=== PATIENT | female | born 1990 | race Two or more races ===

== ENCOUNTER → 2020-06-08 08:03 | Outpatient (BNVA) | payer OTHER, SELFPAY | PROVIDERS: PCP Internal Medicine; Visit Provider Anesthesiology | DX: G89.4 Chronic pain syndrome (principal); M47.816 Spondylosis without myelopathy or radiculopathy, lumbar region; Z79.891 Long term (current) use of opiate analgesic | CPT/HCPCS: 99213 ==

== ENCOUNTER 2020-06-10 17:19 | Outpatient (REF) | payer OTHER, SELFPAY ==
[2020-06-10 18:45] LABS: HCG Quantitative < 2 mIU/mL
== END 2020-06-10 17:20 | disposition home or self-care (01) ==
LOC: HO.LAB 17:19
PROVIDERS: PCP Internal Medicine; Visit Provider Internal Medicine
DX: N92.6 Irregular menstruation, unspecified (principal)
CPT/HCPCS: 84702

== ENCOUNTER 2021-04-24 16:43 | Outpatient (REF) | payer OTHER, SELFPAY ==
--- NOTE | ~2021-04-24 | MR_ITS ---
EXAMINATION: MR LUMBAR SPINE WITHOUT CONTRAST CLINICAL INFORMATION: Chronic pain syndrome. COMPARISON: None. TECHNIQUE: MRI of the lumbar spine was obtained using routine sequences without contrast. FINDINGS: There is a very mild posterior disc bulge and small subligamentous left paracentral disc extrusion at the L1-L2 level with mild impression upon the ventral thecal sac on the left side. The central canal and neural foramina are otherwise widely patent at this level. The L2-L3 and L3-L4 discs are well hydrated and normal in appearance. At the L4-L5 level, there is a mild broad-based posterior disc bulge and shallow central disc protrusion with slight caudal migration. Bulging disc contacts and mildly distorts the left L5 nerve root. No central canal stenosis. Mild foraminal narrowing. At the L5-S1 level, there is a small posterior annular fissure and minimal annular bulge without central canal stenosis or foraminal encroachment. The lower thoracic discs are normal. The distal cord, conus tip, and cauda equina nerve roots are normal. The marrow signal is normal. The paraspinal soft tissues are unremarkable. The imaged bony pelvis appears normal. MR/MR lumbar spine wo con IMPRESSION: Small left paracentral disc extrusion and mild disc bulge at the L1-L2 level. Shallow central disc protrusion at L4-L5 level with a mild, broad-based posterior disc bulge contacting and mildly distorting the left L5 nerve root. Mild foraminal narrowing. Very mild spondylitic changes at the L5-S1 level. No central canal stenosis or foraminal narrowing.
== END 2021-04-24 16:44 | disposition home or self-care (01) ==
LOC: HO.MRI 16:43
PROVIDERS: PCP Nurse Practitioner Family; Visit Provider Nurse Practitioner Family
DX: G89.4 Chronic pain syndrome (principal); M47.816 Spondylosis without myelopathy or radiculopathy, lumbar region
CPT/HCPCS: 72148

== ENCOUNTER 2021-07-04 07:17 | Emergency (ER) | payer OTHER, SELFPAY ==
--- NOTE | ~2021-07-04 | XR_ITS ---
EXAMINATION: XR CHEST CLINICAL INFORMATION: DKA COMPARISON: Chest radiographs 03/30/2019, 12/31/2016 TECHNIQUE: PA view of the chest was obtained. FINDINGS: The lungs are clear. The vascularity is normal. There is no airspace opacity or effusion. The costophrenic sulci are clear. The heart is normal in size. The hilar and mediastinal contours and bony structures are unremarkable. XR/XR chest 1V IMPRESSION: Unremarkable examination.
--- NOTE | 2021-07-04 07:20 | ECG_ITS ---
Test Reason : chest pain Blood Pressure : / mmHG Vent. Rate : 107 BPM Atrial Rate : 107 BPM P-R Int : 150 ms QRS Dur : 070 ms QT Int : 340 ms P-R-T Axes : 042 033 026 degrees QTc Int : 453 ms Sinus tachycardia Otherwise normal ECG When compared with ECG of 30-MAR-2019 17:47, No significant change was found Referred By: Generic ED Physician Electronically Signed By:LUZ MARIA EISENBERG MD
[2021-07-04 07:22] VITALS: BP 147/82; PULSE 107; RESP 16; TEMP 36.6; O2SAT 95; BMI 30.9
--- NOTE | 2021-07-04 07:57 | ED_ITS ---
HPI - General Adult General Chief complaint: General Medical Stated complaint: rapid heartbeat, multiple complaints Time Seen by Provider: 07/04/21 07:49 Source: patient Mode of arrival: ambulatory Limitations: no limitations History of Present Illness HPI narrative: 31-year-old female history of insulin-dependent diabetes controlled with insulin pump, patient for the last couple days been feeling symptoms of DKA polyuria, polydipsia, patient did decline any fever or chills, patient get recurrent abscesses that usually treated with antibiotic patient just finished a course of antibiotic for abscesses in her thigh area otherwise no source of infection. Patient had multiple EKGs in the past. Related Data Home Medications Medication Instructions Recorded Confirmed blood sugar diagnostic #10 ea 05/23/20 04/19/21 insulin lispro 100 unit/mL See Rx Instructions .ROUTE .COMPLEX 05/23/20 07/04/21 subcutaneous solution tizanidine 4 mg tablet 4 mg PO TID PRN 05/23/20 07/04/21 Previous Rx's Medication Instructions Recorded blood sugar diagnostic (FreeStyle #100 ea 06/13/21 Test) blood-glucose meter (FreeStyle #1 ea 06/13/21 System Kit) lancets (FreeStyle Unistik 2) #200 ea 06/13/21 cephalexin 750 mg capsule (Keflex) 750 mg PO BID 10 Days #20 cap 06/27/21 sulfamethoxazole 800 1 tab PO Q12H 10 Days #20 tab 06/27/21 mg-trimethoprim 160 mg tablet (Bactrim DS) Allergies Allergy/AdvReac Type Severity Reaction Status Date / Time No Known Allergies Allergy Verified 05/18/21 16:23 [No Known Allergies*] Review of Systems Review of Systems: All other systems are reviewed and are negative Constitutional: Reports as per HPI and Reports no additional constitutional complaints Eyes: Reports as per HPI and Reports no additional eye complaints Reports system reviewed and no additional complaints, except as documented Cardiovascular: Reports as per HPI and Reports no additional cardiovascular complaints Respiratory: Reports as per HPI and Reports no additional respiratory complaints Gastrointestinal: Reports as per HPI and Reports no additional gastrointestinal complaints Genitourinary: Reports no additional female genitourinary complaints Musculoskeletal: Reports no additional musculoskeletal complaints Skin/Breast: Reports system reviewed and no additional complaints, except as docu Psychiatric: Reports no additional psychiatric complaints Endocrine: Reports no additional endocrine complaints Hematologic/Lymphatic: Reports no additional hematologic/lymphatic complaints Allergic/Immunologic: Reports no additional allergic/immunologic complaints Reports system reviewed and no additional complaints, except as documented and Reports Abnormal speech present [facility] Past Medical History Medical History Chronic pain syndrome Chronic, continuous use of opioids Cysts Spondylosis of lumbar region without myelopathy or radiculopathy Type I diabetes mellitus Surgical History History of cystoscopy History of hernia repair Previous section Family History Family History Father Alive and well Mother Alive and well Sister Alive and well Social History Social History Alcohol intake: never Smoked in Last 30 Days: No Use of substances other than those prescribed or required for medical reasons: No Advance Directives: No Patient : No Physical Exam Vital Signs: Vital Signs: Last Vital Signs Temp 97.8 F 07/04/21 11:22 Pulse 79 07/04/21 11:22 Resp 16 07/04/21 11:22 BP 121/70 07/04/21 11:22 Pulse Ox 97 07/04/21 11:22 Body Mass Index 30.9 Vital signs have been reviewed as appeared to be correct. Blood pressure normal. Heart rate normal. Respiration rate normal. Temperature normal. Oxygen saturation normal. Appearance: Alert. Oriented X3. No acute distress. Head: Normal external exam. Normocephalic. Atraumatic. No Abdullahi signs noted. No raccoon eyes noted Eyes: PERRLA. EOMI. Conjunctiva and sclera normal. Eyelids normal. ENT: TM's Normal. Pharynx normal. Uvula midline. Moist mucous membranes. No trismus noted. No drooling noted. No muffled voice noted. Neck: Normal inspection. Neck supple. FROM. No adenopathy. Thyroid Normal. No meningeal signs. No neck mass noted. CVS: Normal heart rate and rhythm. Heart sound normal. No murmurs noted. Pulses normal throughout. Respiratory: No respiratory distress. Painless inspiration. Breath sounds normal. No wheezes/rales/rhonchi noted. Chest nontender. No accessory muscle usage noted or decreased air movement noted. Abdomen: Soft and nontender. Bowel sounds normal in all 4 quadrants. No distention noted. No organomegaly noted. No visible injury noted. Back: No CVA tenderness. Full range of motion noted. Skin: Skin warm and dry. Normal skin color. Normal skin turgor. No rashes/lesions/lacerations noted. Extremities: No lower extremity edema. Extremities exhibit normal range of motion. Extremities nontender. Neuro: Oriented X 3. Cranial nerve exam: II-XII are grossly intact No motor deficit. No sensory deficit. Reflexes normal. Course Course Course Narrative: Assessment and plan. 31-year-old female type 1 diabetes using insulin pump to control her diabetes came in with hyperglycemia but no DKA, no source of infection is appreciated, blood sugar was 739, with normal bicarb and anion gap, no acetone in the blood, patient received 2 L of normal saline and total of 10 units of insulin brought the glucose down in the 300, patient was asked to reconnect the insulin pump now blood glucose is 280. Patient was instructed to drink plenty of fluids, patient will be going home continue monitoring her diabetes at home. Medical Decision Making Medical Records Medical records reviewed: Yes I reviewed the patient's medical records. Lab Data Lab results reviewed: Yes I reviewed the patient's lab results. Result diagrams: 07/04/21 08:18 07/04/21 11:37 Labs: Lab Results 07/04/21 07/04/21 07/04/21 Range/Units 08:13 08:13 08:18 WBC 7.4 (4.8-10.8) X10*3/uL RBC 4.16 L (4.20-5.50) X10*6/uL Hgb 12.4 (12.0-16.0) g/dl Hct 37.2 (37.0-47.0) % MCV 89.4 (80.0-98.0) fL MCH 29.8 (27.0-33.0) pg MCHC 33.3 (31.0-35.0) g/dl RDW 12.3 (11.0-16.0) % Plt Count 313 (160-400) X10*3/uL MPV 10.6 (9.4-12.3) fL Immature Gran % (Auto) 0.7 H (0.0-0.4) % Neut % (Auto) 69.8 (45-73) % Lymph % (Auto) 21.1 (20-40) % [place] % (Auto) 7.8 (2-11) % Eos % (Auto) 0.3 (0-4) % Baso % (Auto) 0.3 (0-2) % Lymph # (Auto) 1.6 (1.2-4.9) X10*3/uL [place] # (Auto) 0.6 (0.1-1.2) X10*3/uL Eos # (Auto) 0.0 (0.0-0.4) X10*3/uL Baso # (Auto) 0.0 (0.0-0.2) X10*3/uL Abs Immat Gran (auto) 0.05 H (0.00-0.03) X10*3/uL Absolute Neuts (auto) 5.2 (2.0-8.3) x10*3/uL Absolute Nucleated RBC 0.000 (0.0-0.012) X10*3/uL Nucleated RBC % (auto) 0.0 (0.0-0.2) /100WBC Sodium (135-145) mmol/L Potassium (3.3-5.1) mmol/L Chloride (96-108) mmol/L Carbon Dioxide (22-29) mmol/L Anion Gap (12-20) BUN (9-16) mg/dL Creatinine (0.5-1.4) mg/dL Estim Creat Clear Calc Estimated GFR POC Glucose (60-115) mg/dL Random Glucose (60-115) mg/dL Calcium (8.4-10.2) mg/dL Phosphorus (2.7-4.5) mg/dL Magnesium (1.6-2.6) mg/dL Total Bilirubin (0.0-1.0) mg/dL Direct Bilirubin (0.0-0.5) mg/dL AST (5-31) U/L ALT (0-31) U/L Alkaline Phosphatase (39-117) U/L Total Protein (6.5-8.0) g/dL Albumin (3.5-5.0) g/dL Lipase (8-78) U/L Urine Color STRAW Urine Appearance CLEAR Urine pH 5.5 (5.0-8.0) Ur Specific [place] <= 1.005 (1.005-1.025) Urine Protein NEG (NEG-TRACE) MG/DL Urine Glucose (UA) >=1000 H (NEG) MG/DL Urine Ketones NEG (NEG) MG/DL Urine Blood NEG (NEG) Urine Nitrite NEG (NEG) Ur Leukocyte Esterase NEG (NEG) Urine RBC 0-2 (0) /HPF Urine WBC 0 (0-4) /HPF Ur Squamous Epith Cells TRACE /LPF Urine Bacteria NONE /LPF Urine Test NEGATIVE (NEGATIVE) Acetone, Qual (Negative) COVID-19 (ALEN) (Negative) COVID-19 Clin Com 07/04/21 07/04/21 07/04/21 Range/Units 08:18 08:18 08:18 WBC (4.8-10.8) X10*3/uL RBC (4.20-5.50) X10*6/uL Hgb (12.0-16.0) g/dl Hct (37.0-47.0) % MCV (80.0-98.0) fL MCH (27.0-33.0) pg MCHC (31.0-35.0) g/dl RDW (11.0-16.0) % Plt Count (160-400) X10*3/uL MPV (9.4-12.3) fL Immature Gran % (Auto) (0.0-0.4) % Neut % (Auto) (45-73) % Lymph % (Auto) (20-40) % [place] % (Auto) (2-11) % Eos % (Auto) (0-4) % Baso % (Auto) (0-2) % Lymph # (Auto) (1.2-4.9) X10*3/uL [place] # (Auto) (0.1-1.2) X10*3/uL Eos # (Auto) (0.0-0.4) X10*3/uL Baso # (Auto) (0.0-0.2) X10*3/uL Abs Immat Gran (auto) (0.00-0.03) X10*3/uL Absolute Neuts (auto) (2.0-8.3) x10*3/uL Absolute Nucleated RBC (0.0-0.012) X10*3/uL Nucleated RBC % (auto) (0.0-0.2) /100WBC Sodium 131 L (135-145) mmol/L Potassium 5.0 (3.3-5.1) mmol/L Chloride 99 (96-108) mmol/L Carbon Dioxide 22 (22-29) mmol/L Anion Gap 15 (12-20) BUN 11 (9-16) mg/dL Creatinine 1.26 (0.5-1.4) mg/dL Estim Creat Clear Calc 66.8 Estimated GFR 50 POC Glucose (60-115) mg/dL Random Glucose 739 H* (60-115) mg/dL Calcium 9.0 9.1 (8.4-10.2) mg/dL Phosphorus 3.7 (2.7-4.5) mg/dL Magnesium 2.0 (1.6-2.6) mg/dL Total Bilirubin 0.3 (0.0-1.0) mg/dL Direct Bilirubin 0.2 (0.0-0.5) mg/dL AST 13 (5-31) U/L ALT 24 (0-31) U/L Alkaline Phosphatase 154 H (39-117) U/L Total Protein 7.2 (6.5-8.0) g/dL Albumin 4.2 (3.5-5.0) g/dL Lipase 32 (8-78) U/L Urine Color Urine Appearance Urine pH (5.0-8.0) Ur Specific [place] (1.005-1.025) Urine Protein (NEG-TRACE) MG/DL Urine Glucose (UA) (NEG) MG/DL Urine Ketones (NEG) MG/DL Urine Blood (NEG) Urine Nitrite (NEG) Ur Leukocyte Esterase (NEG) Urine RBC (0) /HPF Urine WBC (0-4) /HPF Ur Squamous Epith Cells /LPF Urine Bacteria /LPF Urine Test (NEGATIVE) Acetone, Qual (Negative) COVID-19 (ALEN) Negative (Negative) COVID-19 Clin Com See Note 07/04/21 07/04/21 07/04/21 Range/Units 08:18 11:27 11:37 WBC (4.8-10.8) X10*3/uL RBC (4.20-5.50) X10*6/uL Hgb (12.0-16.0) g/dl Hct (37.0-47.0) % MCV (80.0-98.0) fL MCH (27.0-33.0) pg MCHC (31.0-35.0) g/dl RDW (11.0-16.0) % Plt Count (160-400) X10*3/uL MPV (9.4-12.3) fL Immature Gran % (Auto) (0.0-0.4) % Neut % (Auto) (45-73) % Lymph % (Auto) (20-40) % [place] % (Auto) (2-11) % Eos % (Auto) (0-4) % Baso % (Auto) (0-2) % Lymph # (Auto) (1.2-4.9) X10*3/uL [place] # (Auto) (0.1-1.2) X10*3/uL Eos # (Auto) (0.0-0.4) X10*3/uL Baso # (Auto) (0.0-0.2) X10*3/uL Abs Immat Gran (auto) (0.00-0.03) X10*3/uL Absolute Neuts (auto) (2.0-8.3) x10*3/uL Absolute Nucleated RBC (0.0-0.012) X10*3/uL Nucleated RBC % (auto) (0.0-0.2) /100WBC Sodium (135-145) mmol/L Potassium (3.3-5.1) mmol/L Chloride (96-108) mmol/L Carbon Dioxide (22-29) mmol/L Anion Gap (12-20) BUN (9-16) mg/dL Creatinine (0.5-1.4) mg/dL Estim Creat Clear Calc Estimated GFR POC Glucose 297 H (60-115) mg/dL Random Glucose 336 H D (60-115) mg/dL Calcium (8.4-10.2) mg/dL Phosphorus (2.7-4.5) mg/dL Magnesium (1.6-2.6) mg/dL Total Bilirubin (0.0-1.0) mg/dL Direct Bilirubin (0.0-0.5) mg/dL AST (5-31) U/L ALT (0-31) U/L Alkaline Phosphatase (39-117) U/L Total Protein (6.5-8.0) g/dL Albumin (3.5-5.0) g/dL Lipase (8-78) U/L Urine Color Urine Appearance Urine pH (5.0-8.0) Ur Specific [place] (1.005-1.025) Urine Protein (NEG-TRACE) MG/DL Urine Glucose (UA) (NEG) MG/DL Urine Ketones (NEG) MG/DL Urine Blood (NEG) Urine Nitrite (NEG) Ur Leukocyte Esterase (NEG) Urine RBC (0) /HPF Urine WBC (0-4) /HPF Ur Squamous Epith Cells /LPF Urine Bacteria /LPF Urine Test (NEGATIVE) Acetone, Qual Negative (Negative) COVID-19 (ALEN) (Negative) COVID-19 Clin Com 07/04/21 Range/Units 13:24 WBC (4.8-10.8) X10*3/uL RBC (4.20-5.50) X10*6/uL Hgb (12.0-16.0) g/dl Hct (37.0-47.0) % MCV (80.0-98.0) fL MCH (27.0-33.0) pg MCHC (31.0-35.0) g/dl RDW (11.0-16.0) % Plt Count (160-400) X10*3/uL MPV (9.4-12.3) fL Immature Gran % (Auto) (0.0-0.4) % Neut % (Auto) (45-73) % Lymph % (Auto) (20-40) % [place] % (Auto) (2-11) % Eos % (Auto) (0-4) % Baso % (Auto) (0-2) % Lymph # (Auto) (1.2-4.9) X10*3/uL [place] # (Auto) (0.1-1.2) X10*3/uL Eos # (Auto) (0.0-0.4) X10*3/uL Baso # (Auto) (0.0-0.2) X10*3/uL Abs Immat Gran (auto) (0.00-0.03) X10*3/uL Absolute Neuts (auto) (2.0-8.3) x10*3/uL Absolute Nucleated RBC (0.0-0.012) X10*3/uL Nucleated RBC % (auto) (0.0-0.2) /100WBC Sodium (135-145) mmol/L Potassium (3.3-5.1) mmol/L Chloride (96-108) mmol/L Carbon Dioxide (22-29) mmol/L Anion Gap (12-20) BUN (9-16) mg/dL Creatinine (0.5-1.4) mg/dL Estim Creat Clear Calc Estimated GFR POC Glucose 280 H (60-115) mg/dL Random Glucose (60-115) mg/dL Calcium (8.4-10.2) mg/dL Phosphorus (2.7-4.5) mg/dL Magnesium (1.6-2.6) mg/dL Total Bilirubin (0.0-1.0) mg/dL Direct Bilirubin (0.0-0.5) mg/dL AST (5-31) U/L ALT (0-31) U/L Alkaline Phosphatase (39-117) U/L Total Protein (6.5-8.0) g/dL Albumin (3.5-5.0) g/dL Lipase (8-78) U/L Urine Color Urine Appearance Urine pH (5.0-8.0) Ur Specific [place] (1.005-1.025) Urine Protein (NEG-TRACE) MG/DL Urine Glucose (UA) (NEG) MG/DL Urine Ketones (NEG) MG/DL Urine Blood (NEG) Urine Nitrite (NEG) Ur Leukocyte Esterase (NEG) Urine RBC (0) /HPF Urine WBC (0-4) /HPF Ur Squamous Epith Cells /LPF Urine Bacteria /LPF Urine Test (NEGATIVE) Acetone, Qual (Negative) COVID-19 (ALEN) (Negative) COVID-19 Clin Com Imaging Data Chest x-ray: Attestation: I personally reviewed and interpreted this imaging study as follows: Radiologist's impression: No acute intrathoracic pathology. Discharge Plan Discharge Clinical Impression: Acute hyperglycemia, Type I diabetes mellitus Patient Disposition: Home, Self-Care Instructions: Diabetic Hyperglycemia (ED) Prescriptions: No Action (DME) blood-glucose meter [FreeStyle System Kit] Kit See Rx Instructions .Route Qty: 1 RF: 0 (DME) lancets [FreeStyle Unistik 2] Misc See Rx Instructions .Route Qty: 200 RF: 0 (DME) FreeStyle Test Strip See Rx Instructions .Route Qty: 100 RF: 2 cephalexin [Keflex] 750 mg capsule 750 mg PO BID 10 Days Qty: 20 RF: 0 sulfamethoxazole-trimethoprim [Bactrim DS] 800-160 mg tablet 1 tab PO Q12H 10 Days Qty: 20 RF: 0 tizanidine 4 mg tablet 4 mg PO TID PRN (Reason: Muscle Spasm) RF: 0 insulin lispro 100 unit/mL solution See Rx Instructions .ROUTE .COMPLEX RF: 0 (DME) FreeStyle Lite Strips Strip See Rx Instructions strip .ROUTE .MEDSUPPLY Qty: 10 RF: 0 Referrals: Ryan Sam, [employer] [Primary Care Provider] - 2 days Stand Alone Forms: Work/School Release
[2021-07-04] MEDS: 0.9 % Sodium Chloride 1,000 ML 999 ML IVCONT ×2 (08:21→10:37)
[2021-07-04 08:24] LABS: MANUAL DIFF FLAG NO
--- NOTE | 2021-07-04 08:26 | PHA.MEDREC ---
Pharmacy Consult ? Medication Reconciliation Pharmacy has completed the medication reconciliation. There are no remarkable issues for provider's attention. Madelyn Fall, CristinoD
[2021-07-04 08:29] LABS: Basophils Percent Auto 0.3 % (0-2); Eosinophils Percent Auto 0.3 % (0-4); Hematocrit 37.2 % (37.0-47.0); Hemoglobin 12.4 g/dl (12.0-16.0); Imm Gran Abs Auto 0.05 X10*3/uL (0.00-0.03); Imm Gran Pct Auto 0.7 % (0.0-0.4); Lymphocytes Absolute Auto 1.6 X10*3/uL (1.2-4.9); Lymphocytes Percent Auto 21.1 % (20-40); Mean Corpuscular HGB Conc 33.3 g/dl (31.0-35.0); Mean Corpuscular Hemoglobin 29.8 pg (27.0-33.0); Mean Corpuscular Volume 89.4 fL (80.0-98.0); Mean Platelet Volume 10.6 fL (9.4-12.3); Monocytes Absolute Auto 0.6 X10*3/uL (0.1-1.2); Monocytes Percent Auto 7.8 % (2-11); Neutrophils Absolute Auto 5.2 x10*3/uL (2.0-8.3); Neutrophils Percent Auto 69.8 % (45-73); Platelet Count 313 X10*3/uL (160-400); Red Blood Count 4.16 X10*6/uL (4.20-5.50); Red Cell Distribution Width 12.3 % (11.0-16.0); White Blood Count 7.4 X10*3/uL (4.8-10.8)
[2021-07-04 08:30] LABS: Appearance Urine CLEAR; Color Urine STRAW; Glucose Urine UA >=1000 MG/DL (NEG); Leukocyte Esterase Urine NEG (NEG); Nitrite Urine NEG (NEG); PH 5.5 (5.0-8.0); Specific Gravity - Urine <= 1.005 (1.005-1.025); Urine Blood NEG (NEG); Urine Ketones NEG (NEG); Urine Protein NEG (NEG-TRACE)
[2021-07-04 08:32] LABS: UPreg QC Valid YES; Urine Pregnancy NEGATIVE (NEGATIVE)
[2021-07-04 08:37] LABS: RBC Urine 0-2 /HPF (0); Squamous Epithelial Cell Urine TRACE /LPF; WBC Urine 0 /HPF (0-4)
[2021-07-04 08:39] LABS: Acetone, serum QL Negative (Negative)
[2021-07-04 08:50] LABS: Calcium 9.1 mg/dL (8.4-10.2); Phosphorus 3.7 mg/dL (2.7-4.5)
[2021-07-04 08:51] LABS: COVID-19 Test Negative (Negative)
[2021-07-04 08:59] LABS: Alanine Aminotransferase 24 U/L (0-31); Albumin Level 4.2 g/dL (3.5-5.0); Alkaline Phosphatase 154 U/L (39-117); Anion Gap 15 (12-20); Aspartate Amino Transferase 13 U/L (5-31); Bilirubin Direct 0.2 mg/dL (0.0-0.5); Bilirubin Total 0.3 mg/dL (0.0-1.0); Blood Urea Nitrogen 11 mg/dL (9-16); Carbon Dioxide 22 mmol/L (22-29); Chloride 99 mmol/L (96-108); Creatinine Clr Calc Pharmacy 66.8; Estimated Glomerular Filt Rate 50; Lipase 32 U/L (8-78); Sodium 131 mmol/L (135-145); Total Protein 7.2 g/dL (6.5-8.0)
[2021-07-04 09:49] LABS: Glucose Random 739 mg/dL (60-115)
[2021-07-04] MEDS: Acetaminophen 325 MG TABLET 650 MG PO (10:35)
[2021-07-04] MEDS: Insulin Regular, Human 100 UNIT/ML 3 ML VIAL 10 UNIT IVPUSH (10:36)
[2021-07-04 11:22] VITALS: BP 121/70; PULSE 79; RESP 16; TEMP 36.6; O2SAT 97
[2021-07-04 11:31] LABS: Glucose, Whole Blood 297 mg/dL (60-115)
--- NOTE | 2021-07-04 12:03 | PC.NURSE ---
md aware of drop in poc
[2021-07-04 12:12] LABS: Glucose Random 336 mg/dL (60-115)
[2021-07-04 13:27] LABS: Glucose, Whole Blood 280 mg/dL (60-115)
== END 2021-07-04 13:45 | disposition home or self-care (01) ==
PROVIDERS: Emergency Provider Emergency Medicine; PCP Nurse Practitioner Family
DX: E10.65 Type 1 diabetes mellitus with hyperglycemia (principal); Z79.899 Other long term (current) drug therapy; Z96.41 Presence of insulin pump (external) (internal); Z79.4 Long term (current) use of insulin; Z20.822 Contact with and (suspected) exposure to COVID-19
CPT/HCPCS: 36415; 71045; 80048; 80076; 81001; 81025; 82009; 82310; 82947; 83690; 83735; 84100; 85025; 87635; 93005; 96361; 96374; 99284; 99285

== ENCOUNTER 2021-12-06 07:56 | Outpatient (REF) | payer OTHER, SELFPAY ==
[2021-12-06 09:17] LABS: HCG Quantitative 741 mIU/mL
== END 2021-12-06 07:57 | disposition home or self-care (01) ==
LOC: HO.LAB 07:56
PROVIDERS: PCP Nurse Practitioner Family; Visit Provider Nurse Practitioner Family
DX: N92.6 Irregular menstruation, unspecified (principal)
CPT/HCPCS: 36415; 84702

== ENCOUNTER 2021-12-09 10:25 | Emergency (ER) | payer OTHER, SELFPAY ==
--- NOTE | ~2021-12-09 | US_ITS ---
EXAMINATION: US OBSTETRICAL ULTRASOUND US PELVIC OVARIAN DOPPLER CLINICAL INFORMATION: 31-year-old female with history of ectopic and tubal ligation reversal. Right-sided pelvic pain. Newly . Beta hCG level of 2,560. LMP of 11/05/2021. Gestational age based on LMP is 4 weeks, 6 days. COMPARISON: 08/03/2017.. TECHNIQUE: Sonographic imaging of the pelvis is performed using transabdominal and transvaginal transducers. Duplex Doppler imaging with spectral waveform analysis of ovaries is performed. FINDINGS: The uterus and ovaries are poorly visualized on the transabdominal images. Transvaginal imaging is performed. The anteflexed, anteverted uterus measures 10.3 x 5.3 x 6.5 cm (cervix to fundus x AP x transverse). Myometrial echotexture is normal. No evidence of leiomyoma. Within the endometrium, there is a small gestational sac, mean diameter of 0.55 cm, corresponding to estimated gestational age of 5 weeks, 1 day. Currently, no pole or yolk sac is detected. Note that a yolk sac might not be visible until the gestational sac has reached at least 1 cm diameter on transvaginal imaging. The right ovary is 4.4 x 1.9 x 2.2 cm, volume of 9.6 mL. A 2.2 cm echogenic structure without internal Doppler flow within the right ovary is compatible with either a corpus luteum or hemorrhagic follicle/cyst. 1.5 cm simple paraovarian cyst is noted medial to the right ovary. Color Doppler images with spectral waveforms show presence of normal arterial and venous flow within the right ovary. The left ovary measures 2.8 x 2 x 2.1 cm, volume of 6.2 mL. Normal-sized follicles are present within the ovary. Color Doppler images with spectral waveforms show presence of normal arterial and venous flow of the ovary. Small amount of simple appearing free fluid is present in the pelvis. US/US OB pelvic and transvaginal IMPRESSION: * A small gestational sac is detected within the endometrium. Currently, there is no visible yolk sac or pole. This likely represents early presentation of a likely normal . Consider pelvic ultrasound follow-up in the next 1-2 weeks to determine whether there is appropriate evolution of . * There is a 2.2 cm corpus luteum or hemorrhagic follicle of the right ovary. The possibility of recent right ovarian follicle rupture is considered, given the history of right-sided pelvic pain. No ovarian torsion. * Small amount of simple appearing free fluid is present in the pelvis.
[2021-12-09 10:29] VITALS: BP 129/69; PULSE 95; RESP 18; TEMP 36.9; O2SAT 98; BMI 30.9
--- NOTE | 2021-12-09 10:50 | ED.FEMALEGU ---
HPI - Female Genitourinary General Chief complaint: Urogenital-Female Stated complaint: cramping Time Seen by Provider: 12/09/21 10:41 Source: patient Mode of arrival: ambulatory Limitations: no limitations History of Present Illness HPI Narrative: 31-year-old female presents with severe pelvic cramping that woke her from sleep last night. LMP 11/07/21, which was her normal 6 day period. No bleeding. Patient is an insulin dependent diabetic and is followed by [facility] plant quality manager because she is high risk. Patient states that her pelvic pain is not as bad now and she mostly feels it when she walks. The cramping is worse when she walks. She is nauseous. Patient had a positive urine test December 05 at home. Her hCG December 06, 3 days ago was 741. Patient had an ectopic the 1st time she was in 2014. She has subsequently had 2 live births by at [facility], her children are 4 years old and 5 years old. In addition, in September 2021, patient had a bilateral fallopian tube ligation reversal in [place]. No vomiting or diarrhea, no fevers. No STD concerns. No dysuria, urinary frequency or urgency. Related Data Home Medications Medication Instructions Recorded Confirmed blood sugar diagnostic #10 ea 05/23/20 04/19/21 insulin lispro 100 unit/mL See Rx Instructions .ROUTE .COMPLEX 05/23/20 07/04/21 subcutaneous solution tizanidine 4 mg tablet 4 mg PO TID PRN 05/23/20 07/04/21 Previous Rx's Medication Instructions Recorded blood sugar diagnostic (FreeStyle #100 ea 06/13/21 Test) blood-glucose meter (FreeStyle #1 ea 06/13/21 System Kit) lancets (FreeStyle Unistik 2) #200 ea 06/13/21 cephalexin 750 mg capsule (Keflex) 750 mg PO BID 10 Days #20 cap 06/27/21 sulfamethoxazole 800 1 tab PO Q12H 10 Days #20 tab 06/27/21 mg-trimethoprim 160 mg tablet (Bactrim DS) fluconazole 150 mg tablet 150 mg PO Q3D #2 tab 07/12/21 (Diflucan) chlorhexidine gluconate 4 % 1 appl TOPICAL Q5M #118 ml 08/31/21 topical liquid (Hibiclens) cefpodoxime 100 mg tablet 100 mg PO BID 7 Days #14 tab 12/09/21 Allergies Allergy/AdvReac Type Severity Reaction Status Date / Time No Known Allergies Allergy Verified 12/09/21 10:32 [No Known Allergies*] Review of Systems Constitutional: Constitutional: Denies body ache(s), Denies chills, Denies fatigue, Denies fever(s), Denies headache(s), Denies malaise and Denies weakness Eyes: Eyes: Denies diplopia ENT: Denies vertigo, Denies dizziness, Denies otalgia, Denies headache(s), Denies post nasal drip, Denies sinus pain and Denies sore throat Cardiovascular: Cardiovascular: Denies chest pain, Denies syncope, Denies leg edema, Denies lightheadedness, Denies Loss of Consciousness, Denies palpitations and Denies dyspnea Respiratory: Respiratory: Denies chest congestion, Denies cough and Denies dyspnea Gastrointestinal: Gastrointestinal: Denies abdominal pain, Denies hematochezia, Denies constipation, Denies diarrhea and Denies vomiting Genitourinary: Genitourinary: Denies abnormal vaginal bleeding, Denies hematuria, Denies dysuria, Reports pelvic pain, Denies flank pain, Denies urinary incontinence, Denies urinary hesitancy, Denies urinary urgency, Denies vaginal discharge and Denies vaginal odor Musculoskeletal: Musculoskeletal: Reports no additional musculoskeletal complaints Neurologic: Denies confusion, Denies vertigo, Denies dizziness, Denies syncope, Denies headache(s) and Denies weakness Psychiatric: Psychiatric: Denies anxiety, Denies confusion and Denies depression Endocrine: Endocrine: Denies fatigue and Denies palpitations [facility] Past Medical History Medical History Chronic pain syndrome Chronic, continuous use of opioids Cysts Hidradenitis suppurativa Spondylosis of lumbar region without myelopathy or radiculopathy Type I diabetes mellitus Surgical History History of cystoscopy History of hernia repair Previous section Family History Family History Father Alive and well Mother Alive and well Sister Alive and well Social History Social History Alcohol intake: never Advance Directives: Yes Advance Directives Information Provided: Yes Advance Directives on File: No Patient : Yes Physical Exam Vital Signs: Vital Signs: Last Vital Signs Temp 98.5 F 12/09/21 10:29 Pulse 89 12/09/21 11:07 Resp 14 12/09/21 11:07 BP 129/48 L 12/09/21 11:07 Pulse Ox 95 12/09/21 11:07 BMI result Body Mass Index 30.9 Const: General: No confusion Nutritional Appearance: well nourished Orientation/consciousness: No confusion Limitations: no limitations Eyes: Conjunctivae: conjunctivae normal Pupils: Equal, round and reactive pupils present EOM: EOMs intact bilaterally Neck: Neck: Yes full ROM, Yes no lymphadenopathy and Yes supple Resp: Effort & Inspection: normal respiratory effort and able to speak in complete sentences Auscultation: clear to auscultation bilaterally, no crackles, no rales, no rhonchi and no wheezes Cardio: Rate: regular rate Rhythm: regular rhythm Heart sounds: S1 normal heart sound present and S2 normal heart sound present GI: Inspection: Yes normal to inspection Palpation (GI): Soft to palpation, nontender, no guarding and not rigid Percussion: Yes normal to percussion Auscultation: normal bowel sounds : General: Yes no CVA tenderness External Female Exam: other (multiple non-erythematous skin cysts) Speculum Exam - Vagina: normal appearance of the vagina, normal palpation, normal vaginal discharge, no lesions and No vaginal bleeding Speculum Exam - Cervix: normal appearance of the cervix, normal palpation and Cervical os closed Bimanual exam- vagina & uterus: normal bimanual exam, normal palpation and normal palpation Bimanual Exam- Adnexa, other: normal adnexae OB/external & speculum: No vaginal bleeding Back/Spine/Pelvis: Back: no CVA tenderness Skin: General skin exam: no rashes or lesions noted Neuro: General: No confusion Cranial nerves: Yes Equal, round and reactive pupils present Extrem: General: Yes normal to inspection and Yes full ROM Psych: Appearance: grossly normal Affect: normal affect Attitude: cooperative Thought process: Normal thought process present Course Course Course Narrative: 31-year-old female presents with sudden severe pelvic pain that is now resolving that woke her from sleep this morning. Patient is , last menstrual period November 05. History of ectopic and tubal ligation reversal. On exam, patient has normal speculum exam, os is closed, no bleeding, normal vaginal discharge. No adnexal tenderness or cervical motion tenderness on bimanual exam. Patient's HCG is 2560 today, having risen from 4713 days ago. Blood sugar is 138. And has positive nitrates with white blood cells. Ultrasound shows a gestational sac and endometrium, possible right-sided ruptured ovarian cyst, normal Doppler blood flow bilaterally. Spoke to Dr. Funk , he stated it is still possible for patient to have ectopic , ultrasound findings could represent a pseudo sac. He counseled she should have a repeat hCG in 48 hours with a repeat ultrasound, to confirm her hCG is rising appropriately. In addition, he stated patient's blood sugar being 138 and not postprandial, patient should follow-up to adjust her insulin pump with [facility]. Blood glucose should be less than 120 if she has not been eating. We discussed treating for UTI, he suggested waiting for urine culture to treat I am concerned this patient is high risk, insulin-dependent diabetic, I will treat her UTI and a urine culture comes back and does not warrant treatment, we will stop her antibiotics. Counseled patient that it is still possible that she has an ectopic , that she must have repeat hCG and ultrasound in 48 hours, if she cannot get this at [facility], she must return to the emergency room here on Saturday. Counseled her also to talk with them about adjusting her insulin pump, discussed treating her UTI. Gave strict return precautions for any abdominal pain, pelvic pain, or vaginal bleeding, patient was return to emergency room immediately. Patient verbalized agreement understanding of this plan. US/US OB pelvic and transvaginal IMPRESSION: *? A small gestational sac is detected within the endometrium. Currently, there is no visible yolk sac or pole. This likely represents early presentation of a likely normal . Consider pelvic ultrasound follow-up in the next 1-2 weeks to determine whether there is appropriate evolution of . *? There is a 2.2 cm corpus luteum or hemorrhagic follicle of the right ovary. The possibility of recent right ovarian follicle rupture is considered, given the history of right-sided pelvic pain. No ovarian torsion. *? Small amount of simple appearing free fluid is present in the pelvis. MDM - Female Genitourinary Lab Data Result diagrams: 12/09/21 10:58 12/09/21 10:58 Labs: Lab Results 12/09/21 12/09/21 12/09/21 Range/Units 10:58 10:58 10:58 WBC 7.8 (4.8-10.8) X10*3/uL RBC 4.26 (4.20-5.50) X10*6/uL Hgb 12.4 (12.0-16.0) g/dl Hct 37.5 (37.0-47.0) % MCV 88.0 (80.0-98.0) fL MCH 29.1 (27.0-33.0) pg MCHC 33.1 (31.0-35.0) g/dl RDW 13.4 (11.0-16.0) % Plt Count 342 (160-400) X10*3/uL MPV 10.2 (9.4-12.3) fL Immature Gran % (Auto) 0.6 H (0.0-0.4) % Neut % (Auto) 59.5 (45-73) % Lymph % (Auto) 29.2 (20-40) % Treasure % (Auto) 8.9 (2-11) % Eos % (Auto) 1.4 (0-4) % Baso % (Auto) 0.4 (0-2) % Lymph # (Auto) 2.3 (1.2-4.9) X10*3/uL Treasure # (Auto) 0.7 (0.1-1.2) X10*3/uL Eos # (Auto) 0.1 (0.0-0.4) X10*3/uL Baso # (Auto) 0.0 (0.0-0.2) X10*3/uL Abs Immat Gran (auto) 0.05 H (0.00-0.03) X10*3/uL Absolute Neuts (auto) 4.7 (2.0-8.3) x10*3/uL Absolute Nucleated RBC 0.000 (0.0-0.012) X10*3/uL Nucleated RBC % (auto) 0.0 (0.0-0.2) /100WBC Sodium 138 (135-145) mmol/L Potassium 3.9 D (3.3-5.1) mmol/L Chloride 107 (96-108) mmol/L Carbon Dioxide 23 (22-29) mmol/L Anion Gap 12 (12-20) BUN 7 L (9-16) mg/dL Creatinine 0.77 (0.5-1.4) mg/dL Estim Creat Clear Calc 109.4 Estimated GFR > 60 Random Glucose 138 H (60-115) mg/dL Calcium 9.5 (8.4-10.2) mg/dL Magnesium 1.8 (1.6-2.6) mg/dL Total Bilirubin 0.6 (0.0-1.0) mg/dL Direct Bilirubin 0.2 (0.0-0.5) mg/dL AST 19 D (5-31) U/L ALT 20 (0-31) U/L Alkaline Phosphatase 91 D (39-117) U/L Total Protein 6.8 (6.5-8.0) g/dL Albumin 3.9 (3.5-5.0) g/dL Lipase 22 (8-78) U/L Beta HCG, Quant 2560 mIU/mL Urine Color Urine Appearance Urine pH (5.0-8.0) Ur Specific Max (1.005-1.025) Urine Protein (NEG-TRACE) MG/DL Urine Glucose (UA) (NEG) MG/DL Urine Ketones (NEG) MG/DL Urine Blood (NEG) Urine Nitrite (NEG) Ur Leukocyte Esterase (NEG) Urine RBC (0) /HPF Urine WBC (0-4) /HPF Ur Squamous Epith Cells /LPF Urine Bacteria /LPF Blood Type O Negative 12/09/21 Range/Units 11:57 WBC (4.8-10.8) X10*3/uL RBC (4.20-5.50) X10*6/uL Hgb (12.0-16.0) g/dl Hct (37.0-47.0) % MCV (80.0-98.0) fL MCH (27.0-33.0) pg MCHC (31.0-35.0) g/dl RDW (11.0-16.0) % Plt Count (160-400) X10*3/uL MPV (9.4-12.3) fL Immature Gran % (Auto) (0.0-0.4) % Neut % (Auto) (45-73) % Lymph % (Auto) (20-40) % Treasure % (Auto) (2-11) % Eos % (Auto) (0-4) % Baso % (Auto) (0-2) % Lymph # (Auto) (1.2-4.9) X10*3/uL Treasure # (Auto) (0.1-1.2) X10*3/uL Eos # (Auto) (0.0-0.4) X10*3/uL Baso # (Auto) (0.0-0.2) X10*3/uL Abs Immat Gran (auto) (0.00-0.03) X10*3/uL Absolute Neuts (auto) (2.0-8.3) x10*3/uL Absolute Nucleated RBC (0.0-0.012) X10*3/uL Nucleated RBC % (auto) (0.0-0.2) /100WBC Sodium (135-145) mmol/L Potassium (3.3-5.1) mmol/L Chloride (96-108) mmol/L Carbon Dioxide (22-29) mmol/L Anion Gap (12-20) BUN (9-16) mg/dL Creatinine (0.5-1.4) mg/dL Estim Creat Clear Calc Estimated GFR Random Glucose (60-115) mg/dL Calcium (8.4-10.2) mg/dL Magnesium (1.6-2.6) mg/dL Total Bilirubin (0.0-1.0) mg/dL Direct Bilirubin (0.0-0.5) mg/dL AST (5-31) U/L ALT (0-31) U/L Alkaline Phosphatase (39-117) U/L Total Protein (6.5-8.0) g/dL Albumin (3.5-5.0) g/dL Lipase (8-78) U/L Beta HCG, Quant mIU/mL Urine Color YELLOW Urine Appearance CLEAR Urine pH 6.0 (5.0-8.0) Ur Specific Max 1.025 (1.005-1.025) Urine Protein NEG (NEG-TRACE) MG/DL Urine Glucose (UA) NEG (NEG) MG/DL Urine Ketones 40 (NEG) MG/DL Urine Blood NEG (NEG) Urine Nitrite POS H (NEG) Ur Leukocyte Esterase NEG (NEG) Urine RBC 1-4 (0) /HPF Urine WBC 5-9 H (0-4) /HPF Ur Squamous Epith Cells 1+ /LPF Urine Bacteria 1+ /LPF Blood Type Discharge Plan Discharge Clinical Impression: Pelvic pain during , Urinary tract infection during Patient Disposition: Home, Self-Care Instructions: Urinary Tract Infection in (ED), Pelvic Pain (ED) Additional Instructions: YOU MUST RETURN TO THE EMERGENCY ROOM OR YOUR [facility] OBGYN ON SaturdayDECEMBER 11, TO GET REPEAT HCG AND REPEAT ULTRASOUND IF YOU HAVE WORSENING PELVIC PAIN, VAGINAL BLEEDING, ABDOMINAL PAIN, VOMITING, RETURN IMMEDIATELY TO THE ER Please take vitamins that you have at home Please fill your prescription for antibiotic as prescribed starting today. We are treating a urinary tract infection Please call [facility] OBGYN, tell them you are in the emergency room today. Please call them today. Please tell them about your pelvic pain, and please discuss adjusting her insulin pump, your blood sugar is higher than it should be in today. Please return to emergency room for any new or concerning symptoms Prescriptions: New cefpodoxime 100 mg tablet 100 mg PO BID 7 Days Qty: 14 0RF Rx Instructions: must administer with a meal/food No Action (DME) blood-glucose meter [FreeStyle System Kit] Kit See Rx Instructions .Route Qty: 1 0RF Rx Instructions: 4 times a day testing (DME) lancets [FreeStyle Unistik 2] Misc See Rx Instructions .Route Qty: 200 0RF Rx Instructions: 4 times a day (DME) FreeStyle Test Strip See Rx Instructions .Route Qty: 100 2RF Rx Instructions: 4 times a day testing cephalexin [Keflex] 750 mg capsule 750 mg PO BID 10 Days Qty: 20 0RF sulfamethoxazole-trimethoprim [Bactrim DS] 800-160 mg tablet 1 tab PO Q12H 10 Days Qty: 20 0RF fluconazole [Diflucan] 150 mg tablet 150 mg PO Q3D Qty: 2 0RF chlorhexidine gluconate [Hibiclens] 4 % liquid 1 appl topical Q5M Qty: 118 0RF tizanidine 4 mg tablet 4 mg PO TID PRN (Reason: Muscle Spasm) 0RF insulin lispro 100 unit/mL solution See Rx Instructions .ROUTE .COMPLEX 0RF Rx Instructions: infuse up to 110 units via pump (DME) FreeStyle Lite Strips Strip See Rx Instructions strip .ROUTE .MEDSUPPLY Qty: 10 0RF Rx Instructions: As directed
[2021-12-09 11:04] LABS: MANUAL DIFF FLAG NO
[2021-12-09 11:07] VITALS: BP 129/48; PULSE 89; RESP 14; O2SAT 95
[2021-12-09 11:12] LABS: Basophils Percent Auto 0.4 % (0-2); Eosinophils Absolute Auto 0.1 X10*3/uL (0.0-0.4); Eosinophils Percent Auto 1.4 % (0-4); Hematocrit 37.5 % (37.0-47.0); Hemoglobin 12.4 g/dl (12.0-16.0); Imm Gran Abs Auto 0.05 X10*3/uL (0.00-0.03); Imm Gran Pct Auto 0.6 % (0.0-0.4); Lymphocytes Absolute Auto 2.3 X10*3/uL (1.2-4.9); Lymphocytes Percent Auto 29.2 % (20-40); Mean Corpuscular HGB Conc 33.1 g/dl (31.0-35.0); Mean Corpuscular Hemoglobin 29.1 pg (27.0-33.0); Mean Platelet Volume 10.2 fL (9.4-12.3); Monocytes Absolute Auto 0.7 X10*3/uL (0.1-1.2); Monocytes Percent Auto 8.9 % (2-11); Neutrophils Absolute Auto 4.7 x10*3/uL (2.0-8.3); Neutrophils Percent Auto 59.5 % (45-73); Platelet Count 342 X10*3/uL (160-400); Red Blood Count 4.26 X10*6/uL (4.20-5.50); Red Cell Distribution Width 13.4 % (11.0-16.0); White Blood Count 7.8 X10*3/uL (4.8-10.8)
[2021-12-09 11:29] LABS: Alanine Aminotransferase 20 U/L (0-31); Albumin Level 3.9 g/dL (3.5-5.0); Alkaline Phosphatase 91 U/L (39-117); Anion Gap 12 (12-20); Aspartate Amino Transferase 19 U/L (5-31); Bilirubin Direct 0.2 mg/dL (0.0-0.5); Bilirubin Total 0.6 mg/dL (0.0-1.0); Blood Urea Nitrogen 7 mg/dL (9-16); Calcium 9.5 mg/dL (8.4-10.2); Carbon Dioxide 23 mmol/L (22-29); Chloride 107 mmol/L (96-108); Creatinine Clr Calc Pharmacy 109.4; Estimated Glomerular Filt Rate > 60; Glucose Random 138 mg/dL (60-115); Lipase 22 U/L (8-78); Magnesium 1.8 mg/dL (1.6-2.6); Potassium 3.9 mmol/L (3.3-5.1); Sodium 138 mmol/L (135-145); Total Protein 6.8 g/dL (6.5-8.0)
[2021-12-09 11:36] LABS: HCG Quantitative 2560 mIU/mL
[2021-12-09] MEDS: Ondansetron ODT 4 MG TAB.RAPDIS TRANSLINGU (11:59)
[2021-12-09] MEDS: Acetaminophen 325 MG TABLET 650 MG PO (11:59)
[2021-12-09 12:02] LABS: Appearance Urine CLEAR; Color Urine YELLOW; Glucose Urine UA NEG (NEG); Leukocyte Esterase Urine NEG (NEG); Nitrite Urine POS (NEG); Specific Gravity - Urine 1.025 (1.005-1.025); UACC Culture Trigger YES; Urine Blood NEG (NEG); Urine Ketones 40 MG/DL (NEG); Urine Protein NEG (NEG-TRACE)
[2021-12-09 12:27] LABS: Bacteria Urine 1+ /LPF; Squamous Epithelial Cell Urine 1+ /LPF
--- NOTE | 2021-12-09 13:17 | PM.OBCN ---
OB Consult Note - [facility] Data Service Date: 12/09/21 Primary Care [facility] Narrative I was consulted by MICHAEL Tam, on Francie Colon who is a 31 year old female , LMP 11/07/21 making her by today at 4 weeks and 2 days of gestation presenting to the emergency room with pelvic cramping that woke her from sleep last night, no vaginal bleeding. The patient is an insulin dependent diabetic on insulin pump and is followed by [facility] business development recruiter because of her high risk status. But by the time the patient presented emergency room her pelvic pain has improved markedly and she mostly feels it when she walks, it is associated with mild nausea, no vomiting. No diarrhea, no dysuria, urinary frequency or urgency, no fevers or chills Patient had a positive urine test December 05 at home.? Her hCG December 06, 3 days ago was 741. Physical exam showes: stable vital signs and afebrile, abdominal exam is benign with no evidence of any tenderness rebound or guarding per MICHAEL Tam The patient had a previous ectopic in 2014.? She has subsequently had 2 live births by at [facility], her children are 4 years old and 5 years old. In addition, in September 2021, patient had a bilateral fallopian tube ligation reversal in [place]. The following workup was done emergency room: CBC within normal, no evidence of leukocytosis, blood sugar 138 (the patient is unsure when the patient had her last meal), UA is positive for nitrites and 3-5 WBCs, leukocyte esterase negative, 1+ bacteria. Pelvic ultrasound showed the following: A small gestational sac is detected within the endometrium. Currently, there is no visible yolk sac or pole. This likely represents early presentation of a likely normal . Consider pelvic ultrasound follow-up in the next 1-2 weeks to determine whether there is appropriate evolution of . *? There is a 2.2 cm corpus luteum or hemorrhagic follicle of the right ovary. The possibility of recent right ovarian follicle rupture is considered, given the history of right-sided pelvic pain. No ovarian torsion. *? Small amount of simple appearing free fluid is present in the pelvis. OB [facility] Past Medical History Medical History Chronic pain syndrome Chronic, continuous use of opioids Cysts Hidradenitis suppurativa Spondylosis of lumbar region without myelopathy or radiculopathy Type I diabetes mellitus Family History Family History Father Alive and well Mother Alive and well Sister Alive and well Surgical History Surgical History History of cystoscopy History of hernia repair Previous section Social History Social History Housing: Condominium Alcohol intake: never Patient Tobacco Use Status: Never used Tobacco Current occupational status: employed Cognitive needs: No Hearing needs: No Vision needs: No Meds Allergies Allergy/AdvReac Type Severity Reaction Status Date / Time No Known Allergies Allergy Verified 12/13/21 09:01 [No Known Allergies*] Home Medications Medication Instructions Recorded Confirmed Last Taken Type blood sugar diagnostic #10 ea 05/23/20 12/13/21 Unknown History insulin lispro 100 unit/mL See Rx Instructions .ROUTE .COMPLEX 05/23/20 12/13/21 07/03/21 History subcutaneous solution OB Consult Results Labs CBC & Chem 7: 12/09/21 10:58 12/09/21 10:58 Labs: Short CBC 12/09/21 Range/Units 10:58 WBC 7.8 (4.8-10.8) X10*3/uL Hgb 12.4 (12.0-16.0) g/dl Hct 37.5 (37.0-47.0) % Plt Count 342 (160-400) X10*3/uL BMP 12/09/21 10:58 Sodium 138 Potassium 3.9 D Chloride 107 Carbon Dioxide 23 BUN 7 L Creatinine 0.77 Calcium 9.5 Liver Function 12/09/21 Range/Units 10:58 Total Bilirubin 0.6 (0.0-1.0) mg/dL Direct Bilirubin 0.2 (0.0-0.5) mg/dL AST 19 D (5-31) U/L ALT 20 (0-31) U/L Alkaline Phosphatase 91 D (39-117) U/L Albumin 3.9 (3.5-5.0) g/dL Urine 12/09/21 Range/Units 11:57 Urine Color YELLOW Urine Appearance CLEAR Urine pH 6.0 (5.0-8.0) Ur Specific Elbert 1.025 (1.005-1.025) Urine Protein NEG (NEG-TRACE) MG/DL Urine Glucose (UA) NEG (NEG) MG/DL OB - CN: A/P Assessment and Plan (1) Early stage of : Status: Acute Plan Recommended to MICHAEL Tam PA the followin-UA positive for bacteria nitrites and wbc's, since the patient is and independent diabetics will treat with Macrobid 100 mg p.o. b.i.d. for 5 days pending urine culture, instructions to be given to patient to call in case of fever, flank pain, nausea and/or vomiting 2-ultrasound showed likely intrauterine gestational sac with no evidence of embryo and/or yolk sac or pole; given the patient history of ectopic and reversal of tubal ligation, the recurrence risk of ectopic is elevated, the patient needs to follow-up with her OBGYN with repeat hCG quantitative and ultrasound in 48 hours because of the possibility of pseudo gestational sac identified on ultrasound that early in . Ectopic/SAB warnings to be given to patient, she is to come back to the emergency room in case of pelvic pain, nausea and or vomiting or vaginal bleeding. Possibility of ovarian rupture can explain the fluid in the pelvis and her symptoms, abdominal exam is benign with no evidence of any abnormality, therefore no need for further treatment 3-random blood sugar is 138, it is unknown when did the patient have her the last meal, it is elevated if the patient is more than 1 hour postprandial, therefore I recommend the following: The patient is to be counseled regarding the target blood sugar in , fasting should be less than 95 and 1 hour postprandial blood sugar should be less than 140, the patient needs to contact her OBGYN as soon as possible to adjust her insulin doses in case her blood sugars are above the previously mentioned target blood sugar levels. 4-urine is positive for ketones, I recommend for the patient to have a diabetic diet and repeat urine dip till ketones clear I spent a total of 25 minutes reviewing the chart, communicating with the ER provider and documenting the medical record
== END 2021-12-09 13:56 | disposition home or self-care (01) ==
PROVIDERS: Emergency Provider Emergency Medicine; PCP Nurse Practitioner Family
DX: O23.40 Unspecified infection of urinary tract in pregnancy, unspecified trimester (principal); N39.0 Urinary tract infection, site not specified; O26.899 Other specified pregnancy related conditions, unspecified trimester; R10.2 Pelvic and perineal pain; O24.319 Unspecified pre-existing diabetes mellitus in pregnancy, unspecified trimester; O09.10 Supervision of pregnancy with history of ectopic pregnancy, unspecified trimester; O34.219 Maternal care for unspecified type scar from previous cesarean delivery; Z3A.00 Weeks of gestation of pregnancy not specified
CPT/HCPCS: 36415; 76801; 76817; 80048; 80076; 81001; 81003; 83690; 83735; 84702; 85025; 86900; 86901; 87086; 87088; 87186; 93975; 99284

== ENCOUNTER 2021-12-11 10:02 | Emergency (ER) | payer OTHER, SELFPAY ==
--- NOTE | ~2021-12-11 | US_ITS ---
EXAMINATION: US OBSTETRICAL ULTRASOUND CLINICAL INFORMATION: Early and pelvic pain. COMPARISON: Ultrasound OB 12/09/2021.. LMP: 11/05/2021. Gestational age by maternal dates is 5 weeks 1 day. Estimated date of delivery by maternal dates is 08/12/2022. TECHNIQUE: Transabdominal and transvaginal pelvic ultrasound was performed. FINDINGS: There is intrauterine gestational sac with visualization of yolk sac but no pole seen. heart rate cannot be obtained. The distal sac measurement corresponds to 5 weeks and 3 days. On last ultrasound measures 5 weeks and 1 day. Suspect a small hypoechoic area adjacent to the distal sex suspicious for subchorionic bleed measuring 0.9 x 0.5 x 2.6 cm. MATERNAL ADNEXA: The right maternal ovary measures 3.1 x 1.9 x 2.9 cm. There is a corpus luteal cyst measuring 2.3 x 1.8 x 2.2 cm The left maternal ovary measures 2.9 x 1.9 x 1.9 cm. There is a small cyst in the cul-de-sac measuring 1.2 x 1.0 x 1.5 cm. There is small amount of fluid collection in the cul-de-sac.. US/US OB pelvic and transvaginal IMPRESSION: Single intrauterine gestational sac with no pole seen yet. The yolk sac is identified. The distal sac measurements corresponds to 5 weeks and 3 days. There is a small subchorionic bleed suspected. There is a small corpus luteal cyst right ovary. Small simple cyst seen in the cul-de-sac measuring 1.5 cm. Also visualized is small amount of free fluid in the cul-de-sac.
[2021-12-11 10:49] VITALS: BP 129/68; PULSE 90; RESP 18; TEMP 36.1; O2SAT 98; BMI 30.9
--- NOTE | 2021-12-11 11:09 | ED.FEMALEGU ---
HPI - Female Genitourinary General Chief complaint: General Medical Stated complaint: Follow up ultrasound Time Seen by Provider: 12/11/21 10:56 Source: patient Mode of arrival: ambulatory Limitations: no limitations History of Present Illness MD elicited complaint: other (r/o ectopic seen instructed to come back to ED in 48 hours for repeat quant and US high risk for ectopic - 2014 ectopic s/p BTL in september) Pertinent past history: other (see above) Onset (ago): day(s) (several ) Severity: mild Quality of pain: other (has no pain or bleeding) Vaginal discharge: none Vaginal bleeding: none Exacerbating factors: none Relieving factors: none Treatment prior to arrival: none Sexual activity: Yes Patient : Yes Related Data Home Medications Medication Instructions Recorded Confirmed blood sugar diagnostic #10 ea 05/23/20 04/19/21 insulin lispro 100 unit/mL See Rx Instructions .ROUTE .COMPLEX 05/23/20 07/04/21 subcutaneous solution tizanidine 4 mg tablet 4 mg PO TID PRN 05/23/20 07/04/21 Previous Rx's Medication Instructions Recorded blood sugar diagnostic (FreeStyle #100 ea 06/13/21 Test) blood-glucose meter (FreeStyle #1 ea 06/13/21 System Kit) lancets (FreeStyle Unistik 2) #200 ea 06/13/21 cephalexin 750 mg capsule (Keflex) 750 mg PO BID 10 Days #20 cap 06/27/21 sulfamethoxazole 800 1 tab PO Q12H 10 Days #20 tab 06/27/21 mg-trimethoprim 160 mg tablet (Bactrim DS) fluconazole 150 mg tablet 150 mg PO Q3D #2 tab 07/12/21 (Diflucan) chlorhexidine gluconate 4 % 1 appl TOPICAL Q5M #118 ml 08/31/21 topical liquid (Hibiclens) cefpodoxime 100 mg tablet 100 mg PO BID 7 Days #14 tab 12/09/21 Allergies Allergy/AdvReac Type Severity Reaction Status Date / Time No Known Allergies Allergy Verified 12/09/21 10:32 [No Known Allergies*] Review of Systems Review of Systems: Constitutional : No Weight loss, No Fever, No Chills, No Fatigue, No Malaise ENT/Mouth : No sore throat, No Rhinorrhea Eyes: No Eye Pain, No Swelling, No Redness Cardiovascular : No Chest Pain, No SOB, No Dyspnea on Exertion, No Orthopnea, No Edema, No Palpitations Respiratory : No Cough, No Sputum, No Wheezing Gastrointestinal : No Nausea, No Vomiting, No Diarrhea, No Constipation, No abdominal Pain, No Hematochezia, No Melena Genitourinary : No Dysuria, No Urinary Frequency, No Hematuria, Musculoskeletal : No joint pain, No Myalgias, No Joint Swelling Skin : No Skin Lesions, No rash Neuro : No Weakness, No Numbness, No Dizziness, No Headache Psych : No Anxiety/Panic, No Depression Heme/Lymph: No Bruising, No Bleeding,No Lymphadenopathy Endocrine : No Polyuria, No Polydipsia All other systems reviewed and are negative [facility] Past Medical History Attestation statement: The following information was validated with the patient. Medical History Chronic pain syndrome Chronic, continuous use of opioids Cysts Hidradenitis suppurativa Spondylosis of lumbar region without myelopathy or radiculopathy Type I diabetes mellitus Surgical History History of cystoscopy History of hernia repair Previous section Family History Family History Father Alive and well Mother Alive and well Sister Alive and well Social History Social History (Updated 12/11/21 @ 11:31 by Missy Mensah DO) Alcohol intake: never Patient Tobacco Use Status: Never used Tobacco Advance Directives: No Advance Directives Information Provided: No Patient : Yes Physical Exam Vital Signs: Vital Signs: Last Vital Signs Temp 97.7 F 12/11/21 12:07 Pulse 65 12/11/21 12:07 Resp 16 12/11/21 12:07 BP 157/53 H 12/11/21 12:07 Pulse Ox 96 12/11/21 12:07 BMI result Body Mass Index 30.9 Appearance: Alert. Oriented X3. No acute distress. Eyes: Pupils equal, round and reactive to light. ENT: Pharynx normal. Neck: Normal inspection. Neck supple. CVS: Normal heart rate and rhythm. Pulses normal. Respiratory: No respiratory distress. Breath sounds normal. Abdomen: Soft and non-tender. Skin: Skin warm and dry. Normal skin color. Normal skin turgor. Extremities: No lower extremity edema. No calf ttp Neuro: Oriented X 3. No motor deficit. No sensory deficit. Course Course Course Narrative: quant increasing appropriately. no abdominal pain no bleeding, GS noted US clinically no signs of ectopic can follow up with her OB in 2 days MDM - Female Genitourinary MDM Narrative Medical decision making narrative: 31 yo female hx of DM - has pump here with request for quant and US per OB notes 12/09 hx of ectopic 2014 underwent BTL then reversed in September - has no complaints today no bleeding no abdominal pain - will repeat quant and repeat US. Lab Data Result diagrams: 12/11/21 11:21 Labs: Lab Results 12/11/21 12/11/21 Range/Units 11:21 11:21 WBC 7.5 (4.8-10.8) X10*3/uL RBC 4.05 L (4.20-5.50) X10*6/uL Hgb 11.9 L (12.0-16.0) g/dl Hct 35.8 L (37.0-47.0) % MCV 88.4 (80.0-98.0) fL MCH 29.4 (27.0-33.0) pg MCHC 33.2 (31.0-35.0) g/dl RDW 13.4 (11.0-16.0) % Plt Count 318 (160-400) X10*3/uL MPV 10.1 (9.4-12.3) fL Absolute Nucleated RBC 0.000 (0.0-0.012) X10*3/uL Nucleated RBC % (auto) 0.0 (0.0-0.2) /100WBC Beta HCG, Quant 4925 mIU/mL Discharge Plan Discharge Clinical Impression: Early stage of , Subchorionic hematoma in first trimester Patient Disposition: Home, Self-Care Instructions: (ED), Subchorionic Hemorrhage (ED) Additional Instructions: return to ED for any worsening symptoms or concerns 5 weeks 3 days on US today please see your OB in the next 2 to 3 days repeat hormone levels. return for bleeding, pain, fainting or any other concerns IMPRESSION: Single intrauterine gestational sac with no pole seen yet. The yolk sac is identified. The distal sac measurements corresponds to 5 weeks and 3 days. ? There is a small subchorionic bleed suspected. ? There is a small corpus luteal cyst right ovary. ? Small simple cyst seen in the cul-de-sac measuring 1.5 cm. Also visualized is small amount of free fluid in the cul-de-sac Prescriptions: No Action (DME) blood-glucose meter [FreeStyle System Kit] Kit See Rx Instructions .Route Qty: 1 0RF Rx Instructions: 4 times a day testing (DME) lancets [FreeStyle Unistik 2] Misc See Rx Instructions .Route Qty: 200 0RF Rx Instructions: 4 times a day (DME) FreeStyle Test Strip See Rx Instructions .Route Qty: 100 2RF Rx Instructions: 4 times a day testing cephalexin [Keflex] 750 mg capsule 750 mg PO BID 10 Days Qty: 20 0RF sulfamethoxazole-trimethoprim [Bactrim DS] 800-160 mg tablet 1 tab PO Q12H 10 Days Qty: 20 0RF fluconazole [Diflucan] 150 mg tablet 150 mg PO Q3D Qty: 2 0RF chlorhexidine gluconate [Hibiclens] 4 % liquid 1 appl topical Q5M Qty: 118 0RF cefpodoxime 100 mg tablet 100 mg PO BID 7 Days Qty: 14 0RF Rx Instructions: must administer with a meal/food tizanidine 4 mg tablet 4 mg PO TID PRN (Reason: Muscle Spasm) 0RF insulin lispro 100 unit/mL solution See Rx Instructions .ROUTE .COMPLEX 0RF Rx Instructions: infuse up to 110 units via pump (DME) FreeStyle Lite Strips Strip See Rx Instructions strip .ROUTE .MEDSUPPLY Qty: 10 0RF Rx Instructions: As directed Stand Alone Forms: Work/School Release
[2021-12-11 11:11] VITALS: BP 117/69; PULSE 78; RESP 14; TEMP 37; O2SAT 97
[2021-12-11 11:30] LABS: Hematocrit 35.8 % (37.0-47.0); Hemoglobin 11.9 g/dl (12.0-16.0); Mean Corpuscular HGB Conc 33.2 g/dl (31.0-35.0); Mean Corpuscular Hemoglobin 29.4 pg (27.0-33.0); Mean Corpuscular Volume 88.4 fL (80.0-98.0); Mean Platelet Volume 10.1 fL (9.4-12.3); Platelet Count 318 X10*3/uL (160-400); Red Blood Count 4.05 X10*6/uL (4.20-5.50); Red Cell Distribution Width 13.4 % (11.0-16.0); White Blood Count 7.5 X10*3/uL (4.8-10.8)
[2021-12-11 11:46] LABS: HCG Quantitative 4925 mIU/mL
[2021-12-11 12:07] VITALS: BP 157/53; PULSE 65; RESP 16; TEMP 36.5; O2SAT 96
== END 2021-12-11 13:57 | disposition home or self-care (01) ==
PROVIDERS: Emergency Provider Emergency Medicine; PCP Nurse Practitioner Family
DX: O26.91 Pregnancy related conditions, unspecified, first trimester (principal); Z3A.01 Less than 8 weeks gestation of pregnancy; Z79.899 Other long term (current) drug therapy
CPT/HCPCS: 36415; 76801; 76817; 84702; 85027; 99284

== ENCOUNTER 2021-12-14 08:33 | Outpatient (REF) | payer OTHER, SELFPAY ==
[2021-12-14 08:54] LABS: MANUAL DIFF FLAG NO
[2021-12-14 08:59] LABS: Basophils Absolute Auto 0.1 X10*3/uL (0.0-0.2); Basophils Percent Auto 0.6 % (0-2); Eosinophils Absolute Auto 0.1 X10*3/uL (0.0-0.4); Eosinophils Percent Auto 1.2 % (0-4); Hematocrit 37.8 % (37.0-47.0); Hemoglobin 12.5 g/dl (12.0-16.0); Imm Gran Abs Auto 0.04 X10*3/uL (0.00-0.03); Imm Gran Pct Auto 0.5 % (0.0-0.4); Lymphocytes Absolute Auto 2.3 X10*3/uL (1.2-4.9); Lymphocytes Percent Auto 27.6 % (20-40); Mean Corpuscular HGB Conc 33.1 g/dl (31.0-35.0); Mean Corpuscular Hemoglobin 29.5 pg (27.0-33.0); Mean Corpuscular Volume 89.2 fL (80.0-98.0); Mean Platelet Volume 10.3 fL (9.4-12.3); Monocytes Absolute Auto 0.6 X10*3/uL (0.1-1.2); Monocytes Percent Auto 7.6 % (2-11); Neutrophils Absolute Auto 5.3 x10*3/uL (2.0-8.3); Neutrophils Percent Auto 62.5 % (45-73); Platelet Count 301 X10*3/uL (160-400); Red Blood Count 4.24 X10*6/uL (4.20-5.50); Red Cell Distribution Width 13.3 % (11.0-16.0); White Blood Count 8.4 X10*3/uL (4.8-10.8)
[2021-12-14 09:24] LABS: Alanine Aminotransferase 25 U/L (0-31); Alkaline Phosphatase 84 U/L (39-117); Anion Gap 12 (12-20); Aspartate Amino Transferase 18 U/L (5-31); Bilirubin Total 0.2 mg/dL (0.0-1.0); Blood Urea Nitrogen 14 mg/dL (9-16); Calcium 9.5 mg/dL (8.4-10.2); Carbon Dioxide 22 mmol/L (22-29); Chloride 105 mmol/L (96-108); Cholesterol 148 mg/dL; Estimated Glomerular Filt Rate > 60; Glucose Fasting 267 mg/dL (60-99); HDL Cholesterol 50 mg/dL; LDL Cholesterol Calculated 85 mg/dl; Potassium 4.6 mmol/L (3.3-5.1); Sodium 134 mmol/L (135-145); Total Protein 6.7 g/dL (6.5-8.0); Triglycerides 65 mg/dL
[2021-12-14 09:47] LABS: TSH reflex Free T4 1.25 uIU/mL (0.32-4.0)
[2021-12-14 10:05] LABS: Appearance Urine CLEAR; Color Urine STRAW; Glucose Urine UA >=1000 MG/DL (NEG); Leukocyte Esterase Urine NEG (NEG); Nitrite Urine NEG (NEG); Specific Gravity - Urine 1.025 (1.005-1.025); Urine Blood NEG (NEG); Urine Ketones 5 MG/DL (NEG); Urine Protein NEG (NEG-TRACE)
[2021-12-14 10:29] LABS: RBC Urine 0-2 /HPF (0); Squamous Epithelial Cell Urine TRACE /LPF
[2021-12-14 10:31] LABS: WBC Urine 0-2 /HPF (0-4)
== END 2021-12-14 08:34 | disposition home or self-care (01) ==
LOC: HO.LAB 08:33
PROVIDERS: PCP Nurse Practitioner Family; Visit Provider Nurse Practitioner Family
DX: Z34.90 Encounter for supervision of normal pregnancy, unspecified, unspecified trimester (principal)
CPT/HCPCS: 36415; 80053; 80061; 81001; 81003; 84443; 85025

== ENCOUNTER 2021-12-19 08:18 | Outpatient (REF) | payer OTHER, SELFPAY ==
[2021-12-19 09:55] LABS: Appearance Urine CLEAR; Color Urine YELLOW; Glucose Urine UA NEG (NEG); Leukocyte Esterase Urine NEG (NEG); Nitrite Urine NEG (NEG); Specific Gravity - Urine 1.015 (1.005-1.025); Urine Blood NEG (NEG); Urine Ketones NEG (NEG); Urine Protein NEG (NEG-TRACE)
[2021-12-19 10:24] LABS: Bacteria Urine TRACE /LPF; Mucus Urine TRACE /LPF; RBC Urine 0-2 /HPF (0); Squamous Epithelial Cell Urine 1+ /LPF; WBC Urine 0-2 /HPF (0-4)
== END 2021-12-19 08:19 | disposition home or self-care (01) ==
LOC: HO.LAB 08:18
PROVIDERS: PCP Nurse Practitioner Family; Visit Provider Nurse Practitioner Family
DX: R30.0 Dysuria (principal)
CPT/HCPCS: 81001; 87086

== ENCOUNTER 2022-01-04 08:10 | Emergency (ER) | payer OTHER, SELFPAY ==
[2022-01-04 08:35] VITALS: BP 126/63; PULSE 112; RESP 18; TEMP 37.6; O2SAT 100; BMI 30.9
[2022-01-04 08:56] LABS: COVID-19 Test Positive (Negative); IDNOW Serial# 9DB6401D
[2022-01-04 09:03] LABS: Strep A Nucleic Acid Negative (Negative)
--- NOTE | 2022-01-04 09:08 | ED_ITS ---
HPI - URI/Sore Throat General Chief Complaint: Upper Respiratory Symptoms Stated Complaint: bodyaches - 8wks preg Time Seen by Provider: 01/04/22 08:51 Source: patient Mode of arrival: ambulatory Limitations: no limitations History of Present Illness HPI Narrative: Patient presents to emergency department with complaints of low-grade fevers, body aches, sore throat, ear pain, nasal congestion. She reports that her partner tested positive for COVID and influenza last week. She has been tested twice last Saturday and last both of which were negative. She does report that she typically has allergic rhinitis, but is not currently taking any medications for this. She states that she is 8 weeks and 3 days . Due date 08/14/2022. Followed by [facility]. In addition she currently has a urinary tract infection. States she was on 1 antibiotic which ?did not work? and she is now on amoxicillin which she has been taking for 3 days. Denies shaking chills, chest pain, palpitations, shortness of breath, difficulty breathing, dyspnea on exertion, pedal edema, nausea, vomiting, abdominal pain, abnormal vaginal discharge, vaginal bleeding, pelvic pain. Related Data Home Medications Medication Instructions Recorded Confirmed blood sugar diagnostic #10 ea 05/23/20 12/13/21 insulin lispro 100 unit/mL See Rx Instructions .ROUTE .COMPLEX 05/23/20 12/13/21 subcutaneous solution Previous Rx's Medication Instructions Recorded blood sugar diagnostic (FreeStyle #100 ea 06/13/21 Test) blood-glucose meter (FreeStyle #1 ea 06/13/21 System Kit) chlorhexidine gluconate 4 % 1 appl TOPICAL Q5M #118 ml 08/31/21 topical liquid (Hibiclens) cefpodoxime 100 mg tablet 100 mg PO BID 7 Days #14 tab 12/09/21 Allergies Allergy/AdvReac Type Severity Reaction Status Date / Time No Known Allergies Allergy Verified 12/13/21 09:01 [No Known Allergies*] Review of Systems Review of Systems: Constitutional: Positive fever. Positive chills. No weakness. Positive fatigue. Positive body aches. ENT/ Mouth: Positive Ear Pain, positive Nasal Congestion, positive sore throat, positive Rhinorrhea, No Swallowing Difficulty Skin: No rash or itching. Cardiovascular: No chest pain. No palpitations. Respiratory: No shortness of breath. Positive cough. No sputum production. Gastrointestinal: No nausea. No vomiting. No diarrhea. No abdominal pain. Genitourinary: No burning micturition. No urinary frequency. Neurologic: No headache. No dizziness. No syncope. No numbness or tingling in the extremities. Musculoskeletal: No muscle pain. No back pain. No joint pain or stiffness. Yes all other systems are reviewed and are negative PMFSH Past Medical History Attestation statement: The following information was validated with the patient. Source: old records reviewed Medical History Chronic pain syndrome Chronic, continuous use of opioids Cysts Hidradenitis suppurativa Spondylosis of lumbar region without myelopathy or radiculopathy Type I diabetes mellitus Surgical History History of cystoscopy History of hernia repair Previous section Family History Family History Father Alive and well Mother Alive and well Sister Alive and well Social History Social History Housing: Condominium Alcohol intake: never Patient Tobacco Use Status: Never used Tobacco Advance Directives: No Advance Directives Information Provided: No Current occupational status: employed Cognitive needs: No Hearing needs: No Vision needs: No Physical Exam Vital Signs: Vital Signs: Last Vital Signs Temp 97.7 F 01/04/22 09:39 Pulse 108 H 01/04/22 09:39 Resp 16 01/04/22 09:39 BP 122/68 01/04/22 09:39 Pulse Ox 99 01/04/22 09:39 BMI result Body Mass Index 30.9 Vital signs have been reviewed as normal and appeared to be correct. Blood pressure normal.? Initially tachycardic, improved to 102 during my exam. Respiration rate normal. Temperature normal.? Oxygen saturation normal. Appearance: Alert.?Oriented to person, place and time. No acute distr ess.?Normal affect. Eyes: Pupils equal, round and reactive to light.? ENT: Bilateral ear canals with mild erythema, TM normal no bulging. Tonsillar hypertrophy 2+ bilaterally, no exudate, uvula midline, mildly erythematous pharynx.??No trismus. No muffled voice/hoarseness. Neck: Normal inspection.? Neck supple.??No cervical lymphadenopathy CVS: Heart sounds normal. Normal heart rate and rhythm.? Pulses normal.?? Respiratory: No respiratory distress.? Lung sounds clear to auscultation bi laterally?speaking in clear full sentences, managing airway and secretions appropriately. Abdomen: Soft and non-tender. Skin: Skin warm and dry.? Normal skin color.? Extremities: No lower extremity edema.? Neuro: Moves all extremities spontaneously. Sensation intact bilaterally. No motor deficits Ambulates with normal steady gait. Course Course Course Narrative: Patient is a 31-year-old female, currently , 8 weeks/3 days by her account, due date August 14 with a past medical history of allergic rhinitis, anxiety, type 1 diabetes, spondylosis of the lumbar region. She presents to the emergency department today for evaluation of upper respiratory symptoms. She has been vaccinated for COVID-19 with 2 doses of Triporati, last received in April 2021. Has had exposure to her partner who is COVID-19 and influenza positive last week. She does have tonsillar hypertrophy 2+ bilaterally, uvula is midline, not consistent with peritonsillar abscess or retropharyngeal abscess. Strep testing was negative, however she is currently taking amoxicillin for urinary tract infection. Today was found to have COVID-19 testing positive. Influenza testing negative. At this time not consistent with pneumonia, PE, ACS. She appears fatigued, but in no apparent respiratory distress, speaking in clear full sentences, no tachypnea or hypoxia. Discussed using Tylenol as needed for fever and body aches, saline nasal spray, humidifier, rest, hydration, small frequent meals, discussed monoclonal antibody infusion and referral was faxed to [facility], discussed reasons that she should return back to the emergency department, all questions were answered, she was discharged home in stable condition. MDM - URI/Sore Throat Lab Data Labs: Lab Results 01/04/22 01/04/22 01/04/22 Range/Units 08:39 08:39 08:39 COVID-19 (ALEN) Positive A (Negative) COVID-19 Clin Com See Note Influenza Type A (TIMOTHY) Negative (Negative) Influenza Type B (TIMOTHY) Negative (Negative) Influenza A & B Note See Note S. pyogenes GrpA TIMOTHY Negative (Negative) Discharge Plan Discharge Clinical Impression: COVID-19 Patient Disposition: Home, Self-Care Instructions: COVID-19 (Coronavirus Disease 2019) (ED) Additional Instructions: Today you have tested positive for COVID-19. you should self isolate for 5 days since your symptom onset which was yesterday,. After 5 days you may return to work if your symptoms have improved in your without a fever for 24 hour. Without the use of Tylenol and ibuprofen. Today you must contact your clinical manager home care/Employee Health, you will be followed by employee health regarding your return to work date. A form was sent for the monoclonal antibody infusion, you will be contacted by the [employer]. You may use Tylenol as needed for fever or body aches. Saline nasal spray may be beneficial in treating or nasal congestion. Trial the use of a humidifier in the home as well. Be sure to rest, stay well hydrated, eat small frequent meals. If you develop chest pain, shortness of breath, difficulty breathing, lightheadedness, dizziness or any new/concerning symptoms he should return back to the emergency department for evaluation. Please continue taking the amoxicillin as prescribed by your OB provider for urinary tract infection. Follow-up with your primary care provider within 1 week. Prescriptions: No Action (DME) blood-glucose meter [FreeStyle System Kit] Kit See Rx Instructions .Route Qty: 1 0RF Rx Instructions: 4 times a day testing (DME) FreeStyle Test Strip See Rx Instructions .Route Qty: 100 2RF Rx Instructions: 4 times a day testing chlorhexidine gluconate [Hibiclens] 4 % liquid 1 appl topical Q5M Qty: 118 0RF cefpodoxime 100 mg tablet 100 mg PO BID 7 Days Qty: 14 0RF Rx Instructions: must administer with a meal/food insulin lispro 100 unit/mL solution See Rx Instructions .ROUTE .COMPLEX 0RF Rx Instructions: infuse up to 110 units via pump (DME) FreeStyle Lite Strips Strip See Rx Instructions strip .ROUTE .MEDSUPPLY Qty: 10 0RF Rx Instructions: As directed Referrals: Ryan Sam, [facility] [Primary Care Provider] - 1 week Interventions: ED Discharge Assessment Last Done: 01/04/22 10:04 Discharge Date/Time: 01/04/22 10:06
[2022-01-04 09:14] LABS: Influenza A Negative (Negative); Influenza B2 Negative (Negative)
[2022-01-04 09:39] VITALS: BP 122/68; PULSE 108; RESP 16; TEMP 36.5; O2SAT 99
== END 2022-01-04 10:06 | disposition home or self-care (01) ==
PROVIDERS: Emergency Provider Emergency Medicine; PCP Nurse Practitioner Family
DX: O98.511 Other viral diseases complicating pregnancy, first trimester (principal); U07.1 COVID-19; O23.41 Unspecified infection of urinary tract in pregnancy, first trimester; N39.0 Urinary tract infection, site not specified; O24.011 Pre-existing type 1 diabetes mellitus, in pregnancy, first trimester; Z3A.08 8 weeks gestation of pregnancy
CPT/HCPCS: 36415; 87502; 87635; 87651; 99283

== ENCOUNTER → 2022-02-15 12:57 | Outpatient (REF) | payer OTHER, SELFPAY ==
--- NOTE | 2022-02-15 13:01 | CA_ITS ---
Transthoracic Echocardiogram Patient (Last, First, Middle): Francie Herring, Gender: Female Date of : 1990 Age: 31 Procedure Date: 02/15/2022 Procedure Type: Transthoracic Echocardiogram Location: OP Height: 162.56 cm Weight: 83.46 kg BSA: 1.89 m2 Heart Rate: 84 bpm Organ Tuner Electronic: CANDICE Referring MD: Ryan Sam [facility] [employer] Consultant: Anil Monroe MD Symptoms: R01.1 - Cardiac murmur, unspecified Study Quality: Adequate ECG Rhythm: Sinus Conclusions: - Essentially normal study Findings Left Ventricle Normal left ventricular size, thickness, and systolic function. The visually estimated ejection fraction is between 60-65%. Spectral Doppler is indicative of a normal filling pattern. Right Ventricle Normal right ventricular cavity size and systolic function. Atria The left atrium is normal in size. There is no evidence of interatrial shunt. The right atrium is normal in size. Aortic Valve Normal aortic valve structure and function. There is no aortic valve stenosis. There is no aortic valve regurgitation. Mitral Valve Normal mitral valve structure and function. There is no mitral valve regurgitation. There is no mitral valve stenosis. Pulmonic Valve The pulmonic valve is likely normal. Tricuspid Valve Normal tricuspid valve structure. Tricuspid regurgitation envelope is inadequate for calculation of right ventricular systolic pressure. Normal right atrial pressure. There is no evidence of pulmonary hypertension. Great Vessels All visible segments of the aorta are normal in size. The pulmonary artery was not well visualized. Venous The inferior vena cava is normal in size and collapses greater than 50% with inspiration. Pericardium/Pleural There is no evidence of pericardial effusion. Prior Study Comparison No prior study available for comparison. Measurements 2D Linear Measurements IVSd: 0.75 0.6-0.9/0.6-1.0 cm LVIDd: 4.90 3.9-5.3/4.2-5.9 cm LVIDd Index: 2.59 2.4-3.2/2.2-3.1 cm/m2 LVIDs: 3.66 2.0-3.6 cm LVPWd: 0.91 0.7-1.1 cm LA Diam: 3.20 2.7-3.8/3.0-4.0 cm LAIDs Index: 1.69 1.5-2.3 cm/m2 LV Mass: 171.51 67-162/88-224 g LV Mass Index: 90.74 43-95/49-115 g/m2 LVOT Diam: 1.90 3.0+(-)1.3 cm 2D Systolic Function EF 4C: 58.40 >55% EF 2C: 67.30 >55% EF BiP: 62.50 >55% Mitral Valve MV Pk E: 0.78 MV PK A: 0.82 MV Decel Time: 239.00 E/A: 1.00 E'Lateral: 6.85 E'Medial: 5.44 E/E' Med: 14.30 E/E' Lat: 11.40 PHT: 70.00 MVA PHT: 3.14 Decel [place]: 3.26 Aortic Valve AoV Pk Pato: 1.61 AoV Mn Pato: 1.14 AoV VTI: 0.29 AoV Pk Grad: 10.00 Aov Mn Grad: 6.00 SUGAR Cont.VTI: 1.91 LVOT LVOT Pk Pato: 1.01 LVOT Mn Pato: 0.68 LVOT VTI: 0.20 LVOT Pk Grad: 4.00 LVOT Mn Grad: 2.00 LVOT Diam: 1.90 LVOT Area: 2.84 Diastolic Function MV Pk E: 0.78 MV Pk A: 0.82 E/A: 1.00 E'Medial: 5.44 E/E' Med: 14.30 E' Laterial: 6.85 E/E' Lat: 11.40 Right Ventricle TAPSE (mm): 18.90 TVS' Pato: 9.46 Tricuspid Valve RA Press: 3.00 Great Vessels Aorta Sinus of Valsalva: 2.40 2.0-3.5 cm Ao Asc: 2.20 2.1-3.4 cm Ao Arch: 2.10 Pulmonary Veins Pulm Vein S/D 0.80 Pulmonary Valve PV Pk Pato: 1.10 Peak PV Grad: 5.00 Updated in Other Vendor System with Status of Final Anil Monroe MD electronically signed on 02/16/2022 3:03:05 PM with status of Final
== END ==
LOC: HO.CARD 12:57
PROVIDERS: PCP Nurse Practitioner Family; Visit Provider Nurse Practitioner Family
DX: R01.1 Cardiac murmur, unspecified (principal)
CPT/HCPCS: 93306

== ENCOUNTER 2022-05-28 12:03 | Outpatient (REF) | payer OTHER, SELFPAY ==
[2022-05-28 12:55] LABS: Influenza A PCR NEGATIVE (Negative); Influenza B PCR NEGATIVE (Negative); Resp Syncy Virus RNA Qual PCR NEGATIVE (Negative); SARS COV2 PCR INHOUSE NEGATIVE (Negative)
== END 2022-05-28 12:04 | disposition home or self-care (01) ==
LOC: HO.LNP 12:03
PROVIDERS: Visit Provider Physician Assistant
DX: H66.90 Otitis media, unspecified, unspecified ear (principal); J02.9 Acute pharyngitis, unspecified; Z20.822 Contact with and (suspected) exposure to COVID-19
CPT/HCPCS: 0241U

== ENCOUNTER 2022-09-19 09:32 | Outpatient (REF) | payer OTHER, SELFPAY ==
[2022-09-19 11:31] LABS: Hematocrit 38.2 % (37.0-47.0); Hemoglobin 12.7 g/dl (12.0-16.0); Mean Corpuscular HGB Conc 33.2 g/dl (31.0-35.0); Mean Corpuscular Hemoglobin 29.9 pg (27.0-33.0); Mean Corpuscular Volume 89.9 fL (80.0-98.0); Mean Platelet Volume 10.9 fL (9.4-12.3); Platelet Count 362 X10*3/uL (160-400); Red Blood Count 4.25 X10*6/uL (4.20-5.50); Red Cell Distribution Width 13.1 % (11.0-16.0); White Blood Count 6.6 X10*3/uL (4.8-10.8)
[2022-09-19 12:11] LABS: Alanine Aminotransferase 12 U/L (0-31); Albumin Level 3.8 g/dL (3.5-5.0); Alkaline Phosphatase 130 U/L (39-117); Anion Gap 12 (12-20); Aspartate Amino Transferase 13 U/L (5-31); Bilirubin Direct 0.2 mg/dL (0.0-0.5); Bilirubin Total 0.4 mg/dL (0.0-1.0); Blood Urea Nitrogen 9 mg/dL (9-16); Carbon Dioxide 26 mmol/L (22-29); Chloride 108 mmol/L (96-108); Estimated Glomerular Filt Rate > 60; Glucose Random 133 mg/dL (60-115); Sodium 142 mmol/L (135-145); Total Protein 6.5 g/dL (6.5-8.0)
[2022-09-19 12:28] LABS: Estimated Average Glucose 160 mg/dL; Hemoglobin A1c % 7.2 %
[2022-09-19 12:29] LABS: Thyroid Stimulating Hormone 0.51 uIU/mL (0.32-4.0)
== END 2022-09-19 09:33 | disposition home or self-care (01) ==
LOC: HO.HMGCLDS 09:32
PROVIDERS: PCP Nurse Practitioner Family; Visit Provider Internal Medicine
DX: R53.83 Other fatigue (principal)
CPT/HCPCS: 36415; 80048; 80076; 83036; 84443; 85027

== ENCOUNTER 2022-12-11 14:18 | Emergency (ER) | payer OTHER, SELFPAY ==
--- NOTE | ~2022-12-11 | CT_ITS ---
EXAMINATION: CT CHEST, ABDOMEN AND PELVIS WITH CONTRAST CLINICAL INFORMATION: Left-sided abdominal pain, left-sided rib pain COMPARISON: CT abdomen pelvis 12/29/2019 TECHNIQUE: Multidetector volumetric imaging was performed from the thoracic inlet through the pubic symphysis following administration of 85 mL of Omnipaque 350. Sagittal and coronal reformatted images were obtained on the technologist's workstation. This CT examination was performed using dose optimization techniques as appropriate, variously including the following: *Automated exposure control *Adjustment of mA and/or kV according to patient size (this includes techniques or standardized protocols for targeted exams where dose is matched to indication/reason for exam; i.e. extremities or head) *Use of iterative reconstruction technique DLP: 259 mGy-cm for the chest 519 mGy-cm for the abdomen and pelvis FINDINGS: CHEST: Lung: The lungs are clear without focal opacity or nodule. Mediastinum: The mediastinum is normal. The central vascular structures are unremarkable. No hilar or mediastinal lymphadenopathy. Pericardium/Pleura: No significant effusion. No pleural mass or thickening. Chest Wall/Axilla: Unremarkable ABDOMEN/PELVIS: Peritoneal Space: No significant free air or free fluid identified. Liver, Gallbladder, Biliary Tree: The liver is enlarged at 20 cm in cephalocaudad dimension in with decreased attenuation suggesting hepatic steatosis. The gallbladder is contracted but unremarkable with no evidence of radiopaque gallstones, gallbladder wall thickening, or obvious pericholecystic inflammatory changes. Pancreas: Unremarkable Spleen: Unremarkable Adrenal Glands: Spleen is mildly enlarged at 12.4 cm. Kidneys and Ureters: The kidneys are normal in size, shape, and attenuation. No hydronephrosis, hydroureter, or calculi seen. No perinephric stranding. Bladder: Unremarkable Gastrointestinal Tract: The small and large bowel are unremarkable. The appendix is not seen with certainty but there is no evidence of appendicitis appendicitis. Abdominal Wall: No significant hernia is appreciated. Lymph Nodes: No lymphadenopathy. Vascular: The aorta appears normal.. The IVC appears unremarkable. 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 Appearances are identical to those on the 12/28/2009 CT scan almost 13 years ago. PELVIC VISCERA: Retroverted uterus is present with an IUD in good position. An abnormal adnexal mass or free intraperitoneal fluid is not seen. OSSEUS STRUCTURES: Minimal degenerative changes are noted in the spine. No bony destructive lesions are seen. CT/CT abdomen pelvis w IV con IMPRESSION: 1. A cause for the patient's abdominal pain has not been found. 2. Incidental note made of an enlarged fatty liver, mild splenomegaly and unchanged unusual course of an SMV branch. Fleischner guidelines were followed.
--- NOTE | ~2022-12-11 | CT_ITS ---
EXAMINATION: NONCONTRAST HEAD CT NONCONTRAST CERVICAL SPINE CT INDICATION INFORMATION: Severe headache. Neck pain. COMPARISON: 09/27/2018 TECHNIQUE: Separate noncontrast CT examinations of the head and cervical spine were performed. Coronal and sagittal images were created for each examination at the technologist workstation. This CT examination was performed using dose optimization techniques as appropriate, variously including the following: *Automated exposure control *Adjustment of mA and/or kV according to patient size (this includes techniques or standardized protocols for targeted exams where dose is matched to indication/reason for exam; i.e. extremities or head) *Use of iterative reconstruction technique DLP: 2018 mGy-cm, in conjunction with the chest, abdomen, pelvis CT FINDINGS: Head: There is no evidence of acute intracranial hemorrhage or territorial infarction. No abnormal mass effect or midline shift is seen. [place] to white matter differentiation is well preserved. No extra-axial fluid collections are identified. No hydrocephalus. No significant volume loss. There is no abnormal attenuation within the brain parenchyma. No acute osseous or soft tissue abnormality. The mastoid air cells and visualized portions of the paranasal sinuses are well aerated. Cervical spine: There is anatomic alignment of the vertebral bodies and posterior elements. The atlantoaxial and atlantooccipital articulations are intact. Vertebral body heights and intervertebral disc spaces are maintained. No evidence of acute fracture. No prevertebral soft tissue swelling. Visualized portions of the lung apices are unremarkable. The thyroid gland is unremarkable. CT/CT cervical spine wo IV con IMPRESSION: 1. No acute intracranial finding. 2. No fracture or malalignment of the cervical spine.
--- NOTE | ~2022-12-11 | CT_ITS ---
EXAMINATION: NONCONTRAST HEAD CT NONCONTRAST CERVICAL SPINE CT INDICATION INFORMATION: Severe headache. Neck pain. COMPARISON: 09/27/2018 TECHNIQUE: Separate noncontrast CT examinations of the head and cervical spine were performed. Coronal and sagittal images were created for each examination at the technologist workstation. This CT examination was performed using dose optimization techniques as appropriate, variously including the following: *Automated exposure control *Adjustment of mA and/or kV according to patient size (this includes techniques or standardized protocols for targeted exams where dose is matched to indication/reason for exam; i.e. extremities or head) *Use of iterative reconstruction technique DLP: 2018 mGy-cm, in conjunction with the chest, abdomen, pelvis CT FINDINGS: Head: There is no evidence of acute intracranial hemorrhage or territorial infarction. No abnormal mass effect or midline shift is seen. [place] to white matter differentiation is well preserved. No extra-axial fluid collections are identified. No hydrocephalus. No significant volume loss. There is no abnormal attenuation within the brain parenchyma. No acute osseous or soft tissue abnormality. The mastoid air cells and visualized portions of the paranasal sinuses are well aerated. Cervical spine: There is anatomic alignment of the vertebral bodies and posterior elements. The atlantoaxial and atlantooccipital articulations are intact. Vertebral body heights and intervertebral disc spaces are maintained. No evidence of acute fracture. No prevertebral soft tissue swelling. Visualized portions of the lung apices are unremarkable. The thyroid gland is unremarkable. CT/CT head/brain wo IV con IMPRESSION: 1. No acute intracranial finding. 2. No fracture or malalignment of the cervical spine.
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
[2022-12-11 15:13] VITALS: BP 130/83; PULSE 69; RESP 18; TEMP 36.8; O2SAT 97; BMI 29.2
[2022-12-11 16:14] LABS: MANUAL DIFF FLAG NO
[2022-12-11 16:19] LABS: Basophils Absolute Auto 0.1 X10*3/uL (0.0-0.2); Basophils Percent Auto 0.6 % (0-2); Eosinophils Absolute Auto 0.1 X10*3/uL (0.0-0.4); Eosinophils Percent Auto 1.6 % (0-4); Hemoglobin 13.8 g/dl (12.0-16.0); Imm Gran Abs Auto 0.03 X10*3/uL (0.00-0.03); Imm Gran Pct Auto 0.4 % (0.0-0.4); Lymphocytes Absolute Auto 3.2 X10*3/uL (1.2-4.9); Lymphocytes Percent Auto 39.6 % (20-40); Mean Corpuscular HGB Conc 33.7 g/dl (31.0-35.0); Mean Corpuscular Hemoglobin 31.2 pg (27.0-33.0); Mean Corpuscular Volume 92.8 fL (80.0-98.0); Mean Platelet Volume 10.7 fL (9.4-12.3); Monocytes Absolute Auto 0.6 X10*3/uL (0.1-1.2); Neutrophils Percent Auto 49.8 % (45-73); Platelet Count 272 X10*3/uL (160-400); Red Blood Count 4.42 X10*6/uL (4.20-5.50); Red Cell Distribution Width 12.8 % (11.0-16.0)
[2022-12-11 16:45] LABS: Alanine Aminotransferase 15 U/L (0-31); Albumin Level 4.6 g/dL (3.5-5.0); Alkaline Phosphatase 117 U/L (39-117); Anion Gap 11 (12-20); Aspartate Amino Transferase 14 U/L (5-31); Bilirubin Total 0.9 mg/dL (0.0-1.0); Blood Urea Nitrogen 14 mg/dL (9-16); Calcium 9.5 mg/dL (8.4-10.2); Carbon Dioxide 27 mmol/L (22-29); Chloride 108 mmol/L (96-108); Creatinine Clr Calc Pharmacy 109.7; Estimated Glomerular Filt Rate > 60; Glucose Random 133 mg/dL (60-115); Potassium 4.4 mmol/L (3.3-5.1); Sodium 142 mmol/L (135-145); Total Protein 7.2 g/dL (6.5-8.0)
[2022-12-11 16:47] LABS: HCG Quantitative < 2 mIU/mL
[2022-12-11] MEDS: Acetaminophen 325 MG TABLET 975 MG PO (18:01)
[2022-12-11] MEDS: iohexoL 350 MG/ML 100 ML INFUS..BTL IV (18:11)
== END 2022-12-11 19:57 | disposition home or self-care (01) ==
PROVIDERS: Physician Assistant; Emergency Provider Emergency Medicine Emergency Medical Services; PCP Nurse Practitioner Family
DX: S09.90XA Unspecified injury of head, initial encounter (principal); S50.11XA Contusion of right forearm, initial encounter; V43.52XA Car driver injured in collision with other type car in traffic accident, initial encounter; Y93.89 Activity, other specified; Y92.414 Local residential or business street as the place of occurrence of the external cause; Y99.9 Unspecified external cause status; R10.9 Unspecified abdominal pain
CPT/HCPCS: 36415; 70450; 71260; 72125; 74177; 80053; 84702; 85025; 99283; 99284; Q9967

== ENCOUNTER 2022-12-17 15:49 | Outpatient (REF) | payer OTHER, SELFPAY ==
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
== END 2022-12-17 15:50 | disposition home or self-care (01) ==
LOC: HO.HMGCX 15:49
PROVIDERS: PCP Nurse Practitioner Family; Visit Provider Nurse Practitioner Family
DX: M25.551 Pain in right hip (principal); V89.2XXA Person injured in unspecified motor-vehicle accident, traffic, initial encounter
CPT/HCPCS: 73502

== ENCOUNTER 2023-01-25 11:29 | Outpatient (REF) | payer OTHER, SELFPAY ==
[2023-01-25 15:39] LABS: Influenza A PCR NEGATIVE (Negative); Influenza B PCR NEGATIVE (Negative); Resp Syncy Virus RNA Qual PCR NEGATIVE (Negative); SARS COV2 PCR INHOUSE NEGATIVE (Negative)
== END 2023-01-25 11:30 | disposition home or self-care (01) ==
LOC: HO.LNP 11:29
PROVIDERS: Visit Provider Nurse Practitioner Family
DX: Z20.822 Contact with and (suspected) exposure to COVID-19 (principal); R09.89 Other specified symptoms and signs involving the circulatory and respiratory systems
CPT/HCPCS: 0241U

== ENCOUNTER 2023-02-21 15:30 | Outpatient (RCR) | payer OTHER, SELFPAY ==
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
--- NOTE | 2023-02-21 16:00 | MHC.OT.DC ---
[address] [phone] F: [phone] Occupational Therapy Discharge Note Patient Name: Francie Herring Provider: Ryan Sam Diagnosis: Right wrist pain Date of Evaluation: 01/17/23 Date of Discharge: 02/21/23 Treatments to Date: 8 Discharge Status: Achieved Goals Improved Function Independent with HEP Discharge Summary: Francie has progressed well in OT. She still experiences intermittent wrist pain with excessive typing and mouse use at work. Otherwise, she reports she is pain free with daily tasks. Wrist ROM is WNL's and gross grasp strength improved to 50# (from 40#). Reviewed ergonomic options for mouse/keyboard as needed. At this time, pt. is IND with HEP and met all goals set on admission. Electronically Signed By: Lucy Hua MS OTR/L Reviewed/agree with student documentation: Therapist: Please Sign and return to therapist, thank you for your referral.
== END 2023-03-19 11:35 | disposition home or self-care (01) ==
LOC: HO.OT 15:30
PROVIDERS: PCP Nurse Practitioner Family; Visit Provider Nurse Practitioner Family
DX: M25.531 Pain in right wrist (principal)
CPT/HCPCS: 29125; 97033; 97035; 97110; 97140; 97165; 97760

== ENCOUNTER 2023-03-07 15:38 | Emergency (ER) | payer OTHER, SELFPAY ==
--- NOTE | ~2023-03-07 | XR_ITS ---
EXAMINATION: XR CHEST CLINICAL INFORMATION: Chest pain COMPARISON: Chest x-ray 07/04/2021 TECHNIQUE: Frontal portable view of the chest was obtained. 7:06 PM FINDINGS: No significant abnormality is noted involving the heart, lungs, mediastinum, bony thorax or soft tissues. XR/XR chest 1V IMPRESSION: Unremarkable examination.
[2023-03-07 15:48] VITALS: BP 133/79; PULSE 65; RESP 18; TEMP 37.1; O2SAT 98; BMI 27.5
--- NOTE | 2023-03-07 15:49 | ECG_ITS ---
Test Reason : CX PAIN Blood Pressure : / mmHG Vent. Rate : 065 BPM Atrial Rate : 065 BPM P-R Int : 136 ms QRS Dur : 080 ms QT Int : 400 ms P-R-T Axes : 033 031 031 degrees QTc Int : 416 ms Normal sinus rhythm with sinus arrhythmia Normal ECG When compared with ECG of 04-JUL-2021 07:23, Vent. rate has decreased BY 42 BPM Referred By: Generic ED Physician Electronically Signed By:CORNELL YAN MD
[2023-03-07 15:53] VITALS: BP 133/79; PULSE 65; RESP 18; TEMP 37.1; O2SAT 98
--- NOTE | 2023-03-07 16:00 | PC.NURSE ---
pt a&o x3. skin appropriate for ethnicity. respirations even and unlabored. pt reporting crushing chest pain for the last 10 minutes that came on suddenly. pain reported as a 9/10. normal sinus on tele.
[2023-03-07 16:32] LABS: MANUAL DIFF FLAG NO
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
[2023-03-07 16:51] LABS: Basophils Percent Auto 0.3 % (0-2); Eosinophils Absolute Auto 0.2 X10*3/uL (0.0-0.4); Eosinophils Percent Auto 1.7 % (0-4); Hematocrit 38.1 % (37.0-47.0); Hemoglobin 13.1 g/dl (12.0-16.0); Imm Gran Abs Auto 0.03 X10*3/uL (0.00-0.03); Imm Gran Pct Auto 0.3 % (0.0-0.4); Lymphocytes Absolute Auto 2.8 X10*3/uL (1.2-4.9); Lymphocytes Percent Auto 29.4 % (20-40); Mean Corpuscular HGB Conc 34.4 g/dl (31.0-35.0); Mean Corpuscular Hemoglobin 31.6 pg (27.0-33.0); Mean Platelet Volume 11.1 fL (9.4-12.3); Monocytes Absolute Auto 0.7 X10*3/uL (0.1-1.2); Neutrophils Absolute Auto 5.8 x10*3/uL (2.0-8.3); Neutrophils Percent Auto 61.3 % (45-73); Platelet Count 251 X10*3/uL (160-400); Red Blood Count 4.14 X10*6/uL (4.20-5.50); Red Cell Distribution Width 11.6 % (11.0-16.0); White Blood Count 9.4 X10*3/uL (4.8-10.8)
[2023-03-07 16:57] LABS: Anion Gap 12 (12-20); Blood Urea Nitrogen 12 mg/dL (9-16); Calcium 9.6 mg/dL (8.4-10.2); Carbon Dioxide 23 mmol/L (22-29); Chloride 105 mmol/L (96-108); Creatinine Clr Calc Pharmacy 90.6; Estimated Glomerular Filt Rate > 60; Glucose Random 288 mg/dL (60-115); Potassium 3.9 mmol/L (3.3-5.1); Sodium 136 mmol/L (135-145)
[2023-03-07 16:58] LABS: D Dimer High Sensitivity < 150 NG/ML
[2023-03-07 17:15] LABS: Troponin-I High Sensitivity < 2.7 ng/L (<3.5-17.0)
[2023-03-07 19:19] VITALS: BP 124/72; PULSE 74; RESP 14; TEMP 36.7; O2SAT 98
--- NOTE | 2023-03-07 19:23 | PC.NURSE ---
This health science writer assumed care of this Pt at 1900. Pt A&Ox4, denies any pain, reports intermittent midsternal pressure, non-radiating. Pt sitting up in bed, equal non-labored breathing, speaking in full sentences. VSS. Pending repeat lab result, and chest x-ray.
[2023-03-07 19:58] LABS: Troponin-I High Sensitivity < 2.7 ng/L (<3.5-17.0)
[2023-03-07 20:07] VITALS: BP 121/75; PULSE 69; RESP 16; TEMP 37; O2SAT 98
== END 2023-03-07 20:41 | disposition home or self-care (01) ==
PROVIDERS: Emergency Provider Emergency Medicine; PCP Nurse Practitioner Family
DX: R07.89 Other chest pain (principal); E11.65 Type 2 diabetes mellitus with hyperglycemia; Z79.899 Other long term (current) drug therapy
CPT/HCPCS: 36415; 71045; 80048; 84484; 85025; 85379; 93005; 99284; 99285

== ENCOUNTER → 2023-03-07 15:49 | Outpatient (BNV) | payer OTHER, SELFPAY | PROVIDERS: Emergency Provider Emergency Medicine; PCP Nurse Practitioner Family; Visit Provider Internal Medicine Cardiovascular Disease | DX: I49.9 Cardiac arrhythmia, unspecified (principal) | CPT/HCPCS: 93010 ==

== ENCOUNTER 2023-04-24 07:50 | Outpatient (AMB) | payer OTHER, SELFPAY ==
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
[2023-04-24 08:09] VITALS: BMI 27.5
== END 2023-04-24 08:36 | disposition home or self-care (01) ==
PROVIDERS: PCP Nurse Practitioner Family; Visit Provider Physician Assistant
DX: S63.511A Sprain of carpal joint of right wrist, initial encounter (principal)
CPT/HCPCS: 99203

== ENCOUNTER 2023-04-24 07:50 | Outpatient (REF) | payer OTHER, SELFPAY | END 2023-04-24 07:51 | disposition home or self-care (01) | LOC: HO.HOSX 07:50 | PROVIDERS: PCP Nurse Practitioner Family; Visit Provider Physician Assistant | DX: S63.511A Sprain of carpal joint of right wrist, initial encounter (principal) | CPT/HCPCS: 99202 ==

== ENCOUNTER 2023-05-20 12:40 | Outpatient (REF) | payer OTHER, SELFPAY ==
--- NOTE | ~2023-05-20 | XR_ITS ---
EXAMINATION: XR WRIST, RIGHT CLINICAL INFORMATION: Pain COMPARISON: Right wrist radiograph from 12/24/2013 TECHNIQUE: Four views of the right wrist. FINDINGS: No acute visible fracture or dislocation. Negative ulnar variance. Joint spaces and alignment are maintained. Soft tissues are unremarkable. XR/XR wrist RT min 3V IMPRESSION: 1. No acute visible fracture or dislocation. 2. Negative ulnar variance.
== END 2023-05-20 12:41 | disposition home or self-care (01) ==
LOC: HO.XRAY 12:40
PROVIDERS: PCP Nurse Practitioner Family; Visit Provider Physician Assistant
DX: M25.531 Pain in right wrist (principal)
CPT/HCPCS: 73110

== ENCOUNTER 2023-05-30 14:00 | Outpatient (RCR) | payer OTHER, SELFPAY ==
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
--- NOTE | 2023-08-01 14:40 | MHC.PT.DC ---
[facility] [place] [facility] [place] [facility] [place] [facility] [address] Caio Mcgarry [address] [phone] F: [phone] F: [phone] F: [phone] F: [phone] Physical Therapy Discharge Report Diagnosis: RIGHT hip pain (MD Dx) R hip pain and R sided LBP WITHOUT radicular sxs (PT Dx) Date of Surgery: Date of Evaluation: 03/19/23 Date of Discharge: 08/01/23 Treatments to Date: 12 Cancellations to Date: No Shows to Date: Discharge Status: Achieved Goals Improved Function Independent with HEP Discharge Summary: Patient was last seen in PT on 05/30/23, assessment reads, Patient presents without pain today and increased ROM in lumbar spine and increased strength in her hip. She has an independent HEP to be able to maintain gains made in PT and avoid certain positions/movements to put more strain on her back. She is discharged from PT at this time due to having made progress and able to maintain sxs independently. Electronically signed by: Kristan Navarro, PT, DPT Please sign and return to therapist. Thank you for your referral.
== END 2023-08-01 14:40 | disposition home or self-care (01) ==
LOC: HO.PT 14:00
PROVIDERS: PCP Nurse Practitioner Family; Visit Provider Nurse Practitioner Family
DX: M25.551 Pain in right hip (principal)
CPT/HCPCS: 97012; 97035; 97110; 97140; 97161; 97530

== ENCOUNTER 2023-06-06 08:51 | Outpatient (AMB) | payer OTHER, SELFPAY ==
--- NOTE | 2023-06-06 08:52 | A.OFFVIS_ITS ---
Intake Vital Signs 06/06/23 08:53 Height 5 ft 4 in Weight 160 lb BMI 27.5 Intake Visit Reasons: OV-Rt wrist SL sprain-Follow up Intake Note: Francie a 32 year old 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 female presents today for a follow up of right wrist sprain. Patient reports no change in symptoms since her last visit. She continues to do at home exercises as instructed. Finds support from velcro wrist brace. Allergies No Known Allergies [No Known Allergies*] Allergy (Verified 06/06/23 08:59) HPI OV-Rt wrist SL sprain-Follow up HPI Details 32-year-old 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 female amna duncan returns to the office today for a follow-up of right wrist pain. She states she has no change in her symptoms since the last visit. She continues have pain and discomfort in her wrist with work and lifting. She is working on home exercises as instructed. She finds support with Velcro wrist brace. [facility] Medical History Chronic pain syndrome Chronic, continuous use of opioids Cysts Hidradenitis suppurativa Spondylosis of lumbar region without myelopathy or radiculopathy Type I diabetes mellitus Surgical History History of cystoscopy History of hernia repair Previous section Family History Father Alive and well Mother Alive and well Sister Alive and well Social History (Updated 04/24/23 @ 08:11 by ADDISON Bond) Housing: Condominium Alcohol intake: current Alcohol intake frequency: holidays/special occasions only Patient Tobacco Use Status: Never used Tobacco e-Cigarette/Vaping Use: Never Used Second Hand Smoke Exposure: No Current occupational status: employed 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, 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 Cognitive needs: No Hearing needs: No Vision needs: No Review of Systems Const All systems reviewed & are unremarkable except as noted in HPI and below Physical Exam Vital Signs: BMI result Body Mass Index 27.5 Const General: cooperative, healthy appearing, comfortable, no acute distress, well developed and alert Orientation/consciousness: patient oriented x3 HEENT Head: Yes normal to inspection, Yes normocephalic and Yes atraumatic Eyes General: appearance normal, both eyes and all related structures Resp Effort & Inspection: normal respiratory effort and able to speak in complete sentences Cardio Rate: regular rate Peripheral pulses: Peripheral pulses 2+ throughout GI Palpation (GI): Soft to palpation Skin Lesions: no lesions Rashes: no rashes Neuro General: patient oriented x3 Extrem Other: Right wrist: Normal to inspection. There is no abrasion or swelling present. She does have tenderness over the scapholunate region of the right wrist. She has no pain with compression testing. She has no pain with ulnar or radial deviation of the wrist. No DRUJ instability. Negative Tinel?s. She has full sensation and pulses are intact throughout. Assessment & Plan Assessment & Plan (1) Sprain of right scapholunate ligament: Code(s): S63.511A - Sprain of carpal joint of right wrist, initial encounter Plan We will obtain an MRI with contrast to further evaluate the integrity of the scaffold lunate region and the source of her pain. She will continue to wear the Velcro wrist splint as needed with work and lifting exercises and see me back once the scan complete. Orders: Orders MR wrist RT w con Today S63.511A - Sprain of carpal joint of right wrist, initial encounter Patient Instructions: Scribed for Liu Jackson PA-C, by Shyam Sánchez medical office administrator, on 06/06/2023 at 9:00 AM Liu MAI PA-C, have personally reviewed and agree with the information entered by the scribe. Coding Level of Care Code Est Pt Level 3 (23885) Diagnoses Sprain of right scapholunate ligament S63.511A
[2023-06-06 08:53] VITALS: BMI 27.5
== END 2023-06-06 09:17 | disposition home or self-care (01) ==
PROVIDERS: PCP Nurse Practitioner Family; Visit Provider Physician Assistant
DX: S63.511A Sprain of carpal joint of right wrist, initial encounter (principal)
CPT/HCPCS: 99214

== ENCOUNTER → 2023-06-06 08:51 | Outpatient (BNVA) | payer OTHER, SELFPAY | PROVIDERS: PCP Nurse Practitioner Family; Visit Provider Physician Assistant | DX: S63.511A Sprain of carpal joint of right wrist, initial encounter (principal) | CPT/HCPCS: 99212 ==

== ENCOUNTER 2023-08-02 13:00 | Outpatient (REF) | payer OTHER, SELFPAY ==
--- NOTE | ~2023-08-02 | MR_ITS ---
EXAMINATION: MR WRIST WITH CONTRAST, RIGHT CLINICAL INFORMATION: Sprain of metacarpal joint right wrist. Patient reports wrist pain. COMPARISON: X-ray the right wrist April 2023 TECHNIQUE: MRI of the wrist was performed following the intra-articular administration of a dilute gadolinium-containing solution (arthrogram) on a high-field scanner. FINDINGS: Bone/joints: Negative ulnar variance. Bone and joints otherwise unremarkable. No arthrosis or fracture. Intraosseous ligaments: Intact. No contrast extension into the midcarpal compartment Pelzer fibrocartilage complex: Intact. Muscles gadolinium contrast fluid extending to the second extensor compartment tendon sheaths of uncertain etiology and significance. This may be iatrogenic related to the pre-MRI arthrogram. Gadolinium contrast fluid also extends around the extensor carpi ulnaris tendon of uncertain etiology and significance. Perhaps subtle communication between the radiocarpal compartment and tendon sheath as it passes distally Question slight ulnar subluxation of the extensor carpi ulnaris tendon could reflect normal variation or subtle subsheath tear. MR/MR wrist RT w con IMPRESSION: 1. Negative ulnar variance. 2. Trace gadolinium contrast fluid extending to the second extensor compartment tendon sheaths of uncertain etiology and significance. This is likely iatrogenic related to the pre-MRI arthrogram. 3. Gadolinium contrast fluid also extends around the extensor carpi ulnaris tendon of uncertain etiology and significance. Perhaps subtle communication between the radiocarpal compartment and tendon sheath as it passes distally. 4. Question slight ulnar subluxation of the extensor carpi ulnaris tendon. This could reflect normal variation or subtle subsheath tear
--- NOTE | ~2023-08-02 | FL_ITS ---
RIGHT WRIST ARTHROGRAM INDICATIONS: Right wrist pain. Intra-articular gadolinium injection is needed prior to MRI. Procedure: Risks and benefits and possible complications were discussed with the patient and the consent form was signed. The patient was placed prone on the fluoroscopy table with the right wrist flexed. The right wrist was prepped and draped in normal sterile fashion. 1% buffered lidocaine was used for anesthesia. A 25-gauge hypodermic needle was used to access the radiocarpal joint. Intra-articular position of the needle within the joint was verified using 0.5 cc of Omnipaque 300. A total of 2 mL of gadolinium/saline (1:200) contrast mixture was then injected into the right radiocarpal joint. The needle was then removed and a Band-Aid was applied to the injection site. The patient tolerated the procedure well and was sent for to MRI. There were no immediate complications. There is marked negative ulnar variance incidentally noted. FL/FL arthrogram wrist RT IMPRESSION: Fluoroscopic right wrist arthrogram The procedure was performed by shoulder Gabriele Redd PA-C, and directly supervised by Dr. Pfeiffer.
== END 2023-08-02 13:01 | disposition home or self-care (01) ==
LOC: HO.XRAY 13:00
PROVIDERS: PCP Nurse Practitioner Family; Visit Provider Physician Assistant
DX: S63.511A Sprain of carpal joint of right wrist, initial encounter (principal)
CPT/HCPCS: 25246; 73115; 73222

== ENCOUNTER → 2023-08-02 13:15 | Outpatient (BNV) | payer OTHER, SELFPAY | PROVIDERS: PCP Nurse Practitioner Family; Visit Provider Radiology Diagnostic Radiology | DX: S63.511A Sprain of carpal joint of right wrist, initial encounter (principal) | CPT/HCPCS: 25246; 73115 ==

== ENCOUNTER → 2023-08-05 08:16 | Outpatient (AMB) | payer OTHER, SELFPAY ==
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
== END ==
PROVIDERS: PCP Nurse Practitioner Family; Visit Provider Nurse Practitioner Family
DX: M25.559 Pain in unspecified hip (principal); V89.2XXA Person injured in unspecified motor-vehicle accident, traffic, initial encounter; M54.50 Low back pain, unspecified; G89.29 Other chronic pain
CPT/HCPCS: 99213

== ENCOUNTER 2023-08-05 19:58 | Emergency (ER) | payer OTHER, SELFPAY ==
--- NOTE | ~2023-08-05 | CT_ITS ---
EXAMINATION: CT HEAD WITHOUT CONTRAST CT CERVICAL SPINE WITHOUT CONTRAST CLINICAL INFORMATION: Fall. Head trauma. COMPARISON: CT head and cervical spine from 12/11/2022. TECHNIQUE: Contiguous axial imaging was performed from the skull base to vertex without intravenous administration of contrast. Contiguous axial imaging was performed from the upper chest through the skull base without intravenous administration of contrast. Coronal and sagittal reformats were obtained at the acquisition workstation. This CT examination was performed using dose optimization techniques as appropriate, variously including the following: *Automated exposure control. *Adjustment of mA and/or kV according to patient size (this includes techniques or standardized protocols for targeted exams where dose is matched to indication/reason for exam; i.e. extremities or head). *Use of iterative reconstruction technique. DLP: 1167 mGy-cm FINDINGS: Head: There is no evidence of acute intracranial hemorrhage or edematous territorial infarction. Palacios-white matter differentiation is preserved. There is no abnormal attenuation within the brain parenchyma. The ventricles are normal in morphology and size. No evidence for obstructive hydrocephalus. No abnormal mass effect or midline shift. No extra-axial fluid collections. No acute soft tissue or osseous abnormalities. Mild mucosal thickening of the paranasal sinuses. The mastoid air cells and middle ear cavities are clear. Cervical Spine: The atlantooccipital and atlantoaxial articulations remain well aligned. Mild reversal the normal cervical lordosis. Otherwise, there is anatomic alignment of the vertebral bodies and posterior elements. No evidence of acute fracture or subluxation. The vertebral body heights and disc spaces are maintained. There is no prevertebral soft tissue swelling. The thyroid gland and remaining cervical soft tissues are within normal limits. The lung apices demonstrate no abnormalities. CT/CT cervical spine wo IV con IMPRESSION: 1. No evidence of acute intracranial hemorrhage or edematous territorial infarction. 2. No evidence of acute fracture or traumatic subluxation of the cervical spine.
[2023-08-05 20:14] VITALS: BP 152/86; BP 153/90; PULSE 102; PULSE 103; RESP 16; TEMP 36.7; O2SAT 98; BMI 30.3
[2023-08-05 20:27] LABS: Glucose, Whole Blood 364 mg/dL (60-115)
--- NOTE | 2023-08-05 20:53 | ED.FALL ---
HPI - Fall General Chief Complaint: Fall Stated Complaint: MECHANICAL FALL, HEAD LAC, BLEEDING CONTROLLED Time Seen by Provider: 08/05/23 20:21 Source: patient and old records reviewed Mode of arrival: EMS Limitations: no limitations History of Present Illness HPI Narrative: 33 yo female with PMH of IDDM, not on thinners here with c/o trip and fall on her child's toy and landing on the floor striking face on the floor - no LOC has laceration to the forehead. No neck pain. MD complaint: fall Onset (ago): minute(s) (just prior to arrival ) Fall from: standing Fall witnessed: yes, by family Place fall occurred: home Loss of consciousness: none Prolonged down time: no Symptoms prior to fall: none Context: tripped/slipped Location of injury: head and face Severity: moderate Quality: aching Associated symptoms (after fall): other (n/v has laceration) Related Data Home Medications Medication Instructions Recorded Confirmed blood sugar diagnostic #10 ea 05/23/20 04/24/23 insulin lispro 100 unit/mL See Rx Instructions .Route .COMPLEX 05/23/20 04/24/23 subcutaneous solution cinnamon bark 500 mg capsule 500 mg PO DAILY 12/17/22 04/24/23 (Cinnamon) coconut oil 1,000 mg capsule mg PO 12/17/22 04/24/23 ibuprofen 200 mg tablet (Advil) 600 mg PO Q8H PRN 01/15/23 04/24/23 Previous Rx's Medication Instructions Recorded blood sugar diagnostic (FreeStyle #100 ea 06/13/21 Test strips) blood-glucose meter (FreeStyle #1 ea 06/13/21 System Kit) amoxicillin 875 mg-potassium 1 tab PO Q12H 10 days #20 tabs 01/25/23 clavulanate 125 mg tablet ondansetron 4 mg disintegrating 4 mg PO Q8H PRN nausea and 08/05/23 tablet vomiting #20 tabs Allergies Allergy/AdvReac Type Severity Reaction Status Date / Time No Known Allergies Allergy Verified 06/06/23 08:59 [No Known Allergies*] Review of Systems Review of Systems: Constitutional : No Fever, No Chills, No Fatigue ENT/Mouth : No sore throat, No Rhinorrhea Eyes: No Eye Pain, No Swelling, No Redness Cardiovascular : No Chest Pain, No SOB, No Dyspnea on Exertion Respiratory : No Cough, No Sputum Gastrointestinal : pos Nausea, No Vomiting, No Diarrhea, No abdominal Pain Genitourinary : No Dysuria, No Urinary Frequency, No Hematuria, Musculoskeletal : No joint pain, No Myalgias, No Joint Swelling Skin : No Skin Lesions, No rash, pos laceration Neuro : No Weakness, No Numbness, No Dizziness, positive Headache Psych : No Anxiety/Panic, No Depression Heme/Lymph: No Bruising, No Bleeding,No Lymphadenopathy Endocrine : No Polyuria, No Polydipsia All other systems reviewed and are negative [facility] Past Medical History Source: old records reviewed Medical History Hidradenitis suppurativa Cysts Chronic, continuous use of opioids Chronic pain syndrome Spondylosis of lumbar region without myelopathy or radiculopathy Type I diabetes mellitus Surgical History Previous section History of cystoscopy History of hernia repair Family History Family History Father Alive and well Mother Alive and well Sister Alive and well Social History Social History Housing: Condominium Alcohol intake: current Alcohol intake frequency: holidays/special occasions only Alcohol type: beer, wine and hard liquor Patient Tobacco Use Status: Never used Tobacco Smoked in Last 30 Days: No e-Cigarette/Vaping Use: Never Used Second Hand Smoke Exposure: No Use of substances other than those prescribed or required for medical reasons: Yes Substance Use Type: Marijuana Substance Use Frequency: Socially Advance Directives: No Advance Directives Information Provided: Yes Patient : No Current occupational status: employed 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 Oriented X3. No acute distress. Eyes: Pupils equal, round and reactive to light. ENT: Pharynx normal. 6cm superficial linear laceration R forehead Neck: Normal inspection. Neck supple. CVS: Normal heart rate and rhythm. Pulses normal. Respiratory: No respiratory distress. Breath sounds normal. Abdomen: Soft and nontender. Skin: Skin warm and dry. Normal skin color. Normal skin turgor. Extremities: No lower extremity edema. No calf ttp Neuro: Oriented X 3. No motor deficit. No sensory deficit. Medications Administered Discontinued Medications Generic Name Dose Route Start Last Admin Trade Name Fritzq PRN Reason Stop Dose Admin Lidocaine HCl 5 ml 08/05/23 20:31 08/05/23 20:58 Lidocaine Hcl 1 % Mpf 5 Ml Vial SUBCUT 08/05/23 20:32 5 ml ONCE ONE Administration Ondansetron HCl 4 mg 08/05/23 20:31 08/05/23 20:57 Ondansetron Odt 4 Mg Tab.Rapdis TRANSLINGU 08/05/23 20:32 4 mg ONCE ONE Administration Procedures Laceration Laceration 1: Site: face Side (If applicable): right Size (cm): 6 Description: linear Depth: simple, single layer Local Anesthetic: lidocaine 1% Amount of anesthesia used (mL): 5 Pre-repair: wound explored and irrigated extensively Skin layer closed with: other (prolene) Size (cm): 6-0 Number of sutures: 6 Technique: simple, interrupted Medical Decision Making Medical Decision Making [facility] Narrative: 33 yo female with PMH of IDDM not on thinners here with c/o R forehead laceration and n/v with mild headache post mechanical fall at this time CT head/cspine and laceration repair. No other injuries reported. BS high but she has on device and wants to self dose. Differential Diagnosis Differential Diagnoses: The differential diagnosis associated with the presentation includes laceration, ICH Admission/Observation Consideration of admission/observation: Escalation of care including admission/observation considered at baseline stable for DC Lab Data [facility] Lab Attestation statement: I reviewed the patient's lab results. Labs: Lab Results 08/05/23 Range/Units 20:23 POC Glucose 364 H* (60-115) mg/dL Independent Interpretation I performed an independent interpretation of an: CT Scan (no trauma) Radiology Impression Discussion of test interpretation with radiology: I have reviewed the radiologist's reading. Independent Historian Clinical information obtained from an independent historian. History obtained from or confirmed by: Friend External Record Review External record reviewed: Inpatient record Prescription Management I considered prescription management with: Other Discharge Plan Discharge Clinical Impression: Head injury Qualifiers: Encounter type: initial encounter Qualified Code(s): S09.90XA - Unspecified injury of head, initial encounter Facial laceration Qualifiers: Encounter type: initial encounter Qualified Code(s): S01.81XA - Laceration without foreign body of other part of head, initial encounter Patient Disposition: Home, Self-Care Instructions: Laceration (ED), Head Injury (ED) Additional Instructions: return for confusion, vomiting, severe headaches CT scans normal sutures out in 5 to 7 days. okay to shower in 24 hours monitor for redness, fevers, yellow drainage or signs of infection for the next 6 months after fully healed use sunscreen to prevent sunburn and scar Prescriptions: New ondansetron 4 mg tablet,disintegrating 4 mg PO Q8H PRN (Reason: nausea and vomiting) Qty: 20 0RF No Action (DME) blood-glucose meter [FreeStyle System Kit] Kit See Rx Instructions .Route Qty: 1 0RF Rx Instructions: 4 times a day testing (DME) FreeStyle Test Strip See Rx Instructions .Route Qty: 100 2RF Rx Instructions: 4 times a day testing ibuprofen [Advil] 200 mg tablet 600 mg PO Q8H PRN coconut oil 1,000 mg capsule PO cinnamon bark [Cinnamon] 500 mg capsule 500 mg PO DAILY amoxicillin-pot clavulanate 875-125 mg tablet 1 tab PO Q12H 10 Days Qty: 20 0RF insulin lispro 100 unit/mL solution See Rx Instructions .ROUTE .COMPLEX Rx Instructions: infuse up to 110 units via pump (DME) FreeStyle Lite Strips Strip See Rx Instructions .ROUTE .MEDSUPPLY Qty: 10 Rx Instructions: As directed Stand Alone Forms: Work/School Release
[2023-08-05] MEDS: Ondansetron ODT 4 MG TAB.RAPDIS TRANSLINGU (20:57)
[2023-08-05] MEDS: Lidocaine HCl 1 % MPF 5 ML VIAL SUBCUT (20:58)
[2023-08-05 23:17] VITALS: BP 132/89; PULSE 98; RESP 16; TEMP 36.7; O2SAT 99
== END 2023-08-05 23:20 | disposition home or self-care (01) ==
PROVIDERS: Emergency Provider Emergency Medicine; PCP Nurse Practitioner Family
DX: S09.90XA Unspecified injury of head, initial encounter (principal); S01.81XA Laceration without foreign body of other part of head, initial encounter; W18.09XA Striking against other object with subsequent fall, initial encounter; Y93.9 Activity, unspecified; Y92.019 Unspecified place in single-family (private) house as the place of occurrence of the external cause; Y99.9 Unspecified external cause status; E11.9 Type 2 diabetes mellitus without complications; Z79.4 Long term (current) use of insulin
CPT/HCPCS: 12014; 70450; 72125; 82947; 99284

== ENCOUNTER 2023-08-30 07:56 | Outpatient (REF) | payer OTHER, SELFPAY ==
--- NOTE | ~2023-08-30 | XR_ITS ---
EXAMINATION: XR HIP, RIGHT CLINICAL INFORMATION: Pain in right hip COMPARISON: 12/17/2022 TECHNIQUE: Two views of the right hip. FINDINGS: No fracture. Alignment is anatomic. Hip joint space is maintained. Soft tissues are unremarkable. XR/XR hip RT min 2V IMPRESSION: Normal right hip.
--- NOTE | ~2023-08-30 | XR_ITS ---
EXAMINATION: XR LUMBOSACRAL SPINE CLINICAL INFORMATION: Low back pain COMPARISON: None available. TECHNIQUE: Three views of the lumbosacral spine. FINDINGS: The vertebral bodies and posterior elements are normal. The disc spaces are preserved and the vertebral alignment is normal. The paraspinal soft tissues are normal. XR/XR lumbar spine 2-3V IMPRESSION: Unremarkable examination.
== END 2023-08-30 07:57 | disposition home or self-care (01) ==
LOC: HO.XRAY 07:56
PROVIDERS: PCP Nurse Practitioner Family; Visit Provider Nurse Practitioner Family
DX: M54.50 Low back pain, unspecified (principal); M25.551 Pain in right hip; G89.29 Other chronic pain
CPT/HCPCS: 72100; 73502

== ENCOUNTER 2023-09-04 12:19 | Outpatient (AMB) | payer OTHER, SELFPAY ==
[2023-09-04 12:20] VITALS: BMI 30.3
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
== END 2023-09-04 13:31 | disposition home or self-care (01) ==
PROVIDERS: PCP Nurse Practitioner Family; Visit Provider Orthopaedic Surgery
DX: M77.8 Other enthesopathies, not elsewhere classified (principal); Z04.3 Encounter for examination and observation following other accident
CPT/HCPCS: 99214

== ENCOUNTER → 2023-09-04 12:19 | Outpatient (BNVA) | payer OTHER, SELFPAY | PROVIDERS: PCP Nurse Practitioner Family; Visit Provider Orthopaedic Surgery ==

== ENCOUNTER 2023-11-05 13:13 | Emergency (ER) | payer OTHER, SELFPAY | END 2023-11-05 13:43 | disposition left against medical advice (07) | PROVIDERS: Emergency Provider Emergency Medicine; PCP Nurse Practitioner Family | DX: Z53.21 Procedure and treatment not carried out due to patient leaving prior to being seen by health care provider (principal); R53.1 Weakness; R51.9 Headache, unspecified; R11.0 Nausea ==

== ENCOUNTER 2023-11-05 13:40 | Outpatient (AMB) | payer OTHER, SELFPAY ==
[2023-11-05 13:41] VITALS: BP 112/72; PULSE 57; TEMP 36.4; O2SAT 98; BMI 31.7
--- NOTE | 2023-11-05 13:41 | MHC.OFFWIV ---
Intake Vital Signs 11/05/23 13:41 Height 5 ft 3 in Weight 179 lb BMI 31.7 BP 112/72 Blood Pressure Location Lt brachial Position Sitting Pulse 57 Pulse Source Pulse Oximeter Temp 97.6 F Temp Source Temporal Artery Scan Pulse Oximetry (%) 98 Oxygen Delivery Method Room Air Intake Visit Reasons: EP Nausea, Headache, weak Intake Note: pt is here today for nausea headache weak started today Patient Tobacco Use Status: Never used Tobacco Allergies No Known Allergies [No Known Allergies*] Allergy (Verified 11/05/23 13:42) Do you need a note to return to daycare/school/sports/work: No HPI HPI Comments History of Present Illness Details Patient is a 33yo F with hx of DM who presents with headache, nausea and fatigue She was tx with an anibiotic for sinusitis over a week ago and felt better She said + onset posterior headache and nausea this am Pt was able to eat a banana for breakfast but had continual nausea and fatigue today Headache is posterior scalp without syncope, vision changes, HT or LOC She said no sinus pressure, ear pain or sore throat/congestion No worsening or improving factors States overall body fatigue without CP, SOB, abdominal pain, vomiting, urine symptoms or bowel symptoms Denies sick contacts Glucose prior to arriving to office was 129 per pt [facility] Medical History Hidradenitis suppurativa Cysts Chronic, continuous use of opioids Chronic pain syndrome Spondylosis of lumbar region without myelopathy or radiculopathy Type I diabetes mellitus Surgical History Previous section History of cystoscopy History of hernia repair Family History Father Alive and well Mother Alive and well Sister Alive and well Social History Housing: Condominium Alcohol intake: current Alcohol intake frequency: holidays/special occasions only Alcohol type: beer, wine and hard liquor Patient Tobacco Use Status: Never used Tobacco e-Cigarette/Vaping Use: Never Used Second Hand Smoke Exposure: No Substance Use Type: Marijuana Current occupational status: employed 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, 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 Cognitive needs: No Hearing needs: No Vision needs: No Review of Systems Const Denies chills, Reports fatigue, Denies fever(s), Reports headache(s) and Denies weakness Eyes Denies blurry vision ENT Denies vertigo, Denies otalgia, Reports headache(s), Denies nasal discharge, Denies sinus pressure, Denies sore throat and Denies throat swelling Card Denies chest pain and Denies dyspnea Resp Denies cough and Denies dyspnea GI Denies abdominal pain, Reports nausea and Denies vomiting Denies difficulty voiding, Denies dysuria, Denies urinary hesitancy and Denies urinary urgency Musc Denies myalgias Neuro Denies confusion, Denies vertigo, Reports headache(s), Denies lack of coordination and Denies weakness Psych Denies confusion Endo Reports fatigue Aller/Immun Denies throat swelling Physical Exam Vital Signs: Last Vital Signs Temp 97.6 F 11/05/23 13:41 Pulse 57 11/05/23 13:41 BP 112/72 11/05/23 13:41 Pulse Ox 98 11/05/23 13:41 Oxygen Delivery Method Room Air 11/05/23 13:41 BMI result Body Mass Index 31.7 General: Non-toxic, NAD. Speaking full sentences. Skin: Warm dry throughout Eye: EOMI, PERRL HENT: Airway patent. Uvula midline. No pharyngeal erythema or edema. No MEDICAL OFFICE SPECIALIST. Bilateral canals clear. TM non-erythematous, non-bulging. No TM perforation or hemotympanum noted. No sinus tenderness to palpation bilaterally in maxillary or frontal sinuses Respiratory: CTA bilaterally. No wheezes, rales or rhonchi Cardiac: RRR. No murmur Abdominal: BS present. No tenderness to palpation MSK: Full ROM extremities. Neurology: A/O. CN 2-12 grossly intact. 5/5 ampoule examiner strength. Negative pronator drift. No aphasia or facial droop. Gait without abnormality Psych: Good mood and affect Const General: No confusion Orientation/consciousness: No confusion Neuro General: No confusion Results AMB Test Urine AMB Test Urine Negative Last Edit by Nayana Hill on 11/05/23 14:08 AMB Urinalysis, Automated UA Leukoctes 0 Hoa/uL Last Edit by Lashell José CMA on 11/05/23 14:09 UA Nitrite Negative Last Edit by Lashell José CMA on 11/05/23 14:09 UA Urobilinogen 0.2 mg/dL Last Edit by Lashell José, KARLY on 11/05/23 14:09 UA Protein 0 mg/dL Last Edit by Lashell José, KARLY on 11/05/23 14:09 UA pH 5.5 Last Edit by Lashell José, WORKFORCE DEVELOPMENT VICE PRESIDENT on 11/05/23 14:09 UA Blood 0 Luis/uL Last Edit by Lashell José, WORKFORCE DEVELOPMENT VICE PRESIDENT on 11/05/23 14:09 UA Specific [place] 1.020 Last Edit by Lashell José, WORKFORCE DEVELOPMENT VICE PRESIDENT on 11/05/23 14:09 UA Ketone Negative Last Edit by Lashell José, KARLY on 11/05/23 14:09 UA Bilirubin 1 mg/dL Last Edit by Lashell José, KARLY on 11/05/23 14:09 UA Glucose 0 mg/dL Last Edit by Lashell José, KARLY on 11/05/23 14:09 Assessment & Plan Assessment & Plan (1) Influenza-like illness: Code(s): J11.1 - Influenza due to unidentified influenza virus with other respiratory manifestations Plan: Patient seen and evaluated. U/a: no ketones or glucose. No sign of infection HCG:negative Orthostatics: no significant change COVID/flu/rsv swab obtained and sent Zofran and tamiflu to pharmacy; discussed side effects Discussed what s/s warrant ER evaluation Patient gave verbal understanding and had no additional questions or concerns at time of discharge All questions answered Orders: Orders SARS-CoV2/FLU/RSV Today J11.1 - Influenza due to unidentified influenza virus with other respiratory manifestations AMB Urinalysis Automated Today Z13.9 - Encounter for screening, unspecified Medications: New oseltamivir (Tamiflu) 75 mg PO BID 10 caps 0RF 5 days ondansetron 4 mg PO Q8-10H PRN 14 tabs 0RF nausea and vomiting Coding Level of Care Code Est Pt Level 3 (53075) Diagnoses Influenza-like illness J11.1
== END 2023-11-05 14:33 | disposition home or self-care (01) ==
PROVIDERS: PCP Nurse Practitioner Family; Visit Provider Physician Assistant
DX: J11.1 Influenza due to unidentified influenza virus with other respiratory manifestations (principal); Z32.02 Encounter for pregnancy test, result negative; R11.2 Nausea with vomiting, unspecified
CPT/HCPCS: 81003; 81025; 99213

== ENCOUNTER 2023-11-05 17:02 | Outpatient (REF) | payer OTHER, SELFPAY ==
[2023-11-05 18:07] LABS: Influenza A PCR NEGATIVE (Negative); Influenza B PCR NEGATIVE (Negative); Resp Syncy Virus RNA Qual PCR NEGATIVE (Negative); SARS COV2 PCR INHOUSE NEGATIVE (Negative)
== END 2023-11-05 17:03 | disposition home or self-care (01) ==
LOC: HO.LNP 17:02
PROVIDERS: Visit Provider Physician Assistant
DX: Z11.52 Encounter for screening for COVID-19 (principal); Z20.822 Contact with and (suspected) exposure to COVID-19; J11.1 Influenza due to unidentified influenza virus with other respiratory manifestations
CPT/HCPCS: 0241U

== ENCOUNTER 2023-11-06 17:58 | Outpatient (REF) | payer OTHER, SELFPAY ==
--- NOTE | ~2023-11-06 | MR_ITS ---
EXAMINATION: MR HIP WITHOUT CONTRAST, RIGHT CLINICAL INFORMATION: Right hip pain. COMPARISON: Most recent right hip radiographs dated 08/30/2023 as well as right hip radiographs dated 12/17/2022. TECHNIQUE: MRI of the right hip was obtained using routine sequences on a high-field strength magnet. FINDINGS: ACETABULAR LABRUM: No labral tear. ARTICULAR CARTILAGE/BONE: Intact articular cartilage. No stress reaction, fracture, or avascular necrosis. No concerning lytic or blastic osseous lesion. The acetabular depth is within normal limits. MUSCLES/TENDONS: Minimal gluteus medius tendinosis. No transverse tendon tear or tendon retraction. JOINT FLUID/BURSA: No joint effusion. Minimal edema within the region of the greater trochanteric bursa which could represent minimal bursitis. INTRAPELVIC STRUCTURES: IUD within the uterus. Simple-appearing left adnexal cyst measuring up to 3.2 cm. No dedicated follow-up imaging recommended. MR/MR hip RT wo con IMPRESSION: 1. Minimal gluteus medius tendinosis. Minimal edema within the region of the greater trochanteric bursa which could represent minimal bursitis. 2. No labral tear. 3. No stress reaction, fracture, or avascular necrosis.
--- NOTE | ~2023-11-06 | MR_ITS ---
EXAMINATION: MR LUMBAR SPINE WITHOUT CONTRAST CLINICAL INFORMATION: 33-year-old with persistent pain. COMPARISON: 04/24/2021 MRI. TECHNIQUE: MRI of the lumbar spine was obtained using routine sequences without contrast. FINDINGS: CORONAL ALIGNMENT: Normal. SAGITTAL ALIGNMENT: Normal. LUMBOSACRAL JUNCTION: Normal. There are 5 mfu-ndi-zoxdsau lumbar-type vertebral bodies. VERTEBRAL BODIES: Stable vertebral body heights. No interval compression fractures. DISC SPACES AND ENDPLATES: Mild disc desiccation at L5-S1 without significant disc space height loss unchanged. Mild disc volume loss with disc desiccation at L4-L5 stable in appearance. Mild disc desiccation without significant disc space height loss at L1-L2 similar to prior exam with minor anterior marginal endplate spurring unchanged. Endplates appear grossly intact. SPINAL CANAL: Moderately prominent epidural fat in the mid to lower lumbar canal similar to prior study. BONE MARROW: No suspicious marrow-replacing process or bone marrow edema. CONUS MEDULLARIS: Terminates at L1. Morphology and signal is normal. INTRADURAL NERVE ROOTS: Within normal limits. L5-S1: On the current study, there is a mild left paramedian disc protrusion with a transverse annular fissure minimally progressed from previous exam without associated adjacent neural impingement or thecal sac encroachment. There is prominent epidural fat with a developmentally small thecal sac at this level unchanged. Minor facet hypertrophic changes are seen bilaterally stable in appearance without significant canal or neural foraminal stenosis. L4-L5: Minor annular bulging noted with a superimposed central extruded disc herniation with slight caudal migration stable in appearance which contacts the ventral thecal sac. No definite neural impingement on current study and no definite canal or neural foraminal stenosis. L3-L4: Normal annular contour. No significant facet arthrosis, canal or foraminal stenosis stable in appearance. L2-L3: Normal annular contour. No significant facet arthrosis, canal or foraminal stenosis stable in appearance. L1-L2: Redemonstrated is a left paracentral extruded disc herniation with mild cephalad migration with mild indentation of the left ventral thecal sac stable in appearance. No significant canal or neural foraminal stenosis stable in appearance. PARAVERTEBRAL AND INCLUDED EXTRASPINAL SOFT TISSUES: The visualized paravertebral soft tissues and included retroperitoneal structures are unremarkable within the limitations of the exam. MR/MR lumbar spine wo con IMPRESSION: 1. Mild discogenic degenerative changes at L1-L2, L4-L5 and L5-S1 similar to the previous exam. 2. Left paracentral extruded disc herniation at L1-L2 stable in appearance without neural impingement. 3. Central extruded disc herniation at L4-L5 without neural impingement on current study, similar to previous exam. 4. Left paramedian disc protrusion at L5-S1 with a transverse annular fissure minimally progressed from previous exam without neural impingement or thecal sac encroachment. 5. Prominent epidural fat in the mid to lower lumbar canal with a developmentally small thecal sac at L5-S1 stable in appearance.
== END 2023-11-06 17:59 | disposition home or self-care (01) ==
LOC: HO.MRI 17:58
PROVIDERS: PCP Nurse Practitioner Family; Visit Provider Nurse Practitioner Family
DX: M25.551 Pain in right hip (principal); M54.50 Low back pain, unspecified; G89.29 Other chronic pain
CPT/HCPCS: 72148; 73721

== ENCOUNTER 2023-12-27 12:13 | Outpatient (AMB) | payer OTHER, SELFPAY ==
[2023-12-27 12:17] VITALS: BMI 31.7
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
== END 2023-12-27 13:19 | disposition home or self-care (01) ==
PROVIDERS: PCP Nurse Practitioner Family; Visit Provider Orthopaedic Surgery
DX: M70.70 Other bursitis of hip, unspecified hip (principal); E10.9 Type 1 diabetes mellitus without complications
CPT/HCPCS: 20610; 99213

== ENCOUNTER → 2023-12-27 12:13 | Outpatient (BNVA) | payer OTHER, SELFPAY | PROVIDERS: PCP Nurse Practitioner Family; Visit Provider Orthopaedic Surgery | DX: M70.71 Other bursitis of hip, right hip (principal); E10.9 Type 1 diabetes mellitus without complications | CPT/HCPCS: 20610; 99212; J0665; J1100 ==

== ENCOUNTER 2024-01-23 13:32 | Outpatient (AMB) | payer OTHER, MEDICAID, SELFPAY ==
[2024-01-23 13:35] VITALS: BP 116/64; BMI 31.1
--- NOTE | 2024-01-23 13:35 | A.OFFVIS_ITS ---
Vital Signs 01/23/24 13:35 Height 5 ft 4 in Weight 181 lb BMI 31.1 BP 116/64 Intake Visit Reasons: ? infection Intake Note: vaginal discharge clear sometime white and is having some odor Parole Hearing Officer Required: No Information Interpreted: non-clinical & clinical Jalousie Installer: Jalousie Installer Present (Mary Ellen) Allergies No Known Allergies [No Known Allergies*] Allergy (Verified 01/23/24 13:36) Is last menstrual period known: No Post menopausal: No HPI Comments Details: Patient is here today with concerns of vaginal discharge occasionally has an odor. She reports over the last year and a half she has been battling chronic yeast and occasional BV episodes. History of diabetes she reports currently her monitoring, diet, and diabetic control has been improved and that her blood sugars are currently stable. She denies any pelvic pain or urinary symptoms. Currently has an Mirena IUD in place, several records from [facility] were reviewed today did not include the ultrasound findings for the IUD positioning confirmation or her Pap screening history. [facility] Medical History (Updated 01/23/24 @ 15:46 by Manuela Jack CNM) Chronic vaginitis Hidradenitis suppurativa Cysts Chronic, continuous use of opioids Chronic pain syndrome Spondylosis of lumbar region without myelopathy or radiculopathy Type I diabetes mellitus Surgical History (Updated 01/23/24 @ 13:38 by ADDISON Sethi) History of reversal of tubal ligation Previous section History of cystoscopy History of hernia repair Family History (Updated 01/23/24 @ 13:39 by ADDISON Sethi) Father Alive and well Mother Alive and well Sister Alive and well Maternal Aunt Cancer Social History Housing: Condominium Alcohol intake: current Alcohol intake frequency: holidays/special occasions only Alcohol type: beer, wine and hard liquor Patient Tobacco Use Status: Never used Tobacco e-Cigarette/Vaping Use: Never Used Second Hand Smoke Exposure: No Substance Use Type: Marijuana Current occupational status: employed Current occupation: [employer] [place], 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 Cognitive needs: No Hearing needs: No Vision needs: No Female Reproductive History Menstrual Age of Menarche: 14 control method: progestin IUCD Total pregnancies: 4 Full term: 3 Number of Living Children: 3 Ab spontaneous: 1 Review of Systems Const All systems reviewed & are unremarkable except as noted in HPI and below Physical Exam Vital Signs: Last Vital Signs BP 116/64 01/23/24 13:35 BMI result Body Mass Index 31.1 Const General: cooperative, healthy appearing and no acute distress Orientation/consciousness: patient oriented x3 GI Inspection: Yes normal to inspection Palpation (GI): Soft to palpation and Other GI palpation findings present (Nontender) Rectal Exam - Female: visual inspection normal Other: Generalized external irritation inflammation most likely due to yesterday's hair removal waxing procedure. No lesions, ulcerations or otherwise abnormal findings. General: Yes bladder normal to palpation External Female Exam: normal appearance of the urethra Speculum Exam - Vagina: normal appearance of the vagina, normal palpation and normal vaginal discharge (Scant white) Speculum Exam - Cervix: normal appearance of the cervix, normal palpation and Other cervical findings present (IUD strings not found unable to tease down w/Cytobrush small amt. of blood) Bimanual exam- vagina & uterus: normal bimanual exam, normal palpation, uterine size normal, bladder normal to palpation, normal palpation, uterine shape normal and non-tender Bimanual Exam- Adnexa, other: normal adnexae Neuro General: patient oriented x3 Assessment & Plan Assessment & Plan (1) Vaginal odor: Code(s): N89.8 - Other specified noninflammatory disorders of vagina (2) IUD strings lost: Code(s): T83.32XA - Displacement of intrauterine contraceptive device, initial encounter Category: Medical Qualifiers: Encounter type: initial encounter Qualified Code(s): T83.32XA - Displacement of intrauterine contraceptive device, initial encounter Plan Discussed: Patient desires to go on her patient portal and printout the Pap and pelvic ultrasound if unable to obtain records attempts will be made to reach [facility] for per pertinent information was not included in records. MD notes reported that there was a ultrasound obtained and that the IUD was in place. Report from the portal said the IUD was fragmented. Encouraged not to shave externally there is no indication to do so may cause further irritation at times. BV panel obtained, GC chlamydia declined, await results for plan of care. Reviewed boric acid protocol, copy provided, and oral probiotic use. Plan annual exam when due. Check with PCP on vitamin-D level. Encouraged good glucose control. All of her questions and concerns were addressed to the best of my ability and shared decision making. She is agreeable to the plan of care. This note is constructed using voice recognition software. While every effort has been made to ensure accuracy, pattern filer errors may have been included. Orders: Orders Bacterial Vaginosis Panel Today N89.8 - Other specified noninflammatory disorders of vagina US pelvic and transvaginal Today T83.32XA - Displacement of intrauterine contraceptive device, initial encounter Coding Level of Care Code Est Pt Level 3 (37609) Diagnoses Vaginal odor N89.8 Intrauterine contraceptive device threads lost, initial encounter T83.32XA Encounter type: initial encounter
== END 2024-01-23 13:58 | disposition home or self-care (01) ==
LOC: HO.HWS 13:33
PROVIDERS: PCP Nurse Practitioner Family; Visit Provider Advanced Practice Midwife
DX: N89.8 Other specified noninflammatory disorders of vagina (principal); T83.32XA Displacement of intrauterine contraceptive device, initial encounter
CPT/HCPCS: 99213

== ENCOUNTER 2024-01-23 13:32 | Outpatient (REF) | payer OTHER, MEDICAID, SELFPAY ==
[2024-01-24 10:59] LABS: Bacterial Vaginosis PCR POSITIVE (Negative); Candida Group PCR NOT DETECTED (Not Detect); Candida glab krusei PCR NOT DETECTED (Not Detect); Trichomonas vaginalis PCR NOT DETECTED (Not Detect)
== END 2024-01-23 13:33 | disposition home or self-care (01) ==
LOC: HO.LNP 13:32
PROVIDERS: PCP Nurse Practitioner Family; Visit Provider Advanced Practice Midwife
DX: N89.8 Other specified noninflammatory disorders of vagina (principal)
CPT/HCPCS: 0352U

== ENCOUNTER 2024-01-29 14:18 | Outpatient (REF) | payer OTHER, MEDICAID, SELFPAY ==
--- NOTE | ~2024-01-29 | US_ITS ---
EXAMINATION: US PELVIS CLINICAL INFORMATION: Displacement of IUD. COMPARISON: CT abdomen and pelvis 12/11/2022. TECHNIQUE: Ultrasound of the pelvis is performed using both transabdominal and transvaginal transducers along with Doppler. Transvaginal imaging is performed due to inadequate visualization transabdominally. FINDINGS: Uterus: The uterus is retroverted and retroflexed measuring 8.0 x 2.9 x 5.0 cm. The double wall endometrial thickness is cannot be evaluated secondary to the IUD. The uterus is smooth in contour and has normal myometrial echogenicity. No visible fibroid. IUD is seen in good position within the endometrial cavity; however, a fracture cannot be excluded. The IUD appeared normal on the 08/30/2023 plain film radiograph which would be more sensitive for evaluating the integrity. Adnexa: Both ovaries are visualized. There is normal color flow to the adnexa. There is no ovarian torsion. There is no pelvic ascites or fluid collection. Right ovary measures 3.5 x 1.9 x 1.7 cm for a volume of 5.9 mL. Left ovary measures 5.2 x 2.7 x 4.2 cm for a volume of 31 mL which includes a complex 3.3 x 2.3 x 3.4 cm cyst with some thickened septations. US/US pelvic and transvaginal IMPRESSION: 1. IUD is seen in good position within the endometrial cavity; however, a fracture cannot be excluded. A plain film radiograph would be of value if this were a concern. 2. Complex left ovarian cyst. Follow-up ultrasound in 6-12 weeks is recommended.
== END 2024-01-29 14:19 | disposition home or self-care (01) ==
LOC: HO.US 14:18
PROVIDERS: PCP Nurse Practitioner Family; Visit Provider Advanced Practice Midwife
DX: T83.32XA Displacement of intrauterine contraceptive device, initial encounter (principal)
CPT/HCPCS: 76830; 76856

== ENCOUNTER 2024-02-06 08:01 | Outpatient (REF) | payer OTHER, MEDICAID, SELFPAY ==
[2024-02-07 03:20] LABS: CT PCR NOT DETECTED (Not Detect.); NG PCR NOT DETECTED (Not Detect.)
[2024-02-07 10:35] LABS: Bacterial Vaginosis PCR POSITIVE (Negative); Candida Group PCR NOT DETECTED (Not Detect); Candida glab krusei PCR DETECTED (Not Detect); Trichomonas vaginalis PCR NOT DETECTED (Not Detect)
[2024-02-12 20:44] LABS: HPV mRNA E6/E7 rflx Not Detected (Not Detected)
== END 2024-02-06 08:02 | disposition home or self-care (01) ==
LOC: HO.LNP 08:01
PROVIDERS: PCP Nurse Practitioner Family; Visit Provider Advanced Practice Midwife
DX: Z12.4 Encounter for screening for malignant neoplasm of cervix (principal); Z11.3 Encounter for screening for infections with a predominantly sexual mode of transmission
CPT/HCPCS: 0352U; 0353U; 87624; 88142

== ENCOUNTER 2024-02-06 08:01 | Outpatient (AMB) | payer OTHER, MEDICAID, SELFPAY ==
[2024-02-06 08:06] VITALS: BP 112/68; BMI 30.4
--- NOTE | 2024-02-06 08:06 | MHC.OFFVIS ---
Vital Signs 02/06/24 08:06 Height 5 ft 4 in Weight 177 lb BMI 30.4 BP 112/68 Intake Visit Reasons: Annual Intake Note: STD testing Sales Appointment Coordinator Required: No Information Interpreted: non-clinical & clinical Transportation Attendant: Transportation Attendant Present (Jadielyn) Allergies No Known Allergies [No Known Allergies*] Allergy (Verified 02/06/24 08:07) Is last menstrual period known: No (no menses mirena) Post menopausal: No HPI Comments Details: She is a premenopausal woman presenting for annual examination. Doing well with no concerns. She tries to eat healthy and control of her DM has improved, and stays active with exercise-walking. No menses with her Mirena IUD. Inserted after delivery, strings are missing, recent ultrasound 01/29/2024 not read preliminary report viewed reports located in the endometrium Currently is sexually active. She denies vaginal itching and irritation. Prone to BV and yeast in the past, has started probiotics and has used the BV protocol for boric acid and has a copy of it on hand. STI screening offered; she accepts, including blood. Denies family history of breast, ovarian or colon cancer. Last pap smear approximately 2 years ago, negative per patient, unable to get records of the Pap and not found on her portal. [facility] Medical History Chronic vaginitis Hidradenitis suppurativa Cysts Chronic, continuous use of opioids Chronic pain syndrome Spondylosis of lumbar region without myelopathy or radiculopathy Type I diabetes mellitus Surgical History History of reversal of tubal ligation Previous section History of cystoscopy History of hernia repair Family History Father Alive and well Mother Alive and well Sister Alive and well Maternal Aunt Cancer Social History Housing: Condominium Alcohol intake: current Alcohol intake frequency: holidays/special occasions only Alcohol type: beer, wine and hard liquor Patient Tobacco Use Status: Never used Tobacco e-Cigarette/Vaping Use: Never Used Second Hand Smoke Exposure: No Substance Use Type: Marijuana Current occupational status: employed 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, 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 Cognitive needs: No Hearing needs: No Vision needs: No Female Reproductive History Menstrual Age of Menarche: 14 control method: progestin IUCD Total pregnancies: 4 Full term: 3 Number of Living Children: 3 Ab spontaneous: 1 Review of Systems Const All systems reviewed & are unremarkable except as noted in HPI and below Reports as per HPI Eyes Reports no additional complaints ENT Reports no additional complaints Card Reports no additional complaints Resp Reports no additional complaints GI Reports as per HPI and Reports no additional complaints Reports as per HPI Musc Reports no additional complaints Skin/Breast Reports as per HPI Neuro Reports no additional complaints Psych Reports no additional complaints Endo Reports no additional complaints Hernandez/Lymph Reports no additional complaints Aller/Immun Reports no additional complaints Physical Exam Vital Signs: Last Vital Signs BP 112/68 02/06/24 08:06 BMI result Body Mass Index 30.4 Const General: cooperative, healthy appearing, no acute distress, well developed and alert Orientation/consciousness: patient oriented x3 HEENT Head: Yes normal to inspection Eyes General: appearance normal, both eyes and all related structures Neck Neck: Yes normal visual inspection Thyroid: Thyroid normal Chest Chest palpation & inspection: normal inspection of the chest and other (no puckering, dimpling, peau de orange, retraction, discharge, masses) Breast/axilla inspection: normal inspection of the breasts Breast/axilla palpation: normal palpation of the breasts Resp Effort & Inspection: normal respiratory effort GI Inspection: Yes normal to inspection Palpation (GI): Soft to palpation Rectal Exam - Female: deferred General: Yes bladder normal to palpation External Female Exam: normal external appearance and normal appearance of the urethra Speculum Exam - Vagina: normal appearance of the vagina, normal palpation and normal vaginal discharge Speculum Exam - Cervix: normal appearance of the cervix and normal palpation Bimanual exam- vagina & uterus: normal bimanual exam, normal palpation, uterine size normal, bladder normal to palpation, normal palpation, non-tender and other (Bled with Pap) Bimanual Exam- Adnexa, other: no masses Skin General skin exam: no rashes or lesions noted Rashes: no rashes Neuro General: patient oriented x3 Cognition (Neuro): normal cognition Extrem General: Yes normal to inspection Psych Attitude: cooperative Thought process: Normal thought process present Assessment & Plan Assessment & Plan (1) Encounter for well woman exam with routine gynecological exam: Code(s): Z01.419 - Encounter for gynecological examination (general) (routine) without abnormal findings Plan Discussed: Current recommendations for pap smears per ASCCP guidelines. Breast awareness and periodic breast exams. Maintain a healthy lifestyle including a well balanced diet and routine exercise. Patient verbalizes understanding and agrees to the plan of care. She was given opportunity to ask questions and all questions were answered to the best of my ability. RTO in one year for annual make up operator helper examination. This note is constructed using voice recognition software. While every effort has been made to ensure accuracy, global analytics head errors may have been included. Orders: Orders Hepatitis C Antibody Reflex Today Z20.2 - Contact with and (suspected) exposure to infections with a predominantly sexual mode of transmission HIV Ab/Ag Today Z20.2 - Contact with and (suspected) exposure to infections with a predominantly sexual mode of transmission Hepatitis B Core Antibody Today Z20.2 - Contact with and (suspected) exposure to infections with a predominantly sexual mode of transmission Syphilis Screen Today Z20.2 - Contact with and (suspected) exposure to infections with a predominantly sexual mode of transmission Coding Level of Care Code Est Pt Prev Care 18-39y(71975) Diagnoses Encounter for well woman exam with routine gynecological exam Z01.419
== END 2024-02-06 08:35 | disposition home or self-care (01) ==
PROVIDERS: PCP Nurse Practitioner Family; Visit Provider Advanced Practice Midwife
DX: Z01.419 Encounter for gynecological examination (general) (routine) without abnormal findings (principal)
CPT/HCPCS: 99395

== ENCOUNTER 2024-02-07 11:25 | Outpatient (REF) | payer OTHER, MEDICAID, SELFPAY ==
[2024-02-07 12:42] LABS: Syphilis Screen Nonreactive (Nonreactive)
[2024-02-07 12:43] LABS: HBc Num1 0.22 S/CO (0.00-0.79); HIV AB/AG Nonreactive (Nonreactive); HIV Num 1 0.05 S/CO (0.00-0.99); Hepatitis B Core Antibody Nonreactive (Nonreactive); ~HepC Num1 0.19 S/CO (0.00-0.79); ~Hepatitis C Antibody Nonreactive (Nonreactive)
== END 2024-02-07 11:26 | disposition home or self-care (01) ==
LOC: HO.LAB 11:25
PROVIDERS: PCP Nurse Practitioner Family; Visit Provider Advanced Practice Midwife
DX: Z20.2 Contact with and (suspected) exposure to infections with a predominantly sexual mode of transmission (principal)
CPT/HCPCS: 36415; 86704; 86780; 86803; 87389

== ENCOUNTER 2024-04-01 10:01 | Outpatient (REF) | payer OTHER, MEDICAID, SELFPAY | END 2024-04-01 10:02 | disposition home or self-care (01) | LOC: HO.LAB 10:01 | PROVIDERS: Visit Provider Advanced Practice Midwife | DX: R82.90 Unspecified abnormal findings in urine (principal); R82.79 Other abnormal findings on microbiological examination of urine | CPT/HCPCS: 87086; 87088; 87186 ==

== ENCOUNTER 2024-04-07 07:59 | Outpatient (AMB) | payer OTHER, MEDICAID, SELFPAY ==
--- NOTE | 2024-04-07 07:19 | MHC.PC.OV ---
Intake Visit Reasons: depression Allergies No Known Allergies [No Known Allergies*] Allergy (Verified 02/06/24 08:07) Tobacco use date assessed: 01/15/23 HPI depression HPI Details Pt c/o increased depression. She is seeing a therapist through her job. She is not interested in trying a medication. Encouraged pt to continue therapy and let me know how she is doing after. Denies any SI and HI. [facility] Medical History Chronic vaginitis Hidradenitis suppurativa Cysts Chronic, continuous use of opioids Chronic pain syndrome Spondylosis of lumbar region without myelopathy or radiculopathy Type I diabetes mellitus Surgical History History of reversal of tubal ligation Previous section History of cystoscopy History of hernia repair Family History Father Alive and well Mother Alive and well Sister Alive and well Maternal Aunt Cancer Social History Housing: Condominium Alcohol intake: current Alcohol intake frequency: holidays/special occasions only Alcohol type: beer, wine and hard liquor Patient Tobacco Use Status: Never used Tobacco e-Cigarette/Vaping Use: Never Used Second Hand Smoke Exposure: No Substance Use Type: Marijuana Current occupational status: employed 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 Ricky Aldridge, Susan Sandra, Kodak Pope and colleagues, with an educational irina from [employer]. Review of Systems Const Reports as per HPI Physical exam (Primary Care) Tobacco/Smoking Status: Tobacco use Status Tobacco use date assessed 01/15/23 04/07/24 07:22 Patient Tobacco Use Status Never used Tobacco 04/07/24 07:22 e-Cigarette/Vaping Use Never Used 04/07/24 07:22 Thrive Assessment: Date of Thrive Assessment Date Thrive assessed 12/13/21 04/07/24 07:22 Const General: cooperative Orientation/consciousness: patient oriented x3 Neuro General: patient oriented x3 Psych Appearance: grossly normal Mental Status: mental status grossly normal Speech and movement: Clear speech present Affect: normal affect Attitude: cooperative Thought process: Normal thought process present Thought content: Normal thought content present Insight: Good insight present (Psych) Judgement: Good judgement present (Psych) Telehealth Telehealth Telehealth Platform: [employer] Location of provider rendering services: practice address Location of patient: address on file Patient Identification confirmed using: Name, : Yes Telehealth method: video Patient verbally consented to treatment: Yes Patient verbally consented to billing insurance company: Yes Patient informed of any privacy concerns related to visit: Yes Minutes spent on Phone/Video with Pt.: 10 Assessment and Plan Assessment & Plan (1) Depression: Code(s): F32.A - Depression, unspecified Plan: Continue therapy, pt will reach out to me after therapy. denies any SI or HI Plan The patient agreed to the use of a medical assistant ob gyn for this encounter. Scribed for FILIPE Beltran-SLIME by Ya Esparza medical assistant ob gyn, on 04/07/2024 at 07:15 EST. Coding Level of Care Code Tele Est Pt Level 3 (78901) Diagnoses Depression F32.A
== END 2024-04-07 09:12 | disposition home or self-care (01) ==
LOC: HO.HMGC 07:59
PROVIDERS: PCP Nurse Practitioner Family; Visit Provider Nurse Practitioner Family
DX: F32.A Depression, unspecified (principal)
CPT/HCPCS: 99213

== ENCOUNTER 2024-09-22 07:50 | Outpatient (AMB) | payer OTHER, MEDICAID, SELFPAY ==
--- OUTSIDE RECORDS SUMMARY | 2024-09-22 07:55 | XMS_ITS | Encounter Summary ---
Author Organization [facility] Address [address] [place] [address] Phone Care Team Providers Care Street Light Servicer Name Role Phone Deanna Miramontes MD Primary Care Provider [phone] Encounter Details Date Type Department Care Team (Late st Contact Info) Description 10/24/2009 Documentation [facility] [address] [place], [place] [id number] Family Medicine, Physician [address] [place], [place] [id number] Social History Tobacco Use Types Packs/Day Years Used Date Smoking Tobacco: Never Assessed Comments Unknown Sex and Gender Information Value Date Recorded Sex Assigned at Not on file Legal Sex Female 4:39 PM EDT Gender Identity Not on file Sexual Orientation Not on file documented as of this encounter Plan of Treatment Not on file documented as of this encounter Visit Diagnoses Not on filedocumented in this encounter Care Teams Street Light Servicer Relationship Specialty Start Date End Date Deanna Miramontes MD [address] [facility] [place] [address] PCP - General 04/05/17 11/13/22 documented as of this encounter
--- OUTSIDE RECORDS SUMMARY | 2024-09-22 07:55 | XMS_ITS | Encounter Summary ---
Author Organization [facility] Address [address] [place] [address] Phone Care Team Providers Care Vp Medical Name Role Phone Deanna Miramontes MD Primary Care Provider Encounter Details Date Type Department Care Team (Late st Contact Info) Description 03/14/[address] [facility] Family Medicine [address] [place], [place] [id number] Family Medicine, Physician [address] [place], [place] [address] Social History Tobacco Use Types Packs/Day Years [...] on filedocumented in this encounter Care Teams Vp Medical Relationship Specialty Start Date End Date Deanna Miramontes MD [address] [facility] [place] [address] PCP - General 04/05/17 11/13/22 documented as of this encounter
--- OUTSIDE RECORDS SUMMARY | 2024-09-22 07:55 | XMS_ITS | Encounter Summary ---
Author Organization [facility] Address [address] [place] [address] Phone Care Team Providers Care Child Care Sitter Name Role Phone Deanna Miramontes MD Primary Care Provider Encounter Details Date Type Department Care Team (Late st Contact Info) Description 11/02/2011 Documentation [facility] [place] Family Medicine [address] [place], [place] [id number] Family Medicine, Physician [address] [place], [place] [address] Social History Tobacco Use Types Packs/Day Years [...] on filedocumented in this encounter Care Teams Child Care Sitter Relationship Specialty Start Date End Date Deanna Miramontes MD [address] [place] [address] PCP - General 04/05/17 11/13/22 documented as of this encounter
--- OUTSIDE RECORDS SUMMARY | 2024-09-22 07:55 | XMS_ITS | Clinical Summary ---
Author Organization [facility] Address [address] [place] [address] Care Team Prov[address] Care Court Specialist Name Role Phone ErmiasrenéehaleysherryDaron NP Primary Care Provider [phone] Source Comments PLEASE NOTE, if this patient is a minor, it may be UNLAWFUL to discuss sensitive information that is contained in these records (such as FAMILY PLANNING, MENTAL HEALTH or SUBSTANCE ABUSE) with the minor patient's parent or other person without the patient's specific authorization.[facility] Allergies No known active allergies Medications cephALEXin (KEFLEX) 500 mg capsule Take 1 Cap by mouth 3 (three) times daily. 21 Cap 0 06/05/2016 Active Active Problems Problem Noted Date Diagnosed Date DM type 1 (diabetes mellitus, type 1) ([facility]) 09/10/2016 Overview (09/10/2016): Per [facility] ER report, on insulin pump Social History Tobacco Use Types Packs/Day Years Used Date Smoking Tobacco: Former Alcohol Use Standard Drinks/Week Comments No 0 (1 standard drink = 0.6 oz pur e alcohol) Social Connections Answer Date Recorded Social Connections and Isolation 0 04/19/2019 Financial Resource Strain Answer Date R ecorded Financial Resource Strain 0 2018 Stress Answer Date Recorded Stress 0 04/19/2019 Physical Activity Answer Date Recorded Physical Activity 0 04/19/2019 Food Insecurity Answer Date Recorded Food 0 04/19/2019 Transportation Needs Answer Date Record ed Transportation 0 04/19/2019 Housing Stability Answer Date Recorded Housing 0 04/19/2019 Safety and Environment Answer Date Cody rded Safety 0 04/19/2019 Utilities Answer Date Recorded Utilities 0 04/19/2019 Employment Answer Date Recorded Employment 0 04/19/2019 Comments Unknown Sex and Gender Information Value Date Recorded Sex Assigned at Not on file Legal Sex Female 9:40 AM PDT Gender Identity Not on file Sexual Orientation Not on file Last Filed Vital Signs Vital Sign Reading Time Taken Comments Blood Pressure 122/73 06/05/2016 3:46 PM EDT Pulse 94 06/05/2016 3:46 PM EDT Temperature 36.7 ??C (98 ??F) 06/05/2016 3:46 PM EDT Respiratory Rate 20 06/05/2016 3:46 PM EDT Oxygen Saturation 98% 06/05/2016 3:46 PM EDT Inhaled Oxygen Concentration - - Weight - - Height - - Body Mass Index - - Plan of Treatment Not on file Insurance [facility] Member Subscriber Plan / Payer (Ef fective 2016-Present) Name:Francie Herring Relation to Subscriber:Self Name:Francie Herring Payer ID:[id number] Group ID:Not on file Type:Medicaid Address: [facility] [address] [place] [address] Special[address] Relationship Specialty Start Date End Date Daron Izquierdo NP [address] [place] [phone] PCP - General 07/03/18
--- OUTSIDE RECORDS SUMMARY | 2024-09-22 07:55 | XMS_ITS | Encounter Summary ---
Author Organization [facility] Address [address] [place] [address] Phone Care Team Providers Care Science Education Professor Name Role Phone Deanna Miramontes MD Primary Care Provider [phone] Encounter Details Date Type Department Care Team (Late st Contact Info) Description 03/05/2011 Documentation [facility] [place] [address] [place], [place] [phone] Family Medicine, Physician [address] [place], [place] [address] Social History Tobacco Use Types Packs/Day Years [...] on filedocumented in this encounter Care Teams Science Education Professor Relationship Specialty Start Date End Date Deanna Miramontes MD [address] [facility] [place] [address] PCP - General 04/05/17 11/13/22 documented as of this encounter
--- OUTSIDE RECORDS SUMMARY | 2024-09-22 07:55 | XMS_ITS | Encounter Summary ---
Author Organization [facility] Address [address] [place] [address] Phone Care Team Providers Care Seaming Machine Operator Name Role Phone Deanna Miramontes MD Primary Care Provider [phone] Encounter Details Date Type Department Care Team (Late st Contact Info) Description 01/13/2010 Documentation [facility] [place] [address] [place], [place] [phone] Family Medicine, Physician [address] [place], [place] [address] Social History Tobacco Use Types Packs/Day Years [...] on filedocumented in this encounter Care Teams Seaming Machine Operator Relationship Specialty Start Date End Date Deanna Miramontes MD [address] [place] [place] [address] PCP - General 04/05/17 11/13/22 documented as of this encounter
--- OUTSIDE RECORDS SUMMARY | 2024-09-22 07:55 | XMS_ITS | Encounter Summary ---
Author Organization [facility] Address [address] [place] [address] Phone Care Team Providers Care Clinical Psychiatrist Name Role Phone Deanna Miramontes MD Primary Care Provider [phone] Encounter Details Date Type Department Care Team (Late st Contact Info) Description 12/15/2009 Documentation [facility] [place] Medicine [address] [place], [place] [phone] Family Medicine, Physician [address] [place], [place] [address] Social History Tobacco Use Types Packs/Day Years [...] on filedocumented in this encounter Care Teams Clinical Psychiatrist Relationship Specialty Start Date End Date Deanna Miramontes MD [address] [facility] [place] [place] [address] PCP - General 04/05/17 11/13/22 documented as of this encounter
--- OUTSIDE RECORDS SUMMARY | 2024-09-22 07:55 | XMS_ITS | Encounter Summary ---
Author Organization [facility] Address [address] [place] [address] Phone Care Team Providers Care Umbrella Tipper Machine Name Role Phone Deanna Miramontes MD Primary Care Provider Encounter Details Date Type Department Care Team (Late st Contact Info) Description 09/19/2010 Documentation [facility] [place] Family Medicine [address] [place], [place] [phone] Family Medicine, Physician [address] [place], [place] [address] Social History Tobacco Use Types Packs/Day Years [...] on filedocumented in this encounter Care Teams Umbrella Tipper Machine Relationship Specialty Start Date End Date Deanna Miramontes MD [address] [facility] [place] [address] PCP - General 04/05/17 11/13/22 documented as of this encounter
--- OUTSIDE RECORDS SUMMARY | 2024-09-22 07:55 | XMS_ITS | Encounter Summary ---
Author Organization [facility] Address [address] [place] [address] Phone Care Team Providers Care Manager Cosmetic Name Role Phone Deanna Miramontes MD Primary Care Provider Encounter Details Date Type Department Care Team (Late st Contact Info) Description 05/23/2011 Documentation [facility] [place] Family Medicine [address] [place], [place] [phone] Family Medicine, Physician [address] [place], [place] [address] Social History Tobacco Use Types Packs/Day Years [...] on filedocumented in this encounter Care Teams Manager Cosmetic Relationship Specialty Start Date End Date Deanna Miramontes MD [address] [facility] [place] [address] PCP - General 04/05/17 11/13/22 documented as of this encounter
--- OUTSIDE RECORDS SUMMARY | 2024-09-22 07:55 | XMS_ITS | Encounter Summary ---
Author Organization [facility] Address [address] [place] [address] Phone Care Team Providers Care Service Coordinator Name Role Phone Deanna Miramontes MD Primary Care Provider Encounter Details Date Type Department Care Team (Late st Contact Info) Description 01/13/2010 Documentation [facility] [place] Family Medicine [address] [place], [place] [phone] Family Medicine, Physician [address] [place], [place] [address] Social History Tobacco Use Types Packs/Day Years [...] on filedocumented in this encounter Care Teams Service Coordinator Relationship Specialty Start Date End Date Deanna Miramontes MD [address] [facility] [place] [address] PCP - General 04/05/17 11/13/22 documented as of this encounter
--- OUTSIDE RECORDS SUMMARY | 2024-09-22 07:55 | XMS_ITS | Encounter Summary ---
Author Organization [facility] Address [address] [place] [address] Phone Care Team Providers Care Chief Maintenance Supervisor Name Role Phone Deanna Miramontes MD Primary Care Provider [phone] Encounter Details Date Type Department [facility] Team [facility] Description 06/27/2017 Conversion Encounter [facility] [place] [address] [place] [address] Social History Tobacco Use Types Packs/Day Years [...] on filedocumented in this encounter Care Teams Chief Maintenance Supervisor Relationship Specialty Start Date End Date Deanna Miramontes MD [address] [place] [address] PCP - General 04/05/17 11/13/22 documented as of this encounter
--- OUTSIDE RECORDS SUMMARY | 2024-09-22 07:55 | XMS_ITS | Clinical Summary ---
Author Organization [facility] Address [address] [place] [address] Phone Care Team Providers Care Enologist Name Role Phone Unavailable Primary Care Provider Unavailabl e Immunizations Name Administration Dates Next Due DTP 01/18/1998, 2,02/09/1991,12/04,1990 HPV, Quadrivalent 03/08/2008,11/07/2007,07/11/20 07 Hep B, ped/adol 05/13/2002,12/05/2001,03/27/2001 Hib (PRP-T) 09/25/1991, 1,1990,09/01 Influenza Split 04/14/2010,06/18/2000,06/16/1999 Influenza, injectable, trivalent 009,06/11/2008,07/12/2006,06/16,07/09/2001,06/18/2000,06/16/1999 ,06/02/1998 MMR 01/18/1995,09/25/1991 Meningococcal Conj (Menactra) MCV4P 12/26/2007 OPV 01/18/1995, 2,1990,09/01 Pneumococcal Polysaccharide 06/09/2009 Td (adult) (MBL), 2 Lf tetan us toxoid, PF, adsorbed 03/27/2001 Tdap 12/26/2007 Family History Relation Name Status Comments Mother Mother: Depress ion, back surg, Anxiety Other Family history of Elevated cholesterol, Family history of Asthma, Family history of Diabetes mellitus Sister Alive Sister: Alive a nd well Social History Tobacco Use Types Packs/Day Years Used Date Smoking Tobacco: Never Assessed Comments Unknown Sex and Gender Information Value Date Recorded Sex Assigned at Not on file Legal Sex Female 4:39 PM EDT Gender Identity Not on file Sexual Orientation Not on file Last Filed Vital Signs Vital Sign Reading Time Taken Comments Blood Pressure 90/60 04/14/2010 12:00 AM EDT Pulse - - Temperature 36.1 ??C (97 ??F) 04/14/2010 12:00 AM EDT Respiratory Rate - - Oxygen Saturation - - Inhaled Oxygen Concentration - - Weight 58.5 kg (129 lb) 04/14/2010 12:00 AM EDT Height 162.6 cm (5' 4 ) 04/14/2010 12:00 AM EDT Body Mass Index 22.14 04/14/2010 12:00 AM EDT Plan of Treatment Health Maintenance Due Date Last Done Comments Varicella Vaccines (1 of 2 - 13+ 2-dose series) 2003 DTaP,Tdap,and Td Vaccines (7 - Td or Tdap) 12/25/2017 12/26/2007, 03/27/2001, 01/18/1998, Additional history exists Influenza Vaccines (#1) 2024 04/14/20 10, 05/25/2009, 06/11/2008, Additional history exists COVID-19 Vaccine ( season) 2024 HIB Vaccines Completed 09/25/1991, 01/24, 1990, Additional history exists IPV Vaccines Completed 01/18/1995, 04/1992, 1990, Additional history exists MMR Vaccines Completed 01/18/1995, 09/25/1991 Hepatitis B Vaccines Completed 05/13/2002, 12/05/2001, 03/27/2001 Meningococcal Vaccine Completed 12/26/2007 HPV Vaccines Completed 03/08/2008, 10/24, 07/11/2007 Pneumococcal Vaccine Aged Out 06/09/2009 No long er eligible based on patient's age to complete this topic Hepatitis A Vaccines Aged Out No long er eligible based on patient's age to complete this topic Men B Vaccine Aged Out No longer elig ible based on patient's age to complete this topic Procedures * Due to [place] state law, this organization might not be sharing sensitive test results. Procedure Name Priority Date/Time Associated Diagnosis Comments CHLAMYDIA AND GONORRHEA, AMPLIFIED Routine 04/15/2010 3:21 PM EDT from Last 3 Months or Most Recently Relevant to Health Maintenance Results * Due to [place] state law, this organization might not be sharing sensitive test results. * Chlamydia and Gonorrhoea, Amplified (04/15/2010 3:21 PM EDT) URINE CHLAMYDIA AMP PROBE NEGATIVE [facility] Comment: NO CHLAMYDIA TRACHOMATIS RNA DETECTED IN THIS PATIENT'S SAMPLE. ? (REFERENCE RANGE/NORMAL VALUE: NOT DETECTED) ? URINE GC AMP PROBE NEGATIVE [facility] Comment: NO NEISSERIA GONORRHOEAE RNA DETECTED IN THIS PATIENT'S SAMPLE. ? (REFERENCE RANGE/NORMAL VALUE: NOT DETECTED) ? NOTE: THIS TEST USES WATER HAULER MEDIATED AMPLIFICATION METHOD TO DETECT rRNA FROM C.TRACHOMATIS AND N.GONORRHOEAE. A NEGATIVE RESULT DOES NOT PRECLUDE INFECTION WITH C.TRACHOMATIS OR N.GONORRHOEAE BECAUSE RESULTS ARE DEPENDENT ON ADEQUATE SPECIMEN COLLECTION, ABSENCE OF INHIBITORS, AND SUFFICIENT rRNA TO BE DETECTED. THE APTIMA COMBO2 ASSAY IS NOT INTENDED FOR THE EVALUATION OF SUSPECTED SEXUAL ABUSE OR FOR OTHER MEDICO LEGAL INDICATIONS. IS TRUE FOR ALL NON CULTURE METHODS, A POSITIVE SPECIMEN OBTAINED FROM A PATIENT AFTER THERAPEUTIC TREATMENT CANNOT BE INTERPRETED INDICATING THE PRESENCE OF VIABLE C.TRACHOMATIS OR N.GONORRHOEAE. THERAPEUTIC FAILURE OR SUCCESS CANNOT BE DETERMINED WITH THE APTIMA COMBO2 ASSAY SINCE NUCLEIC ACID MAY PERSIST FOLLOWING APPROPRIATE ANTIMICROBIAL THERAPY. A NEGATIVE URINE RESULT FOR A PATIENT WHO IS CLINICALLY SUSPECTED OF HAVING A CHLAMYDIAL OR GONOCOCCAL INFECTION DOES NOT RULE OUT THE PRESENCE OF C.TRACHOMATIS OR N.GONORRHOEAE IN THE UROGENITAL TRACT. TESTING OF AN ENDOCERVICAL(FEMALE) OR URETHRAL(MALE) SPECIMEN IS RECOMMENDED IF THERE IS HIGH CLINICAL SUSPICION OF INFECTION. PRESERVCYT LIQUID PAP AND URINE SAMPLING ARE NOT DESIGNED TO REPLACE CERVICAL EXAMS AND ENDOCERVICAL SAMPLES FOR DIAGNOSIS OF FEMALE UROGENITAL INFECTIONS. PATIENTS MAY HAVE CERVICITIS, URETHRITIS, URINARY TRACT INFECTIONS, OR VAGINAL INFECTIONS DUE TO OTHER CAUSES OR CONCURRENT INFECTIONS WITH OTHER AGENTS. 04/15/2010 3:21 PM EDT [facility] - 04/15/2010 3:21 PM EDT URINE CHLAMYDIA GC AMP PROBE us Deanna Miramontes MD LAB MICROBIOLOGY - GENERAL O RDERABLES Final Result [facility] [address] [place] [address], [place] from Last 3 Months or Most Recently Relevant to Health Maintenance
--- OUTSIDE RECORDS SUMMARY | 2024-09-22 07:55 | XMS_ITS | Encounter Summary ---
Author Organization [facility] Address [address] [place] [address] Phone Care Team Providers Care Rod Cup Filler Name Role Phone Deanna Miramontes MD Primary Care Provider [phone] Encounter Details Date Type Department Care Team (Late st Contact Info) Description 02/13/2011 Documentation [facility] [place] Family Medicine [address] [place], [place] [phone] Family Medicine, Physician [address] [place], [place] [address] Social History Tobacco Use Types Packs/Day Years [...] on filedocumented in this encounter Care Teams Rod Cup Filler Relationship Specialty Start Date End Date Deanna Miramontes MD [address] [place] [address] PCP - General 04/05/17 11/13/22 documented as of this encounter
--- OUTSIDE RECORDS SUMMARY | 2024-09-22 07:55 | XMS_ITS | Encounter Summary ---
Author Organization [facility] Address [address] [place] [address] Phone Care Team Providers Care Zigzag Stitcher Name Role Phone Deanna Miramontes MD Primary Care Provider Encounter Details Date Type Department Care Team (Late st Contact Info) Description 10/24/2009 Documentation [facility] [address] [place], [place] [phone] Family Medicine, Physician [address] [place], [place] [address] Social History Tobacco Use Types Packs/Day Years [...] on filedocumented in this encounter Care Teams Zigzag Stitcher Relationship Specialty Start Date End Date Deanna Miramontes MD [address] [place] [address] PCP - General 04/05/17 11/13/22 documented as of this encounter
--- OUTSIDE RECORDS SUMMARY | 2024-09-22 07:55 | XMS_ITS | Encounter Summary ---
Author Organization [facility] Address [address] [place] [address] Phone Care Team Providers Care Network Planner Name Role Phone Deanna Miramontes MD Primary Care Provider Encounter Details Date Type Department Care Team (Late st Contact Info) Description 03/05/2011 Documentation [facility] [place] Family Medicine [address] [place], [place] [phone] Family Medicine, Physician [address] [place], [place] [address] Social History Tobacco Use Types Packs/Day Years [...] on filedocumented in this encounter Care Teams Network Planner Relationship Specialty Start Date End Date Deanna Miramotnes MD [address] [place] [address] PCP - General 04/05/17 11/13/22 documented as of this encounter
[2024-09-22 08:07] VITALS: BP 120/80; PULSE 90; TEMP 36.7; O2SAT 97; BMI 30.4
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
== END 2024-09-22 09:03 | disposition home or self-care (01) ==
PROVIDERS: PCP Nurse Practitioner Family; Visit Provider Nurse Practitioner Family
DX: Z00.00 Encounter for general adult medical examination without abnormal findings (principal); E10.9 Type 1 diabetes mellitus without complications; Z82.49 Family history of ischemic heart disease and other diseases of the circulatory system; E04.9 Nontoxic goiter, unspecified; F32.A Depression, unspecified; F41.9 Anxiety disorder, unspecified; G47.00 Insomnia, unspecified

== ENCOUNTER → 2024-09-22 07:50 | Outpatient (BNVA) | payer OTHER, MEDICAID, SELFPAY | PROVIDERS: PCP Nurse Practitioner Family; Visit Provider Nurse Practitioner Family | DX: Z00.00 Encounter for general adult medical examination without abnormal findings (principal); E04.9 Nontoxic goiter, unspecified; F32.A Depression, unspecified; F41.9 Anxiety disorder, unspecified; E10.9 Type 1 diabetes mellitus without complications; G47.00 Insomnia, unspecified; Z82.49 Family history of ischemic heart disease and other diseases of the circulatory system | CPT/HCPCS: 96127 ==

== ENCOUNTER 2024-09-23 08:03 | Outpatient (REF) | payer OTHER, MEDICAID, SELFPAY ==
--- OUTSIDE RECORDS SUMMARY | 2024-09-23 08:16 | XMS_ITS | Encounter Summary ---
Author Organization [facility] Address [address] [place] [address] Phone Care Team Providers Care Gas Plant Dispatcher Name Role Phone Deanna Miramontes MD Primary Care Provider Encounter Details Date Type Department Care Team (Late st Contact Info) Description 11/02/2011 Documentation [facility] [place] [address] [place], [place] [phone] Family Medicine, Physician [address] [place], [place] [address] Social History Tobacco Use Types Packs/Day Years [...] on filedocumented in this encounter Care Teams Gas Plant Dispatcher Relationship Specialty Start Date End Date Deanna Miramontes MD [address] [place] [address] PCP - General 04/05/17 11/13/22 documented as of this encounter
--- OUTSIDE RECORDS SUMMARY | 2024-09-23 08:16 | XMS_ITS | Clinical Summary ---
Author Organization [facility] Address [address] [place] [address] Phone Care Team Providers Care Box Lining Machine Feeder Name Role Phone Unavailable Primary Care Provider [...] complete this topic Procedures * Due to [place] state law, this organization might not be sharing sensitive test results. Procedure Name Priority Date/Time Associated Diagnosis Comments CHLAMYDIA AND GONORRHEA, AMPLIFIED Routine 04/15/2010 3:21 PM EDT from Last 3 Months or Most Recently Relevant to Health Maintenance Results * Due to [place] state law, this organization might not be sharing sensitive test results. * Chlamydia and Gonorrhoea, Amplified (04/15/2010 3:21 PM EDT) URINE CHLAMYDIA AMP PROBE NEGATIVE [facility] Comment: NO CHLAMYDIA TRACHOMATIS RNA DETECTED IN THIS PATIENT'S SAMPLE. ? (REFERENCE RANGE/NORMAL VALUE: NOT DETECTED) ? URINE GC AMP PROBE NEGATIVE [facility] Comment: NO NEISSERIA GONORRHOEAE RNA DETECTED IN THIS PATIENT'S SAMPLE. ? (REFERENCE RANGE/NORMAL VALUE: NOT DETECTED) ? NOTE: THIS TEST USES PRINCIPAL ADMINISTRATIVE CLERK MEDIATED AMPLIFICATION METHOD TO DETECT rRNA FROM [...] WITH OTHER AGENTS. 04/15/2010 3:21 PM EDT [facility] - 04/15/2010 3:21 PM EDT URINE CHLAMYDIA GC AMP PROBE us Deanna Miramontes MD LAB MICROBIOLOGY - GENERAL O RDERABLES Final Result [facility] [address] [place] [address], [place] from Last 3 Months or Most Recently Relevant to Health Maintenance
--- OUTSIDE RECORDS SUMMARY | 2024-09-23 08:16 | XMS_ITS | Encounter Summary ---
Author Organization [facility] Address [address] [place] [address] Phone Care Team Providers Care Building Serviceman Name Role Phone Deanna Miramontes MD Primary Care Provider [phone] Encounter Details Date Type Department Care Team (Late st Contact Info) Description 03/05/2011 Documentation [facility] [place] Medicine [address] [place], [place] [phone] Family Medicine, Physician [address] [place], [place] [address] Social History Tobacco Use Types Packs/Day Years [...] on filedocumented in this encounter Care Teams Building Serviceman Relationship Specialty Start Date End Date Deanna Miramontes MD [address] [place] [address] PCP - General 04/05/17 11/13/22 documented as of this encounter
--- OUTSIDE RECORDS SUMMARY | 2024-09-23 08:16 | XMS_ITS | Encounter Summary ---
Author Organization [facility] Address [address] [place] [address] Phone Care Team Providers Care Real Estate Appraiser Name Role Phone Deanna Miramontes MD Primary Care Provider Encounter Details Date Type Department Care Team (Late st Contact Info) Description 12/15/2009 Documentation [facility] [place] [address] [place], [place] [phone] Family Medicine, Physician [address] [place], [place] [address] Social History Tobacco Use Types Packs/Day Years [...] on filedocumented in this encounter Care Teams Real Estate Appraiser Relationship Specialty Start Date End Date Deanna Miramontes MD [address] [facility] [place] [address] PCP - General 04/05/17 11/13/22 documented as of this encounter
--- OUTSIDE RECORDS SUMMARY | 2024-09-23 08:16 | XMS_ITS | Encounter Summary ---
Author Organization [facility] Address [address] [place] [address] Phone Care Team Providers Care Pediatric Clinical Nurse Specialist Name Role Phone Deanna Miramontes MD Primary Care Provider Encounter Details Date Type Department Care Team (Late st Contact Info) Description 09/19/2010 Documentation [facility] [place] Family Medicine [address] [place], [place] [phone] Family Medicine, Physician [address] [place], [place] [address] Social History Tobacco Use Types Packs/Day Years [...] on filedocumented in this encounter Care Teams Pediatric Clinical Nurse Specialist Relationship Specialty Start Date End Date Deanna Miramontes MD [address] [facility] [place] [address] PCP - General 04/05/17 11/13/22 documented as of this encounter
--- OUTSIDE RECORDS SUMMARY | 2024-09-23 08:16 | XMS_ITS | Encounter Summary ---
Author Organization [facility] Address [address] [place] [address] Phone Care Team Providers Care Industrial Millwright Name Role Phone Deanna Miramontes MD Primary Care Provider Encounter Details Date Type Department Care Team (Late st Contact Info) Description 10/24/2009 Documentation [facility] Family Medicine [address] [place], [place] [phone] Family Medicine, Physician [address] [place], [place] [address] Social History Tobacco Use Types Packs/Day Years [...] on filedocumented in this encounter Care Teams Industrial Millwright Relationship Specialty Start Date End Date Deanna Miramontes MD [address] [facility] [place] [address] PCP - General 04/05/17 11/13/22 documented as of this encounter
--- OUTSIDE RECORDS SUMMARY | 2024-09-23 08:16 | XMS_ITS | Encounter Summary ---
Author Organization [facility] Address [address] [place] [address] Phone Care Team Providers Care Pump Machine Operator Name Role Phone Deanna Miramontes MD Primary Care Provider Encounter Details Date Type Department Care Team (Late st Contact Info) Description 01/13/2010 Documentation [facility] [place] [address] [place], [place] [phone] Family Medicine, Physician [address] [place], [place] [address] Social History Tobacco Use Types Packs/Day Years [...] on filedocumented in this encounter Care Teams Pump Machine Operator Relationship Specialty Start Date End Date Deanna Miramontes MD [address] [facility] [place] [address] PCP - General 04/05/17 11/13/22 documented as of this encounter
--- OUTSIDE RECORDS SUMMARY | 2024-09-23 08:16 | XMS_ITS | Clinical Summary ---
Author Organization [facility] Address [address] [place] [address] Care Team Providers Care Flat Sorting Machine Clerk Name Role Phone ErmiasrenéehaleysherryDaron NP Primary Care Provider Source Comments PLEASE NOTE, if this patient [...] DM type 1 (diabetes mellitus, type 1) ([facility]) 09/10/2016 Overview (09/10/2016): Per [facility] ER report, on insulin pump Social [...] Plan of Treatment Not on file Insurance [facility] Member Subscriber Plan / Payer (Ef fective 2016-Present) Name:Francie Herring Relation to Subscriber:Self Name:Francie Herring Payer ID:[id number] Group ID:Not on file Type:Medicaid Address: [facility] [id number] [place] [address] Care Teams Flat Sorting Machine Clerk Relationship Specialty Start Date End Date Daron Izquierdo NP [address] [place] [phone] PCP - General 07/03/18
--- OUTSIDE RECORDS SUMMARY | 2024-09-23 08:16 | XMS_ITS | Encounter Summary ---
Author Organization [facility] Address [address] [place] [address] Phone Care Team Providers Care Chief Of Internal Medicine Name Role Phone Deanna Miramontes MD Primary Care Provider Encounter Details Date Type Department Care Team ([facility] Contact Info) Description 06/27/2017 Conversion Encounter [facility] [address] [place] [address] Social History Tobacco Use Types Packs/Day Years [...] filedocumented in this encounter Care Teams Chief Of Internal Medicine Relationship Specialty Start Date End Date Deanna Miramontes MD [address] [place] [address] PCP - General 04/05/17 11/13/22 documented as of this encounter
--- OUTSIDE RECORDS SUMMARY | 2024-09-23 08:16 | XMS_ITS | Encounter Summary ---
Author Organization [facility] Address [address] [place] [address] Phone Care Team Providers Care Womens Volleyball Coach Name Role Phone Deanna Miramontes MD Primary Care Provider Encounter Details Date Type Department Care Team (Late st Contact Info) Description 01/13/2010 [place] [facility] [place] [address] [place], [place] [phone] Family Medicine, Physician [address] [place], [place] [address] Social History Tobacco Use Types Packs/Day Years [...] on filedocumented in this encounter Care Teams Womens Volleyball Coach Relationship Specialty Start Date End Date Deanna Miramontes MD [address] [facility] [place] [address] PCP - General 04/05/17 11/13/22 documented as of this encounter
--- OUTSIDE RECORDS SUMMARY | 2024-09-23 08:16 | XMS_ITS | Encounter Summary ---
Author Organization [facility] Address [address] [place] [address] Phone Care Team Providers Care Equal Opportunity Specialist Name Role Phone Deanna Miramontes MD Primary Care Provider [phone] Encounter Details Date Type Department Care Team (Late st Contact Info) Description 02/13/2011 Documentation [facility] [place] Family Medicine [address] [place], [place] [phone] Family Medicine, Physician [address] [place], [place] [address] Social History Tobacco Use Types Packs/Day Years [...] on filedocumented in this encounter Care Teams Equal Opportunity Specialist Relationship Specialty Start Date End Date Deanna Miramontes MD [address] [facility] [address] PCP - General 04/05/17 11/13/22 documented as of this encounter
--- OUTSIDE RECORDS SUMMARY | 2024-09-23 08:16 | XMS_ITS | Encounter Summary ---
Author Organization [facility] Address [address] [place] [address] Phone Care Team Providers Care Farm Boss Name Role Phone Deanna Miramontes MD Primary Care Provider Encounter Details Date Type Department Care Team (Late st Contact Info) Description 10/24/2009 Documentation [facility] [address] [place], [place] [phone] Family Medicine, Physician [address] [place], [place] [address] Social History Tobacco Use Types Packs/Day Years [...] on filedocumented in this encounter Care Teams Farm Boss Relationship Specialty Start Date End Date Deanna Miramontes MD [address] [facility] [place] [address] PCP - General 04/05/17 11/13/22 documented as of this encounter
--- OUTSIDE RECORDS SUMMARY | 2024-09-23 08:16 | XMS_ITS | Encounter Summary ---
Author Organization [facility] Address [address] [place] [address] Phone Care Team Providers Care Belt Buckle Maker Name Role Phone Deanna Miramontes MD Primary Care Provider Encounter Details Date Type Department Care Team (Late st Contact Info) Description 03/05/2011 Documentation [facility] [place] Family Medicine [address] [place], [place] [phone] Family Medicine, Physician [address] [place], [place] [address] Social History Tobacco Use Types Packs/Day Years [...] on filedocumented in this encounter Care Teams Belt Buckle Maker Relationship Specialty Start Date End Date Deanna Miramontes MD 150 [place] [address] PCP - General 04/05/17 11/13/22 documented as of this encounter
--- OUTSIDE RECORDS SUMMARY | 2024-09-23 08:16 | XMS_ITS | Encounter Summary ---
Author Organization [facility] Address [address] [place] [address] Phone Care Team Providers Care Poultry Husbandry Teacher Name Role Phone Deanna Miramontes MD Primary Care Provider [phone] Encounter Details Date Type Department Care Team (Late st Contact Info) Description 03/14/2011 Documentation [facility] [place] Family Medicine [address] [place], [place] [phone] Family Medicine, Physician [address] [place], [place] [address] Social History Tobacco Use Types Packs/Day Years [...] on filedocumented in this encounter Care Teams Poultry Husbandry Teacher Relationship Specialty Start Date End Date Deanna Miramontes MD 150 [facility] [place] [address] PCP - General 04/05/17 11/13/22 documented as of this encounter
--- OUTSIDE RECORDS SUMMARY | 2024-09-23 08:16 | XMS_ITS | Encounter Summary ---
Author Organization [facility] Address [address] [place] [address] Phone Care Team Providers Care Neon Sign Maker Name Role Phone Deanna Miramontes MD Primary Care Provider Encounter Details Date Type Department Care Team (Late st Contact Info) Description 05/23/2011 Documentation [facility] [place] [address] [place], [place] [phone] Family Medicine, Physician [address] [place], [place] [address]81 Social History Tobacco Use Types Packs/Day Years [...] on filedocumented in this encounter Care Teams Neon Sign Maker Relationship Specialty Start Date End Date Deanna Miramontes MD 150 [facility] [address] PCP - General 04/05/17 11/13/22 documented as of this encounter
[2024-09-23 08:24] LABS: MANUAL DIFF FLAG NO
[2024-09-23 08:38] LABS: Basophils Percent Auto 0.4 % (0-2); Eosinophils Absolute Auto 0.3 X10*3/uL (0.0-0.4); Eosinophils Percent Auto 3.8 % (0-4); Hematocrit 40.6 % (37.0-47.0); Imm Gran Abs Auto 0.03 X10*3/uL (0.00-0.03); Imm Gran Pct Auto 0.4 % (0.0-0.4); Lymphocytes Absolute Auto 2.1 X10*3/uL (1.2-4.9); Lymphocytes Percent Auto 28.4 % (20-40); Mean Corpuscular HGB Conc 34.5 g/dl (31.0-35.0); Mean Corpuscular Hemoglobin 31.5 pg (27.0-33.0); Mean Corpuscular Volume 91.2 fL (80.0-98.0); Mean Platelet Volume 10.3 fL (9.4-12.3); Monocytes Absolute Auto 0.6 X10*3/uL (0.1-1.2); Monocytes Percent Auto 7.9 % (2-11); Neutrophils Absolute Auto 4.4 x10*3/uL (2.0-8.3); Neutrophils Percent Auto 59.1 % (45-73); Platelet Count 296 X10*3/uL (160-400); Red Blood Count 4.45 X10*6/uL (4.20-5.50); Red Cell Distribution Width 12.2 % (11.0-16.0); White Blood Count 7.5 X10*3/uL (4.8-10.8)
[2024-09-23 08:50] LABS: Appearance Urine Clear; Color Urine Yellow; Glucose Urine UA >=1000 mg/dL (Negative); Leukocyte Esterase Urine Negative (Negative); Nitrite Urine Negative (Negative); PH 5.5 (5.0-9.0); Specific Gravity - Urine >= 1.030 (1.005-1.025); UMIC TRIGGER UACC YES; Urine Blood Negative (Negative); Urine Ketones Trace mg/dL (Negative); Urine Protein Trace mg/dL (Neg-Trace)
[2024-09-23 08:58] LABS: Bacteria Urine 3+ (None Seen); Hyaline Casts Urine 0-2 /LPF (0-2); RBC Urine 0-2 /HPF (0-2); WBC Urine 0-5 /HPF (0-5)
[2024-09-23 09:19] LABS: Alanine Aminotransferase 20 U/L (0-31); Albumin Level 4.1 g/dL (3.5-5.0); Anion Gap 11 (12-20); Aspartate Amino Transferase 16 U/L (5-31); Bilirubin Total 0.4 mg/dL (0.0-1.0); Blood Urea Nitrogen 14 mg/dL (9-16); Calcium 9.1 mg/dL (8.4-10.2); Carbon Dioxide 22 mmol/L (22-29); Chloride 108 mmol/L (96-108); Cholesterol 149 mg/dL (<200); Estimated Glomerular Filt Rate > 60; Glucose Fasting 194 mg/dL (60-99); HDL Cholesterol 45 mg/dL (>40); LDL Cholesterol Calculated 93 mg/dL (<100); Sodium 137 mmol/L (135-145); Total Protein 7.6 g/dL (6.5-8.0); Triglycerides 59 mg/dL (<150)
[2024-09-23 09:24] LABS: TSH reflex Free T4 0.95 uIU/mL (0.32-4.0)
[2024-09-23 11:05] LABS: Alkaline Phosphatase 126 U/L (39-117)
[2024-09-29 15:20] LABS: Gliadin Deamidated IgA Ab <1.0; Gliadin Deamidated IgG Ab <1.0; Immunoglobulin A 276; Transglutaminase Ab IgG <1.0; Transglutaminase IgA <1.0
== END 2024-09-23 08:04 | disposition home or self-care (01) ==
LOC: HO.LAB 08:03
PROVIDERS: PCP Nurse Practitioner Family; Visit Provider Nurse Practitioner Family
DX: Z00.00 Encounter for general adult medical examination without abnormal findings (principal); T78.40XA Allergy, unspecified, initial encounter
CPT/HCPCS: 36415; 80053; 80061; 81001; 82784; 82785; 84443; 85025; 86003; 86258; 86364

== ENCOUNTER 2024-10-01 17:35 | Emergency (ER) | payer OTHER, MEDICAID, SELFPAY ==
--- OUTSIDE RECORDS SUMMARY | 2024-10-01 17:39 | XMS_ITS | Clinical Summary ---
Author Organization [facility] Address [address] [place] [address] Phone Care Team Providers Care Slicing Machine Operator/Tender Name Role Phone Unavailable Primary Care Provider Unavailabl e Immunizations Immunization Administration Dates Next Due DTP 01/18/1998, 2,02/09/1991,12/04,1990 [...] complete this topic Procedures * Due to [place] state law, this organization might not be sharing sensitive test results. Procedure Name Priority Date/Time Associated Diagnosis Comments CHLAMYDIA AND GONORRHEA, AMPLIFIED Routine 04/15/2010 3:21 PM EDT from Last 3 Months or Most Recently Relevant to Health Maintenance Results * Due to [place] state law, this organization might not be sharing sensitive test results. * Chlamydia and Gonorrhoea, Amplified (04/15/2010 3:21 PM EDT) URINE CHLAMYDIA AMP PROBE NEGATIVE [facility] Comment: NO CHLAMYDIA TRACHOMATIS RNA DETECTED IN THIS PATIENT'S SAMPLE. ? (REFERENCE RANGE/NORMAL VALUE: NOT DETECTED) ? URINE GC AMP PROBE NEGATIVE [facility] Comment: NO NEISSERIA GONORRHOEAE RNA DETECTED IN THIS PATIENT'S SAMPLE. ? (REFERENCE RANGE/NORMAL VALUE: NOT DETECTED) ? NOTE: THIS TEST USES ARTIST MANAGER MEDIATED AMPLIFICATION METHOD TO DETECT rRNA FROM [...] WITH OTHER AGENTS. 04/15/2010 3:21 PM EDT [facility] - 04/15/2010 3:21 PM EDT URINE CHLAMYDIA GC AMP PROBE us Deanna Miramontes MD LAB MICROBIOLOGY - GENERAL O RDERABLES Final Result [facility] [address] [facility] [[email or web address] [address], [place] from Last 3 Months or Most Recently Relevant to Health Maintenance
--- OUTSIDE RECORDS SUMMARY | 2024-10-01 17:39 | XMS_ITS | Encounter Summary ---
Author Organization [facility] Address [address] [place] [address] Phone Care Team Providers Care Physical Therapist Name Role Phone Deanna Miramontes MD Primary Care Provider Encounter Details Date Type Department Care Team (Late st Contact Info) Description 09/19/2010 Documentation [facility] [place] [address] [place], [place] [phone] Family Medicine, Physician [address] [place], [place] [address] Social History Tobacco Use Types Packs/Day Years [...] on filedocumented in this encounter Care Teams Physical Therapist Relationship Specialty Start Date End Date Deanna Miramontes MD 150 [facility] [place] [address] PCP - General 04/05/17 11/13/22 documented as of this encounter
--- OUTSIDE RECORDS SUMMARY | 2024-10-01 17:39 | XMS_ITS | Encounter Summary ---
Author Organization [facility] Address [address] [place] [address] Phone Care Team Providers Care Cloth Covered Helmet Puller Name Role Phone Deanna Miramontes MD Primary Care Provider [phone] Encounter Details Date Type Department Care Team (Late st Contact Info) Description 11/02/2011 Documentation [facility] [place] Family Medicine [address] [place], [place] [phone] Family Medicine, Physician [address] [place], [place] [address] Social History Tobacco Use Types Packs/Day Years [...] on filedocumented in this encounter Care Teams Cloth Covered Helmet Puller Relationship Specialty Start Date End Date Deanna Miramonets MD [address] [facility] [place] [address] PCP - General 04/05/17 11/13/22 documented as of this encounter
--- OUTSIDE RECORDS SUMMARY | 2024-10-01 17:39 | XMS_ITS | Encounter Summary ---
Author Organization [facility] Address [address] [place] [address] Phone Care Team Providers Care Photographic Reproduction Technician Name Role Phone Deanna Miramontes MD Primary Care Provider Encounter Details Date Type Department Care Team (Late st Contact Info) Description 12/15/2009 Documentation [facility] [place] Family Medicine [address] [place], [place] [phone] Family Medicine, Physician [address] [place], [place] 0[address]791 Social History Tobacco Use Types Packs/Day Years [...] on filedocumented in this encounter Care Teams Photographic Reproduction Technician Relationship Specialty Start Date End Date Deanna Miramontes MD 150 [facility] [place] [address] PCP - General 04/05/17 11/13/22 documented as of this encounter
--- OUTSIDE RECORDS SUMMARY | 2024-10-01 17:39 | XMS_ITS | Encounter Summary ---
Author Organization [facility] Address [address] [place] [address] Phone Care Team Providers Care Is/It Project Manager Name Role Phone Deanna Miramontes MD Primary Care Provider Encounter Details Date Type Department Care Team (Late st Contact Info) Description 03/05/2011 Documentation [facility] [place] Family Medicine [address] [place], [place] [phone] Family Medicine, Physician [address] [place], [place] [address]31 Social History Tobacco Use Types Packs/Day Years [...] on filedocumented in this encounter Care Teams Is/It Project Manager Relationship Specialty Start Date End Date Deanna Miramontes MD 150 [facility] [place] [place] [address] PCP - General 04/05/17 11/13/22 documented as of this encounter
--- OUTSIDE RECORDS SUMMARY | 2024-10-01 17:39 | XMS_ITS | Encounter Summary ---
Author Organization [facility] Address [address] [place] [address] Phone Care Team Providers Care Casting Assistant Name Role Phone Deanna Miramontes MD Primary Care Provider Encounter Details Date Type Department Care Team (Late st Contact Info) Description 03/14/2011 Documentation [facility] [place] Family Medicine [address] [place], [place] [phone] Family Medicine, Physician [address] [place], [place] [address]661 Social History Tobacco Use Types Packs/Day Years [...] on filedocumented in this encounter Care Teams Casting Assistant Relationship Specialty Start Date End Date Deanna Miramontes MD [address] [facility] [place] [address] PCP - General 04/05/17 11/13/22 documented as of this encounter
--- OUTSIDE RECORDS SUMMARY | 2024-10-01 17:39 | XMS_ITS | Encounter Summary ---
Author Organization [facility] Address [address] [place] [address] Phone Care Team Providers Care Rice Cleaning Machine Tender Name Role Phone Deanna Miramontes MD Primary Care Provider [phone] Encounter Details Date Type Department Care Team (Late st Contact Info) Description 03/05/[address] [facility] [place] Family Medicine [address] [place], [place] [phone] Family Medicine, Physician [address] [place], [place] [address] Social History Tobacco Use Types Packs/Day Years [...] on filedocumented in this encounter Care Teams Rice Cleaning Machine Tender Relationship Specialty Start Date End Date Deanna Miramontes MD [address] [place] [address] PCP - General 04/05/17 11/13/22 documented as of this encounter
--- OUTSIDE RECORDS SUMMARY | 2024-10-01 17:39 | XMS_ITS | Encounter Summary ---
Author Organization [facility] Address [address] [place] [address] Phone Care Team Providers Care Mine Development Engineer Name Role Phone Deanna Miramontes MD Primary Care Provider Encounter Details Date Type Department Care Team ([facility] Contact Info) Description 06/27/2017 Conversion Encounter [facility] [place] [address] [place] [address] Social History Tobacco Use Types Packs/Day Years [...] on filedocumented in this encounter Care Teams Mine Development Engineer Relationship Specialty Start Date End Date Deanna Miramontes MD [address] [place] [address] PCP - General 04/05/17 11/13/22 documented as of this encounter
--- OUTSIDE RECORDS SUMMARY | 2024-10-01 17:39 | XMS_ITS | Encounter Summary ---
Author Organization [facility] Address [address] [place] [address] Phone Care Team Providers Care Machine Fitter Name Role Phone Deanna Miramontes MD Primary Care Provider Encounter Details Date Type Department Care Team (Late st Contact Info) Description 02/13/2011 Documentation [facility] [place] [address] [place], [place] [phone] Family Medicine, Physician [address] [place], [place] [address] Social History Tobacco Use Types Packs/Day Years [...] on filedocumented in this encounter Care Teams Machine Fitter Relationship Specialty Start Date End Date Deanna Miramontes MD 150 [facility] [place] [address] PCP - General 04/05/17 11/13/22 documented as of this encounter
--- OUTSIDE RECORDS SUMMARY | 2024-10-01 17:39 | XMS_ITS | Encounter Summary ---
Author Organization [facility] Address [address] [place] [address] Phone Care Team Providers Care Chief Service Observer Name Role Phone Deanna Miramontes MD Primary Care Provider Encounter Details Date Type Department Care Team (Late st Contact Info) Description 10/24/2009 Documentation [facility] Family Medicine [address] [place], [place] [phone] Family Medicine, Physician [address] [place], [place] [address]251 Social History Tobacco Use Types Packs/Day Years [...] filedocumented in this encounter Care Teams Chief Service Observer Relationship Specialty Start Date End Date Deanna Miramontes MD 150 [place] [address] PCP - General 04/05/17 11/13/22 documented as of this encounter
--- OUTSIDE RECORDS SUMMARY | 2024-10-01 17:39 | XMS_ITS | Encounter Summary ---
Author Organization [facility] Address [address] [place] [address] Phone Care Team Providers Care Welt Butter Hand Name Role Phone Deanna Miramontes MD Primary Care Provider Encounter Details Date Type Department Care Team (Late st Contact Info) Description 05/23/2011 Documentation [facility] [place] [address] [place], [place] [phone] Family Medicine, Physician [address] [place], [place] [address]441 Social History Tobacco Use Types Packs/Day Years [...] on filedocumented in this encounter Care Teams Welt Butter Hand Relationship Specialty Start Date End Date Deanna Miramontes MD 150 [facility] [place] [address] PCP - General 04/05/17 11/13/22 documented as of this encounter
--- OUTSIDE RECORDS SUMMARY | 2024-10-01 17:39 | XMS_ITS | Encounter Summary ---
Author Organization [facility] Address [address] [place] [address] Phone Care Team Providers Care Warp Tier Name Role Phone Deanna Miramontes MD Primary Care Provider Encounter Details Date Type Department Care Team (Late st Contact Info) Description 01/13/2010 Documentation [facility] [place] [address] [place], [place] [phone] Family Medicine, Physician [address] [place], [place] [address] Social History Tobacco Use Types Packs/Day Years [...] on filedocumented in this encounter Care Teams Warp Tier Relationship Specialty Start Date End Date Deanna Miramontes MD 150 [facility] [place] [address] PCP - General 04/05/17 11/13/22 documented as of this encounter
--- OUTSIDE RECORDS SUMMARY | 2024-10-01 17:39 | XMS_ITS | Encounter Summary ---
Author Organization [facility] Address [address] [place] [address] Phone Care Team Providers Care Etl Bi Developer Name Role Phone Deanna Miramontes MD Primary Care Provider Encounter Details Date Type Department Care Team (Late st Contact Info) Description 01/13/2010 Documentation [facility] Family Medicine [address] [place], [place] [phone] Family Medicine, Physician [address] [place], [place] [address] Social History Tobacco Use Types Packs/Day Years [...] on filedocumented in this encounter Care Teams Etl Bi Developer Relationship Specialty Start Date End Date Deanna Miramontes MD [address] [facility] [address] PCP - General 04/05/17 11/13/22 documented as of this encounter
--- OUTSIDE RECORDS SUMMARY | 2024-10-01 17:39 | XMS_ITS | Encounter Summary ---
Author Organization [facility] Address [address] [place] [address] Phone Care Team Providers Care Director Life Sales Name Role Phone Deanna Miramontes MD Primary Care Provider Encounter Details Date Type Department Care Team (Late st Contact Info) Description 10/24/2009 Documentation [facility] Family Medicine [address] [place], [place] [phone] Family Medicine, Physician [address] [place], [place] [address] Social History Tobacco Use Types Packs/Day Years [...] on filedocumented in this encounter Care Teams Director Life Sales Relationship Specialty Start Date End Date Deanna Miramontes MD 150 [facility] [place] [address] PCP - General 04/05/17 11/13/22 documented as of this encounter
[2024-10-01 17:52] VITALS: BP 147/82; PULSE 114; RESP 20; TEMP 37.1; O2SAT 99; BMI 30.4
--- NOTE | 2024-10-01 17:55 | ED_ITS ---
HPI - General Adult General Chief complaint: General Medical Stated complaint: Diabetes Crisis Time Seen by Provider: 10/01/24 20:41 Source: patient, RN notes reviewed and old records reviewed Mode of arrival: ambulatory Limitations: no limitations History of Present Illness ED Provider: Paresh HPI narrative: 34 year old female with PMHx significant for type one diabetes on an insulin pump who presents for evaluation of high blood sugar. Patient reports that her glucose has been higher for the last few weeks. She states it has been in the 300s She does not know how to calibrate her insulin pump, so has not been doing it. She reports that last night her glucose was over 400. She endorses increased urination and increased thirst. She denies any pain or fevers. She endorses increased life stressors Related Data Home Medications ?Medication ?Instructions ?Recorded ?Confirmed blood sugar diagnostic #10 ea 05/23/20 09/22/24 insulin lispro 100 unit/mL See Rx Instructions .Route .COMPLEX 05/23/20 09/22/24 subcutaneous solution ibuprofen 200 mg tablet (Advil) 600 mg PO Q8H PRN 01/15/23 09/22/24 blood-glucose sensor (Dexcom G6 #1 ea 01/23/24 09/22/24 Sensor device) blood-glucose transmitter (Dexcom #1 ea 01/23/24 09/22/24 G6 Transmitter device) insulin pump cart,automated,BT #5 ea 01/23/24 09/22/24 (Omnipod 5 G6 Pods (Gen 5) subcutaneous cartridge) levonorgestrel 21 mcg/24 hr (up to intrauterine 01/23/24 09/22/24 8 years) 52 mg intrauterine device (Mirena) Previous Rx's ?Medication ?Instructions ?Recorded blood sugar diagnostic (FreeStyle #100 ea 06/13/21 Test strips) blood-glucose meter (FreeStyle #1 ea 06/13/21 System Kit) tizanidine 4 mg tablet 4 mg PO BEDTIME PRN muscle 10/01/23 spasticity #30 tabs lidocaine 5 % topical patch 1 patch topical DAILY #30 ea 03/16/24 cetirizine 10 mg tablet (All Day 10 mg PO DAILY allergy symptoms 05/27/24 Allergy (cetirizine)) #90 tabs trazodone 50 mg tablet 50 mg PO BEDTIME PRN sleep 30 days 09/22/24 #30 tabs Allergies Allergy/AdvReac Type Severity Reaction Status Date / Time No Known Allergies Allergy Verified 10/01/24 17:53 [No Known Allergies*] Review of Systems 2 Constitutional: Constitutional: Denies body ache(s), Denies chills, Denies fever(s), Denies headache(s), Reports malaise and Reports weakness Eyes: Eyes: Denies blurry vision ENT: Denies vertigo, Denies dizziness and Denies headache(s) Cardiovascular: Cardiovascular: Denies chest pain and Denies dyspnea Respiratory: Respiratory: Denies cough and Denies dyspnea Gastrointestinal: Gastrointestinal: Denies abdominal pain, Denies nausea and Denies vomiting Musculoskeletal: Musculoskeletal: Denies back pain Integumentary/Breasts: Skin/Breast: Denies rash Neurologic: Denies vertigo, Denies dizziness, Denies headache(s) and Reports weakness Psychiatric: Psychiatric: Denies anxiety PMFSH Past Medical History Medical History Chronic vaginitis Hidradenitis suppurativa Cysts Chronic, continuous use of opioids Chronic pain syndrome Spondylosis of lumbar region without myelopathy or radiculopathy Type I diabetes mellitus Surgical History History of reversal of tubal ligation Previous section History of cystoscopy History of hernia repair Family History Family History Father Alive and well Mother Alive and well Sister Alive and well Maternal Aunt Cancer Social History Social History Housing: Condominium Alcohol intake: current Alcohol intake frequency: holidays/special occasions only Alcohol type: beer, wine and hard liquor Patient Tobacco Use Status: Never used Tobacco e-Cigarette/Vaping Use: Never Used Second Hand Smoke Exposure: No Substance Use Type: Marijuana Advance Directives: No Advance Directives Information Provided: No Current occupational status: employed 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, 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 Cognitive needs: No Hearing needs: No Vision needs: No Physical Exam ED Vital Signs: Vital Signs - 24 hr 10/01/24 17:52 10/01/24 20:41 Temperature 98.7 F 98.5 F Pulse Rate 114 H 100 Respiratory Rate 20 20 Blood Pressure 147/82 H 125/80 Pulse Oximetry 99 95 Oxygen Delivery Method Room Air BMI result Body Mass Index 30.4 Const General: healthy appearing, comfortable, no acute distress, alert and awake Nutritional Appearance: well nourished Orientation/consciousness: patient oriented x3 HENMT Head: Yes normocephalic and Yes atraumatic Eyes Eyelids: Yes eyelids normal Conjunctivae: conjunctivae normal Sclerae: sclerae normal Corneas: corneas normal Pupils: Equal, round and reactive pupils present EOM: EOMs intact bilaterally Neck Neck: Yes full ROM Resp Effort & Inspection: normal respiratory effort, able to speak in complete sentences and not labored Cardio Rate: regular rate Rhythm: regular rhythm GI Inspection: No distended Palpation (GI): Soft to palpation, not firm, nontender, no guarding and not rigid Skin General skin exam: elasticity normal Neuro General: patient oriented x3 Cranial nerves: Yes Equal, round and reactive pupils present and Yes Bilaterally intact EOM present Cognition (Neuro): normal cognition Extrem Other: Moving all extremities well without any obvious deformities Course Course Course Narrative: This is a rapid medical exam performed by Sindy Antonio PA-C. The patient is a 34-year-old female with a history of insulin-dependent diabetes who is presenting with hyperglycemia x1 day. Denies recent illness, cough or cold symptoms, nausea vomiting diarrhea or fever. We will be screening basic labs, including venous blood gas, UA, and beta hydroxy. The patient is stable and can return to the waiting room pending her full medical assessment. Reevaluation(s) Reevaluation #1: Patient became hypoglycemic in the ER despite us not giving her any additional insulin. I advised the patient to calibrate her insulin pump which she reports she was able to do. Her pump was much more accurate when compared to our point of care after her calibration. I advised the patient to pause her insulin pump overnight because she did adjust it to prevent hypoglycemia while she was sleeping. She will follow up with her employment coordinator Time: 00:46 Medications Administered Discontinued Medications Generic Name Dose Route Start Last Admin Trade Name Freq PRN Reason Stop Dose Admin Sodium Chloride 1,000 mls @ 999 mls/hr 10/01/24 21:15 10/01/24 21:23 Ns IV 10/01/24 22:15 999 mls/hr .Q1H1M JON Administration Medical Decision Making Medical Decision Making [facility] Narrative: 34-year-old female presents for evaluation of high blood sugar. She reports a her glucose has been over 400 since last night despite her insulin pump working. However she has not been able to calibrate her insulin pump, as she does not know how. Her glucose is 271 on arrival to the ED. plan for chemistries. Her VBG shows that she is not acidotic and her bicarb is normal at 23. Less likely DKA but awaiting chemistries to check for anion gap. She gave herself 4.7 units of insulin lispro with her insulin pump prior to my evaluation. Will trend her glucose in order IV fluids but will hold off on additional insulin at this time. There was no evidence of infectious cause to contribute to elevated glucose. Differential Diagnosis Differential Diagnoses: The differential diagnosis associated with the presentation includes Hyperglycemia HHS DKA Viral syndrome Lab Data [facility] Lab Attestation statement: I reviewed the patient's lab results. Mild leukocytosis to 12.4. No significant anemia. Normal platelet count. 10/01/24 18:02 Labs: Lab Results 10/01/24 10/01/24 10/01/24 Range/Units 17:59 18:02 18:02 WBC 12.4 H (4.8-10.8) X10*3/uL RBC 4.42 (4.20-5.50) X10*6/uL Hgb 14.0 (12.0-16.0) g/dl Hct 40.2 (37.0-47.0) % MCV 91.0 (80.0-98.0) fL MCH 31.7 (27.0-33.0) pg MCHC 34.8 (31.0-35.0) g/dl RDW 12.0 (11.0-16.0) % Plt Count 353 (160-400) X10*3/uL MPV 10.0 (9.4-12.3) fL Immature Gran % (Auto) 0.4 (0.0-0.4) % Neut % (Auto) 86.7 H (45-73) % Lymph % (Auto) 8.5 L (20-40) % [place] % (Auto) 4.1 (2-11) % Eos % (Auto) 0.0 (0-4) % Baso % (Auto) 0.3 (0-2) % Lymph # (Auto) 1.1 L (1.2-4.9) X10*3/uL [place] # (Auto) 0.5 (0.1-1.2) X10*3/uL Eos # (Auto) 0.0 (0.0-0.4) X10*3/uL Baso # (Auto) 0.0 (0.0-0.2) X10*3/uL Abs Immat Gran (auto) 0.05 H (0.00-0.03) X10*3/uL Absolute Neuts (auto) 10.8 H (2.0-8.3) x10*3/uL Absolute Nucleated RBC 0.000 (0.0-0.012) X10*3/uL Nucleated RBC % (auto) 0.0 (0.0-0.2) /100WBC VBG pH 7.34 (7.32-7.43) VBG pCO2 43 mmHg VBG pO2 31 mmHg VBG HCO3 23 (22-26) mmol/L VBG O2 Saturation 43.0 % VBG Base Excess -2.0 mmol/L Estimated GFR > 60 POC Glucose (60-115) mg/dL Beta-Hydroxybutyrate 0.17 (0.02-0.27) mmol/L Urine Color Yellow Cancelled Urine Appearance Clear Urine pH (5.0-9.0) Ur Specific [place] (1.005-1.025) Urine Protein (Neg-Trace) mg/dL Urine Glucose (UA) (Negative) mg/dL Urine Ketones (Negative) mg/dL Urine Blood (Negative) Urine Nitrite (Negative) Ur Leukocyte Esterase (Negative) Urine RBC (0-2) /HPF Urine WBC (0-5) /HPF Ur Squamous Epith Cells (0-2) /HPF Urine Bacteria (None Seen) Hyaline Casts (0-2) /LPF 10/01/24 10/01/24 10/01/24 Range/Units 18:02 18:02 18:02 WBC (4.8-10.8) X10*3/uL RBC (4.20-5.50) X10*6/uL Hgb (12.0-16.0) g/dl Hct (37.0-47.0) % MCV (80.0-98.0) fL MCH (27.0-33.0) pg MCHC (31.0-35.0) g/dl RDW (11.0-16.0) % Plt Count (160-400) X10*3/uL MPV (9.4-12.3) fL Immature Gran % (Auto) (0.0-0.4) % Neut % (Auto) (45-73) % Lymph % (Auto) (20-40) % [place] % (Auto) (2-11) % Eos % (Auto) (0-4) % Baso % (Auto) (0-2) % Lymph # (Auto) (1.2-4.9) X10*3/uL [place] # (Auto) (0.1-1.2) X10*3/uL Eos # (Auto) (0.0-0.4) X10*3/uL Baso # (Auto) (0.0-0.2) X10*3/uL Abs Immat Gran (auto) (0.00-0.03) X10*3/uL Absolute Neuts (auto) (2.0-8.3) x10*3/uL Absolute Nucleated RBC (0.0-0.012) X10*3/uL Nucleated RBC % (auto) (0.0-0.2) /100WBC VBG pH (7.32-7.43) VBG pCO2 mmHg VBG pO2 mmHg VBG HCO3 (22-26) mmol/L VBG O2 Saturation % VBG Base Excess mmol/L Estimated GFR POC Glucose (60-115) mg/dL Beta-Hydroxybutyrate (0.02-0.27) mmol/L Urine Color Urine Appearance Cancelled Urine pH 5.5 Cancelled (5.0-9.0) Ur Specific [place] >= 1.030 H Cancelled (1.005-1.025) Urine Protein Negative (Neg-Trace) mg/dL Urine Glucose (UA) (Negative) mg/dL Urine Ketones (Negative) mg/dL Urine Blood (Negative) Urine Nitrite (Negative) Ur Leukocyte Esterase (Negative) Urine RBC (0-2) /HPF Urine WBC (0-5) /HPF Ur Squamous Epith Cells (0-2) /HPF Urine Bacteria (None Seen) Hyaline Casts (0-2) /LPF 10/01/24 10/01/24 10/01/24 Range/Units 18:02 18:02 18:02 WBC (4.8-10.8) X10*3/uL RBC (4.20-5.50) X10*6/uL Hgb (12.0-16.0) g/dl Hct (37.0-47.0) % MCV (80.0-98.0) fL MCH (27.0-33.0) pg MCHC (31.0-35.0) g/dl RDW (11.0-16.0) % Plt Count (160-400) X10*3/uL MPV (9.4-12.3) fL Immature Gran % (Auto) (0.0-0.4) % Neut % (Auto) (45-73) % Lymph % (Auto) (20-40) % [place] % (Auto) (2-11) % Eos % (Auto) (0-4) % Baso % (Auto) (0-2) % Lymph # (Auto) (1.2-4.9) X10*3/uL [place] # (Auto) (0.1-1.2) X10*3/uL Eos # (Auto) (0.0-0.4) X10*3/uL Baso # (Auto) (0.0-0.2) X10*3/uL Abs Immat Gran (auto) (0.00-0.03) X10*3/uL Absolute Neuts (auto) (2.0-8.3) x10*3/uL Absolute Nucleated RBC (0.0-0.012) X10*3/uL Nucleated RBC % (auto) (0.0-0.2) /100WBC VBG pH (7.32-7.43) VBG pCO2 mmHg VBG pO2 mmHg VBG HCO3 (22-26) mmol/L VBG O2 Saturation % VBG Base Excess mmol/L Estimated GFR POC Glucose (60-115) mg/dL Beta-Hydroxybutyrate (0.02-0.27) mmol/L Urine Color Urine Appearance Urine pH (5.0-9.0) Ur Specific [place] (1.005-1.025) Urine Protein Cancelled (Neg-Trace) mg/dL Urine Glucose (UA) >=1000 H Cancelled (Negative) mg/dL Urine Ketones 15 Cancelled (Negative) mg/dL Urine Blood Negative (Negative) Urine Nitrite (Negative) Ur Leukocyte Esterase (Negative) Urine RBC (0-2) /HPF Urine WBC (0-5) /HPF Ur Squamous Epith Cells (0-2) /HPF Urine Bacteria (None Seen) Hyaline Casts (0-2) /LPF 10/01/24 10/01/24 10/01/24 Range/Units 18:02 18:02 18:02 WBC (4.8-10.8) X10*3/uL RBC (4.20-5.50) X10*6/uL Hgb (12.0-16.0) g/dl Hct (37.0-47.0) % MCV (80.0-98.0) fL MCH (27.0-33.0) pg MCHC (31.0-35.0) g/dl RDW (11.0-16.0) % Plt Count (160-400) X10*3/uL MPV (9.4-12.3) fL Immature Gran % (Auto) (0.0-0.4) % Neut % (Auto) (45-73) % Lymph % (Auto) (20-40) % [place] % (Auto) (2-11) % Eos % (Auto) (0-4) % Baso % (Auto) (0-2) % Lymph # (Auto) (1.2-4.9) X10*3/uL [place] # (Auto) (0.1-1.2) X10*3/uL Eos # (Auto) (0.0-0.4) X10*3/uL Baso # (Auto) (0.0-0.2) X10*3/uL Abs Immat Gran (auto) (0.00-0.03) X10*3/uL Absolute Neuts (auto) (2.0-8.3) x10*3/uL Absolute Nucleated RBC (0.0-0.012) X10*3/uL Nucleated RBC % (auto) (0.0-0.2) /100WBC VBG pH (7.32-7.43) VBG pCO2 mmHg VBG pO2 mmHg VBG HCO3 (22-26) mmol/L VBG O2 Saturation % VBG Base Excess mmol/L Estimated GFR POC Glucose (60-115) mg/dL Beta-Hydroxybutyrate (0.02-0.27) mmol/L Urine Color Urine Appearance Urine pH (5.0-9.0) Ur Specific [place] (1.005-1.025) Urine Protein (Neg-Trace) mg/dL Urine Glucose (UA) (Negative) mg/dL Urine Ketones (Negative) mg/dL Urine Blood Cancelled (Negative) Urine Nitrite Negative Cancelled (Negative) Ur Leukocyte Esterase Negative Cancelled (Negative) Urine RBC 0-2 (0-2) /HPF Urine WBC 0-5 (0-5) /HPF Ur Squamous Epith Cells 0-2 (0-2) /HPF Urine Bacteria None Seen (None Seen) Hyaline Casts 0-2 (0-2) /LPF 10/01/24 10/02/24 10/02/24 Range/Units 20:22 00:17 00:23 WBC (4.8-10.8) X10*3/uL RBC (4.20-5.50) X10*6/uL Hgb (12.0-16.0) g/dl Hct (37.0-47.0) % MCV (80.0-98.0) fL MCH (27.0-33.0) pg MCHC (31.0-35.0) g/dl RDW (11.0-16.0) % Plt Count (160-400) X10*3/uL MPV (9.4-12.3) fL Immature Gran % (Auto) (0.0-0.4) % Neut % (Auto) (45-73) % Lymph % (Auto) (20-40) % [place] % (Auto) (2-11) % Eos % (Auto) (0-4) % Baso % (Auto) (0-2) % Lymph # (Auto) (1.2-4.9) X10*3/uL [place] # (Auto) (0.1-1.2) X10*3/uL Eos # (Auto) (0.0-0.4) X10*3/uL Baso # (Auto) (0.0-0.2) X10*3/uL Abs Immat Gran (auto) (0.00-0.03) X10*3/uL Absolute Neuts (auto) (2.0-8.3) x10*3/uL Absolute Nucleated RBC (0.0-0.012) X10*3/uL Nucleated RBC % (auto) (0.0-0.2) /100WBC VBG pH (7.32-7.43) VBG pCO2 mmHg VBG pO2 mmHg VBG HCO3 (22-26) mmol/L VBG O2 Saturation % VBG Base Excess mmol/L Estimated GFR POC Glucose 271 H 33 L* 37 L* (60-115) mg/dL Beta-Hydroxybutyrate (0.02-0.27) mmol/L Urine Color Urine Appearance Urine pH (5.0-9.0) Ur Specific [place] (1.005-1.025) Urine Protein (Neg-Trace) mg/dL Urine Glucose (UA) (Negative) mg/dL Urine Ketones (Negative) mg/dL Urine Blood (Negative) Urine Nitrite (Negative) Ur Leukocyte Esterase (Negative) Urine RBC (0-2) /HPF Urine WBC (0-5) /HPF Ur Squamous Epith Cells (0-2) /HPF Urine Bacteria (None Seen) Hyaline Casts (0-2) /LPF 10/02/24 Range/Units 00:40 WBC (4.8-10.8) X10*3/uL RBC (4.20-5.50) X10*6/uL Hgb (12.0-16.0) g/dl Hct (37.0-47.0) % MCV (80.0-98.0) fL MCH (27.0-33.0) pg MCHC (31.0-35.0) g/dl RDW (11.0-16.0) % Plt Count (160-400) X10*3/uL MPV (9.4-12.3) fL Immature Gran % (Auto) (0.0-0.4) % Neut % (Auto) (45-73) % Lymph % (Auto) (20-40) % [place] % (Auto) (2-11) % Eos % (Auto) (0-4) % Baso % (Auto) (0-2) % Lymph # (Auto) (1.2-4.9) X10*3/uL [place] # (Auto) (0.1-1.2) X10*3/uL Eos # (Auto) (0.0-0.4) X10*3/uL Baso # (Auto) (0.0-0.2) X10*3/uL Abs Immat Gran (auto) (0.00-0.03) X10*3/uL Absolute Neuts (auto) (2.0-8.3) x10*3/uL Absolute Nucleated RBC (0.0-0.012) X10*3/uL Nucleated RBC % (auto) (0.0-0.2) /100WBC VBG pH (7.32-7.43) VBG pCO2 mmHg VBG pO2 mmHg VBG HCO3 (22-26) mmol/L VBG O2 Saturation % VBG Base Excess mmol/L Estimated GFR POC Glucose 90 (60-115) mg/dL Beta-Hydroxybutyrate (0.02-0.27) mmol/L Urine Color Urine Appearance Urine pH (5.0-9.0) Ur Specific [place] (1.005-1.025) Urine Protein (Neg-Trace) mg/dL Urine Glucose (UA) (Negative) mg/dL Urine Ketones (Negative) mg/dL Urine Blood (Negative) Urine Nitrite (Negative) Ur Leukocyte Esterase (Negative) Urine RBC (0-2) /HPF Urine WBC (0-5) /HPF Ur Squamous Epith Cells (0-2) /HPF Urine Bacteria (None Seen) Hyaline Casts (0-2) /LPF Discharge Plan Discharge Clinical Impression: Acute hyperglycemia Patient Disposition: Home, Self-Care Instructions: Diabetic Hyperglycemia (ED) Additional Instructions: Your workup in the ER today was reassuring. I recommend that you increase water intake. I do recommend that you keep your insulin pump pause through the night just because you changed the settings to prevent hypoglycemia while you are sleeping Keep an eye on your glucose tomorrow after restarted in the insulin pump and follow-up with your employment coordinator Prescriptions: No Action (DME) blood-glucose meter [FreeStyle System Kit] Kit See Rx Instructions .Route Qty: 1 0RF Rx Instructions: 4 times a day testing (DME) FreeStyle Test Strip See Rx Instructions .Route Qty: 100 2RF Rx Instructions: 4 times a day testing tizanidine 4 mg tablet 4 mg PO BEDTIME PRN (Reason: muscle spasticity) Qty: 30 0RF lidocaine 5 % adhesive patch,medicated 1 patch topical DAILY Qty: 30 2RF Rx Instructions: leave on most painful area for up to 12 hrs cetirizine [All Day Allergy (cetirizine)] 10 mg tablet 10 mg PO DAILY Qty: 90 0RF ibuprofen [Advil] 200 mg tablet 600 mg PO Q8H PRN insulin lispro 100 unit/mL solution See Rx Instructions .ROUTE .COMPLEX Rx Instructions: infuse up to 110 units via pump (DME) FreeStyle Lite Strips Strip See Rx Instructions .ROUTE .MEDSUPPLY Qty: 10 Rx Instructions: As directed (DME) Dexcom G6 Sensor Device See Rx Instructions .ROUTE DIRECTED Qty: 1 Rx Instructions: As directed (DME) Omnipod 5 G6 Pods (Gen 5) Cartridge See Rx Instructions subcut DIRECTED Qty: 5 Rx Instructions: As directed (DME) Dexcom G6 Transmitter Device See Rx Instructions .ROUTE .MEDSUPPLY Qty: 1 Rx Instructions: As directed Mirena 21 mcg/24 hours (8 yrs) 52 mg intrauterine device intrauterine trazodone 50 mg tablet 50 mg PO BEDTIME PRN (Reason: sleep) 30 Days Qty: 30 3RF Print Language: Liberian
[2024-10-01 18:10] LABS: Basophils Percent Auto 0.3 % (0-2); Hematocrit 40.2 % (37.0-47.0); Imm Gran Abs Auto 0.05 X10*3/uL (0.00-0.03); Imm Gran Pct Auto 0.4 % (0.0-0.4); Lymphocytes Absolute Auto 1.1 X10*3/uL (1.2-4.9); Lymphocytes Percent Auto 8.5 % (20-40); Mean Corpuscular HGB Conc 34.8 g/dl (31.0-35.0); Mean Corpuscular Hemoglobin 31.7 pg (27.0-33.0); Monocytes Absolute Auto 0.5 X10*3/uL (0.1-1.2); Monocytes Percent Auto 4.1 % (2-11); Neutrophils Absolute Auto 10.8 x10*3/uL (2.0-8.3); Neutrophils Percent Auto 86.7 % (45-73); Platelet Count 353 X10*3/uL (160-400); Red Blood Count 4.42 X10*6/uL (4.20-5.50); White Blood Count 12.4 X10*3/uL (4.8-10.8)
[2024-10-01 18:12] LABS: Appearance Urine Clear; Color Urine Yellow; Glucose Urine UA >=1000 mg/dL (Negative); Leukocyte Esterase Urine Negative (Negative); Nitrite Urine Negative (Negative); PH 5.5 (5.0-9.0); Specific Gravity - Urine >= 1.030 (1.005-1.025); Urine Blood Negative (Negative); Urine Ketones 15 mg/dL (Negative); Urine Protein Negative (Neg-Trace)
[2024-10-01 18:20] LABS: MANUAL DIFF FLAG NO
[2024-10-01 18:31] LABS: Venous Blood Gas Refer to POC result
[2024-10-01 18:36] LABS: Carbon Dioxide 20 mmol/L (22-29); Chloride 103 mmol/L (96-108); Potassium 4.4 mmol/L (3.3-5.1); Sodium 135 mmol/L (135-145)
[2024-10-01 18:37] LABS: Blood Urea Nitrogen 12 mg/dL (9-16); Creatinine Clr Calc Pharmacy 88.3
[2024-10-01 18:53] LABS: Alanine Aminotransferase 19 U/L (0-31); Albumin Level 4.6 g/dL (3.5-5.0); Aspartate Amino Transferase 19 U/L (5-31); Bilirubin Total 0.4 mg/dL (0.0-1.0); Glucose Random 446 mg/dL (60-115); Total Protein 8.2 g/dL (6.5-8.0)
[2024-10-01 18:54] LABS: Alkaline Phosphatase 126 U/L (39-117); HCG Quantitative < 2 mIU/mL; Lipase 11 U/L (8-78)
[2024-10-01 18:55] LABS: Anion Gap 16 (12-20)
[2024-10-01 19:02] LABS: Magnesium 2.1 mg/dL (1.6-2.6)
[2024-10-01 20:41] VITALS: BP 125/80; PULSE 100; RESP 20; TEMP 36.9; O2SAT 95
[2024-10-01 20:59] LABS: Beta-Hydroxybutyrate 0.17 mmol/L (0.02-0.27); Estimated Glomerular Filt Rate > 60
[2024-10-01 21:03] LABS: Glucose, Whole Blood 271 mg/dL (60-115)
[2024-10-01 21:03] LABS: VBG HCO3 23 mmol/L (22-26); VBG pCO2 43 mmHg; VBG pH 7.34 (7.32-7.43); VBG pO2 31 mmHg
[2024-10-01] MEDS: 0.9 % Sodium Chloride 1,000 ML 999 ML IV (21:23)
[2024-10-01 21:38] LABS: UMIC TRIGGER UACC YES
[2024-10-01 22:00] LABS: Bacteria Urine None Seen (None Seen); Hyaline Casts Urine 0-2 /LPF (0-2); RBC Urine 0-2 /HPF (0-2); Squamous Epithelial Cell Urine 0-2 /HPF (0-2); WBC Urine 0-5 /HPF (0-5)
[2024-10-02 00:27] LABS: Glucose, Whole Blood 37 mg/dL (60-115)
[2024-10-02 00:27] LABS: Glucose, Whole Blood 33 mg/dL (60-115)
--- NOTE | 2024-10-02 00:28 | PC.NURSE ---
pt reporting her dexcom states her glucose is 66, POC obtained, POC noted to be 33, Alvarez JEFFERSON aware, pt given food and juice.
[2024-10-02 00:44] LABS: Glucose, Whole Blood 90 mg/dL (60-115)
[2024-10-02 00:46] VITALS: BP 105/63; PULSE 81; RESP 16; TEMP 36.3; O2SAT 97
[2024-10-02 02:19] VITALS: BP 121/76; PULSE 85; RESP 16; TEMP 37; O2SAT 98
[2024-10-02 14:43] LABS: VBG HCO3 23 mmol/L (22-26); VBG pCO2 43 mmHg; VBG pH 7.34 (7.32-7.43); VBG pO2 31 mmHg
== END 2024-10-02 02:20 | disposition home or self-care (01) ==
PROVIDERS: Physician Assistant Medical; Emergency Provider Emergency Medicine; PCP Nurse Practitioner Family
DX: E10.65 Type 1 diabetes mellitus with hyperglycemia (principal); R11.2 Nausea with vomiting, unspecified; R10.2 Pelvic and perineal pain; Z96.41 Presence of insulin pump (external) (internal); Z79.899 Other long term (current) drug therapy; Z79.4 Long term (current) use of insulin
CPT/HCPCS: 36415; 80053; 81001; 81003; 82010; 82803; 82947; 83690; 83735; 84702; 85025; 96360; 96361; 99284

== ENCOUNTER 2024-10-05 08:06 | Outpatient (REF) | payer OTHER, MEDICAID, SELFPAY ==
--- OUTSIDE RECORDS SUMMARY | 2024-10-05 08:15 | XMS_ITS | Encounter Summary ---
Author Organization [facility] Address [address] [place] [address] Phone Care Team Providers Care Rail Car Repair Carman Name Role Phone Deanna Miramontes MD Primary Care Provider Encounter Details Date Type Department Care Team ([facility] Contact Info) Description 06/27/2017 Conversion Encounter [facility] [address] [place] [address] Social History Tobacco Use Types Packs/Day Years [...] on filedocumented in this encounter Care Teams Rail Car Repair Carman Relationship Specialty Start Date End Date Deanna Miramontes MD [address] [place] [address] PCP - General 04/05/17 11/13/22 documented as of this encounter
--- OUTSIDE RECORDS SUMMARY | 2024-10-05 08:15 | XMS_ITS | Clinical Summary ---
Author Organization [facility] Address [address] [place] [address] Care Team Providers Care Mixing Tank Operator Name Role Phone ErmiasrenéehaleysherryDaron NP Primary Care Provider [phone] Source Comments PLEASE NOTE, if this patient [...] DM type 1 (diabetes mellitus, type 1) ([facility] 09/10/2016 Overview (09/10/2016): [facility] ER report, on insulin pump Social History [...] Plan of Treatment Not on file Insurance [facility] Member Subscriber Plan / Payer (Ef fective 2016-Present) Name:Francie Herring Relation to Subscriber:Self Name:Francie Herring Payer ID:[id number] Group ID:Not on file Type:Medicaid Address: [facility] [address] [place] [address] Care Teams Mixing Tank Operator Relationship Specialty Start Date End Date Daron Izquierdo NP [address] [place] [phone] PCP - General 07/03/18
--- OUTSIDE RECORDS SUMMARY | 2024-10-05 08:15 | XMS_ITS | Encounter Summary ---
Author Organization [facility] Address [address] [place] [address] Phone Care Team Providers Care Game Master Name Role Phone Deanna Miramontes MD Primary Care Provider Encounter Details Date Type Department Care Team (Late st Contact Info) Description 01/13/2010 Documentation [facility] Family Medicine [address] [place], [place] [id number] Family Medicine, Physician [address] [place], [place] [address] Social History Tobacco Use Types Packs/Day Years [...] on filedocumented in this encounter Care Teams Game Master Relationship Specialty Start Date End Date Deanna Miramontes MD [address] [place] [address] PCP - General 04/05/17 11/13/22 documented as of this encounter
--- OUTSIDE RECORDS SUMMARY | 2024-10-05 08:15 | XMS_ITS | Encounter Summary ---
Author Organization [facility] Address [address] [place] [address] Phone Care Team Providers Care Batch Analyst Name Role Phone Deanna Miramontes MD Primary Care Provider Encounter Details Date Type Department Care Team (Late st Contact Info) Description 01/13/2010 Documentation [facility] Family Medicine [address] [place], [place] [id number] Family Medicine, Physician [address] [place], [place] [address] Social History Tobacco Use Types Packs/Day Years [...] on filedocumented in this encounter Care Teams Batch Analyst Relationship Specialty Start Date End Date Deanna Miramontes MD [address] [place] [address] PCP - General 04/05/17 11/13/22 documented as of this encounter
--- OUTSIDE RECORDS SUMMARY | 2024-10-05 08:15 | XMS_ITS | Encounter Summary ---
Author Organization [facility] Address [address] [place] [address] Phone Care Team Providers Care Weigher Production Name Role Phone Deanna Miramontes MD Primary Care Provider [phone] Encounter Details Date Type Department Care Team (Late st Contact Info) Description 12/15/2009 Documentation [facility] [place] [address] [place], [place] [id number] Family Medicine, Physician [address] [place], [place] [address] Social History Tobacco Use Types Packs/Day Years [...] on filedocumented in this encounter Care Teams Weigher Production Relationship Specialty Start Date End Date Deanna Miramontes MD [address] [place] [address] PCP - General 04/05/17 11/13/22 documented as of this encounter
--- OUTSIDE RECORDS SUMMARY | 2024-10-05 08:15 | XMS_ITS | Encounter Summary ---
Author Organization [facility] Address [address] [place] [address] Phone Care Team Providers Care Billposting Supervisor Name Role Phone Deanna Miramontes MD Primary Care Provider Encounter Details Date Type Department Care Team (Late st Contact Info) Description 05/23/2011 Documentation [facility] Family Medicine [address] [place], [place] [phone] Family Medicine, Physician [address] [place], [place] [address] Social History Tobacco Use Types Packs/Day Years [...] on filedocumented in this encounter Care Teams Billposting Supervisor Relationship Specialty Start Date End Date Deanna Miramontes MD [address] [facility] [place] [address] PCP - General 04/05/17 11/13/22 documented as of this encounter
--- OUTSIDE RECORDS SUMMARY | 2024-10-05 08:15 | XMS_ITS | Encounter Summary ---
Author Organization [facility] Address [address] [place] [address] Phone Care Team Providers Care Supervisor Fur Dressing Name Role Phone Deanna Miramontes MD Primary Care Provider Encounter Details Date Type Department Care Team (Late st Contact Info) Description 11/02/2011 Documentation [facility] [place] [address] [place], [place] [phone] Family Medicine, Physician [address] [place], [place] [phone] Social History Tobacco Use Types Packs/Day Years [...] on filedocumented in this encounter Care Teams Supervisor Fur Dressing Relationship Specialty Start Date End Date Deanna Miramontes MD [address] [facility] [place] [address] PCP - General 04/05/17 11/13/22 documented as of this encounter
--- OUTSIDE RECORDS SUMMARY | 2024-10-05 08:15 | XMS_ITS | Encounter Summary ---
Author Organization [facility] Address [address] [place] [address] Phone Care Team Providers Care Cook Relief Name Role Phone Deanna Miramontes MD Primary Care Provider Encounter Details Date Type Department Care Team (Late st Contact Info) Description 09/19/2010 Documentation [facility] [place] Family Medicine [address] [place], [place] [phone] Family Medicine, Physician [address] [place], [place] 7[address]41 Social History Tobacco Use Types Packs/Day Years [...] on filedocumented in this encounter Care Teams Cook Relief Relationship Specialty Start Date End Date Deanna Miramontes MD 150 [place] [address] PCP - General 04/05/17 11/13/22 documented as of this encounter
--- OUTSIDE RECORDS SUMMARY | 2024-10-05 08:16 | XMS_ITS | Encounter Summary ---
Author Organization [facility] Address [address] [place] [address] Phone Care Team Providers Care Sebd Teacher Name Role Phone Deanna Miramontes MD Primary Care Provider [phone] Encounter Details Date Type Department Care Team (Late st Contact Info) Description 10/24/2009 Documentation [facility] Family [facility] [address] [place], [place] [phone] Family Medicine, Physician [address] [place], [place] [address]991 Social History Tobacco Use Types Packs/Day Years [...] on filedocumented in this encounter Care Teams Sebd Teacher Relationship Specialty Start Date End Date Deanna Miramontes MD 150 [facility] [place] [address] PCP - General 04/05/17 11/13/22 documented as of this encounter
--- OUTSIDE RECORDS SUMMARY | 2024-10-05 08:16 | XMS_ITS | Encounter Summary ---
Author Organization [facility] Address [address] [place] [address] Phone Care Team Providers Care Finance Analyst Name Role Phone Deanna Miramontes MD Primary Care Provider Encounter Details Date Type Department Care Team (Late st Contact Info) Description 03/05/2011 Documentation [facility] [place] [address] [place], [place] [phone] Family Medicine, Physician [address] [place], [place] [address]771 Social History Tobacco Use Types Packs/Day Years [...] on filedocumented in this encounter Care Teams Finance Analyst Relationship Specialty Start Date End Date Deanna Miramontes MD [address] [facility] [place] [address] PCP - General 04/05/17 11/13/22 documented as of this encounter
--- OUTSIDE RECORDS SUMMARY | 2024-10-05 08:16 | XMS_ITS | Encounter Summary ---
Author Organization [facility] Address [address] [place] [address] Phone Care Team Providers Care Automotive Tire Technician Name Role Phone Deanna Miramontes MD Primary Care Provider Encounter Details Date Type Department Care Team (Late st Contact Info) Description 10/24/2009 Documentation [facility] Family Medicine [address] [place], [place] [phone] Family Medicine, Physician [address] [place], [place] [address] Social History Tobacco Use Types Packs/Day Years [...] on filedocumented in this encounter Care Teams Automotive Tire Technician Relationship Specialty Start Date End Date Deanna Miramontes MD [address] [facility] [place] [address] PCP - General 04/05/17 11/13/22 documented as of this encounter
--- OUTSIDE RECORDS SUMMARY | 2024-10-05 08:16 | XMS_ITS | Encounter Summary ---
Author Organization [facility] Address [address] [place] [address] Phone Care Team Providers Care Turning Lathe Tender Name Role Phone Deanna Miramontes MD Primary Care Provider Encounter Details Date Type Department Care Team (Late st Contact Info) Description 02/13/2011 Documentation [facility] [place] [address] [place], [place] [phone] Family Medicine, Physician [address] [place], [place] [address]1 Social History Tobacco Use Types Packs/Day Years [...] on filedocumented in this encounter Care Teams Turning Lathe Tender Relationship Specialty Start Date End Date Deanna Miramontes MD 150 [facility] [address] PCP - General 04/05/17 11/13/22 documented as of this encounter
--- OUTSIDE RECORDS SUMMARY | 2024-10-05 08:16 | XMS_ITS | Encounter Summary ---
Author Organization [facility] Address [address] [place] [address] Phone Care Team Providers Care Senior Product Development Engineer Name Role Phone Deanna Miramontes MD Primary Care Provider Encounter Details Date Type Department Care Team (Late st Contact Info) Description 03/05/2011 Documentation [facility] [place] Family Medicine [address] [place], [place] [phone] Family Medicine, Physician [address] [place], [place] 54[address]61 Social History Tobacco Use Types Packs/Day Years [...] on filedocumented in this encounter Care Teams Senior Product Development Engineer Relationship Specialty Start Date End Date Deanna Miramontes MD 150 [facility] [place] [address] PCP - General 04/05/17 11/13/22 documented as of this encounter
--- OUTSIDE RECORDS SUMMARY | 2024-10-05 08:16 | XMS_ITS | Encounter Summary ---
Author Organization [facility] Address [address] [place] [address] Phone Care Team Providers Care Knitting Tester Name Role Phone Deanna Miramontes MD Primary Care Provider Encounter Details Date Type Department Care Team (Late st Contact Info) Description 03/14/2011 Documentation [facility] [place] [address] [place], [place] [phone] Family Medicine, Physician [address] [place], [place] [address] Social History Tobacco Use Types Packs/Day Years [...] on filedocumented in this encounter Care Teams Knitting Tester Relationship Specialty Start Date End Date Deanna Miramontes MD 150 [facility] [place] [address] PCP - General 04/05/17 11/13/22 documented as of this encounter
--- OUTSIDE RECORDS SUMMARY | 2024-10-05 08:16 | XMS_ITS | Clinical Summary ---
Author Organization [facility] Address [address] [place] [address] Phone Care Team Providers Care Vice President Process Name Role Phone Unavailable Primary Care Provider [...] complete this topic Procedures * Due to [place] state law, this organization might not be sharing sensitive test results. Procedure Name Priority Date/Time Associated Diagnosis Comments CHLAMYDIA AND GONORRHEA, AMPLIFIED Routine 04/15/2010 3:21 PM EDT from Last 3 Months or Most Recently Relevant to Health Maintenance Results * Due to [place] state law, this organization might not be sharing sensitive test results. * Chlamydia and Gonorrhoea, Amplified (04/15/2010 3:21 PM EDT) URINE CHLAMYDIA AMP PROBE NEGATIVE [facility] Comment: NO CHLAMYDIA TRACHOMATIS RNA DETECTED IN THIS PATIENT'S SAMPLE. ? (REFERENCE RANGE/NORMAL VALUE: NOT DETECTED) ? URINE GC AMP PROBE NEGATIVE [facility] Comment: NO NEISSERIA GONORRHOEAE RNA DETECTED IN THIS PATIENT'S SAMPLE. ? (REFERENCE RANGE/NORMAL VALUE: NOT DETECTED) ? NOTE: THIS TEST USES STOCK CONTROL SUPERVISOR MEDIATED AMPLIFICATION METHOD TO DETECT rRNA FROM [...] MICROBIOLOGY - GENERAL O RDERABLES Final Result [facility] [address] [facility] [place] [address], [place] from Last 3 Months or Most Recently Relevant to Health Maintenance
[2024-10-05 10:15] LABS: Appearance Urine Clear; Color Urine Yellow; Glucose Urine UA >=1000 mg/dL (Negative); Leukocyte Esterase Urine Negative (Negative); Nitrite Urine Negative (Negative); Specific Gravity - Urine >= 1.030 (1.005-1.025); UMIC TRIGGER UACC YES; Urine Blood Negative (Negative); Urine Ketones 15 mg/dL (Negative); Urine Protein Negative (Neg-Trace)
[2024-10-05 10:20] LABS: Gamma Glutamyl Transpeptidase 33 U/L (7-33)
[2024-10-05 10:23] LABS: Bacteria Urine 1+ (None Seen); Hyaline Casts Urine 0-2 /LPF (0-2); RBC Urine 0-2 /HPF (0-2); Squamous Epithelial Cell Urine 0-2 /HPF (0-2); WBC Urine 0-5 /HPF (0-5)
[2024-10-10 12:23] LABS: Alk.Phos Iso. Macrohepatic 0 % (<=0); Alk.Phos Isoenzymes Bone 24 % (28-66); Alk.Phos Isoenzymes Intest 11 % (1-24); Alk.Phos Isoenzymes Liver 65 % (25-69); Alk.Phos Isoenzymes Placental 0 % (<=0); Alk.Phos Isoenzymes Total 101 U/L (31-125)
== END 2024-10-05 08:07 | disposition home or self-care (01) ==
LOC: HO.HMGCLDS 08:06
PROVIDERS: PCP Nurse Practitioner Family; Visit Provider Nurse Practitioner Family
DX: Z00.00 Encounter for general adult medical examination without abnormal findings (principal); R74.8 Abnormal levels of other serum enzymes
CPT/HCPCS: 36415; 81001; 81003; 82977; 84080

== ENCOUNTER 2024-10-06 13:35 | Outpatient (REF) | payer OTHER, MEDICAID, SELFPAY | END 2024-10-06 13:36 | disposition home or self-care (01) | LOC: HO.US 13:35 | PROVIDERS: PCP Nurse Practitioner Family; Visit Provider Nurse Practitioner Family | DX: E04.9 Nontoxic goiter, unspecified (principal) | CPT/HCPCS: 76536 ==

== ENCOUNTER → 2024-10-06 13:36 | Outpatient (BNV) | payer OTHER, MEDICAID, SELFPAY | PROVIDERS: PCP Nurse Practitioner Family; Visit Provider Radiology Diagnostic Radiology | DX: E04.2 Nontoxic multinodular goiter (principal) | CPT/HCPCS: 76536 ==

== ENCOUNTER → 2024-10-15 07:09 | Outpatient (BNV) | payer OTHER, MEDICAID, SELFPAY | PROVIDERS: PCP Nurse Practitioner Family; Visit Provider Radiology Diagnostic Radiology | DX: Z82.49 Family history of ischemic heart disease and other diseases of the circulatory system (principal) | CPT/HCPCS: 70544 ==

== ENCOUNTER 2024-10-15 07:18 | Outpatient (REF) | payer OTHER, MEDICAID, SELFPAY ==
--- NOTE | ~2024-10-15 | MR_ITS ---
EXAMINATION: MR ANGIOGRAPHY BRAIN WITHOUT CONTRAST CLINICAL INFORMATION: Family history of ischemic heart disease and other disease. Concerning brain aneurysm. Asymptomatic. COMPARISON: None available. TECHNIQUE: 3-D [id number]. Maximum intensity projections of the [place]. No IV contrast. FINDINGS: Limited by patient's motion artifact. Anterior cerebral circulation: ICAs: No flow signal gap or focal narrowing. MCA's: No flow signal gap or focal narrowing. Bifurcation/trifurcation demonstrated no gross irregularity. Ophthalmic arteries flow signal is normal bilaterally without contour irregularity. ACAs: No flow signal gap or focal narrowing. Anterior communicating artery flow signal is present. Posterior communicating arteries flow signal is present bilaterally. No contour irregularity. Posterior cerebral circulation: V3/V4 segments flow signal is present without focal narrowing or intimal flap. Left vertebral artery is dominant. Posterior inferior cerebellar arteries flow signal is normal without contour irregularity. Anterior inferior cerebellar arteries flow signal is not fully evaluated. Basilar artery flow signal is present without focal narrowing or intimal flap. Basilar artery tip is normal. Superior cerebellar arteries flow signal is present and normal. manager of pharmacy: Hypoplastic/atretic, right P1 segment. No focal stenosis or flow signal irregularity. MR/MR angio head wo con IMPRESSION: No main cerebral artery occlusion or embolus or aneurysm. Electronically signed by: Wei Alexis MD 10/15/2024 02:07 PM EST
--- OUTSIDE RECORDS SUMMARY | 2024-10-15 07:22 | XMS_ITS | Encounter Summary ---
Author Organization [facility] Address [address] [place] [address] Phone Care Team Providers Care Country Sales Manager Name Role Phone Deanna Miramontes MD Primary Care Provider [phone] Encounter Details Date Type Department Care Team (Late st Contact Info) Description 09/19/2010 Documentation [facility] [place] Family Medicine [address] [place], [place] [phone] Family Medicine, Physician [address] [place], [place] 98[address] Social History Tobacco Use Types Packs/Day Years [...] on filedocumented in this encounter Care Teams Country Sales Manager Relationship Specialty Start Date End Date Deanna Miramontes MD 150 [place] [address] PCP - General 04/05/17 11/13/22 documented as of this encounter
--- OUTSIDE RECORDS SUMMARY | 2024-10-15 07:22 | XMS_ITS | Encounter Summary ---
Author Organization [facility] Address [address] [place] [address] Phone Care Team Providers Care Senior Human Resources Representative Name Role Phone Deanna Miramontes MD Primary Care Provider Encounter Details Date Type Department Care Team (Late st Contact Info) Description 10/24/2009 Documentation [facility] Family Medicine [address] [place], [place] [phone] Family Medicine, Physician [address] [place], [place] [address] Social History Tobacco Use Types Packs/Day Years [...] filedocumented in this encounter Care Teams Senior Human Resources Representative Relationship Specialty Start Date End Date Deanna Miramontes MD [address] [facility] [place] [address] PCP - General 04/05/17 11/13/22 documented as of this encounter
--- OUTSIDE RECORDS SUMMARY | 2024-10-15 07:22 | XMS_ITS | Encounter Summary ---
Author Organization [facility] Address [address] [place] [address] Phone Care Team Providers Care Plate Inspector Name Role Phone Deanna Miramontes MD Primary Care Provider [phone] Encounter Details Date Type Department Care Team (Late st Contact Info) Description 03/05/2011 Documentation [facility] [place] [address] [place], [place] [phone] Family Medicine, Physician [address] [place], [place] 402951 Social History Tobacco Use Types Packs/Day Years [...] on filedocumented in this encounter Care Teams Plate Inspector Relationship Specialty Start Date End Date Deanna Miramontes MD [address] [facility] [place] [address] PCP - General 04/05/17 11/13/22 documented as of this encounter
--- OUTSIDE RECORDS SUMMARY | 2024-10-15 07:22 | XMS_ITS | Encounter Summary ---
Author Organization [facility] Address [address] [place] [address] Phone Care Team Providers Care Electric Wheelchair Repairer Name Role Phone Deanna Miramontes MD Primary Care Provider [phone] Encounter Details Date Type Department Care Team (Late st Contact Info) Description 11/02/2011 Documentation [facility] [place] Family Medicine [address] [place], [place] [address]859[address] Family Medicine, Physician [address] [place], [place] 546771 Social History Tobacco Use Types Packs/Day Years [...] on filedocumented in this encounter Care Teams Electric Wheelchair Repairer Relationship Specialty Start Date End Date Deanna Miramontes MD 150 [facility] [place] [address] PCP - General 04/05/17 11/13/22 documented as of this encounter
--- OUTSIDE RECORDS SUMMARY | 2024-10-15 07:22 | XMS_ITS | Encounter Summary ---
Author Organization [facility] Address [address] [place] [address] Phone Care Team Providers Care Trucker Hand Name Role Phone Deanna Miramontes MD Primary Care Provider Encounter Details Date Type Department Care Team (Late st Contact Info) Description 12/15/2009 Documentation [facility] [place] Family Medicine [address] [place], [place] [phone] Family Medicine, Physician [address] [place], [place] 0[address]11 Social History Tobacco Use Types Packs/Day Years [...] on filedocumented in this encounter Care Teams Trucker Hand Relationship Specialty Start Date End Date Deanna Miramontes MD [address] [facility] [place] [address] PCP - General 04/05/17 11/13/22 documented as of this encounter
--- OUTSIDE RECORDS SUMMARY | 2024-10-15 07:22 | XMS_ITS | Encounter Summary ---
Author Organization [facility] Address [address] [place] [address] Phone Care Team Providers Care Registered Nurse Renal Name Role Phone Deanna Miramontes MD Primary Care Provider Encounter Details Date Type Department Care Team (Late st Contact Info) Description 10/24/2009 Documentation [facility] Family Medicine [address] [place], [place] [phone] Family Medicine, Physician [address] [place], [place] 160[address]41 Social History Tobacco Use Types Packs/Day Years [...] on filedocumented in this encounter Care Teams Registered Nurse Renal Relationship Specialty Start Date End Date Deanna Miramontes MD 150 [facility] [place] [address] PCP - General 04/05/17 11/13/22 documented as of this encounter
--- OUTSIDE RECORDS SUMMARY | 2024-10-15 07:22 | XMS_ITS | Encounter Summary ---
Author Organization [facility] Address [address] [place] [address] Phone Care Team Providers Care Safety Analyst Name Role Phone Deanna Miramontes MD Primary Care Provider Encounter Details Date Type Department Care Team (Late st Contact Info) Description 03/14/2011 Documentation [facility] [place] [address] [place], [place] [phone] Family Medicine, Physician [address] [place], [place] [address] Social History Tobacco Use Types Packs/Day Years [...] on filedocumented in this encounter Care Teams Safety Analyst Relationship Specialty Start Date End Date Deanna Miramontes MD [address] [facility] [address] PCP - General 04/05/17 11/13/22 documented as of this encounter
--- OUTSIDE RECORDS SUMMARY | 2024-10-15 07:22 | XMS_ITS | Clinical Summary ---
Author Organization [facility] Address [address] [place] [address] Phone Care Team Providers Care Information Assurance Analyst Name Role Phone Unavailable Primary Care Provider [...] complete this topic Procedures * Due to [place] state law, this organization might not be sharing sensitive test results. Procedure Name Priority Date/Time Associated Diagnosis Comments CHLAMYDIA AND GONORRHEA, AMPLIFIED Routine 04/15/2010 3:21 PM EDT from Last 3 Months or Most Recently Relevant to Health Maintenance Results * Due to [place] state law, this organization might not be sharing sensitive test results. * Chlamydia and Gonorrhoea, Amplified (04/15/2010 3:21 PM EDT) URINE CHLAMYDIA AMP PROBE NEGATIVE [facility] Comment: NO CHLAMYDIA TRACHOMATIS RNA DETECTED IN THIS PATIENT'S SAMPLE. ? (REFERENCE RANGE/NORMAL VALUE: NOT DETECTED) ? URINE GC AMP PROBE NEGATIVE [facility] Comment: NO NEISSERIA GONORRHOEAE RNA DETECTED IN THIS PATIENT'S SAMPLE. ? (REFERENCE RANGE/NORMAL VALUE: NOT DETECTED) ? NOTE: THIS TEST USES OPERATING ROOM SCHEDULER MEDIATED AMPLIFICATION METHOD TO DETECT rRNA FROM [...] MICROBIOLOGY - GENERAL O RDERABLES Final Result [facility] [address] [facility] [place] [address], [place] from Last 3 Months or Most Recently Relevant to Health Maintenance
--- OUTSIDE RECORDS SUMMARY | 2024-10-15 07:22 | XMS_ITS | Encounter Summary ---
Author Organization [facility] Address [address] [place] [address] Phone Care Team Providers Care Boarding Mother Name Role Phone Deanna Miramontes MD Primary Care Provider [phone] Encounter Details Date Type Department Care Team ([facility] Contact Info) Description 06/27/2017 Conversion Encounter [facility] [address] [place] [address] Social History Tobacco Use Types Packs/Day Years [...] on filedocumented in this encounter Care Teams Boarding Mother Relationship Specialty Start Date End Date Deanna Miramontes MD [address] [place] [address] PCP - General 04/05/17 11/13/22 documented as of this encounter
--- OUTSIDE RECORDS SUMMARY | 2024-10-15 07:22 | XMS_ITS | Encounter Summary ---
Author Organization [facility] Address [address] [place] [address] Phone Care Team Providers Care Mental Health Aides Teacher Name Role Phone Deanna Miramontes MD Primary Care Provider [phone] Encounter Details Date Type Department Care Team (Late st Contact Info) Description 03/05/2011 Documentation [facility] [place] [address] [place], [place] [phone] Family Medicine, Physician [address] [place], [place] [address] Social History Tobacco Use Types Packs/Day Years [...] on filedocumented in this encounter Care Teams Mental Health Aides Teacher Relationship Specialty Start Date End Date Deanna Miramontes MD 150 [facility] [place] [address] PCP - General 04/05/17 11/13/22 documented as of this encounter
--- OUTSIDE RECORDS SUMMARY | 2024-10-15 07:22 | XMS_ITS | Encounter Summary ---
Author Organization [facility] Address [address] [place] [address] Phone Care Team Providers Care Inside Sales Agent Name Role Phone Deanna Miramontes MD Primary Care Provider Encounter Details Date Type Department Care Team (Late st Contact Info) Description 05/23/2011 Documentation [facility] [place] [address] [place], [place] [phone] Family Medicine, Physician [address] [place], [place] [address] Social History Tobacco Use Types Packs/Day Years [...] on filedocumented in this encounter Care Teams Inside Sales Agent Relationship Specialty Start Date End Date Deanna Miramontes MD [address] [facility] [address] PCP - General 04/05/17 11/13/22 documented as of this encounter
--- OUTSIDE RECORDS SUMMARY | 2024-10-15 07:22 | XMS_ITS | Encounter Summary ---
Author Organization [facility] Address [address] [place] [address] Phone Care Team Providers Care Rubber Goods Cutter Finisher Name Role Phone Deanna Miramontes MD Primary Care Provider [phone] Encounter Details Date Type Department Care Team (Late st Contact Info) Description 01/13/2010 Documentation [facility] [place] [address] [place], [place] [address] Family Medicine, Physician [address] [place], [place] [address]451 Social History Tobacco Use Types Packs/Day Years [...] on filedocumented in this encounter Care Teams Rubber Goods Cutter Finisher Relationship Specialty Start Date End Date Deanna Miramontes MD 150 [place] [address] PCP - General 04/05/17 11/13/22 documented as of this encounter
--- OUTSIDE RECORDS SUMMARY | 2024-10-15 07:22 | XMS_ITS | Encounter Summary ---
Author Organization [facility] Address [address] [place] [address] Phone Care Team Providers Care Sand Cutter Name Role Phone Deanna Miramontes MD Primary Care Provider [phone] Encounter Details Date Type Department Care Team (Late st Contact Info) Description 02/13/2011 Documentation [facility] [place] [address] [place], [place] [address] Family Medicine, Physician [address] [place], [place] [address] Social History Tobacco Use Types Packs/Day Years [...] on filedocumented in this encounter Care Teams Sand Cutter Relationship Specialty Start Date End Date Deanna Miramontes MD 150 [place] [address] PCP - General 04/05/17 11/13/22 documented as of this encounter
--- OUTSIDE RECORDS SUMMARY | 2024-10-15 07:22 | XMS_ITS | Encounter Summary ---
Author Organization [facility] Address [address] [place] [address] Phone Care Team Providers Care Powertrain Control Systems Engineer Name Role Phone Deanna Miramontes MD Primary Care Provider Encounter Details Date Type Department Care Team (Late st Contact Info) Description 01/13/2010 Documentation [facility] [place] Family Medicine [address] [place], [place] [address] Family Medicine, Physician [address] [place], [place] [address]661 Social History Tobacco Use Types Packs/Day Years [...] on filedocumented in this encounter Care Teams Powertrain Control Systems Engineer Relationship Specialty Start Date End Date Deanna Miramontes MD 150 [facility] [address] PCP - General 04/05/17 11/13/22 documented as of this encounter
--- OUTSIDE RECORDS SUMMARY | 2024-10-15 07:22 | XMS_ITS | Clinical Summary ---
Author Organization [facility] Address [address] [place] [address] Care Team Providers Care Towel Folder Name Role Phone ErmiasrenéehaleysherryDaron NP Primary Care Provider [phone] Source Comments PLEASE NOTE, if this patient [...] DM type 1 (diabetes mellitus, type 1) ([facility]) 09/10/2016 Overview (09/10/2016): Per [facility] ER report, on insulin pump Social History [...] Plan of Treatment Not on file Insurance [facility] Member Subscriber Plan / Payer (Ef fective 2016-Present) Name:Francie Herring Relation to Subscriber:Self Name:Francie Herring Payer ID:[id number] Group ID:Not on file Type:Medicaid Address: [facility] [id number] [place] [address] Care Teams Towel Folder Relationship Specialty Start Date End Date Daron Izquierdo NP [address] [place] [phone] PCP - General 07/03/18
== END 2024-10-15 07:19 | disposition home or self-care (01) ==
LOC: HO.MRI 07:18
PROVIDERS: PCP Nurse Practitioner Family; Visit Provider Nurse Practitioner Family
DX: Z13.6 Encounter for screening for cardiovascular disorders (principal); Z82.49 Family history of ischemic heart disease and other diseases of the circulatory system
CPT/HCPCS: 70544

== ENCOUNTER 2024-11-23 07:25 | Outpatient (AMB) | payer OTHER, MEDICAID, SELFPAY ==
--- NOTE | 2024-11-23 08:00 | MHC.PC.OV ---
Intake Visit Reasons: Discuss Depression Med Allergies No Known Allergies [No Known Allergies*] Allergy (Verified 11/23/24 08:07) Medication List - Last Reconciled 11/23/24 by FILIPE Torres- blood sugar diagnostic (FreeStyle Test strips) 4 times a day testing blood sugar diagnostic As directed blood-glucose meter (FreeStyle System Kit) 4 times a day testing blood-glucose sensor (Dexcom G6 Sensor device) As directed blood-glucose transmitter (Dexcom G6 Transmitter device) As directed bupropion HCl XL (Wellbutrin XL) 150 mg PO QAM 90 days cetirizine (All Day Allergy (cetirizine)) 10 mg PO DAILY ibuprofen (Advil) 600 mg PO Q8H PRN insulin lispro infuse up to 110 units via pump insulin pump cart,automated,BT (Omnipod 5 G6 Pods (Gen 5) subcutaneous cartridge) As directed levonorgestrel (Mirena) intrauterine lidocaine 5% 1 patch topical DAILY tizanidine 4 mg PO BEDTIME PRN trazodone 50 mg PO BEDTIME PRN 30 days Tobacco use date assessed: 09/22/24 Dental Screening Dental Screen Date: 09/22/24 HPI Discuss Depression Med HPI Details History of Present Illness The patient is a 34-year-old female presenting with major depressive disorder and generalized anxiety disorder for a telehealth follow-up visit. She is actively engaged with a therapist to address these issues. The patient reports ongoing litigation and interpersonal difficulties involving her children and their father, which have exacerbated her stress levels. Despite these stressors, she feels safe and continues to receive therapeutic support. She denied having suicidal or homicidal ideations. Her therapist has recommended exploring medication as part of her treatment plan due to the persistent nature of her symptoms. Review of Systems - Psychiatric: Reports stress related to ongoing legal proceedings. Denies suicidal ideation and homicidal ideation. Plan To manage the patient's major depressive disorder and generalized anxiety disorder, I will initiate treatment with Bupropion Wellbutrin) at a low dose. This decision supports her continued therapy sessions and addresses residual symptoms not managed by psychotherapy alone. The goal is to reduce depressive symptoms and enhance her well-being, considering the ongoing external stressors. I will reassess her condition and medication efficacy in three to four weeks. She will be monitored closely for any adverse reactions to the medication. Discussion Notes During our discussion, I proposed starting Bupropion (Wellbutrin) to address the patient?s depressive and anxiety symptoms, as recommended by her therapist. We reviewed the benefits of Bupropion, including its profile of minimal sedative effects and ability to augment therapeutic progress. I explained potential side effects and emphasized the importance of monitoring mood changes, emphasizing open communication should any adverse symptoms arise. Our follow-up plan includes a reassessment in three to four weeks to evaluate medication impact and symptom progress. We agreed on continuing mental health therapy to complement the medication regimen, ensuring a holistic treatment approach. Patient Instructions - Begin taking Bupropion (Wellbutrin) as prescribed. - Monitor for any side effects and report them promptly. - Continue attending therapy sessions with your therapist. - Follow up with me in three to four weeks for a medication review. - Reach out if you experience any changes in your mood or have concerns. [facility] Medical History Chronic vaginitis Hidradenitis suppurativa Cysts Chronic, continuous use of opioids Chronic pain syndrome Spondylosis of lumbar region without myelopathy or radiculopathy Type I diabetes mellitus Surgical History History of reversal of tubal ligation Previous section History of cystoscopy History of hernia repair Family History Father Alive and well Mother Alive and well Sister Alive and well Maternal Aunt Cancer Social History Housing: Condominium Alcohol intake: current Alcohol intake frequency: holidays/special occasions only Alcohol type: beer, wine and hard liquor Patient Tobacco Use Status: Never used Tobacco e-Cigarette/Vaping Use: Never Used Second Hand Smoke Exposure: No Substance Use Type: Marijuana Current occupational status: employed 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, 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 Cognitive needs: No Hearing needs: No Vision needs: No Female Reproductive History Menstrual Age of Menarche: 14 Questionnaire Thrive Questionnaire Date Thrive assessed: 09/15/24 I am a: Patient What is your living situation today?: I have a steady place to live Within the past 12 months, did the food you bought not last and you didn't have the money to get more?: I choose not to answer this question Within the past 12 months, did you worry whether your food would run out before you got money to buy more?: I choose not to answer this question Do you have trouble paying for medicines?: I choose not to answer this question Do you have trouble getting transportation to medical appointments?: I choose not to answer this question Do you have trouble paying your heating and electricity bill?: I choose not to answer this question Do you have trouble taking care of your child, family member or friend?: I choose not to answer this question Do you have trouble with day-to-day activities such as bathing, preparing meals, shopping, managing finances, etc.?: I choose not to answer this question Are you currently unemployed and looking for a job?: I choose not to answer this question Are you interested in more education?: I choose not to answer this question Please select the resources that you would like help with: None THRIVE Score: 0 SALLIE-7 AMB Questionnaire SALLIE-7 Date SALLIE - 7 assessed: 09/22/24 Source: Developed by Drs. Ricky Aldridge, Susan Sandra, Kodak Pope and colleagues, with an educational irina from [employer]. Physical exam (Primary Care) Tobacco/Smoking Status: Tobacco use Status Tobacco use date assessed 09/22/24 10/02/24 09:35 Patient Tobacco Use Status Never used Tobacco 10/02/24 09:35 e-Cigarette/Vaping Use Never Used 10/02/24 09:35 Thrive Assessment: Date of Thrive Assessment Date Thrive assessed 09/15/24 10/02/24 09:35 Coding Level of Care Code Tele Est Pt Level 3 (93303) Diagnoses Anxiety F41.9 Depression F32.A Assessment & Plan Assessment & Plan (1) Anxiety: Code(s): F41.9 - Anxiety disorder, unspecified Category: Medical (2) Depression: Code(s): F32.A - Depression, unspecified Category: Medical Plan . Medications: New bupropion HCl XL (Wellbutrin XL) 150 mg PO QAM 90 tabs 0RF 90 days
== END 2024-11-23 09:02 | disposition home or self-care (01) ==
LOC: HO.HMCC 07:26
PROVIDERS: PCP Nurse Practitioner Family; Visit Provider Nurse Practitioner Family
DX: F41.9 Anxiety disorder, unspecified (principal); F32.A Depression, unspecified

== ENCOUNTER → 2024-11-23 07:25 | Outpatient (BNVA) | payer OTHER, MEDICAID, SELFPAY | PROVIDERS: PCP Nurse Practitioner Family; Visit Provider Nurse Practitioner Family | DX: M70.61 Trochanteric bursitis, right hip (principal); E10.9 Type 1 diabetes mellitus without complications | CPT/HCPCS: 20610; J0665; J1100; J2003 ==

== ENCOUNTER 2024-11-23 08:24 | Outpatient (AMB) | payer OTHER, MEDICAID, SELFPAY ==
[2024-11-23 08:28] VITALS: BMI 30.4
--- NOTE | 2024-11-23 08:28 | A.OFFVIS_ITS ---
Vital Signs 11/23/24 08:28 Height 5 ft 4 in Weight 177 lb BMI 30.4 Intake Visit Reasons: INJ - Right Greater Trochanteric Bursa Inj Intake Note: Francie is a 34 year old female who presents today for a follow up of her right hip bursitis. She was last seen in December of 2023 and was given a bursa injection. Patient reports injection provided her with relief. Currently her pain is located at the lateral aspect of hip. She would like to repeat injection today. Allergies No Known Allergies [No Known Allergies*] Allergy (Verified 11/23/24 08:32) HPI HPI INJ - Right Greater Trochanteric Bursa Inj: Details: 34-year-old woman who comes in today with continued right lateral hip pain. She has been doing physical therapy exercises and was going to the gym but has ceased doing that because of more pressing responsibilities. She denies groin pain. She describes lateral right hip pain. She is diabetic. He injection proximally months ago was helpful. [facility] Medical History Chronic vaginitis Hidradenitis suppurativa Cysts Chronic, continuous use of opioids Chronic pain syndrome Spondylosis of lumbar region without myelopathy or radiculopathy Type I diabetes mellitus Surgical History History of reversal of tubal ligation Previous section History of cystoscopy History of hernia repair Family History Father Alive and well Mother Alive and well Sister Alive and well Maternal Aunt Cancer Social History Housing: Condominium Alcohol intake: current Alcohol intake frequency: holidays/special occasions only Alcohol type: beer, wine and hard liquor Patient Tobacco Use Status: Never used Tobacco e-Cigarette/Vaping Use: Never Used Second Hand Smoke Exposure: No Substance Use Type: Marijuana Current occupational status: employed 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 Site was prepped using aseptic technique. Patient tolerated the procedure well. Shoulders, Hips, Knees, Details: Right hip greater trochanter Hip Injection Large Joint : Right Hip Coding Procedure code (CPT) selection complete Assessment & Plan Assessment & Plan (1) Greater trochanteric bursitis of right hip: Code(s): M70.61 - Trochanteric bursitis, right hip Category: Medical Plan: Right hip greater trochanteric busitis. Injected bursa. Informed her of the hyperglycemic effects of steroids. Continue home exercise pgm. f/u prn (2) Type I diabetes mellitus: Code(s): E10.9 - Type 1 diabetes mellitus without complications Category: Medical Plan: Understands the effect of steroids on her blood sugar Coding Level of Care Code Est Pt Level 3 (73234) Complex EM visit Add On G2211 Diagnoses Greater trochanteric bursitis of right hip M70.61 Type I diabetes mellitus E10.9 CPT Codes Shoulders, Hips, Knees, - Hip Injection Large Joint : Right Hip ([id number])
== END 2024-11-23 08:48 | disposition home or self-care (01) ==
LOC: HO.HOS 08:24
PROVIDERS: PCP Nurse Practitioner Family; Visit Provider Orthopaedic Surgery
DX: M70.61 Trochanteric bursitis, right hip (principal); E10.9 Type 1 diabetes mellitus without complications
CPT/HCPCS: 20610; 99213

== ENCOUNTER 2025-01-20 14:04 | Outpatient (AMB) | payer OTHER, MEDICAID, SELFPAY ==
[2025-01-20 14:23] VITALS: BP 118/78; PULSE 83; RESP 16; TEMP 36.6; O2SAT 98; BMI 30.9
--- NOTE | 2025-01-20 14:23 | A.OFFPC_ITS ---
Vital Signs 01/20/25 14:23 Height 5 ft 4 in Weight 180 lb BMI 30.9 BP 118/78 Blood Pressure Location Rt brachial Position Sitting Respiration 16 Pulse 83 Pulse Source Pulse Oximeter Temp 97.9 F Temp Source Oral Pulse Oximetry (%) 98 Intake Visit Reasons: 4 months f/up Research Associate Policy Required: No Accompanied by: Self / Same As Patient Allergies No Known Allergies [No Known Allergies*] Allergy (Verified 01/20/25 15:07) Medication List - Last Reconciled 01/20/25 by [facility] blood sugar diagnostic (FreeStyle Test strips) 4 times a day testing blood sugar diagnostic As directed blood-glucose meter (FreeStyle System Kit) 4 times a day testing blood-glucose sensor (Dexcom G6 Sensor device) As directed blood-glucose transmitter (Dexcom G6 Transmitter device) As directed bupropion HCl XL (Wellbutrin XL) 150 mg PO QAM 90 days cetirizine (All Day Allergy (cetirizine)) 10 mg PO DAILY ibuprofen (Advil) 600 mg PO Q8H PRN insulin lispro infuse up to 110 units via pump insulin pump cart,automated,BT (Omnipod 5 G6 Pods (Gen 5) subcutaneous cartridge) As directed levonorgestrel (Mirena) intrauterine lidocaine 5% 1 patch topical DAILY tizanidine 4 mg PO BEDTIME PRN trazodone 50 mg PO BEDTIME PRN 30 days Tobacco use date assessed: 09/22/24 Dental Screening Dental Screen Date: 09/22/24 HPI 4 months f/up HPI0 Details Chief Complaint The patient reports experiencing inadequate improvement in depressive and anxiety symptoms despite medication. History of Present Illness The patient is a 34-year-old female presenting with concerns regarding inadequate improvement in her depression and anxiety symptoms. She was initiated on wellbutrin 150 mg approximately two months ago. Despite this treatment, the patient reports minimal improvement in her depressive and anxiety symptoms, which are significantly impacting her daily functioning. She is not currently engaged in therapy but may consider it in the future. During the visit, the patient was tearful, expressing significant distress related to her housing situation. Despite these stressors, she denies any suic idal or homicidal ideations and reports feeling safe. Behavioral health support was provided by Imani (), with a follow-up planned. The patient reports her job is going well and she is working on finding temporary housing solutions. Social History - Employment: The patient reports her lamar [employer]antes is going well. - Housing: The patient is experiencing d ifficulty with her current housing situation and is seeking temporary housing solutions. - Therapy: The patient is not currently seeing a therapist but may consider it in the future. Health Maintenance Review of Systems - Psychiatric: Reports depression and an xiety; Denies suicidal ideation; Denies homicidal ideation. Physical Exam General: Cooperative, healthy appearing, comfortable, no acute distress and well developed Orientation: Patient oriented x3 Limitations: No limitations Head: Normal to inspection Ears: Hearing grossly normal bilaterally Nose: Normal external nose present Face and sinus: Normal facial exam Eyes: Appearance normal, both eyes and all related structures Neck: Normal visual inspection and Yes full ROM Respiratory: Normal respiratory effort and able to speak in complete sentences. Clear to auscultation bilaterally Cardiovascular: Regular rate and rhythm. Normal S1 and S2 GI: Normal to inspection. Soft to palpation and nontender Skin: No rashes or lesions noted Neuro: Patient oriented x3 Extremities: Normal to inspection Results Plan The plan involves increasing the dosage of Poputrin from 150 mg to 300 mg to enhance the therapeutic effects for managing the patient's Major Depressive Disorder and Generalized Anxiety Disorder. Behavioral health support is scheduled with Esther to provide ongoing assistance, and the patient will be monitored for any changes in her symptoms. The patient denies any suicidal or homicidal ideations, and safety concerns have been addressed. Follow-up will be required to assess the patient's response to the medication adjustment and overall mental health status. Discussion Notes I discussed with the patient the decision to increase her Wellbutrin dosage from 150 mg to 300 mg due to the insufficient improvement in managing her depression and anxiety over the past two months. The potential benefits of this adjustment include improved symptom control. The patient was informed of the importance of monitoring for any side effects and changes in her condition. I also emphasized the availability of behavioral health support, with Esther scheduled for follow- up. The patient expressed understanding of the plan and was agreeable to the proposed changes. We reviewed the absence of suicidal or homicidal ideations, ensuring the patient's safety. She was advised to reach out if any new concerns arise Patient Instructions - Increase wellbutrin dosage to 300 mg a s discussed. - Follow up with Esther, the behavioral he alth provider, as scheduled. - Report any new or worsening symptoms i mmediately. - Continue job activities and seek tempo rary housing solutions if needed. - Consider therapy options in the future . - Contact healthcare provider if experie ncing any side effects. [facility] Medical History Chronic vaginitis Hidradenitis suppurativa Cysts Chronic, continuous use of opioids Chronic pain syndrome Spondylosis of lumbar region without myelopathy or radiculopathy Type I diabetes mellitus Surgical History History of reversal of tubal ligation Previous section History of cystoscopy History of hernia repair Family History Father Alive and well Mother Alive and well Sister Alive and well Maternal Aunt Cancer Social History Housing: Condominium Alcohol intake: current Alcohol intake frequency: holidays/special occasions only Alcohol type: beer, wine and hard liquor Patient Tobacco Use Status: Never used Tobacco e-Cigarette/Vaping Use: Never Used Second Hand Smoke Exposure: No Substance Use Type: Marijuana Current occupational status: employed 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 1. Little interest or pleasure in doing things: nearly every day 2. Feeling down, depressed, or hopeless: nearly every day 3. Trouble falling or staying asleep, or sleeping too much: nearly every day 4. Feeling tired or having little energy: nearly every day 5. Poor appetite or overeating: nearly every day 6. Feeling bad about yourself - or that you are a failure or have let yourself or your family down: nearly every day 7. Trouble concentrating on things, such as reading the newspaper or watching television: nearly every day 8. Moving or speaking so slowly that other people could have noticed. Or the opposite - being so fidgety or restless that you have been moving around a lot more than usual: nearly every day 9. Thoughts that you would be better off or of hurting yourself in some way: not at all Total score: 24 Depression Screening Interpretation: Positive ( team speaking with pt today (Imani), pt denies any SI or HI) Depression Screening Done: Yes 04571 - PHQ-9 Billing: Yes Source: Developed by Drs. Ricky Aldridge, Susan Sandra, Kodak Pope and colleagues, with an educational irina from [employer]. Thrive Questionnaire Date Thrive assessed: 01/20/25 I am a: Patient What is your living situation today?: I have a steady place to live Within the past 12 months, did the food you bought not last and you didn't have the money to get more?: I choose not to answer this question Within the past 12 months, did you worry whether your food would run out before you got money to buy more?: I choose not to answer this question Do you have trouble paying for medicines?: I choose not to answer this question Do you have trouble getting transportation to medical appointments?: I choose not to answer this question Do you have trouble paying your heating and electricity bill?: I choose not to answer this question Do you have trouble taking care of your child, family member or friend?: I choose not to answer this question Do you have trouble with day-to-day activities such as bathing, preparing meals, shopping, managing finances, etc.?: I choose not to answer this question Are you currently unemployed and looking for a job?: I choose not to answer this question Are you interested in more education?: I choose not to answer this question Please select the resources that you would like help with: None THRIVE Score: 0 AUDIT C Alcohol Use Questionnaire (AUDIT-C) 1. How often do you have a drink containing alcohol?: Monthly or less 2. How many drinks containing alcohol do you have on a typical day when you are drinking?: 10 or more 3. How often do you have six or more drinks on one occasion?: Less than monthly Total Score: 6 Score Reviewed/Action Taken: Yes SALLIE-7 AMB Questionnaire SALLIE-7 Date SALLIE - 7 assessed: 01/20/25 Feeling nervous, anxious, or on edge: 3 = Nearly every day Not being able to stop or control worryin = Nearly every day Worrying too much about different things: 3 = Nearly every day Trouble relaxin = Nearly every day Being so restless that it is hard to sit still: 3 = Nearly every day Becoming easily annoyed or irritable: 3 = Nearly every day Feeling afraid as if something awful might happen: 3 = Nearly every day Total SALLIE-7 score (0-4 normal; 5-9 mild; 10-14 moderate; 15-21 severe): 21 Source: Developed by Drs. Ricky Aldridge, Susan Sandra, Kodak Pope and colleagues, with an educational irina from [employer]. SALLIE-7 Assessment Billing SALLIE-7 Assessment Tool: SALLIE-7 Assessment 24291 (denies any si or hi, Imani spoke with pt today in the exam room) Physical exam (Primary Care) Vital Signs: Last Vital Signs Temp 97.9 F 01/20/25 14:23 Pulse 83 01/20/25 14:23 Resp 16 01/20/25 14:23 BP 118/78 01/20/25 14:23 Pulse Ox 98 01/20/25 14:23 BMI result Body Mass Index 30.9 Tobacco/Smoking Status: Tobacco use Status Tobacco use date assessed 09/22/24 01/20/25 14:24 Patient Tobacco Use Status Never used Tobacco 01/20/25 14:24 e-Cigarette/Vaping Use Never Used 01/20/25 14:24 PHQ-9: PHQ-9 Score PHQ-9: Total score 24 01/20/25 14:36 Depression Screening Interpretation: Positive ( team speaking with pt today (Imani), pt denies any SI or HI) Thrive Assessment: Date of Thrive Assessment Date Thrive assessed 01/20/25 01/20/25 14:24 Coding Level of Care Code Est Pt Level 3 (72223) Diagnoses Anxiety F41.9 Additional Codes PHQ-9 - 74992 - PHQ-9 Billing: Yes ([id number]) SALLIE-7 Assessment Billing - SALLIE-7 Assessment Tool: SALLIE-7 Assessment 36990 ([id number]) Assessment & Plan Assessment & Plan (1) Anxiety: Code(s): F41.9 - Anxiety disorder, unspecified Category: Medical Plan . Orders: Orders Complete Blood Count Auto Diff Today F41.9 - Anxiety disorder, unspecified Comprehensive Crawford. Panel Fast Today F41.9 - Anxiety disorder, unspecified TSH reflex Free T4 Today F41.9 - Anxiety disorder, unspecified Lipid Panel Today F41.9 - Anxiety disorder, unspecified UA CC w/rflx Micro + Cult Today F41.9 - Anxiety disorder, unspecified Medications: New meloxicam 15 mg PO DAILY 30 days PRN 30 tabs 0RF back pain Changed From bupropion HCl XL (Wellbutrin XL) 150 mg PO QAM 90 days 90 tabs 0RF To bupropion HCl XL 300 mg PO QAM 90 days 90 tabs 0RF
--- OUTSIDE RECORDS SUMMARY | 2025-01-20 14:58 | XMS_ITS | Encounter Summary ---
Author Organization [facility] Address [address] [place] [address] Phone Care Team Providers Care Forest Management Professor Name Role Phone Deanna Miramontes MD Primary Care Provider [phone] Encounter Details Date Type Department Care Team (Late st Contact Info) Description 12/15/2009 Documentation [facility] [place] [facility] [address] [place], [place] [id number] Family Medicine, Physician [address] [place], [place] [id number] Social History Tobacco Use Types Packs/Day Years [...] on filedocumented in this encounter Care Teams Forest Management Professor Relationship Specialty Start Date End Date Deanna Miramontes MD [address] [facility] [place] [address] PCP - General 04/05/17 11/13/22 documented as of this encounter
== END 2025-01-20 15:28 | disposition home or self-care (01) ==
LOC: HO.HMCC 14:04
PROVIDERS: PCP Nurse Practitioner Family; Visit Provider Nurse Practitioner Family
DX: F41.9 Anxiety disorder, unspecified (principal)

== ENCOUNTER → 2025-01-20 14:04 | Outpatient (BNVA) | payer OTHER, MEDICAID, SELFPAY | PROVIDERS: PCP Nurse Practitioner Family; Visit Provider Nurse Practitioner Family | DX: G89.4 Chronic pain syndrome (principal); F41.9 Anxiety disorder, unspecified; F32.A Depression, unspecified; Z71.89 Other specified counseling | CPT/HCPCS: 96127 ==

== ENCOUNTER 2025-01-26 13:21 | Outpatient (REF) | payer OTHER, MEDICAID, SELFPAY ==
[2025-01-26 13:34] LABS: MANUAL DIFF FLAG NO
[2025-01-26 13:51] LABS: Appearance Urine Clear; Color Urine Yellow; Glucose Urine UA Negative (Negative); Leukocyte Esterase Urine Negative (Negative); Nitrite Urine Positive (Negative); Specific Gravity - Urine >= 1.030 (1.005-1.025); UMIC TRIGGER UACC YES; Urine Blood Negative (Negative); Urine Ketones Trace mg/dL (Negative); Urine Protein Trace mg/dL (Neg-Trace)
[2025-01-26 13:57] LABS: Basophils Percent Auto 0.5 % (0-2); Eosinophils Absolute Auto 0.4 X10*3/uL (0.0-0.4); Eosinophils Percent Auto 4.5 % (0-4); Hematocrit 39.3 % (37.0-47.0); Hemoglobin 13.1 g/dl (12.0-16.0); Imm Gran Abs Auto 0.03 X10*3/uL (0.00-0.03); Imm Gran Pct Auto 0.3 % (0.0-0.4); Lymphocytes Absolute Auto 3.3 X10*3/uL (1.2-4.9); Lymphocytes Percent Auto 37.6 % (20-40); Mean Corpuscular HGB Conc 33.3 g/dl (31.0-35.0); Mean Corpuscular Volume 93.1 fL (80.0-98.0); Monocytes Absolute Auto 0.8 X10*3/uL (0.1-1.2); Monocytes Percent Auto 9.2 % (2-11); Neutrophils Absolute Auto 4.2 x10*3/uL (2.0-8.3); Neutrophils Percent Auto 47.9 % (45-73); Platelet Count 353 X10*3/uL (160-400); Red Blood Count 4.22 X10*6/uL (4.20-5.50); Red Cell Distribution Width 12.7 % (11.0-16.0); White Blood Count 8.8 X10*3/uL (4.8-10.8)
[2025-01-26 13:59] LABS: Bacteria Urine 4+ (None Seen); Hyaline Casts Urine 0-2 /LPF (0-2); RBC Urine 0-2 /HPF (0-2); Squamous Epithelial Cell Urine 0-2 /HPF (0-2); UACC Culture Trigger YES; WBC Urine 0-5 /HPF (0-5)
[2025-01-26 14:46] LABS: Alanine Aminotransferase 33 U/L (0-31); Albumin Level 4.3 g/dL (3.5-5.0); Alkaline Phosphatase 108 U/L (39-117); Anion Gap 10 (12-20); Aspartate Amino Transferase 32 U/L (5-31); Bilirubin Total 0.4 mg/dL (0.0-1.0); Blood Urea Nitrogen 12 mg/dL (9-16); Calcium 8.9 mg/dL (8.4-10.2); Carbon Dioxide 28 mmol/L (22-29); Chloride 106 mmol/L (96-108); Cholesterol 154 mg/dL (<200); Estimated Glomerular Filt Rate > 60; Glucose Fasting 109 mg/dL (60-99); HDL Cholesterol 46 mg/dL (>40); LDL Cholesterol Calculated 86 mg/dL (<100); Potassium 3.5 mmol/L (3.3-5.1); Sodium 140 mmol/L (135-145); Total Protein 7.1 g/dL (6.5-8.0); Triglycerides 111 mg/dL (<150)
--- OUTSIDE RECORDS SUMMARY | 2025-01-26 14:56 | XMS_ITS | Clinical Summary ---
Author Organization [facility] Address [address] [place] [address] Care Team Providers Care L D Rn Name Role Phone ErmiasrenéehaleysherryDaron NP Primary Care Provider [phone] Source Comments PLEASE NOTE, if this patient [...] 1 (diabetes mellitus, type 1) ([facility]) 09/10/2016 Overview (09/10/2016): Per [facility] ER report, on insulin pump Social [...] Plan of Treatment Not on file Insurance [facility] Member Subscriber Plan / Payer (Ef fective 2016-Present) Name:Francie Herring Relation to Subscriber:Self Name:Francie Herring Payer ID:[id number] Group ID:Not on file Type:Medicaid Address: [facility] [id number] [place] [address] Care Teams L D Rn Relationship Specialty Start Date End Date Daron Izquierdo NP [address] [place] [id number] PCP - General 07/03/18
== END 2025-01-26 13:22 | disposition home or self-care (01) ==
LOC: HO.LAB 13:21
PROVIDERS: PCP Nurse Practitioner Family; Visit Provider Nurse Practitioner Family
DX: Z00.00 Encounter for general adult medical examination without abnormal findings (principal); F41.9 Anxiety disorder, unspecified; Z13.6 Encounter for screening for cardiovascular disorders
CPT/HCPCS: 36415; 80053; 80061; 81001; 84443; 85025; 87086; 87088; 87186

== ENCOUNTER 2025-03-09 10:38 | Outpatient (REF) | payer OTHER, MEDICAID, SELFPAY ==
[2025-03-09 21:03] LABS: Bacterial Vaginosis PCR POSITIVE (Negative); Candida Group PCR NOT DETECTED (Not Detect); Candida glab krusei PCR NOT DETECTED (Not Detect); Trichomonas vaginalis PCR NOT DETECTED (Not Detect)
[2025-03-09 21:55] LABS: CT PCR NOT DETECTED (Not Detect.); NG PCR NOT DETECTED (Not Detect.)
== END 2025-03-09 10:39 | disposition home or self-care (01) ==
LOC: HO.LNP 10:38
PROVIDERS: PCP Nurse Practitioner Family; Visit Provider Advanced Practice Midwife
DX: Z01.419 Encounter for gynecological examination (general) (routine) without abnormal findings (principal); N89.8 Other specified noninflammatory disorders of vagina; R10.2 Pelvic and perineal pain; T83.32XA Displacement of intrauterine contraceptive device, initial encounter
CPT/HCPCS: 81515; 87491; 87591

== ENCOUNTER 2025-03-09 10:38 | Outpatient (AMB) | payer OTHER, MEDICAID, SELFPAY ==
--- NOTE | 2025-03-09 11:24 | A.OFFVIS_ITS ---
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 Doing well with animal geneticist concerns. UTI last week completed her meds. Mirena IUD user. Reports right-sided pain at times, history of ovarian cyst. Currently is sexually active. She denies vaginal itching or irritation. STI s creening offered; she accepts, including blood work. History of DM, admits to stress in that her blood sugars are all over the place. Denies family history of breast, ovarian or colon cancer. Last pap smear 2023 negative. COUNT INCLUDES THE [facility] Medical History (Updated 03/09/25 @ 11:57 by Manuela Jack CNM) Pelvic pain IUD (intrauterine device) in place Chronic vaginitis Hidradenitis suppurativa Cysts Chronic, continuous use of opioids Chronic pain syndrome Spondylosis of lumbar region without myelopathy or radiculopathy Type I diabetes mellitus Surgical History History of reversal of tubal ligation Previous section History of cystoscopy History of hernia repair Family History Father Alive and well Mother Alive and well Sister Alive and well Maternal Aunt Cancer Social History Housing: Condominium Alcohol intake: current Alcohol intake frequency: holidays/special occasions only Alcohol type: beer, wine and hard liquor Patient Tobacco Use Status: Never used Tobacco e-Cigarette/Vaping Use: Never Used Second Hand Smoke Exposure: No Substance Use Type: Marijuana Current occupational status: employed 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 Await results for final plan of care. Follow up pending ultrasound findings. Advised to call if increased or persistent pain. The patient expressed understanding and agreement with the plan of care. All of her questions and concerns were addressed to the best of my ability. Total time I personally spent on visit and management today: ?15 minutes. Time spent included review of pertinent office notes in the electronic health record; review of laboratory and imaging results; review of personal family medical history; performing physical exam; discussing diagnosis and plan of care with the patient; documenting the encounter in the EMR. (2) Encounter for well woman exam with routine gynecological exam: Code(s): Z01.419 - Encounter for gynecological examination (general) (routine) without abnormal findings Plan: Discussed: Current recommendations for pap smears per ASCCP guidelines. Breast awareness and periodic breast exams. Maintain a healthy lifestyle including a well balanced diet and routine exercise. Use condoms for STI and prevention. Stress reduction techniques and self care. Patient verbalizes understanding and agrees to the plan of care. She was given opportunity to ask questions and all questions were answered to the best of my ability. RTO in one year for annual animal geneticist examination. This note is constructed using voice recognition software. While every effort has been made to ensure accuracy, cook morning errors may have been included. (3) IUD strings lost: Code(s): T83.32XA - Displacement of intrauterine contraceptive device, initial encounter Category: Medical Qualifiers: Encounter type: initial encounter Qualified Code(s): T83.32XA - Displacement of intrauterine contraceptive device, initial encounter Plan Plan recheck with the pelvic ultrasound. Follow up pending results. The patient expressed understanding and agreement with the plan of care. All of her questions and concerns were addressed to the best of my ability. Orders: Orders US pelvic and transvaginal Today R10.2 - Pelvic and perineal pain, T83.32XA - Displacement of intrauterine contraceptive device, initial encounter CT NG by PCR Vag/Cerv Today N89.8 - Other specified noninflammatory disorders of vagina HIV Ab/Ag Today Z20.2 - Contact with and (suspected) exposure to infections with a predominantly sexual mode of transmission Hepatitis C Antibody Reflex Today Z20.2 - Contact with and (suspected) exposure to infections with a predominantly sexual mode of transmission Hepatitis B Core Antibody Today Z20.2 - Contact with and (suspected) exposure to infections with a predominantly sexual mode of transmission Syphilis Screen Today Z20.2 - Contact with and (suspected) exposure to infections with a predominantly sexual mode of transmission Bacterial Vaginosis Panel Today N89.8 - Other specified noninflammatory disorders of vagina Coding Level of Care Code Est Pt Level 2 (77844) Est Pt Prev Care 18-39y(74611) Diagnoses Pelvic pain R10.2 Encounter for well woman exam with routine gynecological exam Z01.419 Intrauterine contraceptive device threads lost, initial encounter T83.32XA Encounter type: initial encounter
[2025-03-09 11:41] VITALS: BP 118/72; BMI 30.6
--- OUTSIDE RECORDS SUMMARY | 2025-03-09 11:54 | XMS_ITS | Clinical Summary ---
Author Organization [facility] Address [address] [place] [address] Care Team Providers Care Personal Care Service Provider Name Role Phone ErmiasrenéehaleysherryDaron NP Primary Care Provider [phone] Source Comments PLEASE NOTE, if this patient [...] DM type 1 (diabetes mellitus, type 1) (CMS & HHS -HCC) 09/10/2016 Overview (09/10/2016): Per [facility] ER report, on insulin pump Social [...] 94 06/05/2016 3:46 PM EDT Temperature 36.7 C (98 F) 06/05/2016 3:46 PM EDT Respiratory Rate 20 06/05/2016 3:46 PM EDT Oxygen Saturation 98% 06/05/2016 3:46 PM EDT Inhaled Oxygen Concentration - - Weight - - Height - - Body Mass Index - - Plan of Treatment Not on file Insurance [facility] Member Subscriber Plan / Payer (Ef fective 2016-Present) Name:Francie Herring Relation to Subscriber:Self Name:Francie Herring Payer ID:[id number] Group ID:Not on file Type:Medicaid Address: [facility] [id number] [place] [address] Care Teams Personal Care Service Provider Relationship Specialty Start Date End Date Daron Izquierdo NP [address] [place] [phone] PCP - General 07/03/18
--- OUTSIDE RECORDS SUMMARY | 2025-03-09 11:54 | XMS_ITS | Encounter Summary ---
Author Organization [facility] Address [address] [place] [address] Phone Care Team Providers Care Spinner Continuous Name Role Phone Deanna Miramontes MD Primary Care Provider [phone] Encounter Details Date Type Department Care Team (Late st Contact Info) Description 12/15/2009 Documentation [facility] [place] [address] [place], [place] [id number] Family Medicine, Physician [address] [place], [place] [address] Social History Tobacco Use Types Packs/Day Years [...] on filedocumented in this encounter Care Teams Spinner Continuous Relationship Specialty Start Date End Date Deanna Miramontes MD [address] [facility] [place] [address] PCP - General 04/05/17 11/13/22 documented as of this encounter
== END 2025-03-09 11:53 | disposition home or self-care (01) ==
LOC: HO.HWS 10:38
PROVIDERS: PCP Nurse Practitioner Family; Visit Provider Advanced Practice Midwife
DX: Z01.419 Encounter for gynecological examination (general) (routine) without abnormal findings (principal); R10.2 Pelvic and perineal pain; T83.32XA Displacement of intrauterine contraceptive device, initial encounter
CPT/HCPCS: 99212; 99395; 99459

== ENCOUNTER 2025-03-10 10:42 | Outpatient (REF) | payer OTHER, MEDICAID, SELFPAY ==
--- NOTE | ~2025-03-10 | US_ITS ---
EXAMINATION: US PELVIS TRANSABDOMINAL AND TRANSVAGINAL HISTORY: R10.2 - Pelvic and perineal pain COMPARISON: Comparison is made with the prior examination dated 01/29/2024. TECHNIQUE: Transabdominal and endovaginal real-time 2D monahan-scale ultrasound was performed. FINDINGS: Uterus: The uterus is normal in size, measuring 8.1 x 4.8 x 6.1 cm. Myometrium has a normal echotexture. No fibroids are identified. Endometrium: The endometrial stripe measures 6 mm in thickness. An IUD is noted. The portion in the lower uterine segment appears fractured, with a fragment extending into the myometrium. There is a small amount of free fluid in the endometrial canal. Right ovary: The right ovary measures 3.6 x 2.7 x 2.7 cm. The right ovary is normal in size and echotexture. There is a 2.8 x 1.3 x 1.7 cm cyst versus follicle. An additional 1.3 cm cyst is seen adjacent to the right ovary. Left ovary: The left ovary measures 2.8 x 1.2 x 2.0 cm. The left ovary is normal in size and echotexture. Pelvic fluid: There is trace free fluid in the cul-de-sac. US/US pelvic and transvaginal IMPRESSION: The portion of the IUD in the lower uterine segment appears fractured, with a fragment extending into the myometrium. Findings were communicated to Ryan Sam on 03/10/2025 at 11:45 AM by secure text message. Electronically signed by: Ricky To MD 03/10/2025 11:46 AM EDT
--- OUTSIDE RECORDS SUMMARY | 2025-03-10 11:24 | XMS_ITS | Clinical Summary ---
Author Organization [facility] Address [address] [place] [address] Care Team Providers Care Community Midwife Name Role Phone ErmiasrenéehaleysherryDaron NP Primary Care Provider [phone] Source Comments PLEASE NOTE, if this patient [...] & HHS -HCC) 09/10/2016 Overview (09/10/2016): Per [facility] ER report, on insulin pump Social History [...] Plan of Treatment Not on file Insurance [facility] Member Subscriber Plan / Payer (Ef fective 2016-Present) Name:Francie Herring Relation to Subscriber:Self Name:Francie Herring Payer ID:[id number] Group ID:Not on file Type:Medicaid Address: [facility] [id number] [place] [address] Care Teams Community Midwife Relationship Specialty Start Date End Date Daron Izquierdo NP [address] [place] [phone] PCP - General 07/03/18
--- OUTSIDE RECORDS SUMMARY | 2025-03-10 11:24 | XMS_ITS | Encounter Summary ---
Author Organization [facility] Address [address] [place] [address] Phone Care Team Providers Care Advertisement Compositor Name Role Phone Deanna Miramontes MD Primary Care Provider [phone] Encounter Details Date Type Department Care Team (Late st Contact Info) Description 12/15/2009 [place] [facility] [place] [address] [place], [place] [phone] Family Medicine, Physician [address] [place], [place] [address] Social History Tobacco Use Types Packs/Day Years [...] on filedocumented in this encounter Care Teams Advertisement Compositor Relationship Specialty Start Date End Date Deanna Miramontes MD [address] [facility] [place] [address] PCP - General 04/05/17 11/13/22 documented as of this encounter
[2025-03-10 14:03] LABS: Appearance Urine Clear; Glucose Urine UA Negative (Negative); PH 6.5 (5.0-9.0); Specific Gravity - Urine 1.025 (1.005-1.025); UMIC TRIGGER UACC YES
[2025-03-10 14:17] LABS: UACC Culture Trigger YES
[2025-03-11 04:47] LABS: Syphilis Screen Nonreactive (Nonreactive)
[2025-03-11 05:18] LABS: HBc Num1 0.17 S/CO (0.00-0.79); HIV Num 1 0.05 S/CO (0.00-0.99); ~HepC Num1 0.14 S/CO (0.00-0.79); ~Hepatitis C Antibody Nonreactive (Nonreactive)
== END 2025-03-10 10:43 | disposition home or self-care (01) ==
LOC: HO.HMGCX 10:42
PROVIDERS: PCP Nurse Practitioner Family; Referring Provider Nurse Practitioner Family; Visit Provider Advanced Practice Midwife
DX: Z11.59 Encounter for screening for other viral diseases (principal); Z11.4 Encounter for screening for human immunodeficiency virus [HIV]; Z11.3 Encounter for screening for infections with a predominantly sexual mode of transmission; R10.2 Pelvic and perineal pain; T83.32XA Displacement of intrauterine contraceptive device, initial encounter; Z20.2 Contact with and (suspected) exposure to infections with a predominantly sexual mode of transmission
CPT/HCPCS: 36415; 76830; 76856; 81001; 81003; 86704; 86780; 86803; 87086; 87088; 87186; 87389

== ENCOUNTER → 2025-03-10 10:48 | Outpatient (BNV) | payer OTHER, MEDICAID, SELFPAY | PROVIDERS: PCP Nurse Practitioner Family; Referring Provider Nurse Practitioner Family; Visit Provider Radiology Diagnostic Radiology | DX: R10.2 Pelvic and perineal pain (principal) | CPT/HCPCS: 76830; 76856 ==

== ENCOUNTER 2025-03-11 08:17 | Outpatient (AMB) | payer OTHER, MEDICAID, SELFPAY ==
--- OUTSIDE RECORDS SUMMARY | 2025-03-11 08:19 | XMS_ITS | Clinical Summary ---
Author Organization [facility] Address [address] [place] [address] Care Team Providers Care Air Pollution Compliance Inspector Name Role Phone ErmiasrenéehaleysherryDaron NP Primary Care Provider [phone] Source Comments PLEASE NOTE, if this patient [...] & HHS -HCC) 09/10/2016 Overview (09/10/2016): Per [facility] ER report, on insulin pump Social [...] Plan of Treatment Not on file Insurance [facility] Member Subscriber Plan / Payer (Ef fective 2016-Present) Name:Francie Herring Relation to Subscriber:Self Name:Francie Herring Payer ID:[id number] Group ID:Not on file Type:Medicaid Address: [facility] [id number] [place] [address] Care Teams Air Pollution Compliance Inspector Relationship Specialty Start Date End Date Daron Izquierdo NP [address] [place] [phone] PCP - General 07/03/18
--- OUTSIDE RECORDS SUMMARY | 2025-03-11 08:19 | XMS_ITS | Encounter Summary ---
Author Organization [facility] Address [address] [place] [address] Phone Care Team Providers Care Police Captain Senior Name Role Phone Deanna Miramontes MD Primary Care Provider Encounter Details Date Type Department Care Team (Late st Contact Info) Description 12/15/[address] [facility] [place] [address] [place], [place] [phone] Family Medicine, Physician [address] [place], [place] [address] Social History Tobacco Use Types Packs/Day Years [...] on filedocumented in this encounter Care Teams Police Captain Senior Relationship Specialty Start Date End Date Deanna Miramontes MD [address] [facility] [place] [address] PCP - General 04/05/17 11/13/22 documented as of this encounter
--- NOTE | 2025-03-11 08:44 | MHC.OFFVIS ---
Intake Visit Reasons: iud removal Allergies No Known Allergies (No Known Allergies*) Allergy (Verified 03/09/25 11:40) HPI Comments Details: Patient is here today for a follow up ultrasound results. History of IUD missing string. Ultrasound findings indicated the IUD was in the myometrium and possibly not intact. [facility] Medical History (Updated 03/11/25 @ 08:50 by Manuela Jack CNM) Initiation of Depo Provera Depot contraception Pelvic pain Chronic vaginitis Hidradenitis suppurativa Cysts Chronic, continuous use of opioids Chronic pain syndrome Spondylosis of lumbar region without myelopathy or radiculopathy Type I diabetes mellitus Surgical History History of reversal of tubal ligation Previous section History of cystoscopy History of hernia repair Family History Father Alive and well Mother Alive and well Sister Alive and well Maternal Aunt Cancer Social History Housing: Condominium Alcohol intake: current Alcohol intake frequency: holidays/special occasions only Alcohol type: beer, wine and hard liquor Patient Tobacco Use Status: Never used Tobacco e-Cigarette/Vaping Use: Never Used Second Hand Smoke Exposure: No Substance Use Type: Marijuana Current occupational status: employed 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, 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 Cognitive needs: No Hearing needs: No Vision needs: No Female Reproductive History Menstrual Age of Menarche: 14 Review of Systems Const All systems reviewed & are unremarkable except as noted in HPI and below Physical Exam Const General: cooperative, healthy appearing and no acute distress Orientation/consciousness: patient oriented x3 GI Inspection: Yes normal to inspection Palpation (GI): Soft to palpation and Other GI palpation findings present (Nontender) Rectal Exam - Female: visual inspection normal General: Yes bladder normal to palpation External Female Exam: normal appearance of the urethra Speculum Exam - Vagina: normal appearance of the vagina, normal palpation and normal vaginal discharge Speculum Exam - Cervix: normal appearance of the cervix and normal palpation Bimanual exam- vagina & uterus: normal bimanual exam, normal palpation, uterine size normal, bladder normal to palpation, normal palpation, uterine shape normal and non-tender Bimanual Exam- Adnexa, other: normal adnexae Neuro General: patient oriented x3 Office Procedures Depo Questionnaire If YES to any of the following questions, please consult a provider. Date of last injection: 03/11/25 Date of last gynecology exam: 03/11/25 Menstrual pattern since last injection has been: Not Applicable test in office results: Negative Irregular bleeding?: No Breast lumps or other breast changes?: No Changes in weight or appetite?: No Depression or changes in mood?: No Abnormal hair growth or loss?: No Skin problems (rash, acne, discoloration)?: No Pain at the injection site?: No Headaches?: No Nervousness?: No Abdominal pain or cramping?: No Dizziness or nausea?: No Fatigue or weakness?: No Decrease in sexual drive?: No Chest pain or shortness of breath?: No Swelling in arms or legs?: No Form completed by?: Burt Merino LPN IUD Insert/Removal Details Details: The patient presents today for a IUD removal. ?She is planning ?. She was counseled regarding the removal of her IUD. She was consented for the procedure along with anticipatory guidance for the removal and the consents form was signed. She desires to proceed with the IUD removal. IUD Removal Procedure: The patient was placed in the dorsal lithotomy position. A speculum was inserted vaginally and the cervix and strings were not visualized at the os. The cervix was cleansed with Betadine swab. The IUD extractor device was inserted gently into the endometrial canal and the IUD grasped with a gentle and non resistant pull, the device was removed intact. Minimal bleeding was observed. All of the equipment was removed. The patient tolerated the procedure well and left the office in good condition. IUD Removal Information: You may have light bleeding for several days, tapering off to a brown or pink color. Mild cramping after removal is common. If not allergic, you may take an over the counter mild analgesic for the discomfort, such as Tylenol or Advil (use dosing and frequency per the manufacturers recommendations). Call the office if you experience: fever (over 100.4), flu like symptoms, abdominal or pelvic pain, foul smelling discharge or heavy bleeding. If not planning for a future , another form of control is recommended. Use of condoms for prevention of STI's is also recommended, if indicated. Depo-Provera will be given today once the patient obtains the prescription from the hospital pharmacy. This note is constructed using voice recognition software. ?While every effort has been made to ensure accuracy, geospatial information technologist errors may have been included. ? 72401-IEV Removal Procedure code (CPT) selection complete Office Meds Depo-Provera 150 mg/mL intramuscular suspension Performing Provider: Manuela Jack CNM Performing Location: [facility] Administered by: Joie Merino LPN on 03/11/25 10:18 Dose Route Admin Location Dispensed Lot Number Expiration Date NDC Basting Puller 150 mg IM left deltoid 1 mL [id number] 01/23/26 MYLAN Total Dispensed Waste 1 mL 0 % Depo-Provera 150 mg/mL intramuscular syringe Performing Provider: Manuela Jack CNM Performing Location: [facility] Documented (not given) by: Joie Merino LPN on 03/11/25 10:18 Dose Route Admin Location Dispensed Lot Number Expiration Date NDC Basting Puller 150 mg IM mL Total Dispensed Waste n/a n/a Results AMB Test Urine AMB Test Urine Negative Last Edit by Joie Merino LPN on 03/11/25 10:22 Results Reviewed Results Reviewed: Laboratory Last Values Tst Clinic Negative 03/11/25 10:21 [facility] [facility] [place] [address] Ultrasound Report Signed with Ajay Patient: Francie Herring I MR#: [id number] : 1990 Acct:[id number] Age/Sex: 34 / F ADM Date: 03/10/25 Loc: HO.[facility]GCX Attending Dr: Manuela Jack CNM Ordering Physician: Manuela Jack CNM Date of Service: 03/10/25 Procedure(s): US pelvic and transvaginal Accession Number(s): [id number] cc: Ryan Sam SEA KAYAKING GUIDE-; Manuela Jack CNM~ ADDENDUM ADDENDUM #1 Text message acknowledged by Ryan Sam 03/10/2025 at 12:30 PM. Electronically signed by: Ricky To MD 03/10/2025 12:32 PM EDT RP Addendum Dictated By: Ricky To MD Addendum Signed By: <Electronically signed by Ricky To MD in OV> 03/10/25 1232 Addendum Cosigned By: DD/ TD/TT: 03/10/25 EXAMINATION: US PELVIS TRANSABDOMINAL AND TRANSVAGINAL HISTORY: R10.2 - Pelvic and perineal pain COMPARISON: Comparison is made with the prior examination dated 01/29/2024. TECHNIQUE: Transabdominal and endovaginal real-time 2D monahan-scale ultrasound was performed. FINDINGS: Uterus: The uterus is normal in size, measuring 8.1 x 4.8 x 6.1 cm. Myometrium has a normal echotexture. No fibroids are identified. Endometrium: The endometrial stripe measures 6 mm in thickness. An IUD is noted. The portion in the lower uterine segment appears fractured, with a fragment extending into the myometrium. There is a small amount of free fluid in the endometrial canal. Right ovary: The right ovary measures 3.6 x 2.7 x 2.7 cm. The right ovary is normal in size and echotexture. There is a 2.8 x 1.3 x 1.7 cm cyst versus follicle. An additional 1.3 cm cyst is seen adjacent to the right ovary. Left ovary: The left ovary measures 2.8 x 1.2 x 2.0 cm. The left ovary is normal in size and echotexture. Pelvic fluid: There is trace free fluid in the cul-de-sac. US/US pelvic and transvaginal IMPRESSION: The portion of the IUD in the lower uterine segment appears fractured, with a fragment extending into the myometrium. Findings were communicated to Ryan Sam on 03/10/2025 at 11:45 AM by secure text message. Electronically signed by: Ricky To MD 03/10/2025 11:46 AM EDT RP Dictated By: Ricky To MD Signed By: <Electronically signed by Ricky To MD in OV> 03/10/25 1146 DD/ 1059 TD/TT: 03/10/25 1122 Wood Buffer: Assessment & Plan Assessment & Plan (1) Encounter for IUD removal: Code(s): Z30.432 - Encounter for removal of intrauterine contraceptive device Plan: Patient was counseled regarding the ultrasound findings and recommendations for IUD removal, she is agreeable to plan of care and request to go back onto Depo-Provera, she has used successfully in the past. See procedure notes. (2) Initiation of Depo Provera: Code(s): Z30.013 - Encounter for initial prescription of injectable contraceptive Category: Medical Plan: Depo Provera Use: Counseled regarding: risk/benefits, alternative options. Use-frequency, side effects including weight gain, acne, hair loss, mood changes, unpredictable bleeding, or no bleeding, bone loss which is often improved when stopping Depo Provera, but not always completely reversible. Warnings: Severe headache, loss of vision, chest pain, difficulty breathing, severe stomach pain, pain or swelling in an extremity. Go to the nearest ED if experiencing any of these symptoms. Depo-Provera today then returned to the office every 12 weeks for subsequent dosing. Total time I personally spent on visit and management today: ?15 minutes. Time spent included review of pertinent office notes in the electronic health record; review of laboratory and imaging results; review of personal family medical history; performing physical exam; discussing diagnosis and plan of care with the patient; documenting the encounter in the EMR. Plan The patient expressed understanding and agreement with the plan of care. All of her questions and concerns were addressed to the best of my ability. This note is constructed using voice recognition software. While every effort has been made to ensure accuracy, geospatial information technologist errors may have been included. Orders: Orders AMB Medroxyprogesterone Injection Patient Supplied Today Z30.42 - Encounter for surveillance of injectable contraceptive Medications: New medroxyprogesterone (Depo-Provera) 150 mg IM [id number] 1 mL 4RF 90 days Depo-Provera (medroxyprogesterone) 150 mg IM ONCE 1 mL 0RF NS Z30.42 - Encounter for surveillance of injectable contraceptive Coding Level of Care Code Est Pt Level 2 (38498) Procedure Only Diagnoses Encounter for IUD removal Z30.432 Initiation of Depo Provera Z30.013 CPT Codes Details - CPT: 38123-PDH Removal ([id number])
== END 2025-03-11 10:08 | disposition home or self-care (01) ==
LOC: HO.HWS 08:17
PROVIDERS: PCP Nurse Practitioner Family; Visit Provider Advanced Practice Midwife
DX: Z30.432 Encounter for removal of intrauterine contraceptive device (principal); Z30.013 Encounter for initial prescription of injectable contraceptive; Z30.42 Encounter for surveillance of injectable contraceptive
CPT/HCPCS: 58301

== ENCOUNTER → 2025-03-11 08:17 | Outpatient (BNVA) | payer OTHER, MEDICAID, SELFPAY | PROVIDERS: PCP Nurse Practitioner Family; Visit Provider Advanced Practice Midwife | DX: Z30.432 Encounter for removal of intrauterine contraceptive device (principal); Z30.013 Encounter for initial prescription of injectable contraceptive | CPT/HCPCS: 58301; 96372; J1050 ==

== ENCOUNTER 2025-04-16 13:32 | Outpatient (REF) | payer OTHER, MEDICAID, SELFPAY ==
--- OUTSIDE RECORDS SUMMARY | 2025-04-16 13:35 | XMS_ITS | Encounter Summary ---
Author Organization [facility] Address [address] [place] [address] Phone Care Team Providers Care Armhole Presser Name Role Phone Deanna Miramontes MD Primary Care Provider Encounter Details Date Type Department Care Team (Late st Contact Info) Description 12/15/2009 Documentation [facility] [place] [address] [place], [place] [phone] Family Medicine, Physician [address] [place], [place] [address] Social History Tobacco Use Types Packs/Day Years [...] on filedocumented in this encounter Care Teams Armhole Presser Relationship Specialty Start Date End Date Deanna Miramontes MD [address] [facility] [place] [address] PCP - General 04/05/17 11/13/22 documented as of this encounter
[2025-04-16 14:52] LABS: Appearance Urine Clear; Glucose Urine UA >=1000 mg/dL (Negative); PH 5.5 (5.0-9.0); Specific Gravity - Urine >= 1.030 (1.005-1.025); UMIC TRIGGER UA YES; UMIC TRIGGER UACC YES
[2025-04-16 15:00] LABS: UACC Culture Trigger YES
== END 2025-04-16 13:33 | disposition home or self-care (01) ==
LOC: HO.LAB 13:32
PROVIDERS: PCP Nurse Practitioner Family; Visit Provider Nurse Practitioner Family
DX: Z00.00 Encounter for general adult medical examination without abnormal findings (principal); R30.0 Dysuria
CPT/HCPCS: 81001; 87086; 87088; 87186

== ENCOUNTER 2025-04-28 11:20 | Outpatient (AMB) | payer OTHER, MEDICAID, SELFPAY ==
[2025-04-28 11:34] VITALS: BP 112/70; PULSE 64; RESP 16; BMI 30.6
--- NOTE | 2025-04-28 11:34 | A.OFFPC_ITS ---
Vital Signs 04/28/25 11:34 Height 5 ft 4 in Weight 178 lb BMI 30.6 BP 112/70 Blood Pressure Location Lt brachial Position Sitting Respiration 16 Pulse 64 Pulse Source Palpation Intake Visit Reasons: headaches Accompanied by: Self / Same As Patient Allergies No Known Allergies (No Known Allergies*) Allergy (Verified 03/09/25 11:40) Medication List - Last Reconciled 04/28/25 by Ryan Sam MUSIC TEACHER- blood sugar diagnostic (FreeStyle Test strips) 4 times a day testing blood sugar diagnostic As directed blood-glucose meter (FreeStyle System Kit) 4 times a day testing blood-glucose sensor (Dexcom G6 Sensor device) As directed blood-glucose transmitter (Dexcom G6 Transmitter device) As directed cetirizine 10 mg PO DAILY insulin lispro infuse up to 110 units via pump insulin pump cart,automated,BT (Omnipod 5 G6 Pods (Gen 5) subcutaneous cartridge) As directed lidocaine 5% 1 patch topical DAILY medroxyprogesterone (Depo-Provera) 150 mg IM [id number] 90 days meloxicam 15 mg PO DAILY PRN 30 days metronidazole 500 mg PO BID 7 days sumatriptan succinate 25 mg orally ; may repeat x 1 tab after 2 hrs if the first tab does not work PRN; 10 days tizanidine 4 mg PO BEDTIME PRN trazodone 50 mg PO BEDTIME PRN 30 days Tobacco use date assessed: 09/22/24 Dental Screening Dental Screen Date: 09/22/24 HPI headaches HPI Details Chief Complaint The patient presents with daily frontal headaches radiating to the temples, accompanied by photophobia. History of Present Illness The patient is a 34-year-old female presenting with migraine headaches. The headaches are primarily located in the frontal region and radiate to the temples, occurring almost daily and persisting throughout the day. She experiences photophobia but denies any aura or sonophobia. The patient is currently on Depo-Provera, and there is a consideration that this may be related to her headaches. She has been advised to start magnesium supplementation at night and vitamin B2 in the morning as preventative measures. Sumatriptan has been prescribed for acute management of her migraines. A referral to neurology has been made for further evaluation and management of her condition. #2 frequent UTIs. Will refer to urology for further eval and treatment Social History Health Maintenance Review of Systems - Neurological: Reports daily frontal he adaches radiating to the temples, accompanied by photophobia. Denies aura. Physical Exam General: Cooperative, healthy appearing, comfortable, no acute distress and well developed Orientation: Patient oriented x3 Limitations: No limitations Head: Normal to inspection Ears: Hearing grossly normal bilaterally Nose: Normal external nose present Face and sinus: Normal facial exam Eyes: Appearance normal, both eyes and all related structures. No nystagmus with six cardinal gazes Neck: Normal visual inspection and Yes full ROM Respiratory: Normal respiratory effort and able to speak in complete sentences. Clear to auscultation bilaterally Cardiovascular: Regular rate and rhythm. Normal S1 and S2 GI: Normal to inspection. Soft to palpation and nontender Skin: No rashes or lesions noted Neuro: Patient oriented x3. CN 2 through 12 intact, finger to thumb intact, heel to christianson intact, negative arm pull test Extremities: Normal to inspection PLAN: 1. Migraine The patient is experiencing daily migraines characterized by frontal headaches radiating to the temples with photophobia. Preventative measures include magnesium supplementation at night and vitamin B2 in the morning. Sumatriptan has been prescribed for acute management. A neurology referral has been made for further evaluation and management. Discussion Notes I discussed with the patient the nature of her migraines and the potential link to her current Depo-Provera use. We reviewed the use of magnesium and vitamin B2 as preventative measures and the use of sumatriptan for acute episodes. A referral to neurology was recommended for further evaluation. Patient Instructions - Start magnesium supplementation at [facility]. - Take vitamin B2 in the morning. - Use sumatriptan as needed for migraine relief. - Follow up with neurology as scheduled. [facility] Medical History Initiation of Depo Provera Depot contraception Pelvic pain Chronic vaginitis Hidradenitis suppurativa Cysts Chronic, continuous use of opioids Chronic pain syndrome Spondylosis of lumbar region without myelopathy or radiculopathy Type I diabetes mellitus Surgical History History of reversal of tubal ligation Previous section History of cystoscopy History of hernia repair Family History Father Alive and well Mother Alive and well Sister Alive and well Maternal Aunt Cancer Social History Housing: Condominium Alcohol intake: current Alcohol intake frequency: holidays/special occasions only Alcohol type: beer, wine and hard liquor Patient Tobacco Use Status: Never used Tobacco e-Cigarette/Vaping Use: Never Used Second Hand Smoke Exposure: No Substance Use Type: Marijuana Current occupational status: employed 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, 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 Cognitive needs: No Hearing needs: No Vision needs: No Female Reproductive History Menstrual Age of Menarche: 14 Questionnaire Thrive Questionnaire Date Thrive assessed: 09/15/24 I am a: Patient What is your living situation today?: I have a steady place to live Within the past 12 months, did the food you bought not last and you didn't have the money to get more?: I choose not to answer this question Within the past 12 months, did you worry whether your food would run out before you got money to buy more?: I choose not to answer this question Do you have trouble paying for medicines?: I choose not to answer this question Do you have trouble getting transportation to medical appointments?: I choose not to answer this question Do you have trouble paying your heating and electricity bill?: I choose not to answer this question Do you have trouble taking care of your child, family member or friend?: I choose not to answer this question Do you have trouble with day-to-day activities such as bathing, preparing meals, shopping, managing finances, etc.?: I choose not to answer this question Are you currently unemployed and looking for a job?: I choose not to answer this question Are you interested in more education?: I choose not to answer this question Please select the resources that you would like help with: None THRIVE Score: 0 SALLIE-7 AMB Questionnaire SALLIE-7 Date SALLIE - 7 assessed: 01/20/25 Source: Developed by Drs. Ricky Aldridge, Susan Sandra, Kodak Pope and colleagues, with an educational irina from [employer] Physical exam (Primary Care) Vital Signs: Last Vital Signs Pulse 64 04/28/25 11:34 Resp 16 04/28/25 11:34 BP 112/70 04/28/25 11:34 BMI result Body Mass Index 30.6 Tobacco/Smoking Status: Tobacco use Status Tobacco use date assessed 09/22/24 04/28/25 11:39 Patient Tobacco Use Status Never used Tobacco 04/28/25 11:39 e-Cigarette/Vaping Use Never Used 04/28/25 11:39 Thrive Assessment: Date of Thrive Assessment Date Thrive assessed 09/15/24 04/28/25 11:39 Coding Level of Care Code Est Pt Level 3 (31249) Diagnoses Migraines G43.909 Frequent UTI N39.0 Assessment & Plan Assessment & Plan (1) Migraines: Code(s): G43.909 - Migraine, unspecified, not intractable, without status migrainosus Category: Medical (2) Frequent UTI: Code(s): N39.0 - Urinary tract infection, site not specified Category: Medical Plan . Orders: Referrals Neurology Referral G43.909 - Migraine, unspecified, not intractable, without status migrainosus Urology Referral N39.0 - Urinary tract infection, site not specified Medications: New sumatriptan succinate 25 mg orally ; may repeat x 1 tab after 2 hrs if the first tab does not work PRN; 20 tabs 0RF migraine headache 10 days
== END 2025-04-28 12:39 | disposition home or self-care (01) ==
LOC: HO.HMCC 11:22
PROVIDERS: PCP Nurse Practitioner Family; Visit Provider Nurse Practitioner Family
DX: G43.909 Migraine, unspecified, not intractable, without status migrainosus (principal); N39.0 Urinary tract infection, site not specified

== ENCOUNTER 2025-05-12 13:36 | Outpatient (AMB) | payer OTHER, SELFPAY ==
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
--- OUTSIDE RECORDS SUMMARY | 2025-05-12 17:24 | XMS_ITS | Encounter Summary ---
Author Organization [facility] Address [address] [place] [address] Phone Care Team Providers Care Cyber Security Instructor Name Role Phone Deanna Miramontes MD Primary Care Provider Encounter Details Date Type Department Care Team (Late st Contact Info) Description 01/13/2010 Documentation [facility] [place] [address] [place], [place] [phone] Family Medicine, Physician [address] [place], [place] [address] Social History Tobacco Use Types Packs/Day Years [...] on filedocumented in this encounter Care Teams Cyber Security Instructor Relationship Specialty Start Date End Date Deanna Miramontes MD [address] [facility] [place] [address] PCP - General 04/05/17 11/13/22 documented as of this encounter
--- OUTSIDE RECORDS SUMMARY | 2025-05-12 17:24 | XMS_ITS | Encounter Summary ---
Author Organization [facility] Address [address] [place] [address] Phone Care Team Providers Care Box Storage Worker Name Role Phone Deanna Miraomntes MD Primary Care Provider Encounter Details Date Type Department Care Team (Late st Contact Info) Description 03/05/2011 Documentation [facility] [place] Family Medicine [address] [place], [place] [phone] Family Medicine, Physician [address] [place], [place] [address] Social History Tobacco Use Types Packs/Day Years [...] on filedocumented in this encounter Care Teams Box Storage Worker Relationship Specialty Start Date End Date Deanna Miramontes MD [address] [place] [address] PCP - General 04/05/17 11/13/22 documented as of this encounter
--- OUTSIDE RECORDS SUMMARY | 2025-05-12 17:24 | XMS_ITS | Clinical Summary ---
Author Organization [facility] Address [address] [place] [address] Care Team Providers Care Cnc Machine Programmer Name Role Phone ErmiasrenéehaleysherryDaron NP Primary Care [...] & HHS -HCC) 09/10/2016 Overview (09/10/2016): Per [facility] ER report, on insulin pump Social [...] Plan of Treatment Not on file Insurance [facility] Member Subscriber Plan / Payer (Ef fective 2016-Present) Name:Francie Herring Relation to Subscriber:Self Name:Francie Herring Payer ID:[id number] Group ID:Not on file Type:Medicaid Address: [facility] [id number] [place] [address] Care Teams Cnc Machine Programmer Relationship Specialty Start Date End Date Daron Izquierdo NP [address] [place] [phone] PCP - General 07/03/18
--- OUTSIDE RECORDS SUMMARY | 2025-05-12 17:24 | XMS_ITS | Encounter Summary ---
Author Organization [facility] Address [address] [place] [address] Phone Care Team Providers Care Recording Engineer Name Role Phone Deanna Miramontes MD Primary Care Provider Encounter Details Date Type Department Care Team (Late st Contact Info) Description 12/15/2009 [place]ation [facility] [place] [address] [place], [place] [phone] Family Medicine, Physician [address] [place], [place] [address] Social History Tobacco Use Types Packs/Day Years [...] on filedocumented in this encounter Care Teams Recording Engineer Relationship Specialty Start Date End Date Deanna Miramontes MD [address] [facility] [place] [address] PCP - General 04/05/17 11/13/22 documented as of this encounter
--- OUTSIDE RECORDS SUMMARY | 2025-05-12 17:24 | XMS_ITS | Encounter Summary ---
Author Organization [facility] Address [address] [place] [address] Phone Care Team Providers Care Gym Manager Name Role Phone Deanna Miramontes MD Primary Care Provider Encounter Details Date Type Department Care Team (Late st Contact Info) Description 11/02/2011 Documentation [facility] [place] Family Medicine [address] [place], [place] [phone] Family Medicine, Physician [address] [place], [place] [address] Social History Tobacco Use Types Packs/Day Years [...] on filedocumented in this encounter Care Teams Gym Manager Relationship Specialty Start Date End Date Deanna Miramontes MD [address] [place] [address] PCP - General 04/05/17 11/13/22 documented as of this encounter
--- OUTSIDE RECORDS SUMMARY | 2025-05-12 17:24 | XMS_ITS | Encounter Summary ---
Author Organization [facility] Address [address] [place] [address] Phone Care Team Providers Care Police Academy Program Coordinator Name Role Phone Deanna Miramontes MD Primary Care Provider [phone] Encounter Details Date Type Department Care Team (Late st Contact Info) Description 03/05/2011 Documentation [facility] [place] Family Medicine [address] [place], [place] [phone] Family Medicine, Physician [address] [place], [place] [address] Social History Tobacco Use Types Packs/Day Years [...] filedocumented in this encounter Care Teams Police Academy Program Coordinator Relationship Specialty Start Date End Date Deanna Miramontes MD [address] [place] [address] PCP - General 04/05/17 11/13/22 documented as of this encounter
--- OUTSIDE RECORDS SUMMARY | 2025-05-12 17:24 | XMS_ITS | Encounter Summary ---
Author Organization [facility] Address [address] [place] [address] Phone Care Team Providers Care Pig Casting Machine Operator Name Role Phone Deanna Miramontes MD Primary Care Provider Encounter Details Date Type Department Care Team (Late st Contact Info) Description 09/19/2010 Documentation [facility] [place] Medicine [address] [place], [place] [phone] Family Medicine, Physician [address] [place], [place] [address] Social History Tobacco Use Types Packs/Day Years [...] on filedocumented in this encounter Care Teams Pig Casting Machine Operator Relationship Specialty Start Date End Date Deanna Miramontes MD [address] [facility] [place] [address] PCP - General 04/05/17 11/13/22 documented as of this encounter
--- OUTSIDE RECORDS SUMMARY | 2025-05-12 17:24 | XMS_ITS | Encounter Summary ---
Author Organization [facility] Address [address] [place] [address] Phone Care Team Providers Care Glove Former Name Role Phone Deanna Miramontes MD Primary Care Provider Encounter Details Date Type Department Care Team (Late st Contact Info) Description 05/23/2011 Documentation [facility] [place] Family Medicine [address] [place], [place] [phone] Family Medicine, Physician [address] [place], [place] [address] Social History Tobacco Use Types Packs/Day Years [...] on filedocumented in this encounter Care Teams Glove Former Relationship Specialty Start Date End Date Deanna Miramontes MD [address] [facility] [place] [address] PCP - General 04/05/17 11/13/22 documented as of this encounter
--- OUTSIDE RECORDS SUMMARY | 2025-05-12 17:24 | XMS_ITS | Encounter Summary ---
Author Organization [facility] Address [address] [place] [address] Phone Care Team Providers Care Log Turner Name Role Phone Deanna Miramontes MD Primary Care Provider Encounter Details Date Type Department Care Team ([facility] Contact Info) Description 06/27/2017 Conversion Encounter [facility] [place] [address] [place] [address] Social History Tobacco Use Types Packs/Day Years [...] on filedocumented in this encounter Care Teams Log Turner Relationship Specialty Start Date End Date Deanna Miramontes MD [address] [place] [address] PCP - General 04/05/17 11/13/22 documented as of this encounter
--- OUTSIDE RECORDS SUMMARY | 2025-05-12 17:24 | XMS_ITS | Encounter Summary ---
Author Organization [facility] Address [address] [place] [address] Phone Care Team Providers Care Box Feeder Name Role Phone Deanna Miramontes MD Primary Care Provider [phone] Encounter Details Date Type Department Care Team (Late st Contact Info) Description 02/13/2011 Documentation [facility] [place] Family Medicine [address] [place], [place] [phone] Family Medicine, Physician [address] [place], [place] [address] Social History Tobacco Use Types Packs/Day Years [...] filedocumented in this encounter Care Teams Box Feeder Relationship Specialty Start Date End Date Deanna Miramontes MD [address] [facility] [place] [address] PCP - General 04/05/17 11/13/22 documented as of this encounter
--- OUTSIDE RECORDS SUMMARY | 2025-05-12 17:24 | XMS_ITS | Encounter Summary ---
Author Organization [facility] Address [address] [place] [address] Phone Care Team Providers Care Control Officer Manager Name Role Phone Deanna Miramontes MD Primary Care Provider Encounter Details Date Type Department Care Team (Late st Contact Info) Description 01/13/2010 Documentation [facility] [address] [place], [place] [phone] Family Medicine, Physician [address] [place], [place] [address] Social History Tobacco Use Types Packs/Day Years [...] on filedocumented in this encounter Care Teams Control Officer Manager Relationship Specialty Start Date End Date Deanna Miramontes MD [address] [facility] [place] [address] PCP - General 04/05/17 11/13/22 documented as of this encounter
--- OUTSIDE RECORDS SUMMARY | 2025-05-12 17:24 | XMS_ITS | Encounter Summary ---
Author Organization [facility] Address [address] [place] [address] Phone Care Team Providers Care Db2 Dba Name Role Phone Deanna Miramontes MD Primary Care Provider Encounter Details Date Type Department Care Team (Late st Contact Info) Description 03/14/2011 Documentation [facility] [place] [address] [place], [place] [phone] Family Medicine, Physician [address] [place], [place] [address]601 Social History Tobacco Use Types Packs/Day Years [...] on filedocumented in this encounter Care Teams Db2 Dba Relationship Specialty Start Date End Date Deanna Miramontes MD 150 [facility] [place] [address] PCP - General 04/05/17 11/13/22 documented as of this encounter
--- OUTSIDE RECORDS SUMMARY | 2025-05-12 17:25 | XMS_ITS | Encounter Summary ---
Author Organization [facility] Address [address] [place] [address] Phone Care Team Providers Care Grooving Lathe Tender Name Role Phone Deanna Miramontes MD Primary Care Provider [phone] Encounter Details Date Type Department Care Team (Late st Contact Info) Description 10/24/2009 Documentation [facility] [address] [place], [place] [phone] Family Medicine, Physician [address] [place], [place] [address]41 Social History Tobacco Use Types Packs/Day Years [...] on filedocumented in this encounter Care Teams Grooving Lathe Tender Relationship Specialty Start Date End Date Deanna Miramontes MD 150 [place] [address] PCP - General 04/05/17 11/13/22 documented as of this encounter
--- OUTSIDE RECORDS SUMMARY | 2025-05-12 17:25 | XMS_ITS | Encounter Summary ---
Author Organization [facility] Address [address] [place] [address] Phone Care Team Providers Care Blankmaker Name Role Phone Deanna Miramontes MD Primary Care Provider [phone] Encounter Details Date Type Department Care Team (Late st Contact Info) Description 10/24/2009 Documentation [facility] [address] [place], [place] [phone] Family Medicine, Physician [address] [place], [place] [address] Social History Tobacco Use Types Packs/Day Years [...] on filedocumented in this encounter Care Teams Blankmaker Relationship Specialty Start Date End Date Deanna Miramontes MD 150 [place] [address] PCP - General 04/05/17 11/13/22 documented as of this encounter
--- OUTSIDE RECORDS SUMMARY | 2025-05-12 17:25 | XMS_ITS | Clinical Summary ---
Author Organization [facility] Address [address] [place] [address] Phone Care Team Providers Care Family Educator Name Role Phone Unavailable Primary Care Provider [...] AM EDT Pulse - - Temperature 36.1 C (97 F) 04/14/2010 12:00 AM EDT Respiratory Rate - [...] 01/18/1998, Additional history exists Influenza Vaccines (#1) 2025 04/14/20 10, 05/25/2009, 06/11/2008, Additional history exists COVID-19 Vaccine ( season) 2025 HIB Vaccines Completed 09/25/1991, 01/24, 1990, Additional [...] complete this topic Procedures * Due to [place] state law, this organization might not be sharing sensitive test results. Procedure Name Priority Date/Time Associated Diagnosis Comments CHLAMYDIA AND GONORRHEA, AMPLIFIED Routine 04/15/2010 3:21 PM EDT from Last 3 Months or Most Recently Relevant to Health Maintenance Results * Due to [place] state law, this organization might not be sharing sensitive test results. * Chlamydia and Gonorrhoea, Amplified (04/15/2010 3:21 PM EDT) URINE CHLAMYDIA AMP PROBE NEGATIVE [facility] Comment: NO CHLAMYDIA TRACHOMATIS RNA DETECTED IN THIS PATIENT'S SAMPLE. (REFERENCE RANGE/NORMAL VALUE: NOT DETECTED) URINE GC AMP PROBE NEGATIVE [facility] Comment: NO NEISSERIA GONORRHOEAE RNA DETECTED IN THIS PATIENT'S SAMPLE. (REFERENCE RANGE/NORMAL VALUE: NOT DETECTED) NOTE: THIS TEST USES ETL DEVELOPER MEDIATED AMPLIFICATION METHOD TO DETECT rRNA FROM [...] WITH OTHER AGENTS. 04/15/2010 3:21 PM EDT Narrative [facility] - 04/15/2010 3:21 PM EDT URINE CHLAMYDIA GC AMP PROBE us Deanna Miramontes MD LAB MICROBIOLOGY - GENERAL O RDERABLES Final Result [facility] [address] [address], [place] from Last 3 Months or Most Recently Relevant to Health Maintenance
== END 2025-05-12 14:26 | disposition home or self-care (01) ==
PROVIDERS: PCP Nurse Practitioner Family
DX: M25.531 Pain in right wrist (principal); M77.8 Other enthesopathies, not elsewhere classified
CPT/HCPCS: 99213

== ENCOUNTER → 2025-05-12 13:36 | Outpatient (BNVA) | payer OTHER, SELFPAY | PROVIDERS: PCP Nurse Practitioner Family | DX: M25.531 Pain in right wrist (principal); M77.8 Other enthesopathies, not elsewhere classified | CPT/HCPCS: 99212 ==

== ENCOUNTER 2025-05-24 07:47 | Outpatient (REF) | payer OTHER, SELFPAY ==
--- OUTSIDE RECORDS SUMMARY | 2025-05-24 07:50 | XMS_ITS | Encounter Summary ---
Author Organization [facility] Address [address] [place] [address] Phone Care Team Providers Care Encyclopedia Research Worker Name Role Phone Deanna Miramontes MD Primary Care Provider [phone] Encounter Details Date Type Department Care Team ([facility] Contact Info) Description 06/27/2017 Conversion Encounter [facility] [address] [place] [address] Social History Tobacco Use Types Packs/Day Years [...] on filedocumented in this encounter Care Teams Encyclopedia Research Worker Relationship Specialty Start Date End Date Deanna Miramontes MD [address] [place] [address] PCP - General 04/05/17 11/13/22 documented as of this encounter
--- OUTSIDE RECORDS SUMMARY | 2025-05-24 07:50 | XMS_ITS | Encounter Summary ---
Author Organization [facility] Address [address] [place] [address] Phone Care Team Providers Care Master Rigger Name Role Phone Deanna Miramontes MD Primary Care Provider Encounter Details Date Type Department Care Team (Late st Contact Info) Description 01/13/2010 Documentation [facility] [place] [address] [place], [place] [phone] Family Medicine, Physician [address] [place], [place] [address] Social History Tobacco Use Types Packs/Day Years [...] on filedocumented in this encounter Care Teams Master Rigger Relationship Specialty Start Date End Date Deanna Miramontes MD [address] [place] [address] PCP - General 04/05/17 11/13/22 documented as of this encounter
--- OUTSIDE RECORDS SUMMARY | 2025-05-24 07:50 | XMS_ITS | Encounter Summary ---
Author Organization [facility] Address [address] [place] [address] Phone Care Team Providers Care Plate Preparer Name Role Phone Deanna Miramontes MD Primary Care Provider Encounter Details Date Type Department Care Team (Late st Contact Info) Description 12/15/2009 Documentation [facility] [place] [address] [place], [place] [phone] Family Medicine, Physician [address] [place], [place] [address] Social History Tobacco Use Types Packs/Day Years [...] filedocumented in this encounter Care Teams Plate Preparer Relationship Specialty Start Date End Date Deanna Miramontes MD [address] [facility] [place] [address] PCP - General 04/05/17 11/13/22 documented as of this encounter
--- OUTSIDE RECORDS SUMMARY | 2025-05-24 07:50 | XMS_ITS | Encounter Summary ---
Author Organization [facility] Address [address] [place] [address] Phone Care Team Providers Care Material Control Associate Name Role Phone Deanna Miramontes MD Primary Care Provider Encounter Details Date Type Department Care Team (Late st Contact Info) Description 09/19/2010 Documentation [facility] [place] [facility] [address] [place], [place] [phone] Family Medicine, Physician [address] [place], [place] [address] Social History Tobacco Use Types Packs/Day Years [...] on filedocumented in this encounter Care Teams Material Control Associate Relationship Specialty Start Date End Date Deanna Miramontes MD [address] [facility] [place] [address] PCP - General 04/05/17 11/13/22 documented as of this encounter
--- OUTSIDE RECORDS SUMMARY | 2025-05-24 07:50 | XMS_ITS | Clinical Summary ---
Author Organization [facility] Address [address] [place] [address] Care Team Providers Care Draw Bench Operator Name Role Phone ErmiasrenéehaleysherryDaron NP Primary Care Provider [phone] Source Comments PLEASE NOTE, if this patient [...] & HHS -HCC) 09/10/2016 Overview (09/10/2016): Per [facility] ER report, on insulin pump Social [...] Plan of Treatment Not on file Insurance [employer] [facility] Member Subscriber Plan / Payer (Ef fective 2016-Present) Name:Francie Herring Relation to Subscriber:Self Name:Francie Herring Payer ID:[id number] Group ID:Not on file Type:Medicaid Address: [facility] [id number] [place] [address] Care Teams Draw Bench Operator Relationship Specialty Start Date End Date Daron Izquierdo NP [address] [place] [phone] PCP - General 07/03/18
--- OUTSIDE RECORDS SUMMARY | 2025-05-24 07:50 | XMS_ITS | Encounter Summary ---
Author Organization [facility] Address [address] [place] [address] Phone Care Team Providers Care Phosphoric Acid Supervisor Name Role Phone Deanna Miramontes MD Primary Care Provider Encounter Details Date Type Department Care Team (Late st Contact Info) Description 01/13/2010 Documentation [facility] [place] [address] [place], [place] [phone] Family Medicine, Physician [address] [place], [place] [address] Social History Tobacco Use Types Packs/Day Years [...] on filedocumented in this encounter Care Teams Phosphoric Acid Supervisor Relationship Specialty Start Date End Date Deanna Miramontes MD [address] [facility] [place] [address] PCP - General 04/05/17 11/13/22 documented as of this encounter
--- OUTSIDE RECORDS SUMMARY | 2025-05-24 07:50 | XMS_ITS | Encounter Summary ---
Author Organization [facility] Address [address] [place] [address] Phone Care Team Providers Care Shingle Catcher Name Role Phone Deanna Miramontes MD Primary Care Provider [phone] Encounter Details Date Type Department Care Team (Late st Contact Info) Description 05/23/2011 Documentation [facility] [place] [address] [place], [place] [phone] Family Medicine, Physician [address] [place], [place] [address] Social History Tobacco Use Types Packs/Day Years [...] on filedocumented in this encounter Care Teams Shingle Catcher Relationship Specialty Start Date End Date Deanna Miramontes MD [address] [place] [address] PCP - General 04/05/17 11/13/22 documented as of this encounter
--- OUTSIDE RECORDS SUMMARY | 2025-05-24 07:51 | XMS_ITS | Encounter Summary ---
Author Organization [facility] Address [address] [place] [address] Phone Care Team Providers Care Cyber Intel Planner Name Role Phone Deanna Miramontes MD Primary Care Provider Encounter Details Date Type Department Care Team (Late st Contact Info) Description 03/14/2011 Documentation [facility] [place] [address] [place], [place] [phone] Family Medicine, Physician [address] [place], [place] [address]791 Social History Tobacco Use Types Packs/Day Years [...] filedocumented in this encounter Care Teams Cyber Intel Planner Relationship Specialty Start Date End Date Deanna Miramontes MD [address] [facility] [place] [address] PCP - General 04/05/17 11/13/22 documented as of this encounter
--- OUTSIDE RECORDS SUMMARY | 2025-05-24 07:51 | XMS_ITS | Encounter Summary ---
Author Organization [facility] Address [address] [place] [address] Phone Care Team Providers Care Advertising Writer Name Role Phone Deanna Miramontes MD Primary Care Provider [phone] Encounter Details Date Type Department Care Team (Late st Contact Info) Description 03/05/2011 Documentation [facility] [place] [address] [place], [place] [phone] Family Medicine, Physician [address] [place], [place] [address] Social History Tobacco Use Types Packs/Day Years [...] on filedocumented in this encounter Care Teams Advertising Writer Relationship Specialty Start Date End Date Deanna Miramontes MD 150 [facility] [place] [address] PCP - General 04/05/17 11/13/22 documented as of this encounter
--- OUTSIDE RECORDS SUMMARY | 2025-05-24 07:51 | XMS_ITS | Encounter Summary ---
Author Organization [facility] Address [address] [place] [address] Phone Care Team Providers Care Tours Captain Name Role Phone Deanna Miramontes MD Primary Care Provider [phone] Encounter Details Date Type Department Care Team (Late st Contact Info) Description 10/24/2009 Documentation [facility] [address] [place], [place] [phone] Family Medicine, Physician [address] [place], [place] [address] Social History Tobacco Use Types Packs/Day Years [...] on filedocumented in this encounter Care Teams Tours Captain Relationship Specialty Start Date End Date Deanna Miramontes MD [address] [place] [address] PCP - General 04/05/17 11/13/22 documented as of this encounter
--- OUTSIDE RECORDS SUMMARY | 2025-05-24 07:51 | XMS_ITS | Encounter Summary ---
Author Organization [facility] Address [address] [place] [address] Phone Care Team Providers Care Auto Brake Technician Name Role Phone Deanna Miramontes MD Primary Care Provider [phone] Encounter Details Date Type Department Care Team (Late st Contact Info) Description 10/24/2009 Documentation [facility] [address] [place], [place] [phone] Family Medicine, Physician [address] [place], [place] [address] Social History Tobacco Use Types Packs/Day Years [...] on filedocumented in this encounter Care Teams Auto Brake Technician Relationship Specialty Start Date End Date Deanna Miramontes MD [address] [facility] [place] [address] PCP - General 04/05/17 11/13/22 documented as of this encounter
--- OUTSIDE RECORDS SUMMARY | 2025-05-24 07:51 | XMS_ITS | Encounter Summary ---
Author Organization [facility] Address [address] [place] [address] Phone Care Team Providers Care Wealth Management Advisor Name Role Phone Deanna Miramontes MD Primary Care Provider [phone] Encounter Details Date Type Department Care Team (Late st Contact Info) Description 02/13/2011 Documentation [facility] [place] [address] [place], [place] [phone] Family Medicine, Physician [address] [place], [place] [address] Social History Tobacco Use Types Packs/Day Years [...] on filedocumented in this encounter Care Teams Wealth Management Advisor Relationship Specialty Start Date End Date Deanna Miramontes MD [address] [facility] [address] PCP - General 04/05/17 11/13/22 documented as of this encounter
--- OUTSIDE RECORDS SUMMARY | 2025-05-24 07:51 | XMS_ITS | Encounter Summary ---
Author Organization [facility] Address [address] [place] [address] Phone Care Team Providers Care Commercial Lines Account Manager Name Role Phone Deanna Miramontes MD Primary Care Provider Encounter Details Date Type Department Care Team (Late st Contact Info) Description 03/05/2011 Documentation [facility] [place] [address] [place], [place] [phone] Family Medicine, Physician [address] [place], [place] [address] Social History Tobacco Use Types Packs/Day Years [...] on filedocumented in this encounter Care Teams Commercial Lines Account Manager Relationship Specialty Start Date End Date Deanna Miramontes MD [address] [facility] [address] PCP - General 04/05/17 11/13/22 documented as of this encounter
--- OUTSIDE RECORDS SUMMARY | 2025-05-24 07:51 | XMS_ITS | Clinical Summary ---
Author Organization [facility] Address [address] [place] [address] Phone Care Team Providers Care Security Associate Name Role Phone Unavailable Primary Care Provider [...] complete this topic Procedures * Due to [place] state law, this organization might not be sharing sensitive test results. Procedure Name Priority Date/Time Associated Diagnosis Comments CHLAMYDIA AND GONORRHEA, AMPLIFIED Routine 04/15/2010 3:21 PM EDT from Last 3 Months or Most Recently Relevant to Health Maintenance Results * Due to [place] state law, this organization might not be sharing sensitive test results. * Chlamydia and Gonorrhoea, Amplified (04/15/2010 3:21 PM EDT) URINE CHLAMYDIA AMP PROBE NEGATIVE [facility] Comment: NO CHLAMYDIA TRACHOMATIS RNA DETECTED IN THIS PATIENT'S SAMPLE. (REFERENCE RANGE/NORMAL VALUE: NOT DETECTED) URINE GC AMP PROBE NEGATIVE [facility] Comment: NO NEISSERIA GONORRHOEAE RNA DETECTED IN THIS PATIENT'S SAMPLE. (REFERENCE RANGE/NORMAL VALUE: NOT DETECTED) NOTE: THIS TEST USES MUSIC TEACHER MEDIATED AMPLIFICATION METHOD TO DETECT rRNA FROM [...] OTHER AGENTS. 04/15/2010 3:21 PM EDT Narrative [facility] - 04/15/2010 3:21 PM EDT URINE CHLAMYDIA GC AMP PROBE us Deanna Miramontes MD LAB MICROBIOLOGY - GENERAL O RDERABLES Final Result [facility] [address] [address], [place] from Last 3 Months or Most Recently Relevant to Health Maintenance
--- OUTSIDE RECORDS SUMMARY | 2025-05-24 07:51 | XMS_ITS | Encounter Summary ---
Author Organization [facility] Address [address] [place] [address] Phone Care Team Providers Care Insert Molding Operator Name Role Phone Deanna Miramontes MD Primary Care Provider Encounter Details Date Type Department Care Team (Late st Contact Info) Description 11/02/2011 Documentation [facility] [place] Family Medicine [address] [place], [place] [phone] Family Medicine, Physician [address] [place], [place] [address] Social History Tobacco Use Types Packs/Day Years [...] on filedocumented in this encounter Care Teams Insert Molding Operator Relationship Specialty Start Date End Date Deanna Miramontes MD [address] [facility] [place] [address] PCP - General 04/05/17 11/13/22 documented as of this encounter
[2025-05-27 03:12] LABS: TSpotTB Invalid (Negative)
== END 2025-05-24 07:48 | disposition home or self-care (01) ==
LOC: HO.LAB 07:47
PROVIDERS: PCP Nurse Practitioner Family; Visit Provider Nurse Practitioner Family
DX: Z11.1 Encounter for screening for respiratory tuberculosis (principal)
CPT/HCPCS: 36415; 86481

== ENCOUNTER 2025-05-31 12:47 | Outpatient (REF) | payer MEDICAID, SELFPAY ==
--- NOTE | ~2025-05-31 | XR_ITS ---
EXAMINATION: XR CHEST CLINICAL INFORMATION: Z11.1 - Encounter for screening for respiratory tuberculosis COMPARISON: Previous chest x-ray February 2023 TECHNIQUE: 2 views of the chest were obtained. FINDINGS: No significant abnormality is noted involving the heart, lungs, mediastinum, bony thorax or soft tissues. XR/XR chest 2V IMPRESSION: Unremarkable examination. Electronically signed by: Brissa Cano MD 05/31/2025 01:49 PM EDT
== END 2025-05-31 12:48 | disposition home or self-care (01) ==
LOC: HO.HMGCX 12:47
PROVIDERS: PCP Nurse Practitioner Family; Visit Provider Nurse Practitioner Family
DX: Z23 Encounter for immunization (principal); Z11.1 Encounter for screening for respiratory tuberculosis; G43.909 Migraine, unspecified, not intractable, without status migrainosus
CPT/HCPCS: 71046; 90471; 90656; 99212

== ENCOUNTER 2025-05-31 12:47 | Outpatient (AMB) | payer OTHER, SELFPAY ==
[2025-05-31 12:54] VITALS: BP 118/76; PULSE 85; RESP 18; TEMP 37.2; BMI 30.9
--- NOTE | 2025-05-31 12:54 | A.OFFPC_ITS ---
Vital Signs 05/31/25 12:54 Height 5 ft 4 in Weight 180 lb BMI 30.9 BP 118/76 Blood Pressure Location Lt brachial Position Sitting Respiration 18 Pulse 85 Pulse Source Pulse Oximeter Temp 98.9 F Temp Source Oral Intake Visit Reasons: 4 months f/up Intake Note: Pt is here today for 4 months follow up visit. Allergies No Known Allergies (No Known Allergies*) Allergy (Verified 05/31/25 13:22) Medication List - Last Reconciled 05/31/25 by FILIPE Torres- blood sugar diagnostic (FreeStyle Test strips) 4 times a day testing blood sugar diagnostic As directed blood-glucose meter (FreeStyle System Kit) 4 times a day testing cetirizine 10 mg PO DAILY insulin pump cart,auto,BT,G6/7 (Omnipod 5 G6-G7 Pods (Gen 5) subcutaneous cartridge) As directed lidocaine 5% 1 patch topical DAILY medroxyprogesterone (Depo-Provera) 150 mg IM [id number] 90 days meloxicam 15 mg PO DAILY PRN 30 days sumatriptan succinate 25 mg orally ; may repeat x 1 tab after 2 hrs if the first tab does not work PRN; 10 days tizanidine 4 mg PO BEDTIME PRN trazodone 50 mg PO BEDTIME PRN 30 days Tobacco use date assessed: 05/31/25 Dental Screening Dental Screen Date: 09/22/24 HPI 4 months f/up HPI Details Chief Complaint The patient presents for a follow-up regarding migraines and tuberculosis screening. History of Present Illness The patient is a 34-year-old female presenting with a follow-up for migraines and tuberculosis screening. The patient reports ongoing migraines and is maintaining a diary to track them as she plans to follow up with Neurology. She uses sumatriptan, which provides p artial relief, though she occasionally requires a second dose. The patient had an invalid T-spot test for tuberculosis, prompting a chest X-ray to rule out active disease. She denies symptoms such as dyspnea, fever, chills, or chest pain and reports feeling well overall. She is set to start a new job, contingent on her test results being available in time. Social History - Employment: Patient is starting a new job this Saturday, pending test results. Health Maintenance - Tuberculosis screening: Chest X-ray or dered due to invalid T-spot test. Review of Systems - Neurological: Reports migraines, uses sumatriptan with partial relief. - Respiratory: Denies dyspnea, fever, ch ills, or chest pain. Physical Exam General: Cooperative, healthy appearing, comfortable, no acute distress and well developed Orientation: Patient oriented x3 Limitations: No limitations Head: Normal to inspection Ears: Hearing grossly normal bilaterally Nose: Normal external nose present Face and sinus: Normal facial exam Eyes: Appearance normal, both eyes and all related structures Neck: Normal visual inspection and Yes full ROM Respiratory: Normal respiratory effort and able to speak in complete sentences. Clear to auscultation bilaterally Cardiovascular: Regular rate and rhythm. Normal S1 and S2 GI: Normal to inspection. Soft to palpation and nontender Skin: No rashes or lesions noted Neuro: Patient oriented x3 Extremities: Normal to inspection Results - Tests and Diagnostics: Invalid T-spot test for tuberculosis, chest X-ray ordered. Plan 1. Migraines The patient continues to experience migraines and is advised to maintain a diary for tracking purposes. She is using sumatriptan, which provides partial relief, and is planning to follow up with Neurology for further management. 2. Tuberculosis Screening Due to an invalid T-spot test, a chest X-ray has been ordered to rule out active tuberculosis. The patient denies any respiratory symptoms and is awaiting resul ts to proceed with her new job. Discussion Notes I discussed with the patient the need for a chest X-ray following the invalid T- spot test to ensure there is no active tuberculosis, especially given her upcoming job start. We also reviewed her migraine management, emphasizing the importance of maintaining a diary and following up with Neurology. Patient Instructions - Continue using sumatriptan as needed f or migraines and maintain a diary to track occurrences. - Follow up with Neurology for further m igraine management. - Await chest X-ray results before start ing the new job. [facility] Medical History Initiation of Depo Provera Depot contraception Pelvic pain Chronic vaginitis Hidradenitis suppurativa Cysts Chronic, continuous use of opioids Chronic pain syndrome Spondylosis of lumbar region without myelopathy or radiculopathy Type I diabetes mellitus Surgical History History of reversal of tubal ligation Previous section History of cystoscopy History of hernia repair Family History Father Alive and well Mother Alive and well Sister Alive and well Maternal Aunt Cancer Social History Housing: Condominium Alcohol intake: current Alcohol intake frequency: holidays/special occasions only Alcohol type: beer, wine and hard liquor Patient Tobacco Use Status: Never used Tobacco e-Cigarette/Vaping Use: Never Used Second Hand Smoke Exposure: No Substance Use Type: Marijuana 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, 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 Cognitive needs: No Hearing needs: No Vision needs: No Female Reproductive History Menstrual Age of Menarche: 14 Questionnaire Thrive Questionnaire Date Thrive assessed: 09/15/24 I am a: Patient What is your living situation today?: I have a steady place to live Within the past 12 months, did the food you bought not last and you didn't have the money to get more?: I choose not to answer this question Within the past 12 months, did you worry whether your food would run out before you got money to buy more?: I choose not to answer this question Do you have trouble paying for medicines?: I choose not to answer this question Do you have trouble getting transportation to medical appointments?: I choose not to answer this question Do you have trouble paying your heating and electricity bill?: I choose not to answer this question Do you have trouble taking care of your child, family member or friend?: I choose not to answer this question Do you have trouble with day-to-day activities such as bathing, preparing meals, shopping, managing finances, etc.?: I choose not to answer this question Are you currently unemployed and looking for a job?: I choose not to answer this question Are you interested in more education?: I choose not to answer this question Please select the resources that you would like help with: None THRIVE Score: 0 SALLIE-7 AMB Questionnaire SALLIE-7 Date SALLIE - 7 assessed: 01/20/25 Source: Developed by Drs. Ricky Aldridge, Susan Sandra, Kodak Pope and colleagues, with an educational irina from State. Physical exam (Primary Care) Vital Signs: Last Vital Signs Temp 98.9 F 05/31/25 12:54 Pulse 85 05/31/25 12:54 Resp 18 05/31/25 12:54 BP 118/76 05/31/25 12:54 BMI result Body Mass Index 30.9 Tobacco/Smoking Status: Tobacco use Status Tobacco use date assessed 05/31/25 05/31/25 12:59 Patient Tobacco Use Status Never used Tobacco 05/31/25 12:59 e-Cigarette/Vaping Use Never Used 05/31/25 12:59 Thrive Assessment: Date of Thrive Assessment Date Thrive assessed 09/15/24 05/31/25 12:59 Coding Level of Care Code Est Pt Level 3 (55217) Diagnoses Screening for tuberculosis Z11.1 Migraines G43.909 Assessment & Plan Assessment & Plan (1) Screening for tuberculosis: Code(s): Z11.1 - Encounter for screening for respiratory tuberculosis Category: Medical (2) Migraines: Code(s): G43.909 - Migraine, unspecified, not intractable, without status migrainosus Category: Medical Plan . Orders: Orders Influenza [id number] Immunization Today Z23 - Encounter for immunization Medications: New Fluarix [id number] (PF) (flu vac ts (6mos up)-PF) 0.5 mL IM ONCE 0.5 mL 0RF NS Z23 - Encounter for immunization
--- OUTSIDE RECORDS SUMMARY | 2025-05-31 15:09 | XMS_ITS | Encounter Summary ---
Author Organization [facility] Address [address] [place] [address] Phone Care Team Providers Care Piston Maker Name Role Phone Deanna Miramontes MD Primary Care Provider [phone] Encounter Details Date Type Department Care Team (Late st Contact Info) Description 12/15/2009 Documentation [facility] [place] [address] [place], [place] [phone] Family Medicine, Physician [address] [place], [place] [address] Social History Tobacco Use Types Packs/Day Years [...] on filedocumented in this encounter Care Teams Piston Maker Relationship Specialty Start Date End Date Deanna Miramontes MD [address] [place] [address] PCP - General 04/05/17 11/13/22 documented as of this encounter
--- OUTSIDE RECORDS SUMMARY | 2025-05-31 15:09 | XMS_ITS | Encounter Summary ---
Author Organization [facility] Address [address] [place] [address] Phone Care Team Providers Care Med Surg Rn Name Role Phone Deanna Miramontes MD Primary Care Provider Encounter Details Date Type Department Care Team (Late st Contact Info) Description 03/05/2011 Documentation [facility] [place] Family Medicine [address] [place], [place] [phone] Family Medicine, Physician [address] [place], [place] [address] Social History Tobacco Use Types Packs/Day Years [...] on filedocumented in this encounter Care Teams Med Surg Rn Relationship Specialty Start Date End Date Deanna Miramontes MD [address] [facility] [place] [address] PCP - General 04/05/17 11/13/22 documented as of this encounter
--- OUTSIDE RECORDS SUMMARY | 2025-05-31 15:09 | XMS_ITS | Clinical Summary ---
Author Organization [facility] Address [address] [place] [address] Care Team Providers Care Telemarketing Representative Name Role Phone ErmiasrenéeDaron arndt NP Primary Care Provider [phone] Source Comments PLEASE NOTE, if this patient [...] DM type 1 (diabetes mellitus, type 1) 09/10/2016 Overview (09/10/2016): Per [facility] ER report, on insulin pump Social [...] Treatment Not on file Insurance [facility] Member Subscriber Plan / Payer (Ef fective 2016-Present) Name:Francie Herring Relation to Subscriber:Self Name:Francie Herring Payer ID:[id number] Group ID:Not on file Type:Medicaid Address: [facility] [id number] [place] [address] Care Teams Telemarketing Representative Relationship Specialty Start Date End Date Daron Izquierdo NP [address] [place] [address] PCP - General 07/03/18
--- OUTSIDE RECORDS SUMMARY | 2025-05-31 15:09 | XMS_ITS | Encounter Summary ---
Author Organization [facility] Address [address] [place] [address] Phone Care Team Providers Care Answering Service Agent Name Role Phone Deanna Miramontes MD Primary Care Provider [phone] Encounter Details Date Type Department Care Team (Late st Contact Info) Description 10/24/2009 Documentation [facility] Family Medicine [address] [place], [place] [phone] Family Medicine, Physician [address] [place], [place] [address] Social History Tobacco Use Types Packs/Day Years [...] on filedocumented in this encounter Care Teams Answering Service Agent Relationship Specialty Start Date End Date Deanna Miramontes MD [address] [facility] [place] [address] PCP - General 04/05/17 11/13/22 documented as of this encounter
--- OUTSIDE RECORDS SUMMARY | 2025-05-31 15:09 | XMS_ITS | Encounter Summary ---
Author Organization [facility] Address [address] [place] [address] Phone Care Team Providers Care Lye Peel Operator Name Role Phone Deanna Miramontes MD Primary Care Provider [phone] Encounter Details Date Type Department Care Team (Late st Contact Info) Description 02/13/2011 Documentation [facility] [place] Family Medicine [address] [place], [place] [phone] Family Medicine, Physician [address] [place], [place] [address] Social History Tobacco Use Types Packs/Day Years [...] on filedocumented in this encounter Care Teams Lye Peel Operator Relationship Specialty Start Date End Date Deanna Miramontes MD [address] [facility] [address] PCP - General 04/05/17 11/13/22 documented as of this encounter
--- OUTSIDE RECORDS SUMMARY | 2025-05-31 15:09 | XMS_ITS | Encounter Summary ---
Author Organization [facility] Address [address] [place] [address] Phone Care Team Providers Care Religious Ritual Slaughterer Name Role Phone Deanna Miramontes MD Primary Care Provider Encounter Details Date Type Department Care Team (Late st Contact Info) Description 01/13/2010 Documentation [facility] [place] Family Medicine [address] [place], [place] [phone] Family Medicine, Physician [address] [place], [place] [address] Social History Tobacco Use Types Packs/Day Years [...] on filedocumented in this encounter Care Teams Religious Ritual Slaughterer Relationship Specialty Start Date End Date Deanna Miramontes MD [address] [facility] [place] [address] PCP - General 04/05/17 11/13/22 documented as of this encounter
--- OUTSIDE RECORDS SUMMARY | 2025-05-31 15:09 | XMS_ITS | Encounter Summary ---
Author Organization [facility] Address [address] [place] [address] Phone Care Team Providers Care Model Artists' Name Role Phone Deanna Miramontes MD Primary Care Provider [phone] Encounter Details Date Type Department Care Team (Late st Contact Info) Description 05/23/2011 Documentation [facility] [place] Family Medicine [address] [place], [place] [phone] Family Medicine, Physician [address] [place], [place] [address] Social History Tobacco Use Types Packs/Day Years [...] on filedocumented in this encounter Care Teams Model Artists' Relationship Specialty Start Date End Date Deanna Miramontes MD [address] [place] [address] PCP - General 04/05/17 11/13/22 documented as of this encounter
--- OUTSIDE RECORDS SUMMARY | 2025-05-31 15:09 | XMS_ITS | Clinical Summary ---
Author Organization [facility] Address [address] [place] [address] Phone Care Team Providers Care Preanalytics Team Lead Name Role Phone Unavailable Primary Care Provider [...] 05/25/2009, 06/11/2008, Additional history exists COVID-19 Vaccine (2024- season) 2025 HIB Vaccines Completed 09/25/1991, 01/24, [...] complete this topic Procedures * Due to [place] state law, this organization might not be sharing sensitive test results. Procedure Name Priority Date/Time Associated Diagnosis Comments CHLAMYDIA AND GONORRHEA, AMPLIFIED Routine 04/15/2010 3:21 PM EDT from Last 3 Months or Most Recently Relevant to Health Maintenance Results * Due to [place] state law, this organization might not be sharing sensitive test results. * Chlamydia and Gonorrhoea, Amplified (04/15/2010 3:21 PM EDT) URINE CHLAMYDIA AMP PROBE NEGATIVE [facility] Comment: NO CHLAMYDIA TRACHOMATIS RNA DETECTED IN THIS PATIENT'S SAMPLE. (REFERENCE RANGE/NORMAL VALUE: NOT DETECTED) URINE GC AMP PROBE NEGATIVE [facility] Comment: NO NEISSERIA GONORRHOEAE RNA DETECTED IN THIS PATIENT'S SAMPLE. (REFERENCE RANGE/NORMAL VALUE: NOT DETECTED) NOTE: THIS TEST USES KNOCKER OUT MEDIATED AMPLIFICATION METHOD TO DETECT rRNA FROM [...] OTHER AGENTS. 04/15/2010 3:21 PM EDT Narrative [facility] - 04/15/2010 3:21 PM EDT URINE CHLAMYDIA GC AMP PROBE us Deanna Miramontes MD LAB MICROBIOLOGY - GENERAL O RDERABLES Final Result [facility] [address] [address], [place] from Last 3 Months or Most Recently Relevant to Health Maintenance
--- OUTSIDE RECORDS SUMMARY | 2025-05-31 15:09 | XMS_ITS | Encounter Summary ---
Author Organization [facility] Address [address] [place] [address] Phone Care Team Providers Care Assistant County Engineer Name Role Phone Deanna Miramontes MD Primary Care Provider Encounter Details Date Type Department Care Team ([facility] Contact Info) Description 06/27/2017 Conversion Encounter [facility] [place] [address] [place] [address] Social History Tobacco Use Types Packs/Day Years [...] on filedocumented in this encounter Care Teams Assistant County Engineer Relationship Specialty Start Date End Date Deanna Miramontes MD [address] [place] [address] PCP - General 04/05/17 11/13/22 documented as of this encounter
--- OUTSIDE RECORDS SUMMARY | 2025-05-31 15:09 | XMS_ITS | Encounter Summary ---
Author Organization [facility] Address [address] [place] [address] Phone Care Team Providers Care Truss Maker Name Role Phone Deanna Miramontes MD Primary Care Provider Encounter Details Date Type Department Care Team (Late st Contact Info) Description 10/24/2009 Documentation [facility] Family Medicine [address] [place], [place] [phone] Family Medicine, Physician [address] [place], [place] [address] Social History Tobacco Use Types Packs/Day Years [...] on filedocumented in this encounter Care Teams Truss Maker Relationship Specialty Start Date End Date Deanna Miramontes MD [address] [facility] [place] [address] PCP - General 04/05/17 11/13/22 documented as of this encounter
--- OUTSIDE RECORDS SUMMARY | 2025-05-31 15:09 | XMS_ITS | Encounter Summary ---
Author Organization [facility] Address [address] [place] [address] Phone Care Team Providers Care Progress Developer Name Role Phone Deanna Miramontes MD Primary Care Provider Encounter Details Date Type Department Care Team (Late st Contact Info) Description 03/05/2011 Documentation [facility] [place] Family Medicine [address] [place], [place] [phone] Family Medicine, Physician [address] [place], [place] [address] Social History Tobacco Use Types Packs/Day Years [...] on filedocumented in this encounter Care Teams Progress Developer Relationship Specialty Start Date End Date Deanna Miramontes MD [address] [facility] [place] [address] PCP - General 04/05/17 11/13/22 documented as of this encounter
--- OUTSIDE RECORDS SUMMARY | 2025-05-31 15:09 | XMS_ITS | Encounter Summary ---
Author Organization [facility] Address [address] [place] [address] Phone Care Team Providers Care Forest Supervisor Name Role Phone Deanna Miramontes MD Primary Care Provider Encounter Details Date Type Department Care Team (Late st Contact Info) Description 09/19/2010 Documentation [facility] [place] Family [place] [address] [place], [place] [phone] Family Medicine, Physician [address] [place], [place] [address] Social History Tobacco Use Types Packs/Day Years [...] filedocumented in this encounter Care Teams Forest Supervisor Relationship Specialty Start Date End Date Deanna Miramontes MD [address] [place] [address] PCP - General 04/05/17 11/13/22 documented as of this encounter
--- OUTSIDE RECORDS SUMMARY | 2025-05-31 15:09 | XMS_ITS | Encounter Summary ---
Author Organization [facility] Address [address] [place] [address] Phone Care Team Providers Care Clinic Lpn Name Role Phone Deanna Miramontes MD Primary Care Provider Encounter Details Date Type Department Care Team (Late st Contact Info) Description 11/02/2011 Documentation [facility] [place] Family Medicine [address] [place], [place] [phone] Family Medicine, Physician [address] [place], [place] [address] Social History Tobacco Use Types Packs/Day Years [...] on filedocumented in this encounter Care Teams Clinic Lpn Relationship Specialty Start Date End Date Deanna Miramontes MD [address] [place] [address] PCP - General 04/05/17 11/13/22 documented as of this encounter
--- OUTSIDE RECORDS SUMMARY | 2025-05-31 15:09 | XMS_ITS | Encounter Summary ---
Author Organization [facility] Address [address] [place] [address] Phone Care Team Providers Care Layboy Tender Name Role Phone Deanna Miramontes MD Primary Care Provider [phone] Encounter Details Date Type Department Care Team (Late st Contact Info) Description 03/14/2011 Documentation [facility] [place] Family Medicine [address] [place], [place] [phone] Family Medicine, Physician [address] [place], [place] [address] Social History Tobacco Use Types Packs/Day Years [...] on filedocumented in this encounter Care Teams Layboy Tender Relationship Specialty Start Date End Date Deanna Miramontes MD [address] [place] [address] PCP - General 04/05/17 11/13/22 documented as of this encounter
--- OUTSIDE RECORDS SUMMARY | 2025-05-31 15:09 | XMS_ITS | Encounter Summary ---
Author Organization [facility] Address [address] [place] [address] Phone Care Team Providers Care Basketball Referee Name Role Phone Deanna Miramontes MD Primary Care Provider Encounter Details Date Type Department Care Team (Late st Contact Info) Description 01/13/2010 Documentation [facility] [place] Family Medicine [address] [place], [place] [phone] Family Medicine, Physician [address] [place], [place] [address] Social History Tobacco Use Types Packs/Day Years [...] on filedocumented in this encounter Care Teams Basketball Referee Relationship Specialty Start Date End Date Deanna Miramontes MD [address] [facility] [place] [address] PCP - General 04/05/17 11/13/22 documented as of this encounter
== END 2025-05-31 14:23 | disposition home or self-care (01) ==
LOC: HO.HMCC 12:48
PROVIDERS: PCP Nurse Practitioner Family; Visit Provider Nurse Practitioner Family
DX: Z11.1 Encounter for screening for respiratory tuberculosis (principal); G43.909 Migraine, unspecified, not intractable, without status migrainosus; Z23 Encounter for immunization

== ENCOUNTER → 2025-05-31 13:35 | Outpatient (BNV) | payer OTHER, SELFPAY | PROVIDERS: PCP Nurse Practitioner Family; Visit Provider Radiology Diagnostic Radiology | DX: Z11.1 Encounter for screening for respiratory tuberculosis (principal) | CPT/HCPCS: 71046 ==

== ENCOUNTER 2025-06-01 11:35 | Outpatient (AMB) | payer OTHER, SELFPAY ==
[2025-06-01 11:48] VITALS: BP 114/64
--- NOTE | 2025-06-01 11:48 | MHC.OFFVIS ---
Vital Signs 06/01/25 11:48 Height 5 ft 4 in BP 114/64 Blood Pressure Location Lt brachial Position Sitting Intake Visit Reasons: control consult Intake Note: wants to discuss other options Cloth Spreader Screen Printing Required: No Allergies No Known Allergies (No Known Allergies*) Allergy (Verified 06/01/25 11:51) Medication List - Last Reconciled 06/01/25 by Joie Merino LPN blood sugar diagnostic (FreeStyle Test strips) 4 times a day testing blood sugar diagnostic As directed blood-glucose meter (FreeStyle System Kit) 4 times a day testing cetirizine 10 mg PO DAILY insulin pump cart,auto,BT,G6/7 (Omnipod 5 G6-G7 Pods (Gen 5) subcutaneous cartridge) As directed lidocaine 5% 1 patch topical DAILY meloxicam 15 mg PO DAILY PRN 30 days sumatriptan succinate 25 mg orally ; may repeat x 1 tab after 2 hrs if the first tab does not work PRN; 10 days tizanidine 4 mg PO BEDTIME PRN trazodone 50 mg PO BEDTIME PRN 30 days Is last menstrual period known: No Post menopausal: No Patient : No PFSH Medical History Initiation of Depo Provera Depot contraception Pelvic pain Chronic vaginitis Hidradenitis suppurativa Cysts Chronic, continuous use of opioids Chronic pain syndrome Spondylosis of lumbar region without myelopathy or radiculopathy Type I diabetes mellitus Surgical History History of reversal of tubal ligation Previous section History of cystoscopy History of hernia repair Family History Father Alive and well Mother Alive and well Sister Alive and well Maternal Aunt Cancer Social History Housing: Condominium Alcohol intake: current Alcohol intake frequency: holidays/special occasions only Alcohol type: beer, wine and hard liquor Patient Tobacco Use Status: Never used Tobacco e-Cigarette/Vaping Use: Never Used Second Hand Smoke Exposure: No Substance Use Type: Marijuana Current occupational status: employed 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
--- NOTE | 2025-06-01 11:56 | MHC.OFFVIS ---
Vital Signs 06/01/25 11:48 Height 5 ft 4 in BP 114/64 Blood Pressure Location Lt brachial Position Sitting Intake Visit Reasons: control consult Walking Dragline Oiler: Walking Dragline Oiler Present Allergies No Known Allergies (No Known Allergies*) Allergy (Verified 06/01/25 11:51) Medication List - Last Reconciled 06/01/25 by Joie Merino LPN blood sugar diagnostic (FreeStyle Test strips) 4 times a day testing blood sugar diagnostic As directed blood-glucose meter (FreeStyle System Kit) 4 times a day testing cetirizine 10 mg PO DAILY insulin pump cart,auto,BT,G6/7 (Omnipod 5 G6-G7 Pods (Gen 5) subcutaneous cartridge) As directed lidocaine 5% 1 patch topical DAILY meloxicam 15 mg PO DAILY PRN 30 days sumatriptan succinate 25 mg orally ; may repeat x 1 tab after 2 hrs if the first tab does not work PRN; 10 days tizanidine 4 mg PO BEDTIME PRN trazodone 50 mg PO BEDTIME PRN 30 days Is last menstrual period known: Yes HPI Comments Details: Patient is here today for control consult. She has been on Depo-Provera for 3 months with the onset of headache with visual disturbances. She has completed a recent eye exam and has a neurology consult appointment in August. [facility] Medical History Pelvic pain Chronic vaginitis Hidradenitis suppurativa Cysts Chronic, continuous use of opioids Chronic pain syndrome Spondylosis of lumbar region without myelopathy or radiculopathy Type I diabetes mellitus Surgical History History of reversal of tubal ligation Previous section History of cystoscopy History of hernia repair Family History Father Alive and well Mother Alive and well Sister Alive and well Maternal Aunt Cancer Social [facility] Alcohol intake: current Alcohol intake frequency: holidays/special occasions only Alcohol type: beer, wine and hard liquor Patient Tobacco Use Status: Never used Tobacco e-Cigarette/Vaping Use: Never Used Second Hand Smoke Exposure: No Substance Use Type: Marijuana Current occupational status: employed 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, 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 Cognitive needs: No Hearing needs: No Vision needs: No Female Reproductive History Menstrual Age of Menarche: 14 control method: progesterone injection Review of Systems Const All systems reviewed & are unremarkable except as noted in HPI and below Endo Reports no additional complaints Physical Exam Vital Signs: Last Vital Signs BP 114/64 06/01/25 11:48 Const General: cooperative, healthy appearing and no acute distress Psych Appearance: well kempt Attitude: cooperative Thought process: Normal thought process present Assessment & Plan Assessment & Plan (1) Migraines: Code(s): G43.909 - Migraine, unspecified, not intractable, without status migrainosus Category: Medical Qualifiers: Migraine type: unspecified Plan: Reviewed migraine symptoms, provided information regarding magnesium type send dosing, provided headache diary and triggers. Discontinue Depo-Provera. Most likely migraine should improve but may still occur with the use of progesterone. The patient expressed understanding and agreement with the plan of care. All of her questions and concerns were addressed to the best of my ability. (2) Counseling for control, oral contraceptives: Code(s): Z30.09 - Encounter for other general counseling and advice on contraception Plan Counseled re: BC options w/migraines, POP use, efficacy, use of BUM if indicated. Reviewed options with web images. OCP use, warnings: go to ER if and loss of vision, blindness, severe headache, chest pain or difficulty breathing, severe abdominal pain, or any pain or swelling in an extremity. Pill check 2-3 months. Or call sooner if there is any other concerns. The patient expressed understanding and agreement with the plan of care. All of her questions and concerns were addressed to the best of my ability. This note is constructed using voice recognition software. While every effort has been made to ensure accuracy, human resources advisor errors may have been included. Medications: New norethindrone (contraceptive) (Sweta) 0.35 mg PO DAILY 90 tabs 0RF 90 days Coding Level of Care Code Est Pt Level 3 (22238) Diagnoses Migraines G43.909 Migraine type: unspecified Counseling for control, oral contraceptives Z30.09
--- OUTSIDE RECORDS SUMMARY | 2025-06-01 14:39 | XMS_ITS | Encounter Summary ---
Author Organization [facility] Address [address] [place] [address] Phone Care Team Providers Care Supervisor Pressing Department Name Role Phone Deanna Miramontes MD Primary Care Provider Encounter Details Date Type Department Care Team (Late st Contact Info) Description 05/23/2011 Documentation [facility] [place] [address] [place], [place] [id number] Family Medicine, Physician [address] [place], [place] [address] Social History Tobacco Use Types Packs/Day Years [...] filedocumented in this encounter Care Teams Supervisor Pressing Department Relationship Specialty Start Date End Date Deanna Miramontes MD [address] [place] [address] PCP - General 04/05/17 11/13/22 documented as of this encounter
--- OUTSIDE RECORDS SUMMARY | 2025-06-01 14:39 | XMS_ITS | Clinical Summary ---
Author Organization [facility] Address [address] [place] [address] Care Team Providers Care Trolley Car Mechanic Name Role Phone Daron Izquierdo NP Primary Care Provider [phone] Source Comments PLEASE NOTE, if this patient [...] mellitus, type 1) 09/10/2016 Overview (09/10/2016): Per [facility] ER report, on insulin pump Social [...] Plan of Treatment Not on file Insurance [facility] Member Subscriber Plan / Payer (Ef fective 2016-Present) Name:Francie Herring Relation to Subscriber:Self Name:Francie Herring Payer ID:[id number] Group ID:Not on file Type:Medicaid Address: [facility] [id number] [place] [address] Care Teams Trolley Car Mechanic Relationship Specialty Start Date End Date Daron Izquierdo NP [address] [place] [address] PCP - General 07/03/18
--- OUTSIDE RECORDS SUMMARY | 2025-06-01 14:39 | XMS_ITS | Encounter Summary ---
Author Organization [facility] Address [address] [place] [address] Phone Care Team Providers Care Heel Blacker Name Role Phone Deanna Miramontes MD Primary Care Provider [phone] Encounter Details Date Type Department Care Team ([facility] Contact Info) Description 06/27/2017 Conversion Encounter [facility] [place] [address] [place] [address] Social History Tobacco Use Types Packs/Day Years [...] on filedocumented in this encounter Care Teams Heel Blacker Relationship Specialty Start Date End Date Deanna Miramontes MD [address] [place] [address] PCP - General 04/05/17 11/13/22 documented as of this encounter
--- OUTSIDE RECORDS SUMMARY | 2025-06-01 14:39 | XMS_ITS | Encounter Summary ---
Author Organization [facility] Address [address] [place] [address] Phone Care Team Providers Care Assembly Line Inspector Name Role Phone Deanna Miramontes MD Primary Care Provider [phone] Encounter Details Date Type Department Care Team (Late st Contact Info) Description 02/13/2011 Documentation [facility] [place] Family Medicine [address] [place], [place] [phone] Family Medicine, Physician [address] [place], [place] [address] Social History Tobacco Use Types Packs/Day Years [...] on filedocumented in this encounter Care Teams Assembly Line Inspector Relationship Specialty Start Date End Date Deanna Miramontes MD [address] [place] [address] PCP - General 04/05/17 11/13/22 documented as of this encounter
--- OUTSIDE RECORDS SUMMARY | 2025-06-01 14:39 | XMS_ITS | Encounter Summary ---
Author Organization [facility] Address [address] [place] [address] Phone Care Team Providers Care Head Of Maintenance Name Role Phone Deanna Miramontes MD Primary Care Provider [phone] Encounter Details Date Type Department Care Team (Late st Contact Info) Description 03/05/[address] [facility] [place] Family Medicine [address] [place], [place] [phone] Family Medicine, Physician [address] [place], [place] [address] Social History Tobacco Use Types Packs/Day Years [...] on filedocumented in this encounter Care Teams Head Of Maintenance Relationship Specialty Start Date End Date Deanna Miramontes MD [address] [place] [address] PCP - General 04/05/17 11/13/22 documented as of this encounter
--- OUTSIDE RECORDS SUMMARY | 2025-06-01 14:39 | XMS_ITS | Encounter Summary ---
Author Organization [facility] Address [address] [place] [address] Phone Care Team Providers Care Casing Machine Operator Name Role Phone Deanna Miramontes MD Primary Care Provider Encounter Details Date Type Department Care Team (Late st Contact Info) Description 01/13/2010 [place] [facility] [place] [address] [place], [place] [phone] Family Medicine, Physician [address] [place], [place] [address] Social History Tobacco Use Types Packs/Day Years [...] on filedocumented in this encounter Care Teams Casing Machine Operator Relationship Specialty Start Date End Date Deanna Miramontes MD [address] [place] [address] PCP - General 04/05/17 11/13/22 documented as of this encounter
--- OUTSIDE RECORDS SUMMARY | 2025-06-01 14:39 | XMS_ITS | Encounter Summary ---
Author Organization [facility] Address [address] [place] [address] Phone Care Team Providers Care Employee Relations Advisor Name Role Phone Deanna Miramontes MD Primary Care Provider Encounter Details Date Type Department Care Team (Late st Contact Info) Description 01/13/2010 Documentation [facility] [place] Family Medicine [address] [place], [place] [phone] Family Medicine, Physician [address] [place], [place] [address] Social History Tobacco Use Types Packs/Day Years [...] on filedocumented in this encounter Care Teams Employee Relations Advisor Relationship Specialty Start Date End Date Deanna Miramontes MD [address] [facility] [place] [address] PCP - General 04/05/17 11/13/22 documented as of this encounter
--- OUTSIDE RECORDS SUMMARY | 2025-06-01 14:39 | XMS_ITS | Encounter Summary ---
Author Organization [facility] Address [address] [place] [address] Phone Care Team Providers Care Manager Inventory Management Name Role Phone Deanna Miramontes MD Primary Care Provider Encounter Details Date Type Department Care Team (Late st Contact Info) Description 12/15/2009 Documentation [facility] [place] [address] [place], [place] [phone] Family Medicine, Physician [address] [place], [place] [address] Social History Tobacco Use Types Packs/Day Years [...] filedocumented in this encounter Care Teams Manager Inventory Management Relationship Specialty Start Date End Date Deanna Miramontes MD [address] [facility] [place] [address] PCP - General 04/05/17 11/13/22 documented as of this encounter
--- OUTSIDE RECORDS SUMMARY | 2025-06-01 14:39 | XMS_ITS | Encounter Summary ---
Author Organization [facility] Address [address] [place] [address] Phone Care Team Providers Care Bleacher Operator Name Role Phone Deanna Miramontes MD Primary Care Provider [phone] Encounter Details Date Type Department Care Team (Late st Contact Info) Description 03/05/2011 Documentation [facility] [place] Family Medicine [address] [place], [place] [phone] Family Medicine, Physician [address] [place], [place] [address] Social History Tobacco Use Types Packs/Day Years [...] on filedocumented in this encounter Care Teams Bleacher Operator Relationship Specialty Start Date End Date Deanna Miramontes MD [address] [facility] [place] [address] PCP - General 04/05/17 11/13/22 documented as of this encounter
--- OUTSIDE RECORDS SUMMARY | 2025-06-01 14:39 | XMS_ITS | Encounter Summary ---
Author Organization [facility] Address [address] [place] [address] Phone Care Team Providers Care Training Program Manager Name Role Phone Deanna Miramontes MD Primary Care Provider [phone] Encounter Details Date Type Department Care Team (Late st Contact Info) Description 10/24/2009 Documentation [facility] [address] [place], [place] [phone] Family Medicine, Physician [address] [place], [place] [address] Social History Tobacco Use Types Packs/Day Years [...] on filedocumented in this encounter Care Teams Training Program Manager Relationship Specialty Start Date End Date Deanna Miramontes MD [address] [facility] [place] [address] PCP - General 04/05/17 11/13/22 documented as of this encounter
--- OUTSIDE RECORDS SUMMARY | 2025-06-01 14:39 | XMS_ITS | Clinical Summary ---
Author Organization [facility] Address [address] [place] [address] Phone Care Team Providers Care Data Warehouse Analyst Name Role Phone Unavailable Primary Care [...] NOT DETECTED) URINE GC AMP PROBE NEGATIVE [facility] Comment: NO NEISSERIA GONORRHOEAE RNA DETECTED IN THIS PATIENT'S SAMPLE. (REFERENCE RANGE/NORMAL VALUE: NOT DETECTED) NOTE: THIS TEST USES ANALYSIS INTERNSHIP MEDIATED AMPLIFICATION METHOD TO DETECT rRNA FROM [...] OTHER AGENTS. 04/15/2010 3:21 PM EDT Narrative [facility] - 04/15/2010 3:21 PM EDT URINE CHLAMYDIA GC AMP PROBE us Deanna Miramontes MD LAB MICROBIOLOGY - GENERAL O RDERABLES Final Result [facility] [address] [address], [place] from Last 3 Months or Most Recently Relevant to Health Maintenance
--- OUTSIDE RECORDS SUMMARY | 2025-06-01 14:39 | XMS_ITS | Encounter Summary ---
Author Organization [facility] Address [address] [place] [address] Phone Care Team Providers Care Truck Unloader Name Role Phone Deanna Miramontes MD Primary Care Provider Encounter Details Date Type Department Care Team (Late st Contact Info) Description 11/02/2011 Documentation [facility] [place] [address] [place], [place] [phone] Family Medicine, Physician [address] [place], [place] [address] Social History Tobacco Use Types Packs/Day Years [...] on filedocumented in this encounter Care Teams Truck Unloader Relationship Specialty Start Date End Date Deanna Miramontes MD [address] [facility] [place] [address] PCP - General 04/05/17 11/13/22 documented as of this encounter
--- OUTSIDE RECORDS SUMMARY | 2025-06-01 14:39 | XMS_ITS | Encounter Summary ---
Author Organization [facility] Address [address] [place] [address] Phone Care Team Providers Care Oncology Account Specialist Name Role Phone Deanna Miramontes MD Primary Care Provider Encounter Details Date Type Department Care Team (Late st Contact Info) Description 09/19/2010 Documentation [facility] [place] Family Medicine [address] [place], [place] [phone] Family Medicine, Physician [address] [place], [place] [address] Social History Tobacco Use Types Packs/Day Years [...] on filedocumented in this encounter Care Teams Oncology Account Specialist Relationship Specialty Start Date End Date Deanna Miramontes MD [address] [place] [address] PCP - General 04/05/17 11/13/22 documented as of this encounter
--- OUTSIDE RECORDS SUMMARY | 2025-06-01 14:39 | XMS_ITS | Encounter Summary ---
Author Organization [facility] Address [address] [place] [address] Phone Care Team Providers Care Smoke Tester Name Role Phone Deanna Miramontes MD Primary Care Provider Encounter Details Date Type Department Care Team (Late st Contact Info) Description 10/24/2009 Documentation [facility] [address] [place], [place] [phone] Family Medicine, Physician [address] [place], [place] [address] Social History Tobacco Use Types Packs/Day Years [...] on filedocumented in this encounter Care Teams Smoke Tester Relationship Specialty Start Date End Date Deanna Miramontes MD [address] [place] [address] PCP - General 04/05/17 11/13/22 documented as of this encounter
--- OUTSIDE RECORDS SUMMARY | 2025-06-01 14:39 | XMS_ITS | Encounter Summary ---
Author Organization [facility] Address [address] [place] [address] Phone Care Team Providers Care Quality Control Name Role Phone Deanna Miramontes MD Primary Care Provider Encounter Details Date Type Department Care Team (Late st Contact Info) Description 03/14/2011 Documentation [facility] [place] Family Medicine [address] [place], [place] [phone] Family Medicine, Physician [address] [place], [place] [address] Social History Tobacco Use Types Packs/Day Years [...] on filedocumented in this encounter Care Teams Quality Control Relationship Specialty Start Date End Date Deanna Miramontes MD [address] [facility] [place] [address] PCP - General 04/05/17 11/13/22 documented as of this encounter
== END 2025-06-01 12:27 | disposition home or self-care (01) ==
LOC: HO.HWS 11:35
PROVIDERS: PCP Nurse Practitioner Family; Visit Provider Advanced Practice Midwife
DX: G43.909 Migraine, unspecified, not intractable, without status migrainosus (principal); Z30.09 Encounter for other general counseling and advice on contraception
CPT/HCPCS: 99213

== ENCOUNTER → 2025-06-01 11:35 | Outpatient (BNVA) | payer OTHER, SELFPAY | PROVIDERS: PCP Nurse Practitioner Family; Visit Provider Advanced Practice Midwife | DX: Z30.09 Encounter for other general counseling and advice on contraception (principal); G43.909 Migraine, unspecified, not intractable, without status migrainosus | CPT/HCPCS: 99212 ==

== ENCOUNTER 2025-06-09 07:34 | Outpatient (REF) | payer OTHER, SELFPAY ==
--- OUTSIDE RECORDS SUMMARY | 2025-06-09 09:26 | XMS_ITS | Encounter Summary ---
Author Organization [facility] Address [address] [place] [address] Phone Care Team Providers Care Compressor Repairer Name Role Phone Deanna Miramontes MD Primary Care Provider Encounter Details Date Type Department Care Team (Late st Contact Info) Description 02/13/2011 Documentation [facility] [place] Family Medicine [address] [place], [place] [phone] Family Medicine, Physician [address] [place], [place] [address] Social History Tobacco Use Types Packs/Day Years [...] on filedocumented in this encounter Care Teams Compressor Repairer Relationship Specialty Start Date End Date Deanna Miramontes MD [address] [place] [address] PCP - General 04/05/17 11/13/22 documented as of this encounter
--- OUTSIDE RECORDS SUMMARY | 2025-06-09 09:26 | XMS_ITS | Encounter Summary ---
Author Organization [facility] Address [address] [place] [address] Phone Care Team Providers Care Acoustical Logging Engineer Name Role Phone Deanna Miramontes MD Primary Care Provider Encounter Details Date Type Department Care Team (Late st Contact Info) Description 11/02/2011 Documentation [facility] [place] Family Medicine [address] [place], [place] [phone] Family Medicine, Physician [address] [place], [place] [address]341 Social History Tobacco Use Types Packs/Day Years [...] on filedocumented in this encounter Care Teams Acoustical Logging Engineer Relationship Specialty Start Date End Date Deanna Miramontes MD [address] [facility] [place] [address] PCP - General 04/05/17 11/13/22 documented as of this encounter
--- OUTSIDE RECORDS SUMMARY | 2025-06-09 09:26 | XMS_ITS | Encounter Summary ---
Author Organization [facility] Address [address] [place] [address] Phone Care Team Providers Care Rug Clipper Name Role Phone Deanna Miramontes MD Primary Care Provider Encounter Details Date Type Department Care Team (Late st Contact Info) Description 03/05/2011 Documentation [facility] Family Medicine [address] [place], [place] [phone] Family Medicine, Physician [address] [place], [place] [address] Social History Tobacco Use Types Packs/Day Years [...] on filedocumented in this encounter Care Teams Rug Clipper Relationship Specialty Start Date End Date Deanna Miramontes MD [address] [facility] [place] [address] PCP - General 04/05/17 11/13/22 documented as of this encounter
--- OUTSIDE RECORDS SUMMARY | 2025-06-09 09:26 | XMS_ITS | Encounter Summary ---
Author Organization [facility] Address [address] [place] [address] Phone Care Team Providers Care Hr Coordinator Name Role Phone Deanna Miramontes MD Primary Care Provider Encounter Details Date Type Department Care Team (Late st Contact Info) Description 10/24/2009 Documentation [facility] Family Medicine [address] [place], [place] [phone] Family Medicine, Physician [address] [place], [place] [address] Social History Tobacco Use Types Packs/Day Years [...] on filedocumented in this encounter Care Teams Hr Coordinator Relationship Specialty Start Date End Date Deanna Miramontes MD [address] [place] [address] PCP - General 04/05/17 11/13/22 documented as of this encounter
--- OUTSIDE RECORDS SUMMARY | 2025-06-09 09:26 | XMS_ITS | Encounter Summary ---
Author Organization [facility] Address [address] [place] [address] Phone Care Team Providers Care Reproduction Production Manager Name Role Phone Deanna Miramontes MD Primary Care Provider Encounter Details Date Type Department Care Team (Late st Contact Info) Description 03/14/[address] [facility] [place] Family Medicine [address] [place], [place] [phone] Family Medicine, Physician [address] [place], [place] [address] Social History Tobacco Use Types Packs/Day Years [...] on filedocumented in this encounter Care Teams Reproduction Production Manager Relationship Specialty Start Date End Date Deanna Miramontes MD [address] [place] [address] PCP - General 04/05/17 11/13/22 documented as of this encounter
--- OUTSIDE RECORDS SUMMARY | 2025-06-09 09:26 | XMS_ITS | Clinical Summary ---
Author Organization [facility] Address [address] [place] [address] Phone Care Team Providers Care Pot Fireman Name Role Phone Unavailable Primary Care Provider [...] complete this topic Procedures * Due to [place] state law, this organization might not be sharing sensitive test results. Procedure Name Priority Date/Time Associated Diagnosis Comments CHLAMYDIA AND GONORRHEA, AMPLIFIED Routine 04/15/2010 3:21 PM EDT from Last 3 Months or Most Recently Relevant to Health Maintenance Results * Due to [place] state law, this organization might not be [...] VALUE: NOT DETECTED) NOTE: THIS TEST USES SOCIAL WORK JOB TITLES MEDIATED AMPLIFICATION METHOD TO DETECT rRNA FROM [...] [facility] [address] [address], [place] from Last 3 Months or Most Recently Relevant to Health Maintenance
--- OUTSIDE RECORDS SUMMARY | 2025-06-09 09:26 | XMS_ITS | Encounter Summary ---
Author Organization [facility] Address [address] [place] [address] Phone Care Team Providers Care Professional Fighter Name Role Phone Deanna Miramontes MD Primary Care Provider [phone] Encounter Details Date Type Department Care Team (Late st Contact Info) Description 01/13/2010 Documentation [facility] [place] Family Medicine [address] [place], [place] [phone] Family Medicine, Physician [address] [place], [place] [address]371 Social History Tobacco Use Types Packs/Day Years [...] on filedocumented in this encounter Care Teams Professional Fighter Relationship Specialty Start Date End Date Deanna Miramontes MD [address] [place] [address] PCP - General 04/05/17 11/13/22 documented as of this encounter
--- OUTSIDE RECORDS SUMMARY | 2025-06-09 09:26 | XMS_ITS | Encounter Summary ---
Author Organization [facility] Address [address] [place] [address] Phone Care Team Providers Care Career Center Director Name Role Phone Deanna Miramontes MD Primary Care Provider Encounter Details Date Type Department Care Team (Late st Contact Info) Description 10/24/2009 Documentation [facility] [address] [place], [place] [phone] Family Medicine, Physician [address] [place], [place] [address] Social History Tobacco Use Types Packs/Day Years [...] on filedocumented in this encounter Care Teams Career Center Director Relationship Specialty Start Date End Date Deanna Miramontes MD [address] [facility] [place] [address] PCP - General 04/05/17 11/13/22 documented as of this encounter
--- OUTSIDE RECORDS SUMMARY | 2025-06-09 09:26 | XMS_ITS | Encounter Summary ---
Author Organization [facility] Address [address] [place] [address] Phone Care Team Providers Care Skein Straightener Name Role Phone Deanna Miramontes MD Primary Care Provider Encounter Details Date Type Department Care Team (Late st Contact Info) Description 01/13/2010 Documentation [facility] [place] Family Medicine [address] [place], [place] [phone] Family Medicine, Physician [address] [place], [place] [address] Social History Tobacco Use Types Packs/Day Years [...] on filedocumented in this encounter Care Teams Skein Straightener Relationship Specialty Start Date End Date Deanna Miramontes MD [address] [facility] [place] [address] PCP - General 04/05/17 11/13/22 documented as of this encounter
--- OUTSIDE RECORDS SUMMARY | 2025-06-09 09:26 | XMS_ITS | Encounter Summary ---
Author Organization [facility] Address [address] [place] [address] Phone Care Team Providers Care Credit Support Specialist Name Role Phone Deanna Miramontes MD Primary Care Provider Encounter Details Date Type Department Care Team (Late st Contact Info) Description 05/23/2011 Documentation [facility] [place] Family Medicine [address] [place], [place] [phone] Family Medicine, Physician [address] [place], [place] [address] Social History Tobacco Use Types Packs/Day Years [...] on filedocumented in this encounter Care Teams Credit Support Specialist Relationship Specialty Start Date End Date Deanna Miramontes MD [address] [place] [address] PCP - General 04/05/17 11/13/22 documented as of this encounter
--- OUTSIDE RECORDS SUMMARY | 2025-06-09 09:26 | XMS_ITS | Encounter Summary ---
Author Organization [facility] Address [address] [place] [address] Phone Care Team Providers Care Associate Financial Advisor Name Role Phone Deanna Miramontes MD Primary Care Provider [phone] Encounter Details Date Type Department Care Team (Late st Contact Info) Description 03/05/2011 Documentation [facility] Family Medicine [address] [place], [place] [phone] Family Medicine, Physician [address] [place], [place] [address] Social History Tobacco Use Types Packs/Day Years [...] on filedocumented in this encounter Care Teams Associate Financial Advisor Relationship Specialty Start Date End Date Deanna Miramontes MD [address] [facility] [place] [address] PCP - General 04/05/17 11/13/22 documented as of this encounter
--- OUTSIDE RECORDS SUMMARY | 2025-06-09 09:26 | XMS_ITS | Encounter Summary ---
Author Organization [facility] Address [address] [place] [address] Phone Care Team Providers Care Camera Repairer Name Role Phone Deanna Miramontes MD Primary Care Provider Encounter Details Date Type Department Care Team (Late st Contact Info) Description 09/19/2010 Documentation [facility] [place] Family Medicine [address] [place], [place] [phone] Family Medicine, Physician [address] [place], [place] [address] Social History Tobacco Use Types Packs/Day Years [...] on filedocumented in this encounter Care Teams Camera Repairer Relationship Specialty Start Date End Date Deanna Miramontes MD [address] [place] [address] PCP - General 04/05/17 11/13/22 documented as of this encounter
--- OUTSIDE RECORDS SUMMARY | 2025-06-09 09:26 | XMS_ITS | Encounter Summary ---
Author Organization [facility] Address [address] [place] [address] Phone Care Team Providers Care Order Administrator Name Role Phone Deanna Miramontes MD Primary Care Provider Encounter Details Date Type Department Care Team (Late st Contact Info) Description 12/15/2009 Documentation [facility] Family Medicine [address] [place], [place] [phone] Family Medicine, Physician [address] [place], [place] [address] Social History Tobacco Use Types Packs/Day Years [...] on filedocumented in this encounter Care Teams Order Administrator Relationship Specialty Start Date End Date Deanna Miramontes MD [address] [facility] [place] [address] PCP - General 04/05/17 11/13/22 documented as of this encounter
--- OUTSIDE RECORDS SUMMARY | 2025-06-09 09:26 | XMS_ITS | Encounter Summary ---
Author Organization [facility] Address [address] [place] [address] Phone Care Team Providers Care Branch Account Manager Name Role Phone Deanna Miramontes MD Primary Care Provider Encounter Details Date Type Department Care Team ([facility] Contact Info) Description 06/27/2017 Conversion Encounter [facility] [address] [place] [address] Social History Tobacco Use Types Packs/Day Years [...] on filedocumented in this encounter Care Teams Branch Account Manager Relationship Specialty Start Date End Date Deanna Miramontes MD [address] [place] [address] PCP - General 04/05/17 11/13/22 documented as of this encounter
== END 2025-06-09 07:35 | disposition home or self-care (01) ==
LOC: HO.LAB 07:34
PROVIDERS: PCP Nurse Practitioner Family; Visit Provider Nurse Practitioner Family
DX: N39.0 Urinary tract infection, site not specified (principal)
CPT/HCPCS: 51798; 87086; 87088; 87186; 99202

== ENCOUNTER 2025-06-09 07:34 | Outpatient (AMB) | payer OTHER, SELFPAY ==
--- OUTSIDE RECORDS SUMMARY | 2025-06-09 07:37 | XMS_ITS | Clinical Summary ---
Author Organization [facility] Address [address] [place] [address] Care Team Providers Care Environmental Engineering Manager Name Role Phone ErmiasrenéeDaron arndt NP Primary Care Provider [phone] Source Comments PLEASE NOTE, if this patient [...] mellitus, type 1) 09/10/2016 Overview (09/10/2016): Per [facility] ER report, on insulin pump Social History [...] Plan of Treatment Not on file Insurance [facility] Member Subscriber Plan / Payer (Ef fective 2016-Present) Name:Francie Herring Relation to Subscriber:Self Name:Francie Herring Payer ID:[id number] Group ID:Not on file Type:Medicaid Address: [facility] [id number] [place] [address] Care Teams Environmental Engineering Manager Relationship Specialty Start Date End Date Daron Izquierdo NP [address] [place] [address] PCP - General 07/03/18
--- NOTE | 2025-06-09 07:43 | A.OFFVIS_ITS ---
Intake Visit Reasons: Recurrent UTIs Intake Note: New Patient is present for Recurrent UTI Urology Rx:Meloxicam PVR:16 mls Blood Thinners:none Imaging completed: none Network Engineer Administrator Required: No Accompanied by: Self / Same As Patient Allergies No Known Allergies (No Known Allergies*) Allergy (Verified 06/09/25 08:51) Medication List - Last Reconciled 06/09/25 by FRANKLIN Reynoso blood sugar diagnostic (FreeStyle Test strips) 4 times a day testing blood sugar diagnostic As directed blood-glucose meter (FreeStyle System Kit) 4 times a day testing cetirizine 10 mg PO DAILY insulin pump cart,auto,BT,G6/7 (Omnipod 5 G6-G7 Pods (Gen 5) subcutaneous cartri dge) As directed lidocaine 5% 1 patch topical DAILY meloxicam 15 mg PO DAILY PRN 30 days norethindrone (contraceptive) (Sweta) 0.35 mg PO DAILY 90 days sumatriptan succinate 25 mg orally ; may repeat x 1 tab after 2 hrs if the first tab does not work PRN; 10 days tizanidine 4 mg PO BEDTIME PRN trazodone 50 mg PO BEDTIME PRN 30 days HPI Comments Details: Lauren is a very pleasant 34-year-old female patient of Dr. Hale. 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 She presents to the office today as a new patient for recurrent urinary tract infections. In discussion with the patient today she reports over the last year she continues with episodes of foul-smelling urine as well as cloudy urine. She reports following up with her PCP at which time recommendations were made for urology referral for further assessment evaluation. In review of patient's chart it appears urine cultures are as follows: 12/15 E coli, 04/18 E coli, 02/17 E coli, 03/19 providencia stuarti/Streotococcus viridans group, 04/19 E coli When asked she denies any issues with constipation. She does report she is sexually active however is unsure if symptoms arise after sexual activity. She currently reports cloudy and foul-smelling urine. In office urinalysis results reviewed with the patient today positive nitrates. PVR 16 mL. We did discussed at length potential causes of recurrent urinary tract infections as well as further treatment options and risks and benefits of these treatment options. She denies urinary urgency, urinary frequency, incontinence, nocturia, hematuria, changes to urinary stream, flank pain, fever, and or chills. Answered. She otherwise offers no other issues or concerns at this time. [facility] Medical History Pelvic pain Chronic vaginitis Hidradenitis suppurativa Cysts Chronic, continuous use of opioids Chronic pain syndrome Spondylosis of lumbar region without myelopathy or radiculopathy Type I diabetes mellitus Surgical History History of reversal of tubal ligation Previous section History of cystoscopy History of hernia repair Family History Father Alive and well Mother Alive and well Sister Alive and well Maternal Aunt Cancer Social History Housing: Condominium Alcohol intake: current Alcohol intake frequency: holidays/special occasions only Alcohol type: beer, wine and hard liquor Patient Tobacco Use Status: Never used Tobacco e-Cigarette/Vaping Use: Never Used Second Hand Smoke Exposure: No Substance Use Type: Marijuana Current occupational status: employed 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, 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 Cognitive needs: No Hearing needs: No Vision needs: No Female Reproductive History Menstrual Age of Menarche: 14 Review of Systems Const All systems reviewed & are unremarkable except as noted in HPI and below Physical Exam Const General: cooperative, healthy appearing, comfortable, no acute distress, well developed, alert and awake Orientation/consciousness: patient oriented x3 Limitations: no limitations HEENT Head: Yes normal to inspection, Yes normocephalic and Yes atraumatic Ears: hearing grossly normal bilaterally Eyes General: appearance normal, both eyes and all related structures Neck Neck: Yes normal visual inspection and Yes trachea midline Chest Chest palpation & inspection: normal inspection of the chest Resp Effort & Inspection: normal respiratory effort and able to speak in complete sentences Cardio Rate: regular rate GI Inspection: Yes normal to inspection General: Yes no CVA tenderness Back/Spine/Pelvis Back: no CVA tenderness Skin General skin exam: no rashes or lesions noted Neuro General: patient oriented x3 Extrem General: Yes normal to inspection Psych Appearance: grossly normal and well kempt Mental Status: mental status grossly normal Speech and movement: Normal speech and movement present and Clear speech present Affect: normal affect Attitude: cooperative Thought process: Normal thought process present Thought content: Normal thought content present Insight: Fair insight present (Psych) Judgement: Fair judgement present (Psych) Office Procedures Post Void Residual Post Residual Void Post Void Residual (PVR): 16 [id number] Void Residual by ultrasound Results AMB Urinalysis, Automated UA Leukoctes 0 Hoa/uL Last Edit by [facility] on 06/09/25 07:57 UA Nitrite Positive Last Edit by [facility] on 06/09/25 07:57 UA Urobilinogen 0.2 mg/dL Last Edit by [facility] on 06/09/25 07:57 UA Protein 0 mg/dL Last Edit by [facility] on 06/09/25 07:57 UA pH 6.0 Last Edit by [facility] on 06/09/25 07:57 UA Blood 0 Luis/uL Last Edit by [facility] on 06/09/25 07:57 UA Specific [place] 1.015 Last Edit by [facility] on 06/09/25 07:5 7 UA Ketone Negative Last Edit by [facility] on 06/09/25 07:57 UA Bilirubin 0 mg/dL Last Edit by [facility] on 06/09/25 07:57 UA Glucose 0 mg/dL Last Edit by [facility] on 06/09/25 07:57 Results Reviewed Results Reviewed: Laboratory Last Values Urine pH (Auto) 6.0 06/09/25 07:56 Specific [place] (Auto) 1.015 06/09/25 07:56 Urine Protein (Auto) 0 mg/dL 06/09/25 07:56 Glucose (UA)(Auto) 0 mg/dL 06/09/25 07:56 Urine Ketones (Auto) Negative 06/09/25 07:56 Urine Blood (Auto) 0 Luis/uL 06/09/25 07:56 Urine Nitrite (Auto) Positive 06/09/25 07:56 Urine Bilirubin (Auto) 0 mg/dL 06/09/25 07:56 Urine Urobilinogen (Auto) 0.2 mg/dL 06/09/25 07:56 Leukocyte Esterase (Auto) 0 Hoa/uL 06/09/25 07:56 Assessment & Plan Assessment & Plan (1) Dysuria: Code(s): R30.0 - Dysuria Category: Medical (2) Frequent UTI: Code(s): N39.0 - Urinary tract infection, site not specified Category: Medical (3) Foul smelling urine: Code(s): R82.90 - Unspecified abnormal findings in urine Category: Medical (4) Cloudy urine: Code(s): R82.90 - Unspecified abnormal findings in urine Category: Medical Plan In office urinalysis results with the patient today as noted above; will send for urine culture. PVR 16 mL. We did discussed potential causes of recurrent urinary tract infections as well as further treatment options and risks and benefits of these treatment options. Will obtain retroperitoneal ultrasound for further assessment evaluation. Discussed UTI prevention with D mannose supplement, vitamin-C, increasing fluid intake, behavioral therapy with timed voiding, perineal hygiene and postcoital voiding, and management of constipation with stool softeners and increased fiber intake. Start Bactrim as discussed and prescribed Prescription provided for Macrobid daily; we discussed importance of starting medication once completed with current antibiotic therapy. We discussed calling office with any UTI like symptoms. We discussed potential near future in office cystoscopy for further assessment evaluation. All questions were answered. Follow-up in 3 months with imaging and PVR; or sooner with any issues, concerns, and or questions. Orders: Orders Urine Culture Today N39.0 - Urinary tract infection, site not specified US retroperitoneal comp Today N39.0 - Urinary tract infection, site not specified, R30.0 - Dysuria, R82.90 - Unspecified abnormal findings in urine Medications: New sulfamethoxazole-trimethoprim 800-160 mg (Bactrim DS) 1 tab PO BID 20 tabs 0RF 10 days N39.0 - Urinary tract infection, site not specified nitrofurantoin macrocrystal Start once completed with current treatment for active infection 100 mg PO BEDTIME 90 caps 0RF N39.0 - Urinary tract infection, site not specified Coding Level of Care Code New Pt Level 4 (55378) Diagnoses Dysuria R30.0 Frequent UTI N39.0 Foul smelling urine R82.90 Cloudy urine R82.90 CPT Codes Post Residual Void - PVR CPT Code: 78936-[id number] Void Residual by ultrasound ([id number])
== END 2025-06-09 08:13 | disposition home or self-care (01) ==
LOC: HO.HUSH 07:34
PROVIDERS: PCP Nurse Practitioner Family; Visit Provider Nurse Practitioner Family
DX: R30.0 Dysuria (principal); N39.0 Urinary tract infection, site not specified; R82.90 Unspecified abnormal findings in urine
CPT/HCPCS: 99204

== ENCOUNTER 2025-06-11 07:00 | Outpatient (RCR) | payer OTHER, SELFPAY ==
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
== END 2025-06-21 08:52 | disposition home or self-care (01) ==
LOC: HO.OT 07:00
PROVIDERS: PCP Nurse Practitioner Family
DX: M25.531 Pain in right wrist (principal); M77.8 Other enthesopathies, not elsewhere classified
CPT/HCPCS: 97110; 97140; 97165

== ENCOUNTER 2025-08-16 06:39 | Outpatient (AMB) | payer OTHER, SELFPAY ==
--- OUTSIDE RECORDS SUMMARY | 2025-08-16 06:43 | XMS_ITS | Encounter Summary ---
Author Organization [facility] Address [address] [place] [address] Phone Care Team Providers Care Manager Urgent Care Name Role Phone Deanna Miramontes MD Primary Care Provider [phone] Encounter Details Date Type Department Care Team (Late st Contact Info) Description 10/24/2009 Documentation [facility] Family Medicine [address] [place], [place] [phone] Family Medicine, Physician [address] [place], [place] [address] Social History Tobacco Use Types Packs/Day Years [...] filedocumented in this encounter Care Teams Manager Urgent Care Relationship Specialty Start Date End Date Deanna Miramontes MD [address] [facility] [address] PCP - General 04/05/17 11/13/22 documented as of this encounter
--- OUTSIDE RECORDS SUMMARY | 2025-08-16 06:43 | XMS_ITS | Encounter Summary ---
Author Organization [facility] Address [address] [place] [address] Phone Care Team Providers Care Hybrid Corn Breeder Name Role Phone Deanna Miramontes MD Primary Care Provider [phone] Encounter Details Date Type Department Care Team (Late st Contact Info) Description 01/13/2010 Documentation [facility] [place] [address] [place], [place] [phone] Family Medicine, Physician [address] [place], [place] [address] Social History Tobacco Use Types Packs/Day Years [...] on filedocumented in this encounter Care Teams Hybrid Corn Breeder Relationship Specialty Start Date End Date Deanna Miramontes MD [address] [facility] [place] [address] PCP - General 04/05/17 11/13/22 documented as of this encounter
--- OUTSIDE RECORDS SUMMARY | 2025-08-16 06:43 | XMS_ITS | Encounter Summary ---
Author Organization [facility] Address [address] [place] [address] Phone Care Team Providers Care Paralegal Secretary Name Role Phone Deanna Miramontes MD Primary Care Provider [phone] Encounter Details Date Type Department Care Team (Late st Contact Info) Description 11/02/2011 Documentation [facility] [place] Medicine [address] [place], [place] [phone] Family Medicine, Physician [address] [place], [place] [address] Social History Tobacco Use Types Packs/Day Years [...] on filedocumented in this encounter Care Teams Paralegal Secretary Relationship Specialty Start Date End Date Deanna Miramontes MD [address] [facility] [place] [address] PCP - General 04/05/17 11/13/22 documented as of this encounter
--- OUTSIDE RECORDS SUMMARY | 2025-08-16 06:43 | XMS_ITS | Encounter Summary ---
Author Organization [facility] Address [address] [place] [address] Phone Care Team Providers Care Accounting Manager Name Role Phone Deanna Miramontes MD Primary Care Provider Encounter Details Date Type Department Care Team (Late st Contact Info) Description 09/19/2010 Documentation [facility] Family Medicine [address] [place], [place] [phone] Family Medicine, Physician [address] [place], [place] [address] Social History Tobacco Use Types Packs/Day Years [...] on filedocumented in this encounter Care Teams Accounting Manager Relationship Specialty Start Date End Date Deanna Miramontes MD [address] [facility] [place] [address] PCP - General 04/05/17 11/13/22 documented as of this encounter
--- OUTSIDE RECORDS SUMMARY | 2025-08-16 06:43 | XMS_ITS | Clinical Summary ---
Author Organization [facility] Address [address] [place] [address] Phone Care Team Providers Care Credit Risk Management Director Name Role Phone Unavailable Primary Care Provider [...] complete this topic Procedures * Due to [place] state law, this organization might not be sharing sensitive test results. Procedure Name Priority Date/Time Associated Diagnosis Comments CHLAMYDIA AND GONORRHEA, AMPLIFIED Routine 04/15/2010 3:21 PM EDT from Last 3 Months or Most Recently Relevant to Health Maintenance Results * Due to [place] state law, this organization might not be sharing sensitive test results. * Chlamydia and Gonorrhoea, Amplified (04/15/2010 3:21 PM EDT) URINE CHLAMYDIA AMP PROBE NEGATIVE [facility] Comment: NO CHLAMYDIA TRACHOMATIS RNA DETECTED IN THIS PATIENT'S SAMPLE. (REFERENCE RANGE/NORMAL VALUE: NOT DETECTED) URINE GC AMP PROBE NEGATIVE [facility] Comment: NO NEISSERIA GONORRHOEAE RNA DETECTED IN THIS PATIENT'S SAMPLE. (REFERENCE RANGE/NORMAL VALUE: NOT DETECTED) NOTE: THIS TEST USES ELECTRIC MOTOR REBUILDER MEDIATED AMPLIFICATION METHOD TO DETECT rRNA FROM [...] OTHER AGENTS. 04/15/2010 3:21 PM EDT Narrative [facility] - 04/15/2010 3:21 PM EDT URINE CHLAMYDIA GC AMP PROBE us Deanna Miramontes MD LAB MICROBIOLOGY - GENERAL O RDERABLES Final Result [facility] [address] [address], [place] from Last 3 Months or Most Recently Relevant to Health Maintenance
--- OUTSIDE RECORDS SUMMARY | 2025-08-16 06:43 | XMS_ITS | Encounter Summary ---
Author Organization [facility] Address [address] [place] [address] Phone Care Team Providers Care Nuclear Power Plant Engineer Name Role Phone Deanna Miramontes MD Primary Care Provider Encounter Details Date Type Department Care Team (Late st Contact Info) Description 03/05/2011 Documentation [facility] [place] [address] [place], [place] [phone] Family Medicine, Physician [address] [place], [place] [address] Social History Tobacco Use Types Packs/Day Years [...] on filedocumented in this encounter Care Teams Nuclear Power Plant Engineer Relationship Specialty Start Date End Date Deanna Miramontes MD [address] [facility] [place] [address] PCP - General 04/05/17 11/13/22 documented as of this encounter
--- OUTSIDE RECORDS SUMMARY | 2025-08-16 06:43 | XMS_ITS | Encounter Summary ---
Author Organization [facility] Address [address] [place] [address] Phone Care Team Providers Care Herb Doctor Name Role Phone Deanna Miramontes MD Primary Care Provider [phone] Encounter Details Date Type Department Care Team (Late st Contact Info) Description 05/23/2011 Documentation [facility] [place] Family Medicine [address] [place], [place] [phone] Family Medicine, Physician [address] [place], [place] [address] Social History Tobacco Use Types Packs/Day Years [...] on filedocumented in this encounter Care Teams Herb Doctor Relationship Specialty Start Date End Date Deanna Miramontes MD [address] [facility] [address] PCP - General 04/05/17 11/13/22 documented as of this encounter
--- OUTSIDE RECORDS SUMMARY | 2025-08-16 06:43 | XMS_ITS | Encounter Summary ---
Author Organization [facility] Address [address] [place] [address] Phone Care Team Providers Care Gaming Cashier Name Role Phone Deanna Miramontes MD Primary Care Provider Encounter Details Date Type Department Care Team (Late st Contact Info) Description 02/13/2011 Documentation [facility] [place] [address] [place], [place] [phone] Family Medicine, Physician [address] [place], [place] [address] Social History Tobacco Use Types Packs/Day Years [...] on filedocumented in this encounter Care Teams Gaming Cashier Relationship Specialty Start Date End Date Deanna Miramontes MD [address] [facility] [address] PCP - General 04/05/17 11/13/22 documented as of this encounter
--- OUTSIDE RECORDS SUMMARY | 2025-08-16 06:43 | XMS_ITS | Encounter Summary ---
Author Organization [facility] Address [address] [place] [address] Phone Care Team Providers Care Field Gauger Name Role Phone Deanna Miramontes MD Primary Care Provider Encounter Details Date Type Department Care Team (Late st Contact Info) Description 03/05/2011 Documentation [facility] [place] Family Medicine [address] [place], [place] [phone] Family Medicine, Physician [address] [place], [place] [address] Social History Tobacco Use Types Packs/Day Years [...] on filedocumented in this encounter Care Teams Field Gauger Relationship Specialty Start Date End Date Deanna Miramontes MD [address] [facility] [place] [address] PCP - General 04/05/17 11/13/22 documented as of this encounter
--- OUTSIDE RECORDS SUMMARY | 2025-08-16 06:43 | XMS_ITS | Encounter Summary ---
Author Organization [facility] Address [address] [place] [address] Phone Care Team Providers Care Information Clerk Automobile Club Name Role Phone Deanna Miramontes MD Primary Care Provider [phone] Encounter Details Date Type Department Care Team (Late st Contact Info) Description 12/15/2009 Documentation [facility] [place] [address] [place], [place] [phone] Family Medicine, Physician [address] [place], [place] [address] Social History Tobacco Use Types Packs/Day Years [...] on filedocumented in this encounter Care Teams Information Clerk Automobile Club Relationship Specialty Start Date End Date Deanna Miramontes MD [address] [facility] [place] [address] PCP - General 04/05/17 11/13/22 documented as of this encounter
--- OUTSIDE RECORDS SUMMARY | 2025-08-16 06:43 | XMS_ITS | Encounter Summary ---
Author Organization [facility] Address [address] [place] [address] Phone Care Team Providers Care Unix Consultant Name Role Phone Deanna Miramontes MD Primary Care Provider Encounter Details Date Type Department Care Team (Late st Contact Info) Description 03/14/2011 Documentation [place] [facility] [address] [place], [place] [phone] Family Medicine, Physician [address] [place], [place] [address] Social History Tobacco Use Types Packs/Day Years [...] on filedocumented in this encounter Care Teams Unix Consultant Relationship Specialty Start Date End Date Deanna Miramontes MD [address] [facility] [place] [address] PCP - General 04/05/17 11/13/22 documented as of this encounter
--- OUTSIDE RECORDS SUMMARY | 2025-08-16 06:43 | XMS_ITS | Encounter Summary ---
Author Organization [facility] Address [address] [place] [address] Phone Care Team Providers Care Legal Billing Coordinator Name Role Phone Deanna Miramontes MD Primary Care Provider [phone] Encounter Details Date Type Department Care Team (Late st Contact Info) Description 10/24/2009 Documentation [facility] Family Medicine [address] [place], [place] [phone] Family Medicine, Physician [address] [place], [place] [address] Social History Tobacco Use Types Packs/Day Years [...] on filedocumented in this encounter Care Teams Legal Billing Coordinator Relationship Specialty Start Date End Date Deanna Miramontes MD 150 [place] [address] PCP - General 04/05/17 11/13/22 documented as of this encounter
--- OUTSIDE RECORDS SUMMARY | 2025-08-16 06:43 | XMS_ITS | Encounter Summary ---
Author Organization [facility] Address [address] [place] [address] Phone Care Team Providers Care Merchandising Consultant Name Role Phone Deanna Miramontes MD Primary Care Provider Encounter Details Date Type Department Care Team ([facility] Contact Info) Description 06/27/2017 Conversion Encounter [facility] [place] [address] [place] [address] Social History Tobacco Use Types Packs/Day Years [...] on filedocumented in this encounter Care Teams Merchandising Consultant Relationship Specialty Start Date End Date Deanna Miramontes MD [address] [place] [address] PCP - General 04/05/17 11/13/22 documented as of this encounter
--- OUTSIDE RECORDS SUMMARY | 2025-08-16 06:43 | XMS_ITS | Encounter Summary ---
Author Organization [facility] Address [address] [place] [address] Phone Care Team Providers Care Boatswains Mate Name Role Phone Deanna Miramontes MD Primary Care Provider Encounter Details Date Type Department Care Team (Late st Contact Info) Description 01/13/2010 Documentation [facility] [place] Family Medicine [address] [place], [place] [phone] Family Medicine, Physician [address] [place], [place] [address] Social History Tobacco Use Types Packs/Day Years [...] on filedocumented in this encounter Care Teams Boatswains Mate Relationship Specialty Start Date End Date Deanna Miramontes MD [address] [facility] [place] [address] PCP - General 04/05/17 11/13/22 documented as of this encounter
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
== END 2025-08-16 09:14 | disposition home or self-care (01) ==
LOC: HO.HMCC 06:40
PROVIDERS: PCP Nurse Practitioner Family; Visit Provider Nurse Practitioner Family
DX: M47.816 Spondylosis without myelopathy or radiculopathy, lumbar region (principal); G89.4 Chronic pain syndrome

== ENCOUNTER 2025-08-25 07:38 | Outpatient (REF) | payer OTHER, SELFPAY ==
--- NOTE | ~2025-08-25 | US_ITS ---
EXAMINATION: US RETROPERITONEUM HISTORY: R30.0 - Dysuria TECHNIQUE: Real-time grayscale ultrasound imaging of the kidneys was performed and images were reviewed. COMPARISON: Correlation is made with a CT of the abdomen with contrast dated 12/11/2022. FINDINGS: Right kidney: The right kidney measures 11.1 x 4.8 x 5.7 cm. Renal parenchymal echotexture and thickness are normal. There are no masses. There is no hydronephrosis or renal calculi. Left Kidney: The left kidney measures 11.8 x 5.4 x 5.8 cm. Renal parenchymal echotexture and thickness are normal. There are no masses. There is no hydronephrosis or renal calculi. The urinary bladder is unremarkable. Bilateral ureteral jets are identified. Before voiding, the urinary bladder measured 12.3 x 8.4 x 9.8 cm, for an estimated volume of 535 mL. After voiding, the urinary bladder measured 6.0 x 4.9 x 2.1 cm, for an estimated volume of 32.5 mL. US/US retroperitoneal comp IMPRESSION: 1. Unremarkable retroperitoneal ultrasound. 2. Post void bladder residual of 32.5 mL. Electronically signed by: Ricky To MD 08/25/2025 09:51 AM EST
--- OUTSIDE RECORDS SUMMARY | 2025-08-25 07:41 | XMS_ITS | Encounter Summary ---
Author Organization [facility] Address [address] [place] [address] Phone Care Team Providers Care Manager Of Maintenance Name Role Phone Deanna Miramontes MD Primary Care Provider Encounter Details Date Type Department Care Team (Late st Contact Info) Description 10/24/2009 Documentation [facility] [address] [place], [place] [phone] Family Medicine, Physician [address] [place], [place] [address] Social History Tobacco Use Types Packs/Day Years [...] filedocumented in this encounter Care Teams Manager Of Maintenance Relationship Specialty Start Date End Date Deanna Miramontes MD [address] [place] [address] PCP - General 04/05/17 11/13/22 documented as of this encounter
--- OUTSIDE RECORDS SUMMARY | 2025-08-25 07:41 | XMS_ITS | Encounter Summary ---
Author Organization [facility] Address [address] [place] [address] Phone Care Team Providers Care Rubber Goods Tester Water Name Role Phone Deanna Miramontes MD Primary Care Provider [phone] Encounter Details Date Type Department Care Team (Late st Contact Info) Description 01/13/2010 Documentation [facility] [place] [address] [place], [place] [phone] Family Medicine, Physician [address] [place], [place] [address] Social History Tobacco Use Types Packs/Day Years [...] in this encounter Care Teams Rubber Goods Tester Water Relationship Specialty Start Date End Date Deanna Miramontes MD [address] [facility] [place] [address] PCP - General 04/05/17 11/13/22 documented as of this encounter
--- OUTSIDE RECORDS SUMMARY | 2025-08-25 07:41 | XMS_ITS | Encounter Summary ---
Author Organization [facility] Address [address] [place] [address] Phone Care Team Providers Care Charter Driver Name Role Phone Deanna Miramontes MD Primary Care Provider Encounter Details Date Type Department Care Team (Late st Contact Info) Description 12/15/2009 Documentation [facility] [place] [address] [place], [place] [phone] Family Medicine, Physician [address] [place], [place] [address] Social History Tobacco Use Types Packs/Day Years [...] on filedocumented in this encounter Care Teams Charter Driver Relationship Specialty Start Date End Date Deanna Miramontes MD [address] [facility] [place] [address] PCP - General 04/05/17 11/13/22 documented as of this encounter
--- OUTSIDE RECORDS SUMMARY | 2025-08-25 07:41 | XMS_ITS | Encounter Summary ---
Author Organization [facility] Address [address] [place] [address] Phone Care Team Providers Care Chemical Engineering Intern Name Role Phone Deanna Miramontes MD Primary Care Provider Encounter Details Date Type Department Care Team (Late st Contact Info) Description 11/02/2011 Documentation [facility] [place] [address] [place], [place] [phone] Family Medicine, Physician [address] [place], [place] [address] Social History Tobacco Use Types Packs/Day Years [...] on filedocumented in this encounter Care Teams Chemical Engineering Intern Relationship Specialty Start Date End Date Deanna Miramontes MD [address] [facility] [address] PCP - General 04/05/17 11/13/22 documented as of this encounter
--- OUTSIDE RECORDS SUMMARY | 2025-08-25 07:41 | XMS_ITS | Clinical Summary ---
Author Organization [facility] Address [address] [place] [address] Phone Care Team Providers Care Hoop Driving Machine Operator Name Role Phone Unavailable Primary Care Provider [...] complete this topic Procedures * Due to [place] state law, this organization might not be sharing sensitive test results. Procedure Name Priority Date/Time Associated Diagnosis Comments CHLAMYDIA AND GONORRHEA, AMPLIFIED Routine 04/15/2010 3:21 PM EDT from Last 3 Months or Most Recently Relevant to Health Maintenance Results * Due to [place] state law, this organization might not be sharing sensitive test results. * Chlamydia and Gonorrhoea, Amplified (04/15/2010 3:21 PM EDT) URINE CHLAMYDIA AMP PROBE NEGATIVE [facility] Comment: NO CHLAMYDIA TRACHOMATIS RNA DETECTED IN THIS PATIENT'S SAMPLE. (REFERENCE RANGE/NORMAL VALUE: NOT DETECTED) URINE GC AMP PROBE NEGATIVE [facility] Comment: NO NEISSERIA GONORRHOEAE RNA DETECTED IN THIS PATIENT'S SAMPLE. (REFERENCE RANGE/NORMAL VALUE: NOT DETECTED) NOTE: THIS TEST USES ATTENDANT ARCADE MEDIATED AMPLIFICATION METHOD TO DETECT rRNA FROM [...] AGENTS. 04/15/2010 3:21 PM EDT Narrative [facility] - 04/15/2010 3:21 PM EDT URINE CHLAMYDIA GC AMP PROBE us Deanna Miramontes MD LAB MICROBIOLOGY - GENERAL O RDERABLES Final Result [facility] [address] [address], [place] from Last 3 Months or Most Recently Relevant to Health Maintenance
--- OUTSIDE RECORDS SUMMARY | 2025-08-25 07:41 | XMS_ITS | Encounter Summary ---
Author Organization [facility] Address [address] [place] [address] Phone Care Team Providers Care Field Assessor Name Role Phone Deanna Miramontes MD Primary Care Provider [phone] Encounter Details Date Type Department Care Team (Late st Contact Info) Description 03/14/2011 Documentation [facility] [place] [address] [place], [place] [phone] Family Medicine, Physician [address] [place], [place] [address] Social History Tobacco Use Types Packs/Day Years [...] filedocumented in this encounter Care Teams Field Assessor Relationship Specialty Start Date End Date Deanna Miramontes MD [address] [facility] [place] [address] PCP - General 04/05/17 11/13/22 documented as of this encounter
--- OUTSIDE RECORDS SUMMARY | 2025-08-25 07:41 | XMS_ITS | Encounter Summary ---
Author Organization [facility] Address [address] [place] [address] Phone Care Team Providers Care Police Academy Instructor Name Role Phone Deanna Miramontes MD Primary Care Provider Encounter Details Date Type Department Care Team (Late st Contact Info) Description 10/24/2009 Documentation [facility] [address] [place], [place] [phone] Family Medicine, Physician [address] [place], [place] [address] Social History Tobacco Use Types Packs/Day Years [...] in this encounter Care Teams Police Academy Instructor Relationship Specialty Start Date End Date Deanna Miramontes MD [address] [facility] [place] [address] PCP - General 04/05/17 11/13/22 documented as of this encounter
--- OUTSIDE RECORDS SUMMARY | 2025-08-25 07:41 | XMS_ITS | Encounter Summary ---
Author Organization [facility] Address [address] [place] [address] Phone Care Team Providers Care Desktop Architect Name Role Phone Deanna Miramontes MD Primary Care Provider Encounter Details Date Type Department Care Team (Late st Contact Info) Description 02/13/2011 Documentation [facility] [place] [address] [place], [place] [phone] Family Medicine, Physician [address] [place], [place] [address] Social History Tobacco Use Types Packs/Day Years [...] on filedocumented in this encounter Care Teams Desktop Architect Relationship Specialty Start Date End Date Deanna Miramontes MD [address] [facility] [place] [address] PCP - General 04/05/17 11/13/22 documented as of this encounter
--- OUTSIDE RECORDS SUMMARY | 2025-08-25 07:41 | XMS_ITS | Encounter Summary ---
Author Organization [facility] Address [address] [place] [address] Phone Care Team Providers Care Line Installer Repairer Name Role Phone Deanna Miramontes MD Primary Care Provider [phone] Encounter Details Date Type Department Care Team (Late st Contact Info) Description 03/05/2011 Documentation [facility] [place] [address] [place], [place] [phone] Family Medicine, Physician [address] [place], [place] [address] Social History Tobacco Use Types Packs/Day Years [...] on filedocumented in this encounter Care Teams Line Installer Repairer Relationship Specialty Start Date End Date Deanna Miramontes MD [address] [place] [address] PCP - General 04/05/17 11/13/22 documented as of this encounter
--- OUTSIDE RECORDS SUMMARY | 2025-08-25 07:41 | XMS_ITS | Encounter Summary ---
Author Organization [facility] Address [address] [place] [address] Phone Care Team Providers Care Manager Private Name Role Phone Deanna Miramontes MD Primary Care Provider [phone] Encounter Details Date Type Department Care Team ([facility] Contact Info) Description 06/27/2017 Conversion Encounter [facility] [address] [place] [address] Social History Tobacco Use Types Packs/Day Years [...] filedocumented in this encounter Care Teams Manager Private Relationship Specialty Start Date End Date Deanna Miramontes MD [address] [place] [address] PCP - General 04/05/17 11/13/22 documented as of this encounter
--- OUTSIDE RECORDS SUMMARY | 2025-08-25 07:41 | XMS_ITS | Encounter Summary ---
Author Organization [facility] Address [address] [place] [address] Phone Care Team Providers Care Supervisor In Charge Name Role Phone Deanna Miramontes MD Primary Care Provider Encounter Details Date Type Department Care Team (Late st Contact Info) Description 09/19/2010 Documentation [facility] [place] [facility] [address] [place], [place] [phone] Family Medicine, Physician [address] [place], [place] [address] Social History Tobacco Use Types Packs/Day Years [...] filedocumented in this encounter Care Teams Supervisor In Charge Relationship Specialty Start Date End Date Deanna Miramontes MD [address] [place] [address] PCP - General 04/05/17 11/13/22 documented as of this encounter
--- OUTSIDE RECORDS SUMMARY | 2025-08-25 07:41 | XMS_ITS | Encounter Summary ---
Author Organization [facility] Address [address] [place] [address] Phone Care Team Providers Care Surgical Consultant Name Role Phone Deanna Miramontes MD Primary Care Provider Encounter Details Date Type Department Care Team (Late st Contact Info) Description 03/05/[address] [facility] [place] Family Medicine [address] [place], [place] [phone] Family Medicine, Physician [address] [place], [place] [address] Social History Tobacco Use Types Packs/Day Years [...] on filedocumented in this encounter Care Teams Surgical Consultant Relationship Specialty Start Date End Date Deanna Miramontes MD [address] [place] [address] PCP - General 04/05/17 11/13/22 documented as of this encounter
--- OUTSIDE RECORDS SUMMARY | 2025-08-25 07:41 | XMS_ITS | Encounter Summary ---
Author Organization [facility] Address [address] [place] [address] Phone Care Team Providers Care Records Clerk Name Role Phone Deanna Miramontes MD Primary Care Provider [phone] Encounter Details Date Type Department Care Team (Late st Contact Info) Description 01/13/2010 Documentation [facility] [place] [address] [place], [place] [phone] Family Medicine, Physician [address] [place], [place] [address] Social History Tobacco Use Types Packs/Day Years [...] on filedocumented in this encounter Care Teams Records Clerk Relationship Specialty Start Date End Date Deanna Miramontes MD [address] [facility] [place] [address] PCP - General 04/05/17 11/13/22 documented as of this encounter
--- OUTSIDE RECORDS SUMMARY | 2025-08-25 07:41 | XMS_ITS | Encounter Summary ---
Author Organization [facility] Address [address] [place] [address] Phone Care Team Providers Care Director Of Academic Name Role Phone Deanna Miramontes MD Primary Care Provider Encounter Details Date Type Department Care Team (Late st Contact Info) Description 05/23/2011 Documentation [facility] [place] [address] [place], [place] [phone] Family Medicine, Physician [address] [place], [place] [address] Social History Tobacco Use Types Packs/Day Years [...] filedocumented in this encounter Care Teams Director Of Academic Relationship Specialty Start Date End Date Deanna Miramontes MD [address] [facility] [place] [address] PCP - General 04/05/17 11/13/22 documented as of this encounter
== END 2025-08-25 07:39 | disposition home or self-care (01) ==
LOC: HO.US 07:38
PROVIDERS: PCP Nurse Practitioner Family; Visit Provider Nurse Practitioner Family
DX: R30.0 Dysuria (principal); N39.0 Urinary tract infection, site not specified; R82.90 Unspecified abnormal findings in urine
CPT/HCPCS: 76770

== ENCOUNTER → 2025-08-25 07:40 | Outpatient (BNV) | payer OTHER, SELFPAY | PROVIDERS: PCP Nurse Practitioner Family; Visit Provider Radiology Diagnostic Radiology | DX: R30.0 Dysuria (principal) | CPT/HCPCS: 76770 ==